=== PATIENT | male | born 1965 | race Caucasian/White ===

== ENCOUNTER 2017-12-18 01:48 | Inpatient (IN) | payer MEDICARE, SELFPAY ==
[2017-12-18] VITALS (50 sets, daily range): BP systolic 85–164; BP diastolic 61–103; PULSE 86–109; RESP 14–28; TEMP 36.1–37.6; O2SAT 89–100; BMI 22.8; BMI 21.7
[2017-12-18] MEDS: Naloxone 2 MG/2 ML Syringe IV (01:51)
--- NOTE | 2017-12-18 01:51 | EKG12_ITS ---
Test Reason : UNRESPONSIVE Blood Pressure : / mmHG Vent. Rate : 089 BPM Atrial Rate : 416 BPM P-R Int : 000 ms QRS Dur : 096 ms QT Int : 362 ms P-R-T Axes : 000 070 051 degrees QTc Int : 440 ms Normal sinus rhythm Nonspecific T wave abnormality Abnormal ECG Confirmed by AILEEN ESTRADA, OLIVIA ([id number]), brands editor MICHAEL SYLVESTER ([id number]) on 12/20/2017 1:39:31 PM Referred By: DR HUBER Confirmed By:OLIVIA GALLAGHER MD
--- NOTE | 2017-12-18 01:51 | CT_ITS ---
STUDY: CT BRAIN WITHOUT CONTRAST REASON FOR EXAM: Male, 52 years old. Unresponsive. RADIATION DOSAGE (If Supplied By Facility): CTDIvol = ( 44.99 ) mGy, DLP = ( 779.24 ) mGycm TECHNIQUE: Transaxial CT imaging of the brain was performed without administration of intravenous contrast material. Individualized dose optimization techniques were used for this CT. COMPARISON: None. FINDINGS: Normal soft tissue structures. Normal calvarium. Normal size ventricles and extra-axial spaces for the patient's age. Normal white matter tracts of the cerebral hemispheres. Normal basal ganglia and thalami. Normal brainstem. Normal cerebellum. There is no intracranial hemorrhage. There are no findings of an acute ischemic infarction. There is opacification of the right frontal sinus. Right frontal sinus díaz are thickened and sclerotic, consistent with chronic disease.. There is mild mucoperiosteal thickening in multiple ethmoid air cells bilaterally, also consistent with chronic disease. There is no evidence for acute sinusitis. CT/Brain/Head without Contrast IMPRESSION: Normal unenhanced CT scan of the brain. Chronic sinusitis. Electronically Signed: Bruce Lei MD at 4:26 EDT , Service support ,
[2017-12-18] MEDS: Succinylcholine Chloride 200 MG/10 ML Vial 120 MG IV (02:00)
[2017-12-18] MEDS: Etomidate 20 MG/10 ML Vial IV (02:00)
--- NOTE | 2017-12-18 02:25 | RAD_ITS ---
STUDY: X-RAY CHEST REASON FOR EXAM: Male, 52 years old. Patient was found unresponsive. Low respirations. TECHNIQUE: 2 AP portable views of the chest were obtained. COMPARISON: None. FINDINGS: Endotracheal tube tip is 5.1 cm above the lavonne. Nasogastric tube extends at least as far as the body the stomach. There is no demonstrated pneumothorax. There is mild interstitial prominence in the upper lung bustos which is probably chronic. There is no demonstrated focal pulmonary infiltrate. There is no demonstrated pleural abnormality. Normal size heart. Normal mediastinum and anderson. Normal visualized pulmonary arteries. Normal visualized aortic arch and descending thoracic aorta. There are diffuse degenerative changes of the visualized thoracic spine. Normal visualized ribs, clavicles, and shoulders. There is no demonstrated abnormality of the visualized soft tissue structures of the upper abdomen. RAD/Chest 1 View (Portable) IMPRESSION: Tubes are in adequate position. Mild interstitial prominence in the upper lung bustos, probably chronic. No demonstrated focal pulmonary infiltrate. Electronically Signed: Bruce Lei MD at 3:39 EDT , Service support ,
[2017-12-18] MEDS: Ketamine HCl 500 MG/5 ML Vial 150 MG IV (02:28)
[2017-12-18 02:33] LABS: Bacteria 0 SEEN /hpf (None Seen); Squamous Epithelial Cells - UA 0 SEEN /hpf (0-5)
[2017-12-18 02:37] LABS: Color, Urine Yellow (Yellow); Glucose, Dipstick Normal (Normal); Ketone-Dipstick Negative (Negative); Leukocyte Esterase-Dipstick 100 /ul (Negative); Nitrite-Dipstick Negative (Negative); Occult Blood-Urine 10 /ul (Negative); Protein-Dipstick 15 mg/dl (Negative); Specific Gravity, Urine 1.025 (1.002-1.030); Urine Bilirubin Dipstick Negative (Negative); Urine Clarity Sl. Cloudy (Clear); Urine Urobilinogen 4 mg/dl (Normal)
[2017-12-18] MEDS: Ipratropium/Albuterol Sulfate 3 ML AMPUL.NEB INHALATION ×6 (02:37→22:38)
[2017-12-18] MEDS: 0.9% Normal Saline 1,000 ML 1000 ML IV (02:40)
[2017-12-18 02:41] LABS: Absolute Lymphocyte Count 7.18 X10^3/ul (0.83-4.51); Absolute Neutrophil Count 3.6 X10^3/uL (2.0-7.7); Basophil# 0.06 X10^3/uL; Basophil% 0.5 % (0-1); Differential Indicated SCAN CRITERIA MET; Eosinophil# 0.79 X10^3/uL; Eosinophils% 6.1 % (0-5); Hematocrit 43.6 % (40-54); Hemoglobin 14.7 g/dl (13.0-16.5); Lymphocyte # 7.18 X10^3/ul (4.0); Lymphocyte % 55.4 % (19-41); Mean Corp Hgb Conc 33.7 g/gl (32-36); Mean Corpuscular Hgb 33.4 pg (27.0-32.0); Mean Corpuscular Volume 99.1 fL (80-94); Mean Platelet Vol. 10.9 fl (6.2-12.0); Monocyte# 1.25 X10^3/uL; Monocyte% 9.7 % (0-10); Neutrophil # 3.63 X10^3/uL (2.7-7.7); POSITIVE COUNT NO; POSITIVE DIFFERENTIAL YES; POSITIVE MORPHOLOGY NO; Platelet Count 244 K/mm3 (150-450); RBC Distribution Width CV 13.1 % (11.6-14.6); RBC Distribution Width SD 48.1 fl (35.1-43.9)
[2017-12-18 02:46] LABS: Vista UDS pH Range 6
[2017-12-18 02:49] LABS: Mucous, Urine 1+ /hpf (<or=2+); Red Blood Cells-Urine 0-5 SEEN /hpf (0-5); White Blood Cells 5-10 SEEN /hpf (0-5)
[2017-12-18 02:50] LABS: AST(SGOT) 41 U/L (15-37); Alanine Aminotransfer ALT/SGPT 29 U/L (16-61); Albumin, Serum 3.4 g/dL (3.2-5.0); Alkaline Phosphatase 93 U/L (45-117); Anion Gap 21 (5-15); BUN 11 mg/dL (7-18); BUN/Creat Ratio 7.6 RATIO (10-20); Calcium,Total 8.9 mg/dL (8.5-10.1); Chloride 104 mmol/L (98-107); Creatinine, Serum 1.45 mg/dL (0.70-1.30); EST Glomerular Filtration Rate 54 mL/min (>60); Est Glom Filt Rate - Afr Amer 65 mL/min (>60); Estimated Creatinine Clearance 59.64 ml/min; Globulin 3.5 g/dL (2.2-4.2); Glucose 209 mg/dL (74-106); Protein, Total 6.9 g/dL (6.4-8.2); Sodium Level 142 mmol/L (136-145)
[2017-12-18] MEDS: Albuterol 2.5 MG/3 ML VIAL.NEB. INHALATION ×5 (03:00→06:52)
[2017-12-18 03:02] LABS: Amphetamine Urine VISTA POSITIVE (<1000 ng/mL); Barbiturate Urine VISTA NEGATIVE (< 200 ng/mL); Benzodiazepine Urine VISTA NEGATIVE (< 200 ng/mL); Cocaine Urine VISTA NEGATIVE (< 300 ng/mL); Ecstacy Urine VISTA POSITIVE (< 500 ng/mL); Methadone Urine VISTA NEGATIVE (< 300 ng/mL); PCP Urine VISTA NEGATIVE (< 25 ng/mL); THC Urine VISTA POSITIVE (< 50 ng/mL)
[2017-12-18 03:10] LABS: Alcohol, Blood (Medical)-Serum < 3.0 mg/dL
[2017-12-18] MEDS: Ketamine HCl 500 MG/5 ML Vial 72 MG IV (03:12)
[2017-12-18] MEDS: 0.9% Normal Saline 1,000 ML 999 ML IV ×2 (03:12→03:15)
[2017-12-18 03:14] LABS: Differential Comment SCANNED; Reactive Lymphocyte 2+
--- NOTE | 2017-12-18 03:17 | HP.PCM_ITS ---
Problem List (1) PEA (Pulseless electrical activity) Status: Acute History of Present Illness Date of Admission: 12/18/17 Chief Complaint: PEA The patient is a 52 year old male w/ unknown history is admitted for PEA. Pt unable to provide history. History is taken from report. He went to his neighbor complaining that he was SOB. Neighbor called paramedics and when paramedics arrived, he was in severe SOB with low respirate rate and bradycardia noted. When he arrived, he was given narcan and he became combative. ED physician attempted to intubate and he went into PEA. 3 dose of epinephrine and 2 dose of bicarb given. His SBP was in the 160s. Past Medical History Allergies Unable to Assess Allergy (Verified 12/18/17 02:42) Home Medications: Ambulatory Orders Medication Instructions Recorded Unobtainable [Unobtainable] 12/18/17 Smoking Status: Unknown if ever smoked Review of Systems Unable to obtain accurate/complete ROS d/t: Unable to obtain secondary to PEA VTE Information - Inpt Only VTE Present on Admission: No VTE Mechan Device Prophylaxis: SCD's VTE Pharm Prophylaxis ordered?: Yes Patient Problems: Active and Suspected Problems PEA (Pulseless electrical activity) (Acute) - Physical Exam General: - - Nonresponsive. HEENT: Atraumatic, Normocephalic, Sluggish Pupils - Nonreactive left pupil. Neck: Supple, No JVD, Negative Carotid Bruits Lungs: Diminished, Rales, Wheezes Cardiovascular: Regular rate, Tachycardic Abdomen: Bowel Sounds Present, Soft Extremities: No edema, Capillary Refill Less than 3 Seconds Skin: No rashes, No breakdown Musculoskeletal: No Tenderness to Palpation of Joints or Extremities Neurological: - - Nonreponsive, does not withdrawal to pain. Psych/Mental Status: Normal Affect, Appropriate Vital Signs Temp Pulse Resp BP Pulse Ox 98.7 F 103 H 15 164/87 H 100 12/18/17 02:05 12/18/17 02:50 12/18/17 02:50 12/18/17 02:50 12/18/17 02:50 Oxygen Delivery Method Mechanical Ventilator Weight: 72.4 kg Body Mass Index (BMI) 22.8 Laboratory Tests Past 24 Hrs 12/18/17 12/18/17 12/18/17 02:20 02:20 02:20 WBC 13.0 H RBC 4.40 L Hgb 14.7 Hct 43.6 MCV 99.1 H MCH 33.4 H MCHC 33.7 RDW 13.1 RDW Differential 48.1 H Plt Count 244 MPV 10.9 Immature Gran % (Auto) 0.300 Neut % (Auto) 28.0 L Lymph % (Auto) 55.4 H [place] % (Auto) 9.7 Eos % (Auto) 6.1 H Baso % (Auto) 0.5 Absolute Neuts (auto) 3.6 Absolute Lymphs (auto) 7.18 H Total Counted Pending Sodium 142 Potassium 4.0 Chloride 104 Carbon Dioxide 17.0 L Anion Gap 21 H BUN 11 Creatinine 1.45 H Estim Creat Clear Calc 59.64 Est GFR (MDRD) Af Amer 65 Est GFR (MDRD) Non-Af 54 L BUN/Creatinine Ratio 7.6 L Glucose 209 H Lactic Acid Calcium 8.9 Total Bilirubin 0.60 AST 41 H ALT 29 Alkaline Phosphatase 93 Total Protein 6.9 Albumin 3.4 Globulin 3.5 Albumin/Globulin Ratio 1.0 Urine Color Urine Clarity Urine pH Ur Specific [place] Urine Protein Urine Glucose (UA) Urine Ketones Urine Occult Blood Urine Nitrite Urine Bilirubin Urine Urobilinogen Ur Leukocyte Esterase Urine RBC Urine WBC Ur Squamous Epith Cells Urine Bacteria Urine Mucus Urine Opiates Screen Urine Methadone Screen Ur Barbiturates Screen Ur Phencyclidine Scrn Ur Amphetamines Screen U Methamphetamin-MDMA U Benzodiazepines Scrn Urine Cocaine Screen U Cannabinoids Screen Ur Drug Screen Comment Ethyl Alcohol Pending 12/18/17 12/18/17 12/18/17 02:20 02:20 02:20 WBC RBC Hgb Hct MCV MCH MCHC RDW RDW Differential Plt Count MPV Immature Gran % (Auto) Neut % (Auto) Lymph % (Auto) [place] % (Auto) Eos % (Auto) Baso % (Auto) Absolute Neuts (auto) Absolute Lymphs (auto) Total Counted Sodium Potassium Chloride Carbon Dioxide Anion Gap BUN Creatinine Estim Creat Clear Calc Est GFR (MDRD) Af Amer Est GFR (MDRD) Non-Af BUN/Creatinine Ratio Glucose Lactic Acid Pending Calcium Total Bilirubin AST ALT Alkaline Phosphatase Total Protein Albumin Globulin Albumin/Globulin Ratio Urine Color Yellow Urine Clarity Sl. Cloudy Urine pH 5.0 Ur Specific [place] 1.025 Urine Protein 15 H Urine Glucose (UA) Normal Urine Ketones Negative Urine Occult Blood 10 H Urine Nitrite Negative Urine Bilirubin Negative Urine Urobilinogen 4 H Ur Leukocyte Esterase 100 H Urine RBC 0-5 SEEN Urine WBC 5-10 SEEN Ur Squamous Epith Cells 0 SEEN Urine Bacteria 0 SEEN Urine Mucus 1+ Urine Opiates Screen NEGATIVE Urine Methadone Screen NEGATIVE Ur Barbiturates Screen NEGATIVE Ur Phencyclidine Scrn NEGATIVE Ur Amphetamines Screen POSITIVE H U Methamphetamin-MDMA POSITIVE H U Benzodiazepines Scrn NEGATIVE Urine Cocaine Screen NEGATIVE U Cannabinoids Screen POSITIVE H Ur Drug Screen Comment Ethyl Alcohol Assessment/Plan All Active Problems PEA (Pulseless electrical activity) (Acute) 52 year old male w/ unknown history is admitted for PEA. 1) PEA: Probably secondary to hypoxia secondary to supposed respiratory drive secondary to probably drug overdose. Utox pending. C/w vent support. Consulted pulmonary. 2) Alter mental status: CT head pending. Will need to reassess neuro status daily given PEA. Supportive care. 3) Acute respiratory failure: C/w vent support. Probably secondary to drug overdose. Chest xray is unremarkable. Monitor. 4) Prophylaxis: SCD / heparin.
[2017-12-18 03:21] LABS: Allen Test POS; Base Excess -14 mmol/L (-2 to +2); Bicarbonate 19.2 mmol/L (22-26); Blood Gas Specimen Type ART; FI02 50; Mode A-C; O2 Delivery Device Vent; PEEP 5; PO2 157 mmHG (75-100); RR 16; SITE L Radial; SO2 97 % (95-99); Time Given 305; Total Carbon Dioxide 22 mmol/L; Vt 450; pCO2 106.7 mmHg (35-45); pH 6.86 (7.35-7.45)
[2017-12-18] MEDS: LORazepam 2 MG/ML Syringe IV (03:29)
[2017-12-18] MEDS: Vecuronium Bromide 10 MG/10 ML Vial IV (03:30)
[2017-12-18 03:31] LABS: International Normalized Ratio 1.4; Prothrombin Time (Protime)PT. 17.3 SECONDS (11.7-14.9)
[2017-12-18 03:32] LABS: Partial Thromboplast Time 31.3 Seconds (24.1-36.2)
--- NOTE | 2017-12-18 03:50 | NURSING ---
pt put in violent restraints at 01:50 due to his violent and combative behavior after the narcan. the pt was then put in soft restraints at 02:10 because he was mechanically vented. see code documentation for further information.
--- NOTE | 2017-12-18 04:36 | ED.DCSUM_ITS ---
- ER Visit Summary Date of Service: 12/18/17 Chief Complaint: Unresponsive History of Present Illness: The patient is a 52 M that I do not have any medical history on. Neighbor presents stating that the patient came over and knocked on his door and complained of being short of breath. He called EMS. EMS reports that they were told he had not been breathing for approximately 5 minutes before they were called. When they arrived he was laying on the back patio with a pulse of approximately 20 and respiratory rate of 2. They report that his pulse decreased to 6-10. They placed him on oxygen and gave him an aerosol and his heart rate had increased into the 100s. He remained unresponsive. Physical Examination: Upon arrival to the emergency department the patient is unresponsive with a blood pressure of 90/74, heart rate of 104, 91% on bag valve mask. Temperature is 98.7. He has agonal respirations. Head: Atraumatic. Pupils are small but not pinpoint. Cardiovascular: Tachycardia with no murmur. He has a strong femoral pulse. Respiratory: Agonal respirations with no gag reflex. Abdomen: Soft and nondistended. Skin: No rash. Cyanosis. Test Results: EKG is sinus at 89 with no ischemic changes. Troponin is negative. Lactic acid is 14. CBC is more for a white count of 13.0, segmented neutrophils of 28, lymphocytes of 5, eosinophils of 6. Chem-7 is marked for his a CO2 of 17, creatinine 1.45, glucose of 209. LFTs marked for an AST 41. INR is 1.4. PTT is 31.3. Tox screen shows methamphetamine, amphetamine, and marijuana. Alcohol is negative. UA shows 5-10 white blood cells without bacteria. ABG shows a pH is 6.86 with a PCO2 of 107, 07/07/1958, bicarb of 19.2. Chest x-ray shows the ETT to be approximately 5 cm above the lavonne. The OG is in the stomach. He has chronic changes. There is no pneumothorax or infiltrate. CT brain shows no acute disease and chronic sinusitis. Emergency Department Course and Treatment: With report of a low respiratory rate and small pupils patient was given 2 mg of Narcan IV. He did become more responsive following this, but became very combative. His lungs were tight with expiratory wheezes. We attempted to give aerosols and he would not allow this. He would not leave the oxygen on. Patient was given etomidate and succinylcholine so that further treatment could be undertaken. At this time we were unable to get a pulse ox. Initial attempt at intubation showed vomitus in the posterior pharynx and a great deal of secretions. I was unable to visualize the cords, a blind intubation was attempted and resulted in esophageal intubation. This was recognized the tube was removed. The patient was bagged. Second attempt resulted in endotracheal intubation without difficulty. Patient had a brief episode of PEA in the emergency department that required 1 dose of epinephrine and one round of chest compressions. Following intubation the patient was given multiple albuterol aerosols. He was given Solu-Medrol IV. When the ABG returned it was found that there was a leak in the tubing between the ventilator and the patient. This was repaired. Patient is placed on a continuous CO2 monitor and his CO2 is down to 52. Due to the concern of the possibility of aspiration patient was given a dose of Zosyn in the emergency department. Treatment Plan: The patient was discussed with Dr. Nice and will be admitted to the hospital for further evaluation and treatment. Disposition: Admitted in critical condition. Impression: 1. Acute respiratory failure. 2. Bronchospasm. 3. Hypoxia. 4. PEA. 5. CPR, unsuccessful. 6. Lactic acidosis. 7. Polysubstance abuse. 8. Intubation by ED physician. 9. Critical care time 60 minutes. This note was generated with [employer] dictation software. It may contain incorrect words, spelling, and punctuation that were not noted in review of the chart prior to signing ED Disposition - Plan for ED Patient: Chief Complaint: Unresponsive
[2017-12-18] MEDS: MethylPREDNISolone 125 MG/2 ML Vial IV (04:50)
[2017-12-18 04:56] LABS: Allen Test POS; Base Excess -6 mmol/L (-2 to +2); Bicarbonate 24.4 mmol/L (22-26); Blood Gas Specimen Type ART; FI02 40; Mode A-C; O2 Delivery Device Vent; PEEP 5; PO2 78 mmHG (75-100); RR 16; SITE R Radial; SO2 87 % (95-99); Time Given 440; Total Carbon Dioxide 27 mmol/L; Vt 450; pCO2 88.4 mmHg (35-45); pH 7.05 (7.35-7.45)
[2017-12-18] MEDS: Propofol 10MG/Ml 1,000 MG/100 ML Bottle 2.172 MG CONT INF ×2 (06:04→15:54)
[2017-12-18] MEDS: Heparin Injection (Vial) 5,000 UNIT/ML VIAL 5000 UNIT SC ×3 (06:08→21:50)
[2017-12-18] MEDS: 0.9% NaCl Peripheral Flush Adult/Peds IV ×6 (06:18→22:23)
[2017-12-18 06:29] LABS: Hematocrit 46.4 % (40-54); Hemoglobin 15.6 g/dl (13.0-16.5); Mean Corp Hgb Conc 33.6 g/gl (32-36); Mean Corpuscular Hgb 32.6 pg (27.0-32.0); Mean Corpuscular Volume 96.9 fL (80-94); Mean Platelet Vol. 10.1 fl (6.2-12.0); Platelet Count 249 K/mm3 (150-450); RBC Distribution Width CV 13.5 % (11.6-14.6); RBC Distribution Width SD 47.2 fl (35.1-43.9); Red Blood Count 4.79 M/mm3 (4.6-6.2); White Blood Count 12.7 K/mm3 (4.4-11.0)
[2017-12-18 06:30] LABS: Reflex Lactate? Y
[2017-12-18 06:37] LABS: Scan Indicated on CBC? Y/N NO
[2017-12-18 06:50] LABS: Anion Gap 6 (5-15); BUN 14 mg/dL (7-18); BUN/Creat Ratio 10.4 RATIO (10-20); Calcium,Total 7.6 mg/dL (8.5-10.1); Chloride 110 mmol/L (98-107); Creatinine, Serum 1.35 mg/dL (0.70-1.30); EST Glomerular Filtration Rate 58 mL/min (>60); Est Glom Filt Rate - Afr Amer 71 mL/min (>60); Glucose 113 mg/dL (74-106); Potassium 4.3 mmol/L (3.5-5.1); Sodium Level 143 mmol/L (136-145)
[2017-12-18 06:57] LABS: Triglycerides 60 mg/dL
[2017-12-18 07:01] LABS: Lactic Acid 0.8 mmol/L (0.4-2.0)
[2017-12-18 07:03] LABS: CPK Total, Creatine Kinase 930 U/L (39-308)
[2017-12-18 07:17] LABS: Probe Check PASS
[2017-12-18 07:19] LABS: M R Staph aureus DNA By PCR POSITIVE (Negative)
--- NOTE | 2017-12-18 07:26 | PCM.PN.HOSP ---
Patient Problems: Active and Suspected Problems PEA (Pulseless electrical activity) (Acute) Acute and chronic respiratory failure with hypoxia (Acute) Subjective: Patient was intubated, started on mechanical ventilation. He remains on mechanical ventilation. Vitals/I&O's: Vital Signs Temp Pulse Resp BP Pulse Ox 97.0 F L 93 16 118/88 H 99 12/18/17 05:50 12/18/17 07:00 12/18/17 07:00 12/18/17 07:00 12/18/17 07:00 Oxygen Delivery Method Mechanical Ventilator Weight: 68.6 kg Body Mass Index (BMI) 21.7 Intake and Output for Last 24 Hours 12/16/17 12/17/17 12/18/17 23:59 23:59 23:59 Intake Total 3017 / 3017 Output Total 400 / 400 Balance 2617 / 2617 General: Alert, Lethargic - Intubated HEENT: Atraumatic, PERRLA, EOMI, Normocephalic Oral: Dry Mucosa Neck: Supple Lungs: Clear to auscultation, Normal air movement Cardiovascular: Regular rate, Regular Rhythm, Normal S1, Normal S2, No murmurs Abdomen: Bowel Sounds Present, Soft, Non Tender, Non-Distended, No Hepato-splenomegaly Extremities: No edema Skin: No rashes, - - Tattoes on skin Musculoskeletal: No Tenderness to Palpation of Joints or Extremities Lymphatic: No Cervical, Supraclavicular, or Inguinal Adenopathy Neurological: Cranial nerves II-XII grossly intact Psych/Mental Status: Normal Affect, Appropriate Laboratory Results 12/18/17 03:11: Specimen Type ART, Sample Site L Radial, pH 6.86 L*, Bicarbonate Actual 19.2 L, POC Total CO2 22, Base Excess -14 L, O2 Saturation 97, O2 % 50, ABG pCO2 106.7 H*, ABG pO2 157 H, Samuel Test POS, Respiration Rate 16, O2 Delivery Device Vent, Vent Mode A-C, Tidal Volume 450, POC PEEP 5, Blood Gas Notified Whom ED , Blood Gas Notified Time 305 12/18/17 04:47: Specimen Type ART, Sample Site R Radial, pH 7.05 L*, Bicarbonate Actual 24.4, POC Total CO2 27, Base Excess -6 L, O2 Saturation 87 L, O2 % 40, ABG pCO2 88.4 H*, ABG pO2 78, Samuel Test POS, Respiration Rate 16, O2 Delivery Device Vent, Minute Volume 6.00, Vent Mode A-C, Tidal Volume 450, POC PEEP 5, Blood Gas Notified Whom ED , Blood Gas Notified Time 440 12/18/17 05:30: MRSA (PCR) POSITIVE H 12/18/17 06:15: WBC 12.7 H, RBC 4.79, Hgb 15.6, Hct 46.4, MCV 96.9 H, MCH 32.6 H, MCHC 33.6, RDW 13.5, RDW Differential 47.2 H, Plt Count 249, MPV 10.1 12/18/17 06:15: Sodium 143, Potassium 4.3, Chloride 110 H, Carbon Dioxide 27.0, Anion Gap 6, BUN 14, Creatinine 1.35 H, Estim Creat Clear Calc 60.70, Est GFR (MDRD) Af Amer 71, Est GFR (MDRD) Non-Af 58 L, BUN/Creatinine Ratio 10.4, Glucose 113 H, Calcium 7.6 L 12/18/17 06:15: Lactic Acid Cancelled 12/18/17 06:15: Troponin I 0.027, Triglycerides 60 12/18/17 06:15: Total Creatine Kinase 930 H 12/18/17 06:15: Lactic Acid 0.8 Current Medications Albuterol Sulfate (Ventolin Aerosols) 2.5 mg INHALATION Q2H PRN PRN PRN Reason: WHEEZING Last Admin: 12/18/17 06:52 Dose: 2.5 mg Albuterol/Ipratropium (Duoneb) 3 ml INHALATION Q4H.RT [facility] Last Admin: 12/18/17 06:00 Dose: 3 ml Chlorhexidine Gluconate () 15 ml PO BID [facility] Chlorhexidine Gluconate () 1 each TOPICAL DAILY [facility] Famotidine (Pepcid) 20 mg PO BID [facility] Guaifenesin (Robitussin) 10 ml GT Q4 [facility] Heparin Sodium (Porcine) (Heparin Na) 5,000 unit SC Q8 [facility] Last Admin: 12/18/17 06:08 Dose: 5,000 units Fentanyl () 100 mls @ 2.5 mls/hr IV .Q40H [facility] Last Admin: 12/18/17 03:37 Dose: 2.5 mls/hr Propofol (Diprivan) 1,000 mg in 100 mls @ 2.172 mls/hr CONT INF .Q12H [facility]; 5 MCG/KG/MIN PRN Reason: Protocol Last Admin: 12/18/17 06:04 Dose: 2.172 mls/hr Sodium Chloride () 250 mls @ 15 mls/hr IV .[id number] PRN PRN Reason: SALINE FLUSH Piperacillin Sod/Tazobactam Sod (Zosyn) 3.375 gm in 50 mls @ 12.5 mls/hr IV Q8 [facility] Vancomycin HCl (Vancomycin) 1,000 mg in 200 mls @ 200 mls/hr IV Q24H [facility] Magnesium Hydroxide (Milk Of Magnesia) 30 ml PO DAILY PRN PRN PRN Reason: Constipation Methylprednisolone (Solu-Medrol) 40 mg IV Q6 [facility] Sodium Chloride () 5 - 30 ml IV UD PRN PRN Reason: SALINE FLUSH Last Admin: 12/18/17 06:18 Dose: 10 ml Medical Necessity - Tobacco Use Smoking Status: Unknown if ever smoked Assessment/Plan All Active Problems PEA (Pulseless electrical activity) (Acute) Acute and chronic respiratory failure with hypoxia (Acute) 52-year-old male with no known past medical history admitted on 12/18/17 with unresponsiveness. According to the history given by the ED, the EMS was called by a neighbor when the patient had come to knock on the door and complained of feeling short of breath. It is reported that he was not breathing for approximately 5 minutes before they were called. They had found him lying on the back patio with a pulse of 20 and respiratory rate of 2. He was started on oxygen and given a breathing treatment and his heart rate improved in the 100s. He still remained unresponsive. Blood pressure on arrival to the ED was 90/74, heart rate is 104, temperature 98.7, he was saturating 91% on bag valve mask. Physical exam was significant for pinpoint pupils, no gag reflex,agonal respirations. 1. Acute hypoxic/Hypercapneic respiratory failure, status post intubation for airway protection, remains on mechanical ventilator, public address system operator following, continue on fentanyl and propofol, further recommendations per public address system operator. 2. PE secondary to acute hypoxemia, status post CPR, normal sinus rhythm 3. Altered mental status, likely related to polysubstance abuse/acute hypoxia, CT scan of the brain shows no acute abnormalities, status post intubation. 4. ALICE likely prerenal, on IV fluids, will trend BMP 5. Polysubstance use, urine tox is positive for amphetamine, methamphetamine, and cannabinoids 6. Aspiration pneumonitis, patient was said to have vomited during intubation, started on Zosyn, will continue and trend CBCD, repeat x-ray in a.m. 7. Elevated lactic acid secondary to hypoxia, resolved 8. Slight elevation of troponins likely secondary to demand ischemia 9. History of asthma, on IV Solu-Medrol and breathing treatments 10. DVT PPx- Heparin SC Code Visit Inpatient E&M: 36490 Subs Hosp L3
--- NOTE | 2017-12-18 07:31 | PCM.CON.CC ---
Problem List (1) Acute and chronic respiratory failure with hypoxia Status: Acute (2) PEA (Pulseless electrical activity) Status: Acute Reason for Consult Date of Consultation: 12/18/17 Reason for Consultation: Acute respiratory failure History of Present Illness: The patient is a 52 year old M, with unknown history, who presented to [facility] on 12/18/2017 after becoming unresponsive at a neighbor's house. Patient had reportedly knocked on the door and complained of shortness of breath. EMS was called, but by their arrival patient was unresponsive. Patient reportedly had a heart rate in the 20s and a respiratory rate of 2. Patient was placed on supplemental oxygen with response of heart rate. On arrival to the emergency room, patient's blood pressure was 90/74 and 91% with bag mask ventilation. Patient was noted to be cyanotic. Patient was initially given 2 mg of Narcan and became more responsive and then combative. Upon reevaluation, patient was unresponsive. Patient was given rapid sequence intubation, but significant secretions limited visibility. Patient was then found going to PEA arrest. Patient was then successfully intubated with resolution of spontaneous rhythm and blood pressure. Patient was admitted to the intensive care unit for further monitoring. On arrival to the intensive care unit, patient's peak airway pressures were in the high 50s. Patient was given aerosol therapy and suctioned with some improvement. Patient continues to wheeze. Patient was given vecuronium along with multiple other sedating medications while in the ER and is unable to provide any further information at this time. Review of the medical record shows approximately 10 total minutes of significant hypoxia or PEA arrest. Reportedly friends that have brought in the patient have left the hospital with no further information. Past Medical History Allergies Unable to Assess Allergy (Verified 12/18/17 02:42) Home Medications: Ambulatory Orders Medication Instructions Recorded Unobtainable [Unobtainable] 12/18/17 Smoking Status: Unknown if ever smoked Review of Systems Unable to obtain accurate/complete ROS d/t: Intubated, sedated and paralyzed Patient Problems: Active and Suspected Problems PEA (Pulseless electrical activity) (Acute) Acute and chronic respiratory failure with hypoxia (Acute) Objective: Chest x-ray was personally reviewed and shows supportive devices in appropriate position. No focal infiltrate is appreciated. - Physical Exam General: - - Intubated, sedated and paralyzed. Some spontaneous respiratory effort is starting to be noted HEENT: Atraumatic, Normocephalic, - - Pupils are dilated and minimally responsive Oral: No Gingival or Mucosal Lesions/ Ulcerations, Dry Mucosa, - - Poor dentition Neck: Supple, No JVD, No Nodes, Trachea Midline Lungs: No rhonchi, No rales, Wheezes - Bilaterally, - - Symmetric expansion. No dullness to percussion. Cardiovascular: Normal S1, Normal S2, No murmurs, No rub noted, No Gallop, Tachycardic Abdomen: Bowel Sounds Present, Soft, Non Tender, Non-Distended Extremities: No cyanosis, No edema, Capillary Refill Less than 3 Seconds, Clubbing Skin: - - Multiple tattoos. No track choudhury appreciated. Musculoskeletal: No Tenderness to Palpation of Joints or Extremities, No Muscle Wasting Lymphatic: No Cervical, Supraclavicular, or Inguinal Adenopathy Neurological: - - Patient currently paralyzed with vecuronium. Psych/Mental Status: Flat Affect Vital Signs Temp Pulse Resp BP Pulse Ox 36.1 C L 93 16 118/88 H 99 12/18/17 05:50 12/18/17 07:00 12/18/17 07:00 12/18/17 07:00 12/18/17 07:00 Oxygen Delivery Method Mechanical Ventilator Weight: 68.6 kg Body Mass Index (BMI) 21.7 Intake and Output for Last 24 Hours 12/16/17 12/17/17 12/18/17 23:59 23:59 23:59 Intake Total 3017 / 3017 Output Total 400 / 400 Balance 2617 / 2617 Laboratory Tests Past 24 Hrs 12/18/17 12/18/17 12/18/17 03:11 04:47 05:30 WBC RBC Hgb Hct MCV MCH MCHC RDW RDW Differential Plt Count MPV Specimen Type ART ART Sample Site L Radial R Radial pH 6.86 L* 7.05 L* Bicarbonate Actual 19.2 L 24.4 POC Total CO2 22 27 Base Excess -14 L -6 L O2 Saturation 97 87 L O2 % 50 40 ABG pCO2 106.7 H* 88.4 H* ABG pO2 157 H 78 Samuel Test POS POS Respiration Rate 16 16 O2 Delivery Device Vent Vent Minute Volume 6.00 Vent Mode A-C A-C Tidal Volume 450 450 POC PEEP 5 5 Blood Gas Notified Whom ED ED Blood Gas Notified Time 305 440 Sodium Potassium Chloride Carbon Dioxide Anion Gap BUN Creatinine Estim Creat Clear Calc Est GFR (MDRD) Af Amer Est GFR (MDRD) Non-Af BUN/Creatinine Ratio Glucose Lactic Acid Calcium Total Creatine Kinase Troponin I Triglycerides MRSA (PCR) POSITIVE H 12/18/17 12/18/17 12/18/17 06:15 06:15 06:15 WBC 12.7 H RBC 4.79 Hgb 15.6 Hct 46.4 MCV 96.9 H MCH 32.6 H MCHC 33.6 RDW 13.5 RDW Differential 47.2 H Plt Count 249 MPV 10.1 Specimen Type Sample Site pH Bicarbonate Actual POC Total CO2 Base Excess O2 Saturation O2 % ABG pCO2 ABG pO2 Samuel Test Respiration Rate O2 Delivery Device Minute Volume Vent Mode Tidal Volume POC PEEP Blood Gas Notified Whom Blood Gas Notified Time Sodium 143 Potassium 4.3 Chloride 110 H Carbon Dioxide 27.0 Anion Gap 6 BUN 14 Creatinine 1.35 H Estim Creat Clear Calc 60.70 Est GFR (MDRD) Af Amer 71 Est GFR (MDRD) Non-Af 58 L BUN/Creatinine Ratio 10.4 Glucose 113 H Lactic Acid Cancelled Calcium 7.6 L Total Creatine Kinase Troponin I Triglycerides MRSA (PCR) 12/18/17 12/18/17 12/18/17 06:15 06:15 06:15 WBC RBC Hgb Hct MCV MCH MCHC RDW RDW Differential Plt Count MPV Specimen Type Sample Site pH Bicarbonate Actual POC Total CO2 Base Excess O2 Saturation O2 % ABG pCO2 ABG pO2 Samuel Test Respiration Rate O2 Delivery Device Minute Volume Vent Mode Tidal Volume POC PEEP Blood Gas Notified Whom Blood Gas Notified Time Sodium Potassium Chloride Carbon Dioxide Anion Gap BUN Creatinine Estim Creat Clear Calc Est GFR (MDRD) Af Amer Est GFR (MDRD) Non-Af BUN/Creatinine Ratio Glucose Lactic Acid 0.8 Calcium Total Creatine Kinase 930 H Troponin I 0.027 Triglycerides 60 MRSA (PCR) Clinical Impression(s) from Imaging Studies Brain CT 12/18/17 01:51 IMPRESSION: Normal unenhanced CT scan of the brain. Chronic sinusitis. Electronically Signed: Bruce Lei MD at 4:26 EDT , Service support , Chest X-Ray 12/18/17 02:25 IMPRESSION: Tubes are in adequate position. Mild interstitial prominence in the upper lung bustos, probably chronic. No demonstrated focal pulmonary infiltrate. Electronically Signed: Bruce Lei MD at 3:39 EDT , Service support , Assessment/Plan Active and Suspected Problems PEA (Pulseless electrical activity) (Acute) Acute and chronic respiratory failure with hypoxia (Acute) RECOMMENDATIONS: 1. Empiric antibiotics for probable aspiration 2. Aggressive pulmonary toileting, aerosols and steroid therapy 3. Wean oxygen as tolerated 4. Aggressive sedation 5. Attempt to obtain further information IMPRESSIONS: 1. Acute combined respiratory failure Very little history is known at this time. Patient with significant acidosis on presentation along with an elevated INR. Patient does have an eosinophilia noted on differential. Unclear if patient has COPD versus asthma. Patient does have tobacco stained fingers, so smoking history is suspected. Patient will be placed on aggressive pulmonary toileting, aerosols and steroids. Continue to monitor peak airway pressures. 2. PEA arrest secondary to hypoxemia Patient with significant bradycardia and a documented round of CPR. Patient currently unable to be assessed neurologically secondary to the use of vecuronium. CT scan of the head showed some atrophy, but no obvious insults at this time. We will continue to monitor with serial neurologic exams as paralytic subsides. Will attempt to use deep sedation instead of paralysis. 3. Probable aspiration pneumonia Patient noted to have significant secretions at the vocal cords on presentation prior to intubation. Patient has tested positive for MRSA in the nares, so patient will be placed on vancomycin and Zosyn for now. These can be decreased as culture data becomes available. No obvious infiltrates at this time, but patient does appear to be somewhat dehydrated. Will repeat chest x-ray tomorrow to see if an infiltrate is noted. 4. Possible polysubstance abuse/lack of history Complicates care, management, recovery and prognosis. Patient's opiate screen was negative, but patient reportedly did respond to Narcan therapy. No history is available at this time. Will attempt to reach out to next of kin to provide more information. Patient will remain a full code for now given lack of information. TIME: 45 minutes critical care time spent addressing patient's acute combined respiratory failure, PEA arrest, probable aspiration, review of all data and collaboration with care team (6 AM to 7:45 AM) Code Visit [id number]: [id number] Critical care first hour
[2017-12-18] MEDS: 0.9% NaCl IVPB Med Flush (250 mL) 15 ML IV (09:23)
[2017-12-18] MEDS: CHLORHEXIDINE GLUC 2% CLOTH 1 EACH TOWELETTE TOPICAL (09:24)
[2017-12-18] MEDS: Vancomycin IV 1,000 MG/200 ML BAG 200 MG IV (09:24)
[2017-12-18] MEDS: Chlorhexidine 15 ML PO ×2 (09:24→21:49)
[2017-12-18] MEDS: guaiFENesin 10 ML UDC (200MG/10ML) GT ×4 (09:35→21:52)
[2017-12-18] MEDS: Famotidine 20 MG Tablet GT ×2 (09:35→21:51)
[2017-12-18] MEDS: Senna/Docusate Sodium 1 Tablet 2 TABLET GT ×2 (09:35→21:52)
[2017-12-18 09:46] LABS: Allen Test POS; Base Excess -7 mmol/L (-2 to +2); Bicarbonate 22.4 mmol/L (22-26); Blood Gas Specimen Type ART; FI02 50; Mode A-C; O2 Delivery Device Vent; PEEP 5; PO2 125 mmHG (75-100); RR 16; SITE R Radial; SO2 97 % (95-99); Time Given 938; Total Carbon Dioxide 25 mmol/L; Vt 450; pCO2 71.3 mmHg (35-45); pH 7.11 (7.35-7.45)
--- NOTE | 2017-12-18 10:20 | NURSING ---
Elysian given to Friend (contact lens edge buffer) Ho Nieto to lock up patient's house. Ho cheek cousinLinday was notified of hospitalization and will be coming shortly to visit.
--- NOTE | 2017-12-18 10:47 | NURSING ---
Cousin, Arturo Marshall here to visit. States he is the only family the patient has other than his mother who is in a detention and has severe dementia. Will add Arturo to demographics. Updated on events and current condition of patient. Arturo is aware that friend, Ho took keys home to lock up apartment.
--- NOTE | 2017-12-18 10:59 | PCM.RX.CS ---
Consult Pharmacy has been consulted to manage selected antiobiotic: Vancomycin Type of Consult: New start Suspected Infection: Pneumonia Labs: Sodium 143 mmol/L (136-145) 12/18/17 06:15 Potassium 4.3 mmol/L (3.5-5.1) 12/18/17 06:15 Chloride 110 mmol/L (98-107) H 12/18/17 06:15 Carbon Dioxide 27.0 mmol/L (21.0-32.0) 12/18/17 06:15 Anion Gap 6 (5-15) 12/18/17 06:15 BUN 14 mg/dL (7-18) 12/18/17 06:15 Creatinine 1.35 mg/dL (0.70-1.30) H 12/18/17 06:15 Est GFR (MDRD) Af Amer 71 mL/min (>60) 12/18/17 06:15 Est GFR (MDRD) Non-Af 58 mL/min (>60) L 12/18/17 06:15 BUN/Creatinine Ratio 10.4 RATIO (10-20) 12/18/17 06:15 Glucose 113 mg/dL (74-106) H 12/18/17 06:15 Weight used for dosin.6 kg Estimated Creatinine Clearance: 61 ML/HR Goal Trough: 15-20 mcg/mL Pharmacy Plan for Drug Dosing: Vancomycin 1gm iv loading dose (~15mg/kg) given 12.18.17 @0930. Cr 1.35 with Cr Cl 61 noted. Will follow with 750mg iv q12h and obtain vancomycin trough before 4th dose with goal of 15-20mcg/ml. Further dosing to be determined based on trough level and cultures. Pharmacy Service will continue to monitor and adjust dosing as required. Follow-Up Labs: Trough Vancomycin - 7 @2100
[2017-12-18 11:10] LABS: Allen Test POS; Base Excess -8 mmol/L (-2 to +2); Bicarbonate 21.5 mmol/L (22-26); Blood Gas Specimen Type ART; FI02 45; Mode A-C; O2 Delivery Device Vent; PEEP 5; PO2 108 mmHG (75-100); RR 18; SITE R Radial; SO2 96 % (95-99); Time Given 1054; Total Carbon Dioxide 23 mmol/L; Vt 500; pCO2 63.3 mmHg (35-45); pH 7.14 (7.35-7.45)
[2017-12-18] MEDS: Piperacil/Tazobactam 3.375 GM/50 ML ML IV ×2 (13:50→21:52)
[2017-12-18] MEDS: Vital AF 1.2 Cal Liquid 1,000 ML 30 ML GT (15:57)
[2017-12-18 20:41] LABS: Bedside Glucose 147 mg/dL (70-110)
[2017-12-19] VITALS (42 sets, daily range): BP systolic 92–167; BP diastolic 50–90; PULSE 58–94; RESP 16–24; TEMP 36.9–37.3; O2SAT 95–100; BMI 21.6
[2017-12-19] MEDS: 0.9% NaCl Peripheral Flush Adult/Peds IV ×7 (00:25→23:42)
[2017-12-19] MEDS: guaiFENesin 10 ML UDC (200MG/10ML) GT ×6 (02:31→21:09)
[2017-12-19] MEDS: CHLORHEXIDINE GLUC 2% CLOTH 1 EACH TOWELETTE TOPICAL (03:00)
[2017-12-19] MEDS: Ipratropium/Albuterol Sulfate 3 ML AMPUL.NEB INHALATION ×5 (03:23→23:17)
[2017-12-19 04:44] LABS: Absolute Lymphocyte Count 0.77 X10^3/ul (0.83-4.51); Absolute Neutrophil Count 15.8 X10^3/uL (2.0-7.7); Basophil# 0.01 X10^3/uL; Basophil% 0.1 % (0-1); Hematocrit 43.5 % (40-54); Hemoglobin 14.3 g/dl (13.0-16.5); Lymphocyte # 0.77 X10^3/ul (4.0); Lymphocyte % 4.4 % (19-41); Mean Corp Hgb Conc 32.9 g/gl (32-36); Mean Corpuscular Hgb 32.2 pg (27.0-32.0); Mean Platelet Vol. 10.1 fl (6.2-12.0); Monocyte% 5.1 % (0-10); Neutrophil # 15.84 X10^3/uL (2.7-7.7); Neutrophil % 90.2 % (47-70); Platelet Count 206 K/mm3 (150-450); RBC Distribution Width CV 13.6 % (11.6-14.6); RBC Distribution Width SD 48.1 fl (35.1-43.9); Red Blood Count 4.44 M/mm3 (4.6-6.2); White Blood Count 17.6 K/mm3 (4.4-11.0)
[2017-12-19] MEDS: Propofol 10MG/Ml 1,000 MG/100 ML Bottle 2.172 MG CONT INF ×2 (04:48→16:02)
[2017-12-19 04:49] LABS: POSITIVE COUNT NO; POSITIVE DIFFERENTIAL NO; POSITIVE MORPHOLOGY NO
[2017-12-19 05:33] LABS: ALB/GLOB Ratio 0.9 RATIO (0.9-2.4); AST(SGOT) 63 U/L (15-37); Alanine Aminotransfer ALT/SGPT 48 U/L (16-61); Albumin, Serum 3.2 g/dL (3.2-5.0); Alkaline Phosphatase 83 U/L (45-117); Anion Gap 11 (5-15); BUN 33 mg/dL (7-18); BUN/Creat Ratio 18.8 RATIO (10-20); CPK Total, Creatine Kinase 1254 U/L (39-308); Calcium,Total 8.4 mg/dL (8.5-10.1); Chloride 109 mmol/L (98-107); Creatinine, Serum 1.76 mg/dL (0.70-1.30); EST Glomerular Filtration Rate 43 mL/min (>60); Est Glom Filt Rate - Afr Amer 52 mL/min (>60); Estimated Creatinine Clearance 46.56 ml/min; Globulin 3.5 g/dL (2.2-4.2); Glucose 155 mg/dL (74-106); Magnesium 2.2 mg/dL (1.6-2.6); Phosphorus 4.1 mg/dL (2.5-4.9); Potassium 4.3 mmol/L (3.5-5.1); Protein, Total 6.7 g/dL (6.4-8.2); Sodium Level 143 mmol/L (136-145)
--- NOTE | 2017-12-19 05:55 | RAD_ITS ---
STUDY: X-RAY CHEST REASON FOR EXAM: Male, 52 years old. Shortness of breath. TECHNIQUE: AP portable chest. COMPARISON: December 18, 2017. FINDINGS: Endotracheal tube and nasogastric tube in expected locations. No pneumothorax. The lungs are clear and expanded. There is no demonstrated pleural abnormality. Improved lung aeration. Normal size heart. Normal mediastinum and anderson. Normal visualized pulmonary arteries. Normal visualized aortic arch and descending thoracic aorta. Normal visualized thoracic spine. Normal visualized ribs, clavicles, and shoulders. There is no demonstrated abnormality of the visualized soft tissue structures of the upper abdomen. RAD/Chest 1 View (Portable) IMPRESSION: No acute cardiopulmonary disease. Electronically Signed: Alejandro Stanton MD at 6:15 EDT , Service support ,
[2017-12-19] MEDS: Piperacil/Tazobactam 3.375 GM/50 ML ML IV ×3 (06:10→21:09)
[2017-12-19] MEDS: Heparin Injection (Vial) 5,000 UNIT/ML VIAL 5000 UNIT SC (06:12)
--- NOTE | 2017-12-19 06:27 | PN_ITS ---
Subjective: The patient was seen and examined at the bedside this morning. Events from the last 24 hours have been reviewed. The patient is currently afebrile, hemodynamically stable and maintaining appropriate oxygen saturations with an FiO2 requirement of 35%. Nursing staff reports copious sputum production overnight. The patient's sedation was interrupted for a prolonged period of time overnight. Nursing staff reports that the patient only became dyssynchronous with the vent and agitated upon suctioning. The patient was able to breathe spontaneously on CPAP mode of mechanical ventilation this morning. Objective: The patient's most recent lab work, culture data and imaging studies have all been personally reviewed. Blood and urine cultures are pending. Sputum culture ordered this morning is currently pending. CT head revealed chronic sinusitis. General: - - Intubated, sedated and mechanically ventilated. HEENT: Atraumatic, PERRLA, Normocephalic, Sluggish Pupils Oral: - - Endotracheal and OG tubes in place. Poor generalized dentition. Neck: Supple, No Nodes, Trachea Midline Lungs: No wheeze, No rales, Diminished, Rhonchi Cardiovascular: Regular rate, Regular Rhythm, Normal S1, Normal S2, No murmurs, No rub noted, No Gallop Abdomen: Bowel Sounds Present, Soft, Non Tender, - - Tolerating tube feeds currently Extremities: No clubbing, No cyanosis, No edema Skin: No breakdown, - - + Multiple tattoos Musculoskeletal: No Tenderness to Palpation of Joints or Extremities, No Muscle Wasting Lymphatic: No Cervical, Supraclavicular, or Inguinal Adenopathy Neurological: - - Currently sedated with a RASS of -2. Unable to perform full neurological evaluation due to use of sedatives. Vital Signs Temp Pulse Resp BP Pulse Ox 98.4 F 75 18 141/74 H 98 12/19/17 04:00 12/19/17 06:00 12/19/17 06:00 12/19/17 06:00 12/19/17 06:00 Oxygen Delivery Method Mechanical Ventilator Weight: 150 lb 5.684 oz Body Mass Index (BMI) 21.7 Intake and Output for Last 24 Hours 12/17/17 12/18/17 12/19/17 23:59 23:59 23:59 Intake Total 4623.5 / 4623.5 280 / 280 Output Total 1200 / 1200 Balance 3423.5 / 3423.5 280 / 280 Labs (Last 48 Hours) 12/18/17 12/18/17 12/18/17 03:11 04:47 05:30 WBC RBC Hgb Hct MCV MCH MCHC RDW RDW Differential Plt Count MPV Immature Gran % (Auto) Neut % (Auto) Lymph % (Auto) Mcdowell % (Auto) Eos % (Auto) Baso % (Auto) Absolute Neuts (auto) Absolute Lymphs (auto) Total Counted Specimen Type ART ART Sample Site L Radial R Radial pH 6.86 L* 7.05 L* Bicarbonate Actual 19.2 L 24.4 POC Total CO2 22 27 Base Excess -14 L -6 L O2 Saturation 97 87 L O2 % 50 40 ABG pCO2 106.7 H* 88.4 H* ABG pO2 157 H 78 Samuel Test POS POS Respiration Rate 16 16 O2 Delivery Device Vent Vent Minute Volume 6.00 Vent Mode A-C A-C Tidal Volume 450 450 POC PEEP 5 5 Blood Gas Notified Whom ED MD ED MD Blood Gas Notified Time 305 440 Sodium Potassium Chloride Carbon Dioxide Anion Gap BUN Creatinine Estim Creat Clear Calc Est GFR (MDRD) Af Amer Est GFR (MDRD) Non-Af BUN/Creatinine Ratio Glucose Lactic Acid Calcium Phosphorus Magnesium Total Bilirubin AST ALT Alkaline Phosphatase Total Creatine Kinase Troponin I Total Protein Albumin Globulin Albumin/Globulin Ratio Triglycerides MRSA (PCR) POSITIVE H POC Glucose 12/18/17 12/18/17 12/18/17 06:15 06:15 06:15 WBC 12.7 H RBC 4.79 Hgb 15.6 Hct 46.4 MCV 96.9 H MCH 32.6 H MCHC 33.6 RDW 13.5 RDW Differential 47.2 H Plt Count 249 MPV 10.1 Immature Gran % (Auto) Neut % (Auto) Lymph % (Auto) Mcdowell % (Auto) Eos % (Auto) Baso % (Auto) Absolute Neuts (auto) Absolute Lymphs (auto) Total Counted Specimen Type Sample Site pH Bicarbonate Actual POC Total CO2 Base Excess O2 Saturation O2 % ABG pCO2 ABG pO2 Samuel Test Respiration Rate O2 Delivery Device Minute Volume Vent Mode Tidal Volume POC PEEP Blood Gas Notified Whom Blood Gas Notified Time Sodium 143 Potassium 4.3 Chloride 110 H Carbon Dioxide 27.0 Anion Gap 6 BUN 14 Creatinine 1.35 H Estim Creat Clear Calc 60.70 Est GFR (MDRD) Af Amer 71 Est GFR (MDRD) Non-Af 58 L BUN/Creatinine Ratio 10.4 Glucose 113 H Lactic Acid Cancelled Calcium 7.6 L Phosphorus Magnesium Total Bilirubin AST ALT Alkaline Phosphatase Total Creatine Kinase Troponin I Total Protein Albumin Globulin Albumin/Globulin Ratio Triglycerides MRSA (PCR) POC Glucose 12/18/17 12/18/17 12/18/17 06:15 06:15 06:15 WBC RBC Hgb Hct MCV MCH MCHC RDW RDW Differential Plt Count MPV Immature Gran % (Auto) Neut % (Auto) Lymph % (Auto) Mcdowell % (Auto) Eos % (Auto) Baso % (Auto) Absolute Neuts (auto) Absolute Lymphs (auto) Total Counted Specimen Type Sample Site pH Bicarbonate Actual POC Total CO2 Base Excess O2 Saturation O2 % ABG pCO2 ABG pO2 Samuel Test Respiration Rate O2 Delivery Device Minute Volume Vent Mode Tidal Volume POC PEEP Blood Gas Notified Whom Blood Gas Notified Time Sodium Potassium Chloride Carbon Dioxide Anion Gap BUN Creatinine Estim Creat Clear Calc Est GFR (MDRD) Af Amer Est GFR (MDRD) Non-Af BUN/Creatinine Ratio Glucose Lactic Acid 0.8 Calcium Phosphorus Magnesium Total Bilirubin AST ALT Alkaline Phosphatase Total Creatine Kinase 930 H Troponin I 0.027 Total Protein Albumin Globulin Albumin/Globulin Ratio Triglycerides 60 MRSA (PCR) POC Glucose 12/18/17 12/18/17 12/18/17 09:39 09:40 10:55 WBC RBC Hgb Hct MCV MCH MCHC RDW RDW Differential Plt Count MPV Immature Gran % (Auto) Neut % (Auto) Lymph % (Auto) Mcdowell % (Auto) Eos % (Auto) Baso % (Auto) Absolute Neuts (auto) Absolute Lymphs (auto) Total Counted Specimen Type ART ART Sample Site R Radial R Radial pH 7.11 L* 7.14 L* Bicarbonate Actual 22.4 21.5 L POC Total CO2 25 23 Base Excess -7 L -8 L O2 Saturation 97 96 O2 % 50 45 ABG pCO2 71.3 H* 63.3 H ABG pO2 125 H 108 H Samuel Test POS POS Respiration Rate 16 18 O2 Delivery Device Vent Vent Minute Volume Vent Mode A-C A-C Tidal Volume 450 500 POC PEEP 5 5 Blood Gas Notified Whom ICU ICU Blood Gas Notified Time 938 1054 Sodium Potassium Chloride Carbon Dioxide Anion Gap BUN Creatinine Estim Creat Clear Calc Est GFR (MDRD) Af Amer Est GFR (MDRD) Non-Af BUN/Creatinine Ratio Glucose Lactic Acid Calcium Phosphorus Magnesium Total Bilirubin AST ALT Alkaline Phosphatase Total Creatine Kinase Troponin I 0.040 Total Protein Albumin Globulin Albumin/Globulin Ratio Triglycerides MRSA (PCR) POC Glucose 12/18/17 12/19/17 12/19/17 20:36 04:30 04:30 WBC 17.6 H RBC 4.44 L Hgb 14.3 Hct 43.5 MCV 98.0 H MCH 32.2 H MCHC 32.9 RDW 13.6 RDW Differential 48.1 H Plt Count 206 MPV 10.1 Immature Gran % (Auto) 0.200 Neut % (Auto) 90.2 H Lymph % (Auto) 4.4 L Mcdowell % (Auto) 5.1 Eos % (Auto) 0.0 Baso % (Auto) 0.1 Absolute Neuts (auto) 15.8 H Absolute Lymphs (auto) 0.77 L Total Counted Not Reportable Specimen Type Sample Site pH Bicarbonate Actual POC Total CO2 Base Excess O2 Saturation O2 % ABG pCO2 ABG pO2 Samuel Test Respiration Rate O2 Delivery Device Minute Volume Vent Mode Tidal Volume POC PEEP Blood Gas Notified Whom Blood Gas Notified Time Sodium 143 Potassium 4.3 Chloride 109 H Carbon Dioxide 23.0 Anion Gap 11 BUN 33 H Creatinine 1.76 H Estim Creat Clear Calc 46.56 Est GFR (MDRD) Af Amer 52 L Est GFR (MDRD) Non-Af 43 L BUN/Creatinine Ratio 18.8 Glucose 155 H Lactic Acid Calcium 8.4 L Phosphorus 4.1 Magnesium 2.2 Total Bilirubin 0.70 AST 63 H ALT 48 Alkaline Phosphatase 83 Total Creatine Kinase 1254 H Troponin I Total Protein 6.7 Albumin 3.2 Globulin 3.5 Albumin/Globulin Ratio 0.9 Triglycerides MRSA (PCR) POC Glucose 147 H Clinical Impression(s) from Imaging Studies Brain CT 12/18/17 01:51 IMPRESSION: Normal unenhanced CT scan of the brain. Chronic sinusitis. Electronically Signed: Bruce Lei MD at 4:26 EDT , Service support , Chest X-Ray 12/18/17 02:25 IMPRESSION: Tubes are in adequate position. Mild interstitial prominence in the upper lung bustos, probably chronic. No demonstrated focal pulmonary infiltrate. Electronically Signed: Bruce Lei MD at 3:39 EDT , Service support , Chest X-Ray 12/19/17 05:55 IMPRESSION: No acute cardiopulmonary disease. Electronically Signed: Alejandro Stanton MD at 6:15 EDT , Service support , Medical Necessity - Tobacco Use Smoking Status: Unknown if ever smoked Assessment/Plan All Active Problems PEA (Pulseless electrical activity) (Acute) Acute and chronic respiratory failure with hypoxia (Acute) RECOMMENDATIONS: 1. Obtain and send sputum for culture. In the interim, continue broad- spectrum antibiotics. 2. Continue scheduled bronchodilators and IV steroids 3. Continue tube feeds to goal. 4. Start sliding scale insulin coverage and initiate bowel regimen. 5. Continue subcutaneous heparin and Pepcid for prophylaxis. 6. Given clinical concern for VTE, obtain CTA chest. 7. Obtain repeat arterial blood gas 8. Obtain echocardiogram IMPRESSIONS: 1. Acute combined respiratory failure Very little history is known at this time. Patient with significant acidosis on presentation. The etiology for the patient's acute decompensation is a bit unclear at this time. Potential considerations include acute asthma/COPD decompensation versus acute venous thromboembolism. The patient does have a reported extensive smoking history. Airway pressures are not currently elevated. Continue scheduled bronchodilators, antibiotics and steroids. Obtain and send sputum for culture. We will plan to obtain CTA chest for evaluation of pulmonary embolism. Continuous heparin infusion will be started, pending further evaluation. Continue propofol and fentanyl for sedation. Maintain a RASS of -1 to 1. Plan for daily paired spontaneous awakening and breathing trials. Echocardiogram is pending. 2. PEA arrest secondary to hypoxemia Patient with significant bradycardia and a documented round of CPR. Patient currently unable to be assessed neurologically secondary to the use of sedatives. Once the patient has completed a CTA chest today, recommend holding sedatives to further evaluate the patient's baseline neurological function. However, as of this morning, he was able to breathe spontaneously on CPAP mode of mechanical ventilation. 3. Probable aspiration pneumonia Patient noted to have significant secretions at the vocal cords on presentation prior to intubation. Patient has tested positive for MRSA in the nares, so patient will be continued on vancomycin and Zosyn for now. It is also possible that the patient is expressing an acute episode of tracheobronchitis, given the lack of infiltrates noted on chest x-ray. Sputum will be obtained this morning and sent for culture. 4. Acute kidney injury Likely prerenal in etiology in the setting of cardiac arrest. The patient is currently hemodynamically stable without vasopressor support. However, supplemental IV fluids will be continued, given plans for contrast administration today. Continue to monitor urine output. No current indication for renal replacement therapy. 5. Possible polysubstance abuse/lack of history Complicates care, management, recovery and prognosis. Patient's opiate screen was negative, but patient reportedly did respond to Narcan therapy. No history is available at this time. Will attempt to reach out to next of kin to provide more information. Patient will remain a full code for now given lack of information. TIME: 45 minutes of critical care time, independent of procedures, was spent addressing the patient's acute combined respiratory failure, status post PEA cardiac arrest, possible aspiration pneumonia, acute kidney injury, review of all data and collaboration with the care team. ([id number]) Code Visit [id number]: [id number] Critical care first hour
--- NOTE | 2017-12-19 07:16 | CT_ITS ---
STUDY: CTA CHEST REASON FOR EXAM: Male, 52 years old. Possible pulmonary embolus. RADIATION DOSAGE (If Supplied By Facility): CTDIvol = ( 10.74 ) mGy, DLP = ( 316.80 ) mGycm TECHNIQUE: The examination was performed with the intravenous administration of 100 ml of Isovue 300 contrast material. Post-processing of the angiographic images was performed, with multiplanar reformation and 3D reconstruction. Individualized dose optimization techniques were used for this CT. COMPARISON: None. FINDINGS: An endotracheal tube is seen in situ as well as an orogastric tube. There are multiple small bilateral pulmonary emboli involving branches of both the upper and lower lobes. There is atherosclerotic calcification of the aortic arch with tortuosity. There is no demonstrated aortic dissection. Normal heart and pericardium. Normal mediastinum. Normal hilar regions. Normal visualized trachea and bronchi. The lungs are hyper expanded, with flattening of the hemidiaphragms. Normal pulmonary parenchyma. Normal pleura. Normal chest wall structures. Normal osseous structures. Normal visualized upper abdomen. CT/CTA Chest W/WO Contrast IMPRESSION: Multiple small bilateral pulmonary emboli. Electronically Signed: Prashant Swanson MD at 9:53 EDT Tel [phone], Service support ,
--- NOTE | 2017-12-19 07:16 | PCM.PN.HOSP ---
Patient Problems: Active and Suspected Problems PEA (Pulseless electrical activity) (Acute) Acute and chronic respiratory failure with hypoxia (Acute) Subjective: Patient with per RT episodes of upper airway sounds, improved with suctioning as noted copious secretions. Otherwise no acute events overnight per ICU staff. Per review of records and discussion with ICU physician, no CTPA performed, admitted to [facility], does have ALICE; however, unclear specific etiology for his presentation, ordered and pending w/ addition IVFs given ALICE. Patient without evidence fever, (Tmax 99.6) chills, nausea, emesis, abdominal pain, chest pain or dyspnea but is intubated and sedated. Objective: Physical Examination: General: sedate, intubated, does not awaken to stimuli, not oriented, laying in the ICU bed, NAD. Skin: normal color, turgor, no icterus, cyanosis except occasional abrasion, tattoos. HEENT: AT/NC, EOM not intact, pupils pinpoint, mildly dry MM, intubated. Lungs: CTA BL, mildly diminished bases BL, intubated, symmetric rise, currently no rales, ronchi or wheezing. Heart: Regular rate and rhythm; no gallop, rub audible. Abdomen: soft, NTTP, ND, normal BS. Extremities: no cyanosis, clubbing, or edema. Neurological: sedate, intubated, does not awaken to stimuli, not oriented, laying in the ICU bed, cognitive function not intact, pupils pinpoint reactive sluggish, unable to assess CM, unable to assess strength, no withdraw currently. Psychiatric: affect appears flat, no acute evidence of depressive or anxiety feelings. Vitals/I&O's: Vital Signs Temp Pulse Resp BP Pulse Ox 98.4 F 75 18 121/67 H 98 12/19/17 04:00 12/19/17 07:00 12/19/17 07:00 12/19/17 07:00 12/19/17 07:00 Oxygen Delivery Method Mechanical Ventilator Weight: 150 lb 5.684 oz Body Mass Index (BMI) 21.7 Intake and Output for Last 24 Hours 12/17/17 12/18/17 12/19/17 23:59 23:59 23:59 Intake Total 4623.5 / 4623.5 954.4 / 954.4 Output Total 1200 / 1200 250 / 250 Balance 3423.5 / 3423.5 704.4 / 704.4 Laboratory Results 12/18/17 05:30: MRSA (PCR) POSITIVE H 12/18/17 09:39: Specimen Type ART, Sample Site R Radial, pH 7.11 L*, Bicarbonate Actual 22.4, POC Total CO2 25, Base Excess -7 L, O2 Saturation 97, O2 % 50, ABG pCO2 71.3 H*, ABG pO2 125 H, Samuel Test POS, Respiration Rate 16, O2 Delivery Device Vent, Vent Mode A-C, Tidal Volume 450, POC PEEP 5, Blood Gas Notified Whom ICU MD, Blood Gas Notified Time 938 12/18/17 09:40: Troponin I 0.040 12/18/17 10:55: Specimen Type ART, Sample Site R Radial, pH 7.14 L*, Bicarbonate Actual 21.5 L, POC Total CO2 23, Base Excess -8 L, O2 Saturation 96, O2 % 45, ABG pCO2 63.3 H, ABG pO2 108 H, Samuel Test POS, Respiration Rate 18, O2 Delivery Device Vent, Vent Mode A-C, Tidal Volume 500, POC PEEP 5, Blood Gas Notified Whom ICU MD, Blood Gas Notified Time 1054 12/18/17 20:36: POC Glucose 147 H 12/19/17 04:30: WBC 17.6 H, RBC 4.44 L, Hgb 14.3, Hct 43.5, MCV 98.0 H, MCH 32.2 H, MCHC 32.9, RDW 13.6, RDW Differential 48.1 H, Plt Count 206, MPV 10.1, Immature Gran % (Auto) 0.200, Neut % (Auto) 90.2 H, Lymph % (Auto) 4.4 L, [place] % (Auto) 5.1, Eos % (Auto) 0.0, Baso % (Auto) 0.1, Absolute Neuts (auto) 15.8 H, Absolute Lymphs (auto) 0.77 L, Total Counted Not Reportable 12/19/17 04:30: Sodium 143, Potassium 4.3, Chloride 109 H, Carbon Dioxide 23.0, Anion Gap 11, BUN 33 H, Creatinine 1.76 H, Estim Creat Clear Calc 46.56, Est GFR (MDRD) Af Amer 52 L, Est GFR (MDRD) Non-Af 43 L, BUN/Creatinine Ratio 18.8, Glucose 155 H, Calcium 8.4 L, Phosphorus 4.1, Magnesium 2.2, Total Bilirubin 0.70, AST 63 H, ALT 48, Alkaline Phosphatase 83, Total Creatine Kinase 1254 H, Total Protein 6.7, Albumin 3.2, Globulin 3.5, Albumin/Globulin Ratio 0.9 Current Medications Albuterol Sulfate (Ventolin Aerosols) 2.5 mg INHALATION Q2H PRN PRN PRN Reason: WHEEZING Last Admin: 12/18/17 06:52 Dose: 2.5 mg Albuterol/Ipratropium (Duoneb) 3 ml INHALATION Q4H.RT [facility] Last Admin: 12/19/17 06:51 Dose: 3 ml Chlorhexidine Gluconate () 15 ml PO BID [facility] Last Admin: 12/18/17 21:49 Dose: 15 ml Chlorhexidine Gluconate () 1 each TOPICAL DAILY [facility] Last Admin: 12/19/17 03:00 Dose: 1 each Famotidine (Pepcid) 20 mg GT BID [facility] Last Admin: 12/18/17 21:51 Dose: 20 mg Guaifenesin (Robitussin) 10 ml GT Q4 [facility] Last Admin: 12/19/17 06:20 Dose: 10 ml Heparin Sodium (Porcine) (Heparin Na) 5,000 unit SC Q8 [facility] Last Admin: 12/19/17 06:12 Dose: 5,000 units Fentanyl () 100 mls @ 2.5 mls/hr IV .Q40H [facility] Last Admin: 12/18/17 13:50 Dose: 2.5 mls/hr Propofol (Diprivan) 1,000 mg in 100 mls @ 2.172 mls/hr CONT INF .Q12H GUS; 5 MCG/KG/MIN PRN Reason: Protocol Last Admin: 12/19/17 06:13 Dose: Not Given Sodium Chloride () 250 mls @ 15 mls/hr IV .[id number] PRN PRN Reason: SALINE FLUSH Last Admin: 12/18/17 09:23 Dose: 15 mls/hr Piperacillin Sod/Tazobactam Sod (Zosyn) 3.375 gm in 50 mls @ 12.5 mls/hr IV Q8 [facility] Last Admin: 12/19/17 06:10 Dose: 12.5 mls/hr Vancomycin HCl 750 mg/ Sodium (Chloride) 265 mls @ 265 mls/hr IV Q12H [facility] Last Admin: 12/18/17 20:40 Dose: 265 mls/hr Enteral Nutritional Formula (Vital Af 1.2 Dylon Liquid) 1,000 mls @ 30 mls/hr GT .[id number] [facility] Last Admin: 12/18/17 15:57 Dose: 30 mls/hr Magnesium Hydroxide (Milk Of Magnesia) 30 ml PO DAILY PRN PRN PRN Reason: Constipation Methylprednisolone (Solu-Medrol) 40 mg IV Q6 [facility] Last Admin: 12/19/17 06:12 Dose: 40 mg Senna/Docusate Sodium (Senokot-S, Jyoti-Colace) 2 tablet GT BID [facility] Last Admin: 12/18/17 21:52 Dose: 2 tablet Sodium Chloride () 5 - 30 ml IV UD PRN PRN Reason: SALINE FLUSH Last Admin: 12/19/17 06:20 Dose: 10 ml Medical Necessity - Tobacco Use Smoking Status: Unknown if ever smoked Assessment/Plan All Active Problems PEA (Pulseless electrical activity) (Acute) Acute and chronic respiratory failure with hypoxia (Acute) The patient is a 52 y/o M w/ PMHx: Suspected Tobacco use, Anxiety/Depression/Bipolar likely given medications but unclear, Cannabis usage per UDS who presents to the [facility] ED on 12/18/17 history of PEA with acute hypoxic respiratory failure. (1) Acute Hypoxic and Hypercarbic Respiratory Failure, Unclear Specific Etiology, Multifactorial, Acute on Suspected Chronic COPD exacerbation and Aspiration Pneumonia w/ Suspected Bronchospasms w/ Lactic Acidosis: CXR w/ chronic changes, CBC on admission w/ mild interstitial prominence the upper lung bustos with no demonstrated focal pulmonary infiltrate, repeat similar. Admitted to the ICU, intubated, sedated, continue ATC duonebs, PRN albuterol, IV methylprednisolone with prednisone transition per ICU/Pulm discretion, HOB, IS parameters, IV Vanc (MRSA PCR +) and Zosyn with pending sputum cultures, Bld Cx x 2. Per discussion with ICU given unclear specific etiology, will obtain CTPA, given concurrent ALICE will increase hydration and trend. (2) PEA Arrest: Suspected secondary to #1, possibly secondary to polysubstance overdose, UDS notable although on regimen which may result in false positive. EMS administered epinephrine x 3 doses and bicarb 2 doses x 2. Cardiac enzymes <0.015-->0.027-->0.04. ECHO requested. Mag normal. MD ASA. Pending CTPA as noted. FLP pending. (3) Acute kidney injury: Secondary to acute presentation #1 as noted and possibly #4, unclear baseline. Admission BUN/Cr 111/45-->14/1.35-->7/16/18 BUN/Cr 33/1.76, given planned CTPA will per discussion with ICU increase IVFs, trend renal function. If no improvement would plan FeNa assessment and renal US. (4) Mild Rhabdomyolysis: Admission TCK 930, unclear timeline, repeat 1254, will as noted continue hydration, monitor I&Os, trend. (5) Suspected Polysubstance abuse: UDS notable; however, may be false positives with noted medication regimen. (6) Suspected Tobacco use: Once appropriate will encouraged cessation, inpatient consultation per RT, NR if desired. (7) Anxiety/Depression/Bipolar disorder: Unclear psychiatric history, home regimen noting amitriptyline, Wellbutrin, Zoloft. Holding. (8) DVT, GI Prophylaxis: Pepcid, Heparin, SCDs. Code Visit Inpatient E&M: 82642 Subs Hosp L3
[2017-12-19 07:20] LABS: Base Excess -5 mmol/L (-2 to +2); Bicarbonate 20.9 mmol/L (22-26); Blood Gas Specimen Type ART; FI02 35; Mode A-C; O2 Delivery Device Vent; PEEP 5; PO2 91 mmHG (75-100); RR 18; SITE R Radial; SO2 96 % (95-99); Time Given 715; Total Carbon Dioxide 22 mmol/L; Vt 500; pCO2 40.8 mmHg (35-45); pH 7.32 (7.35-7.45)
--- NOTE | 2017-12-19 07:23 | ECHOD_ITS ---
Reason For Study: ARRHYTHMIA Procedure This was a 2D Doppler, Color Flow transthoracic echocardiogram. Technically difficult due to pt being intubated- poor acoustic windows therefore limited imaging and doppler. Exam performed portable in patient room. Left Ventricle Normal LV size. Left ventricular systolic function is normal. The estimated ejection fraction is 55 %. No regional wall motion abnormalities noted. Right Ventricle Normal RV size. Normal systolic function. Atria Normal left atrium. Normal right atrium. Mitral Valve Normal mitral valve. Tricuspid Valve Normal tricuspid valve. Mild (1+) tricuspid valve insufficiency. Pulmonary artery systolic pressure is 26 mmHg. Aortic Valve The aortic valve is not well visualized. Pulmonic Valve The pulmonic valve is not well visualized. Great Vessels Normal aortic root. The pulmonary artery is normal size. Pericardium/Pleural No pericardial effusion. MMode/2D Measurements & Calculations LVIDd: 4.0 cm IVSd: 0.69 cm Ao root diam: 3.3 cm LVIDs: 3.0 cm LVPWd: 0.90 cm RVDd: 3.7 cm FS: 23.6 % Doppler Measurements & Calculations TR max lizet: 234.7 cm/sec TR max P.3 mmHg Interpretation Summary Normal LV size. Left ventricular systolic function is normal. The estimated ejection fraction is 55 %. Pulmonary artery systolic pressure is 26 mmHg. The study was technically limited. Ordering Physician: Keila hSeridan Performed By: Brittani Gray, MIRIAM, RVT
--- NOTE | 2017-12-19 07:42 | PN_ITS ---
Patient Problems: Active and Suspected Problems PEA (Pulseless electrical activity) (Acute) Acute and chronic respiratory failure with hypoxia (Acute) Subjective: Patient with per RT episodes of upper airway sounds, improved with suctioning as noted copious secretions. Otherwise no acute events overnight per ICU staff. Per review of records and discussion with ICU physician, no CTPA performed, admitted to [facility], does have ALICE; however, unclear specific etiology for his presentation, ordered and pending w/ addition IVFs given ALICE. Patient without evidence fever, (Tmax 99.6) chills, nausea, emesis, abdominal pain, chest pain or dyspnea but is intubated and sedated. Objective: Physical Examination: General: sedate, intubated, does not awaken to stimuli, not oriented, laying in the ICU bed, NAD. Skin: normal color, turgor, no icterus, cyanosis except occasional abrasion, tattoos. HEENT: AT/NC, EOM not intact, pupils pinpoint, mildly dry MM, intubated. Lungs: CTA BL, mildly diminished bases BL, intubated, symmetric rise, currently no rales, ronchi or wheezing. Heart: Regular rate and rhythm; no gallop, rub audible. Abdomen: soft, NTTP, ND, normal BS. Extremities: no cyanosis, clubbing, or edema. Neurological: sedate, intubated, does not awaken to stimuli, not oriented, laying in the ICU bed, cognitive function not intact, pupils pinpoint reactive sluggish, unable to assess CM, unable to assess strength, no withdraw currently. Psychiatric: affect appears flat, no acute evidence of depressive or anxiety feelings. Vitals/I&O's: Vital Signs Temp Pulse Resp BP Pulse Ox 98.4 F 75 18 121/67 H 98 12/19/17 04:00 12/19/17 07:00 12/19/17 07:00 12/19/17 07:00 12/19/17 07:00 Oxygen Delivery Method Mechanical Ventilator Weight: 150 lb 5.684 oz Body Mass Index (BMI) 21.7 Intake and Output for Last 24 Hours 12/17/17 12/18/17 12/19/17 23:59 23:59 23:59 Intake Total 4623.5 / 4623.5 954.4 / 954.4 Output Total 1200 / 1200 250 / 250 Balance 3423.5 / 3423.5 704.4 / 704.4 Laboratory Results 12/18/17 05:30: MRSA (PCR) POSITIVE H 12/18/17 09:39: Specimen Type ART, Sample Site R Radial, pH 7.11 L*, Bicarbonate Actual 22.4, POC Total CO2 25, Base Excess -7 L, O2 Saturation 97, O2 % 50, ABG pCO2 71.3 H*, ABG pO2 125 H, Samuel Test POS, Respiration Rate 16, O2 Delivery Device Vent, Vent Mode A-C, Tidal Volume 450, POC PEEP 5, Blood Gas Notified Whom ICU MD, Blood Gas Notified Time 938 12/18/17 09:40: Troponin I 0.040 12/18/17 10:55: Specimen Type ART, Sample Site R Radial, pH 7.14 L*, Bicarbonate Actual 21.5 L, POC Total CO2 23, Base Excess -8 L, O2 Saturation 96 , O2 % 45, ABG pCO2 63.3 H, ABG pO2 108 H, Samuel Test POS, Respiration Rate 18, O2 Delivery Device Vent, Vent Mode A-C, Tidal Volume 500, POC PEEP 5, Blood Gas Notified Whom ICU MD, Blood Gas Notified Time 1054 12/18/17 20:36: POC Glucose 147 H 12/19/17 04:30: WBC 17.6 H, RBC 4.44 L, Hgb 14.3, Hct 43.5, MCV 98.0 H, MCH 32.2 H, MCHC 32.9, RDW 13.6, RDW Differential 48.1 H, Plt Count 206, MPV 10.1, Immature Gran % (Auto) 0.200, Neut % (Auto) 90.2 H, Lymph % (Auto) 4.4 L, [place] % (Auto) 5.1, Eos % (Auto) 0.0, Baso % (Auto) 0.1, Absolute Neuts (auto) 15.8 H , Absolute Lymphs (auto) 0.77 L, Total Counted Not Reportable 12/19/17 04:30: Sodium 143, Potassium 4.3, Chloride 109 H, Carbon Dioxide 23.0, Anion Gap 11, BUN 33 H, Creatinine 1.76 H, Estim Creat Clear Calc 46.56, Est GFR (MDRD) Af Amer 52 L, Est GFR (MDRD) Non-Af 43 L, BUN/Creatinine Ratio 18.8, Glucose 155 H, Calcium 8.4 L, Phosphorus 4.1, Magnesium 2.2, Total Bilirubin 0.70, AST 63 H, ALT 48, Alkaline Phosphatase 83, Total Creatine Kinase 1254 H, Total Protein 6.7, Albumin 3.2, Globulin 3.5, Albumin/Globulin Ratio 0.9 Current Medications Albuterol Sulfate (Ventolin Aerosols) 2.5 mg INHALATION Q2H PRN PRN PRN Reason: WHEEZING Last Admin: 12/18/17 06:52 Dose: 2.5 mg Albuterol/Ipratropium (Duoneb) 3 ml INHALATION Q4H.RT [facility] Last Admin: 12/19/17 06:51 Dose: 3 ml Chlorhexidine Gluconate () 15 ml PO BID [facility] Last Admin: 12/18/17 21:49 Dose: 15 ml Chlorhexidine Gluconate () 1 each TOPICAL DAILY [facility] Last Admin: 12/19/17 03:00 Dose: 1 each Famotidine (Pepcid) 20 mg GT BID [facility] Last Admin: 12/18/17 21:51 Dose: 20 mg Guaifenesin (Robitussin) 10 ml GT Q4 [facility] Last Admin: 12/19/17 06:20 Dose: 10 ml Heparin Sodium (Porcine) (Heparin Na) 5,000 unit SC Q8 [facility] Last Admin: 12/19/17 06:12 Dose: 5,000 units Fentanyl () 100 mls @ 2.5 mls/hr IV .Q40H [facility] Last Admin: 12/18/17 13:50 Dose: 2.5 mls/hr Propofol (Diprivan) 1,000 mg in 100 mls @ 2.172 mls/hr CONT INF .Q12H GUS; 5 MCG/KG/MIN PRN Reason: Protocol Last Admin: 12/19/17 06:13 Dose: Not Given Sodium Chloride () 250 mls @ 15 mls/hr IV .[id number] PRN PRN Reason: SALINE FLUSH Last Admin: 12/18/17 09:23 Dose: 15 mls/hr Piperacillin Sod/Tazobactam Sod (Zosyn) 3.375 gm in 50 mls @ 12.5 mls/hr IV Q8 [facility] Last Admin: 12/19/17 06:10 Dose: 12.5 mls/hr Vancomycin HCl 750 mg/ Sodium (Chloride) 265 mls @ 265 mls/hr IV Q12H [facility] Last Admin: 12/18/17 20:40 Dose: 265 mls/hr Enteral Nutritional Formula (Vital Af 1.2 Dylon Liquid) 1,000 mls @ 30 mls/hr GT .[id number] [facility] Last Admin: 12/18/17 15:57 Dose: 30 mls/hr Magnesium Hydroxide (Milk Of Magnesia) 30 ml PO DAILY PRN PRN PRN Reason: Constipation Methylprednisolone (Solu-Medrol) 40 mg IV Q6 [facility] Last Admin: 12/19/17 06:12 Dose: 40 mg Senna/Docusate Sodium (Senokot-S, Jyoti-Colace) 2 tablet GT BID [facility] Last Admin: 12/18/17 21:52 Dose: 2 tablet Sodium Chloride () 5 - 30 ml IV UD PRN PRN Reason: SALINE FLUSH Last Admin: 12/19/17 06:20 Dose: 10 ml Medical Necessity - Tobacco Use Smoking Status: Unknown if ever smoked Assessment/Plan All Active Problems PEA (Pulseless electrical activity) (Acute) Acute and chronic respiratory failure with hypoxia (Acute) The patient is a 52 y/o M w/ PMHx: Suspected Tobacco use, Anxiety/Depression/ Bipolar likely given medications but unclear, Cannabis usage per UDS who presents to the [facility] ED on 12/18/17 history of PEA with acute hypoxic respiratory failure. (1) Acute Hypoxic and Hypercarbic Respiratory Failure, Unclear Specific Etiology , Multifactorial, Acute on Suspected Chronic COPD exacerbation and Aspiration Pneumonia w/ Suspected Bronchospasms w/ Lactic Acidosis: CXR w/ chronic changes , CBC on admission w/ mild interstitial prominence the upper lung bustos with no demonstrated focal pulmonary infiltrate, repeat similar. Admitted to the ICU , intubated, sedated, continue ATC duonebs, PRN albuterol, IV methylprednisolone with prednisone transition per ICU/Pulm discretion, HOB, IS parameters, IV Vanc (MRSA PCR +) and Zosyn with pending sputum cultures, Bld Cx x 2. Per discussion with ICU given unclear specific etiology, will obtain CTPA, given concurrent ALICE will increase hydration and trend. (2) PEA Arrest: Suspected secondary to #1, possibly secondary to polysubstance overdose, UDS notable although on regimen which may result in false positive. EMS administered epinephrine x 3 doses and bicarb 2 doses x 2. Cardiac enzymes < 0.015-->0.027-->0.04. ECHO requested. Mag normal. PA ASA. Pending CTPA as noted. FLP pending. (3) Acute kidney injury: Secondary to acute presentation #1 as noted and possibly #4, unclear baseline. Admission BUN/Cr 111/45-->14/1.35-->7/16/18 BUN/ Cr 33/1.76, given planned CTPA will per discussion with ICU increase IVFs, trend renal function. If no improvement would plan FeNa assessment and renal US. (4) Mild Rhabdomyolysis: Admission TCK 930, unclear timeline, repeat 1254, will as noted continue hydration, monitor I&Os, trend. (5) Suspected Polysubstance abuse: UDS notable; however, may be false positives with noted medication regimen. (6) Suspected Tobacco use: Once appropriate will encouraged cessation, inpatient consultation per RT, NR if desired. (7) Anxiety/Depression/Bipolar disorder: Unclear psychiatric history, home regimen noting amitriptyline, Wellbutrin, Zoloft. Holding. (8) DVT, GI Prophylaxis: Pepcid, Heparin, SCDs. Code Visit Inpatient E&M: 05396 Subs Hosp L3
[2017-12-19] MEDS: 0.9% Normal Saline 1,000 ML 125 ML IV ×3 (07:57→23:43)
[2017-12-19 08:04] LABS: Cholesterol 113 mg/dL (200); High Density Lipoprotein 65 mg/dL; Triglycerides 151 mg/dL; Very Low Density Lipoprotein 30 mg/dL (5-40)
--- NOTE | 2017-12-19 09:50 | CASEMGMT ---
See RN CM Assessment Link. DC PLAN: undetermined. -Pt is on ventilator and unable to participate. CM/SW will continue to follow for dc planning needs. Kelly DELANEYN RN ACM
[2017-12-19] MEDS: Aspirin 300 MG Suppository RECTAL (10:21)
[2017-12-19] MEDS: Chlorhexidine 15 ML PO ×2 (10:22→21:09)
[2017-12-19] MEDS: Famotidine 20 MG Tablet GT ×2 (10:23→21:09)
[2017-12-19] MEDS: Senna/Docusate Sodium 1 Tablet 2 TABLET GT ×2 (10:24→21:09)
[2017-12-19] MEDS: HEPARIN/D5w 25,000 UNITS 25,000 UNITS/250 ML IV.SOLN. 10 UNITS IV (11:51)
[2017-12-19 12:03] LABS: International Normalized Ratio 1.2
[2017-12-19 12:31] LABS: Bedside Glucose 125 mg/dL (70-110)
[2017-12-19] MEDS: Vital AF 1.2 Cal Liquid 1,000 ML 30 ML GT (15:24)
[2017-12-19 17:30] LABS: Bedside Glucose 131 mg/dL (70-110)
[2017-12-19 18:06] LABS: Partial Thromboplast Time 86.9 Seconds (24.1-36.2)
[2017-12-19 22:17] LABS: Vancomycin, Trough Level 10.9 ug/mL (5.0-15.0)
[2017-12-19 23:55] LABS: Bedside Glucose 125 mg/dL (70-110)
[2017-12-20] VITALS (39 sets, daily range): BP systolic 91–145; BP diastolic 53–94; PULSE 55–91; RESP 10–23; TEMP 37–37.5; O2SAT 93–100
--- NOTE | 2017-12-20 00:05 | PCM.RX.CS ---
Consult Pharmacy has been consulted to manage selected antiobiotic: Vancomycin Type of Consult: Follow-up Suspected Infection: Pneumonia Prior Doses of Antibiotics Received/Current Regimen: Medications Vancomycin HCl (Vancomycin) 1,000 mg in 200 mls @ 200 mls/hr IV Q12H [facility] Discontinued Medications Vancomycin HCl 750 mg/ Sodium (Chloride) 265 mls @ 265 mls/hr IV Q12H [facility] Last Admin: 12/19/17 22:35 Dose: 265 mls/hr Labs: Sodium 143 mmol/L (136-145) 12/19/17 04:30 Potassium 4.3 mmol/L (3.5-5.1) 12/19/17 04:30 Chloride 109 mmol/L (98-107) H 12/19/17 04:30 Carbon Dioxide 23.0 mmol/L (21.0-32.0) 12/19/17 04:30 Anion Gap 11 (5-15) 12/19/17 04:30 BUN 33 mg/dL (7-18) H 12/19/17 04:30 Creatinine 1.76 mg/dL (0.70-1.30) H 12/19/17 04:30 Est GFR (MDRD) Af Amer 52 mL/min (>60) L 12/19/17 04:30 Est GFR (MDRD) Non-Af 43 mL/min (>60) L 12/19/17 04:30 BUN/Creatinine Ratio 18.8 RATIO (10-20) 12/19/17 04:30 Glucose 155 mg/dL (74-106) H 12/19/17 04:30 Vancomycin Trough 10.9 ug/mL (5.0-15.0) 12/19/17 20:53 Microbiology: Microbiology 12/19/17 06:58 Sputum, Tracheal Aspirate Gram Stain - Final Weight used for dosin.6 kg Estimated Creatinine Clearance: 46 Goal Trough: 15-20 mcg/mL Pharmacy Plan for Drug Dosin12-19-17 trough level returned at 10.9, lower than goal of 15-20. Increased dose to 1000mg q 12 hours -conservative increase due to accompanying decrease in CrCl from 61 down to 46. Pharmacy Service will continue to monitor and adjust dosing as required. Follow-Up Labs: Trough Vancomycin Labs to be done on [date and time ordered]: 12/21/17 @2934
--- NOTE | 2017-12-20 00:50 | NURSING ---
Pt spontaneously coughing, lifting head up off of bed, pt's face and chest becoming red and diaphoretic. Ventilator alarming and in-line suction difficult to advance. RT Mable called and is bedside to lavage pt. Pulse ox desating to 87%, 100% FiO2 given and pulse ox increased to 95%. Pt continues to cough and fight vent. Sedation increased. Will continue to monitor.
[2017-12-20] MEDS: guaiFENesin 10 ML UDC (200MG/10ML) GT ×6 (02:06→21:18)
[2017-12-20] MEDS: CHLORHEXIDINE GLUC 2% CLOTH 1 EACH TOWELETTE TOPICAL (04:05)
[2017-12-20] MEDS: Propofol 10MG/Ml 1,000 MG/100 ML Bottle 2.172 MG CONT INF ×2 (04:06→17:00)
[2017-12-20] MEDS: Piperacil/Tazobactam 3.375 GM/50 ML ML IV ×3 (05:05→21:14)
[2017-12-20] MEDS: 0.9% NaCl Peripheral Flush Adult/Peds IV ×3 (05:06→23:32)
[2017-12-20 05:16] LABS: Bedside Glucose 130 mg/dL (70-110)
[2017-12-20 05:41] LABS: Absolute Lymphocyte Count 0.38 X10^3/ul (0.83-4.51); Absolute Neutrophil Count 15.3 X10^3/uL (2.0-7.7); Hematocrit 38.3 % (40-54); Hemoglobin 12.6 g/dl (13.0-16.5); Lymphocyte # 0.38 X10^3/ul (4.0); Lymphocyte % 2.3 % (19-41); Mean Corp Hgb Conc 32.9 g/gl (32-36); Mean Corpuscular Hgb 32.4 pg (27.0-32.0); Mean Corpuscular Volume 98.5 fL (80-94); Mean Platelet Vol. 10.6 fl (6.2-12.0); Monocyte# 0.75 X10^3/uL; Monocyte% 4.6 % (0-10); Neutrophil # 15.28 X10^3/uL (2.7-7.7); Platelet Count 182 K/mm3 (150-450); RBC Distribution Width SD 50.2 fl (35.1-43.9); Red Blood Count 3.89 M/mm3 (4.6-6.2); White Blood Count 16.4 K/mm3 (4.4-11.0)
[2017-12-20 05:57] LABS: Differential Indicated SCAN CRITERIA MET; POSITIVE COUNT NO; POSITIVE DIFFERENTIAL YES; POSITIVE MORPHOLOGY NO
--- NOTE | 2017-12-20 06:20 | PCM.PN.HOSP ---
Patient Problems: Active and Suspected Problems PEA (Pulseless electrical activity) (Acute) Acute and chronic respiratory failure with hypoxia (Acute) Subjective: Patient overnight with only notable events episode of desaturation with coughing with improvement following increased sedation. Patient weaning trial this morning with concern secondary to inability to follow exam commands, suspected possible lengthy hypoxic presentation therefore per discussion with ICU physician neurology consulted and will need consider MRI and EEG. Patient day prior with CTPA obtained with demonstrated small bilateral PEs started on a heparin drip at that time as well. Patient without any evidence of fevers, chills, nausea, emesis, abdominal pain, chest pain or dyspnea but again difficult examination is currently again sedated, unresponsive but per nursing prior with wean. Objective: Physical Examination: General: sedate, intubated, does not awaken to stimuli, not oriented, laying in the ICU bed, NAD. Skin: normal color, turgor, no icterus, cyanosis except occasional abrasion, tattoos. HEENT: AT/NC, EOM not intact, pupils pinpoint, mildly dry MM, intubated. Lungs: CTA BL, mildly diminished bases BL, intubated, symmetric rise, currently no rales, ronchi or wheezing. Heart: Regular rate and rhythm; no gallop, rub audible. Abdomen: soft, NTTP, ND, normal BS. Extremities: no cyanosis, clubbing, or edema. Neurological: sedate, intubated, does not awaken to stimuli, not oriented, laying in the ICU bed, cognitive function not intact, pupils pinpoint reactive sluggish, unable to assess CM, unable to assess strength, no withdraw currently. Psychiatric: affect appears flat, no acute evidence of depressive or anxiety feelings. Vitals/I&O's: Vital Signs Temp Pulse Resp BP Pulse Ox 98.6 F 60 18 109/59 L 97 12/20/17 04:00 12/20/17 06:00 12/20/17 06:00 12/20/17 06:00 12/20/17 06:00 Oxygen Delivery Method Mechanical Ventilator Weight: 159 lb 13.362 oz Body Mass Index (BMI) 21.7 Intake and Output for Last 24 Hours 12/18/17 12/19/17 12/20/17 23:59 23:59 23:59 Intake Total 4623.5 / 4623.5 5029.4 / 5029.4 Output Total 1200 / 1200 1300 / 1300 Balance 3423.5 / 3423.5 3729.4 / 3729.4 Microbiology Past 72 Hours 12/19/17 06:58 Sputum, Tracheal Aspirate Gram Stain - Final Laboratory Results 12/19/17 04:30: Triglycerides 151, Cholesterol 113, LDL Cholesterol 18, VLDL Cholesterol 30, HDL Cholesterol 65 12/19/17 07:15: Specimen Type ART, Sample Site R Radial, pH 7.32 L, Bicarbonate Actual 20.9 L, POC Total CO2 22, Base Excess -5 L, O2 Saturation 96, O2 % 35, ABG pCO2 40.8, ABG pO2 91, Respiration Rate 18, O2 Delivery Device Vent, Vent Mode A-C, Tidal Volume 500, POC PEEP 5, Blood Gas Notified Whom ICU , Blood Gas Notified Time 715 12/19/17 11:30: PT 15.0 H, INR 1.2, APTT 37.0 H 12/19/17 11:46: POC Glucose 125 H 12/19/17 17:17: POC Glucose 131 H 12/19/17 17:45: APTT 86.9 H 12/19/17 20:53: Vancomycin Trough 10.9 12/19/17 23:35: POC Glucose 125 H 12/20/17 01:00: APTT 56.0 H 12/20/17 05:00: WBC 16.4 H, RBC 3.89 L, Hgb 12.6 L, Hct 38.3 L, MCV 98.5 H, MCH 32.4 H, MCHC 32.9, RDW 14.0, RDW Differential 50.2 H, Plt Count 182, MPV 10.6, Immature Gran % (Auto) 0.100, Neut % (Auto) 93.0 H, Lymph % (Auto) 2.3 L, [place] % (Auto) 4.6, Eos % (Auto) 0.0, Baso % (Auto) 0.0, Absolute Neuts (auto) 15.3 H, Absolute Lymphs (auto) 0.38 L, Total Counted Pending 12/20/17 05:05: POC Glucose 130 H Current Medications Albuterol Sulfate (Ventolin Aerosols) 2.5 mg INHALATION Q2H PRN PRN PRN Reason: WHEEZING Last Admin: 12/18/17 06:52 Dose: 2.5 mg Albuterol/Ipratropium (Duoneb) 3 ml INHALATION Q4H.RT [facility] Last Admin: 12/19/17 23:17 Dose: 3 ml Aspirin (Aspirin) 300 mg RECTAL DAILY [facility] Last Admin: 12/19/17 10:21 Dose: 300 mg Chlorhexidine Gluconate () 15 ml PO BID [facility] Last Admin: 12/19/17 21:09 Dose: 15 ml Chlorhexidine Gluconate () 1 each TOPICAL DAILY [facility] Last Admin: 12/20/17 04:05 Dose: 1 each Famotidine (Pepcid) 20 mg GT BID [facility] Last Admin: 12/19/17 21:09 Dose: 20 mg Guaifenesin (Robitussin) 10 ml GT Q4 [facility] Last Admin: 12/20/17 05:06 Dose: 10 ml Heparin Sodium (Porcine) (Heparin Na) 0 unit IV UD PRN PRN Reason: Protocol Fentanyl () 100 mls @ 2.5 mls/hr IV .Q40H [facility] Last Admin: 12/20/17 02:13 Dose: 2.5 mls/hr Propofol (Diprivan) 1,000 mg in 100 mls @ 2.172 mls/hr CONT INF .Q12H [facility]; 5 MCG/KG/MIN PRN Reason: Protocol Last Admin: 12/20/17 04:06 Dose: 2.172 mls/hr Piperacillin Sod/Tazobactam Sod (Zosyn) 3.375 gm in 50 mls @ 12.5 mls/hr IV Q8 [facility] Last Admin: 12/20/17 05:05 Dose: 12.5 mls/hr Enteral Nutritional Formula (Vital Af 1.2 Dylon Liquid) 1,000 mls @ 30 mls/hr GT .[id number] [facility] Last Admin: 12/19/17 15:24 Dose: 30 mls/hr Sodium Chloride () 1,000 mls @ 125 mls/hr IV .Q8H [facility] Last Admin: 12/19/17 23:43 Dose: 125 mls/hr Heparin Sodium/Dextrose () 25,000 units in 250 mls @ 10 mls/hr IV .Q25H [facility]; As Directed PRN Reason: Protocol Last Admin: 12/19/17 11:51 Dose: 10 mls/hr Vancomycin HCl (Vancomycin) 1,000 mg in 200 mls @ 200 mls/hr IV Q12H [facility] Insulin Human Lispro (Humalog Kwikpen (Bkc)) 0 unit SC Q6 GUS PRN Reason: Protocol Last Admin: 12/20/17 05:06 Dose: Not Given Magnesium Hydroxide (Milk Of Magnesia) 30 ml PO DAILY PRN PRN PRN Reason: Constipation Methylprednisolone (Solu-Medrol) 40 mg IV Q6 [facility] Last Admin: 12/20/17 05:05 Dose: 40 mg Senna/Docusate Sodium (Senokot-S, Jyoti-Colace) 2 tablet GT BID GUS Last Admin: 12/19/17 21:09 Dose: 2 tablet Sodium Chloride () 5 - 30 ml IV UD PRN PRN Reason: SALINE FLUSH Last Admin: 12/20/17 05:06 Dose: 10 ml Medical Necessity - Tobacco Use Smoking Status: Unknown if ever smoked Assessment/Plan All Active Problems PEA (Pulseless electrical activity) (Acute) Acute and chronic respiratory failure with hypoxia (Acute) The patient is a 52 y/o M w/ PMHx: Suspected Tobacco use, Anxiety/Depression/Bipolar likely given medications but unclear, Cannabis usage per UDS who presents to the [facility] ED on 12/18/17 history of PEA with acute hypoxic respiratory failure. (1) Acute Hypoxic and Hypercarbic Respiratory Failure, Multifactorial, Acute on Suspected Chronic COPD exacerbation and Aspiration Pneumonia w/ Suspected Bronchospasms w/ Lactic Acidosis in addition to Acute BL PE: CXR w/ chronic changes, CBC on admission w/ mild interstitial prominence the upper lung bustos with no demonstrated focal pulmonary infiltrate, repeat similar. Admitted to the ICU, intubated, sedated, continue ATC duonebs, PRN albuterol, IV methylprednisolone with prednisone transition per ICU/Pulm discretion, HOB, IS parameters, IV Vanc (MRSA PCR +) and Zosyn with pending sputum cultures, Bld Cx x 2. CTPA obtained w/ multiple small PEs, started on heparin drip. ECHO w/ LVSF normal, EF 55%, 26 mmHg. FLP not marked appearing. (2) PEA Arrest: Suspected secondary to #1, possibly secondary to polysubstance overdose, UDS notable although on regimen which may result in false positive. EMS administered epinephrine x 3 doses and bicarb 2 doses x 2. Cardiac enzymes <0.015-->0.027-->0.04. ECHO w/ LVSF normal, EF 55%, 26 mmHg. Mag normal. GA ASA. CTPA obtained w/ multiple small PEs, started on heparin drip. Suspect likely prolonged hypoxic timeline, Neurology consulted, as noted. (3) Acute kidney injury: Secondary to acute presentation #1 as noted and possibly #4, unclear baseline. Admission BUN/Cr 111/45-->14/1.35-->12/19/17 BUN/Cr 33/1.76-->12/20/17 BUN/Cr 29/1.19, given IVFs given concurrent CTPA 12/19/17, improved. (4) Acute Encephalopathy secondary to 1, #2, #3: Extubation trial with sedation wean this morning with concern for encephalopathy ongoing secondary to prolonged hypoxic episode. Per discussion with ICU physician, neurology consulted and likely will require additional imaging of the brain, MRI as well as EEG but will defer to neurology. Given suspected damage will pursue HIV and hepatitis panel at this time. (5) Mild Rhabdomyolysis: Admission TCK 930, unclear timeline, repeat 1254, monitor I&Os, trend. (6) Suspected Polysubstance abuse: UDS notable; however, may be false positives with noted medication regimen. (7) Suspected Tobacco use: Once appropriate will encouraged cessation, inpatient consultation per RT, NR if desired. (8) Anxiety/Depression/Bipolar disorder: Unclear psychiatric history, home regimen noting amitriptyline, Wellbutrin, Zoloft. Holding. (9) DVT, GI Prophylaxis: Pepcid, Heparin drip, SCDs. Code Visit Inpatient E&M: [id number] Subs Hosp L3
--- NOTE | 2017-12-20 06:22 | PCM.PN.INT ---
Subjective: The patient was seen and examined at the bedside this morning. Events from the last 24 hours have been reviewed. The patient is currently afebrile, hemodynamically stable and maintaining appropriate oxygen saturations with an FiO2 requirement of 40%. The patient experienced a transient episode of hypoxemia and ventilator dyssynchrony overnight in the setting of vigorous coughing, which required an escalation in his sedation level. CTA chest completed yesterday did confirm the presence of bilateral PE. Upon sedation interruption this morning, the patient attempts to sit up in bed, blindly staring. He does not appear to track to verbal stimuli. He does not follow any commands. Objective: The patient's most recent lab work, culture data and imaging studies have all been personally reviewed. Blood and urine cultures are pending. Sputum Gram stain revealed no organisms. Surface echocardiogram revealed normal LV size and function with an ejection fraction of 55%. Pulmonary artery systolic pressures were estimated to be 26 mmHg. CTA chest revealed small numerous bilateral pulmonary emboli. General: - - Remains intubated and mechanically ventilated. Currently tolerating assist control mode of mechanical ventilation without significant ventilator dyssynchrony noted. HEENT: Atraumatic, Normocephalic, Sluggish Pupils Oral: No Gingival or Mucosal Lesions/ Ulcerations, - - Endotracheal and OG tubes remain in place. Neck: Supple, No Nodes, Trachea Midline Lungs: - - Coarse mechanical breath sounds across anterior lung bustos. No wheezing noted at the current time. However, the patient is currently receiving an aerosol treatment. Cardiovascular: Regular rate, Regular Rhythm, Normal S1, Normal S2, No murmurs, - - Normal sinus rhythm on telemetry. Abdomen: Bowel Sounds Present, Soft, Non Tender, Non-Distended Extremities: No clubbing, No cyanosis, No edema Skin: No breakdown, - - Multiple tattoos Musculoskeletal: No Tenderness to Palpation of Joints or Extremities Lymphatic: No Cervical, Supraclavicular, or Inguinal Adenopathy Neurological: - - Attempts to move extremities spontaneously. However, does not respond to visual threat or track to verbal stimulation. Does not follow any commands. Nevertheless, the patient does have a gag and will attempt to breathe spontaneously on CPAP. Vital Signs Temp Pulse Resp BP Pulse Ox 98.6 F 60 18 109/59 L 97 12/20/17 04:00 12/20/17 06:00 12/20/17 06:00 12/20/17 06:00 12/20/17 06:00 Oxygen Delivery Method Mechanical Ventilator Weight: 159 lb 13.362 oz Body Mass Index (BMI) 21.7 Intake and Output for Last 24 Hours 12/18/17 12/19/17 12/20/17 23:59 23:59 23:59 Intake Total 4623.5 / 4623.5 5029.4 / 5029.4 Output Total 1200 / 1200 1300 / 1300 Balance 3423.5 / 3423.5 3729.4 / 3729.4 Labs (Last 48 Hours) 12/18/17 12/18/17 12/18/17 05:30 06:15 06:15 WBC 12.7 H RBC 4.79 Hgb 15.6 Hct 46.4 MCV 96.9 H MCH 32.6 H MCHC 33.6 RDW 13.5 RDW Differential 47.2 H Plt Count 249 MPV 10.1 Immature Gran % (Auto) Neut % (Auto) Lymph % (Auto) [place] % (Auto) Eos % (Auto) Baso % (Auto) Absolute Neuts (auto) Absolute Lymphs (auto) Total Counted PT INR APTT Specimen Type Sample Site pH Bicarbonate Actual POC Total CO2 Base Excess O2 Saturation O2 % ABG pCO2 ABG pO2 Samuel Test Respiration Rate O2 Delivery Device Vent Mode Tidal Volume POC PEEP Blood Gas Notified Whom Blood Gas Notified Time Sodium 143 Potassium 4.3 Chloride 110 H Carbon Dioxide 27.0 Anion Gap 6 BUN 14 Creatinine 1.35 H Estim Creat Clear Calc 60.70 Est GFR (MDRD) Af Amer 71 Est GFR (MDRD) Non-Af 58 L BUN/Creatinine Ratio 10.4 Glucose 113 H Lactic Acid Calcium 7.6 L Phosphorus Magnesium Total Bilirubin AST ALT Alkaline Phosphatase Total Creatine Kinase Troponin I Total Protein Albumin Globulin Albumin/Globulin Ratio Triglycerides Cholesterol LDL Cholesterol VLDL Cholesterol HDL Cholesterol Vancomycin Trough MRSA (PCR) POSITIVE H POC Glucose 12/18/17 12/18/17 12/18/17 06:15 06:15 06:15 WBC RBC Hgb Hct MCV MCH MCHC RDW RDW Differential Plt Count MPV Immature Gran % (Auto) Neut % (Auto) Lymph % (Auto) [place] % (Auto) Eos % (Auto) Baso % (Auto) Absolute Neuts (auto) Absolute Lymphs (auto) Total Counted PT INR APTT Specimen Type Sample Site pH Bicarbonate Actual POC Total CO2 Base Excess O2 Saturation O2 % ABG pCO2 ABG pO2 Samuel Test Respiration Rate O2 Delivery Device Vent Mode Tidal Volume POC PEEP Blood Gas Notified Whom Blood Gas Notified Time Sodium Potassium Chloride Carbon Dioxide Anion Gap BUN Creatinine Estim Creat Clear Calc Est GFR (MDRD) Af Amer Est GFR (MDRD) Non-Af BUN/Creatinine Ratio Glucose Lactic Acid Cancelled Calcium Phosphorus Magnesium Total Bilirubin AST ALT Alkaline Phosphatase Total Creatine Kinase 930 H Troponin I 0.027 Total Protein Albumin Globulin Albumin/Globulin Ratio Triglycerides 60 Cholesterol LDL Cholesterol VLDL Cholesterol HDL Cholesterol Vancomycin Trough MRSA (PCR) POC Glucose 12/18/17 12/18/17 12/18/17 06:15 09:39 09:40 WBC RBC Hgb Hct MCV MCH MCHC RDW RDW Differential Plt Count MPV Immature Gran % (Auto) Neut % (Auto) Lymph % (Auto) [place] % (Auto) Eos % (Auto) Baso % (Auto) Absolute Neuts (auto) Absolute Lymphs (auto) Total Counted PT INR APTT Specimen Type ART Sample Site R Radial pH 7.11 L* Bicarbonate Actual 22.4 POC Total CO2 25 Base Excess -7 L O2 Saturation 97 O2 % 50 ABG pCO2 71.3 H* ABG pO2 125 H Samuel Test POS Respiration Rate 16 O2 Delivery Device Vent Vent Mode A-C Tidal Volume 450 POC PEEP 5 Blood Gas Notified Whom ICU MD Blood Gas Notified Time 938 Sodium Potassium Chloride Carbon Dioxide Anion Gap BUN Creatinine Estim Creat Clear Calc Est GFR (MDRD) Af Amer Est GFR (MDRD) Non-Af BUN/Creatinine Ratio Glucose Lactic Acid 0.8 Calcium Phosphorus Magnesium Total Bilirubin AST ALT Alkaline Phosphatase Total Creatine Kinase Troponin I 0.040 Total Protein Albumin Globulin Albumin/Globulin Ratio Triglycerides Cholesterol LDL Cholesterol VLDL Cholesterol HDL Cholesterol Vancomycin Trough MRSA (PCR) POC Glucose 12/18/17 12/18/17 12/19/17 10:55 20:36 04:30 WBC 17.6 H RBC 4.44 L Hgb 14.3 Hct 43.5 MCV 98.0 H MCH 32.2 H MCHC 32.9 RDW 13.6 RDW Differential 48.1 H Plt Count 206 MPV 10.1 Immature Gran % (Auto) 0.200 Neut % (Auto) 90.2 H Lymph % (Auto) 4.4 L [place] % (Auto) 5.1 Eos % (Auto) 0.0 Baso % (Auto) 0.1 Absolute Neuts (auto) 15.8 H Absolute Lymphs (auto) 0.77 L Total Counted Not Reportable PT INR APTT Specimen Type ART Sample Site R Radial pH 7.14 L* Bicarbonate Actual 21.5 L POC Total CO2 23 Base Excess -8 L O2 Saturation 96 O2 % 45 ABG pCO2 63.3 H ABG pO2 108 H Samuel Test POS Respiration Rate 18 O2 Delivery Device Vent Vent Mode A-C Tidal Volume 500 POC PEEP 5 Blood Gas Notified Whom ICU MD Blood Gas Notified Time 1054 Sodium Potassium Chloride Carbon Dioxide Anion Gap BUN Creatinine Estim Creat Clear Calc Est GFR (MDRD) Af Amer Est GFR (MDRD) Non-Af BUN/Creatinine Ratio Glucose Lactic Acid Calcium Phosphorus Magnesium Total Bilirubin AST ALT Alkaline Phosphatase Total Creatine Kinase Troponin I Total Protein Albumin Globulin Albumin/Globulin Ratio Triglycerides Cholesterol LDL Cholesterol VLDL Cholesterol HDL Cholesterol Vancomycin Trough MRSA (PCR) POC Glucose 147 H 12/19/17 12/19/17 12/19/17 04:30 04:30 07:15 WBC RBC Hgb Hct MCV MCH MCHC RDW RDW Differential Plt Count MPV Immature Gran % (Auto) Neut % (Auto) Lymph % (Auto) [place] % (Auto) Eos % (Auto) Baso % (Auto) Absolute Neuts (auto) Absolute Lymphs (auto) Total Counted PT INR APTT Specimen Type ART Sample Site R Radial pH 7.32 L Bicarbonate Actual 20.9 L POC Total CO2 22 Base Excess -5 L O2 Saturation 96 O2 % 35 ABG pCO2 40.8 ABG pO2 91 Samuel Test Respiration Rate 18 O2 Delivery Device Vent Vent Mode A-C Tidal Volume 500 POC PEEP 5 Blood Gas Notified Whom ICU MD Blood Gas Notified Time 715 Sodium 143 Potassium 4.3 Chloride 109 H Carbon Dioxide 23.0 Anion Gap 11 BUN 33 H Creatinine 1.76 H Estim Creat Clear Calc 46.56 Est GFR (MDRD) Af Amer 52 L Est GFR (MDRD) Non-Af 43 L BUN/Creatinine Ratio 18.8 Glucose 155 H Lactic Acid Calcium 8.4 L Phosphorus 4.1 Magnesium 2.2 Total Bilirubin 0.70 AST 63 H ALT 48 Alkaline Phosphatase 83 Total Creatine Kinase 1254 H Troponin I Total Protein 6.7 Albumin 3.2 Globulin 3.5 Albumin/Globulin Ratio 0.9 Triglycerides 151 Cholesterol 113 LDL Cholesterol 18 VLDL Cholesterol 30 HDL Cholesterol 65 Vancomycin Trough MRSA (PCR) POC Glucose 12/19/17 12/19/17 12/19/17 11:30 11:46 17:17 WBC RBC Hgb Hct MCV MCH MCHC RDW RDW Differential Plt Count MPV Immature Gran % (Auto) Neut % (Auto) Lymph % (Auto) [place] % (Auto) Eos % (Auto) Baso % (Auto) Absolute Neuts (auto) Absolute Lymphs (auto) Total Counted PT 15.0 H INR 1.2 APTT 37.0 H Specimen Type Sample Site pH Bicarbonate Actual POC Total CO2 Base Excess O2 Saturation O2 % ABG pCO2 ABG pO2 Samuel Test Respiration Rate O2 Delivery Device Vent Mode Tidal Volume POC PEEP Blood Gas Notified Whom Blood Gas Notified Time Sodium Potassium Chloride Carbon Dioxide Anion Gap BUN Creatinine Estim Creat Clear Calc Est GFR (MDRD) Af Amer Est GFR (MDRD) Non-Af BUN/Creatinine Ratio Glucose Lactic Acid Calcium Phosphorus Magnesium Total Bilirubin AST ALT Alkaline Phosphatase Total Creatine Kinase Troponin I Total Protein Albumin Globulin Albumin/Globulin Ratio Triglycerides Cholesterol LDL Cholesterol VLDL Cholesterol HDL Cholesterol Vancomycin Trough MRSA (PCR) POC Glucose 125 H 131 H 12/19/17 12/19/17 12/19/17 17:45 20:53 23:35 WBC RBC Hgb Hct MCV MCH MCHC RDW RDW Differential Plt Count MPV Immature Gran % (Auto) Neut % (Auto) Lymph % (Auto) [place] % (Auto) Eos % (Auto) Baso % (Auto) Absolute Neuts (auto) Absolute Lymphs (auto) Total Counted PT INR APTT 86.9 H Specimen Type Sample Site pH Bicarbonate Actual POC Total CO2 Base Excess O2 Saturation O2 % ABG pCO2 ABG pO2 Samuel Test Respiration Rate O2 Delivery Device Vent Mode Tidal Volume POC PEEP Blood Gas Notified Whom Blood Gas Notified Time Sodium Potassium Chloride Carbon Dioxide Anion Gap BUN Creatinine Estim Creat Clear Calc Est GFR (MDRD) Af Amer Est GFR (MDRD) Non-Af BUN/Creatinine Ratio Glucose Lactic Acid Calcium Phosphorus Magnesium Total Bilirubin AST ALT Alkaline Phosphatase Total Creatine Kinase Troponin I Total Protein Albumin Globulin Albumin/Globulin Ratio Triglycerides Cholesterol LDL Cholesterol VLDL Cholesterol HDL Cholesterol Vancomycin Trough 10.9 MRSA (PCR) POC Glucose 125 H 12/20/17 12/20/17 12/20/17 01:00 05:00 05:05 WBC 16.4 H RBC 3.89 L Hgb 12.6 L Hct 38.3 L MCV 98.5 H MCH 32.4 H MCHC 32.9 RDW 14.0 RDW Differential 50.2 H Plt Count 182 MPV 10.6 Immature Gran % (Auto) 0.100 Neut % (Auto) 93.0 H Lymph % (Auto) 2.3 L [place] % (Auto) 4.6 Eos % (Auto) 0.0 Baso % (Auto) 0.0 Absolute Neuts (auto) 15.3 H Absolute Lymphs (auto) 0.38 L Total Counted Pending PT INR APTT 56.0 H Specimen Type Sample Site pH Bicarbonate Actual POC Total CO2 Base Excess O2 Saturation O2 % ABG pCO2 ABG pO2 Samuel Test Respiration Rate O2 Delivery Device Vent Mode Tidal Volume POC PEEP Blood Gas Notified Whom Blood Gas Notified Time Sodium Potassium Chloride Carbon Dioxide Anion Gap BUN Creatinine Estim Creat Clear Calc Est GFR (MDRD) Af Amer Est GFR (MDRD) Non-Af BUN/Creatinine Ratio Glucose Lactic Acid Calcium Phosphorus Magnesium Total Bilirubin AST ALT Alkaline Phosphatase Total Creatine Kinase Troponin I Total Protein Albumin Globulin Albumin/Globulin Ratio Triglycerides Cholesterol LDL Cholesterol VLDL Cholesterol HDL Cholesterol Vancomycin Trough MRSA (PCR) POC Glucose 130 H Microbiology 12/19/17 06:58 Sputum, Tracheal Aspirate Gram Stain - Final Clinical Impression(s) from Imaging Studies Brain CT 12/18/17 01:51 IMPRESSION: Normal unenhanced CT scan of the brain. Chronic sinusitis. Electronically Signed: Bruce Lei MD at 4:26 EDT , Service support , Chest X-Ray 12/18/17 02:25 IMPRESSION: Tubes are in adequate position. Mild interstitial prominence in the upper lung bustos, probably chronic. No demonstrated focal pulmonary infiltrate. Electronically Signed: Bruce Lei MD at 3:39 EDT , Service support , Chest X-Ray 12/19/17 05:55 IMPRESSION: No acute cardiopulmonary disease. Electronically Signed: Alejandro Stanton MD at 6:15 EDT , Service support , Chest CTA 12/19/17 07:16 IMPRESSION: Multiple small bilateral pulmonary emboli. Electronically Signed: Prashant Swanson MD at 9:53 EDT Tel [phone], Service support , Medical Necessity - Tobacco Use Smoking Status: Unknown if ever smoked Assessment/Plan All Active Problems PEA (Pulseless electrical activity) (Acute) Acute and chronic respiratory failure with hypoxia (Acute) RECOMMENDATIONS: 1. Restart sedation and maintain patient on assist control ventilatory support. 2. Place consultation to neurology. The patient may require additional head imaging in the form of MRI versus EEG. 3. Continue scheduled bronchodilators and IV steroids. 4. Continue empiric antibiotics, pending finalized infectious workup. 5. Continue heparin drip. 6. Continue tube feeds and start bowel regimen today. 7. Continue Pepcid for GI prophylaxis. 8. Discontinue supplemental IV fluids. IMPRESSIONS: 1. Acute combined respiratory failure with evidence of acute bilateral pulmonary emboli and concern for aspiration pneumonia The patient's baseline medical and social history is still not known. However, per review of the EMS report, it does appear that the patient may have had a relatively prolonged downtown with presumed hypoxemia. There was approximately 30 minutes of time that elapsed from the 911 call until arrival to the emergency department. He was documented in the EMS run report that the patient was unresponsive with agonal respirations. However, the patient's airway was not secured in the field. When intubated in the emergency department, the patient was noted to have gastric material in his posterior oropharynx. Following intubation, the patient did experience a brief PEA cardiac arrest. While the patient was initially being treated for suspected COPD/asthma decompensation, subsequent workup with CTA chest did reveal small bilateral pulmonary emboli, for which the patient was initiated on a heparin drip. The patient does have an extensive smoking history. We will plan to continue scheduled bronchodilators, antibiotics and steroids, given concern for aspiration event. Minimize sedation to maintain a RASS of -1 to 1. 2. PEA arrest presumed secondary to hypoxemia Although hypoxia is a consideration for the patient's PEA arrest in the emergency department, he did have evidence of venous thromboembolic disease on CTA chest. Continuing supportive measures as noted above to maintain an oxygen saturation at or above 90%. 3. Encephalopathy Initial concern was for underlying metabolic derangements. However, upon further review of the patient's EMS run report, I know have concern that the patient experienced prolonged downtime with associated hypoxemia. Upon sedation interruption this morning, the patient would not follow any commands. Nevertheless, his brainstem appears to be intact. We will plan to place consultation to neurology for additional assistance and workup. He will likely require additional head imaging and/or EEG. 4. Acute kidney injury Improving. Likely prerenal in etiology in the setting of cardiac arrest. The patient is currently hemodynamically stable without vasopressor support. Supplemental IV fluids were administered, especially in light of contrast administration to obtain CTA chest. At this time, however, the patient's creatinine has improved. Continuous IV fluids will be discontinued accordingly. Continue to monitor urine output. No current indication for renal replacement therapy. 5. Possible polysubstance abuse/continuous tobacco dependence Complicates care, management, recovery and prognosis. The patient's opiate screen was negative, but patient reportedly did respond to Narcan therapy. No history is available at this time. Will attempt to reach out to next of kin to provide more information. CODE STATUS remains full code at this time. TIME: 55 minutes of critical care time, independent of procedures, was spent addressing the patient's acute combined respiratory failure, status post PEA cardiac arrest, possible aspiration pneumonia, acute kidney injury, encephalopathy, review of all data and collaboration with the care team. ([id number]) Code Visit [id number]: [id number] Critical care first hour
--- NOTE | 2017-12-20 06:23 | PN_ITS ---
Patient Problems: Active and Suspected Problems PEA (Pulseless electrical activity) (Acute) Acute and chronic respiratory failure with hypoxia (Acute) Subjective: Patient overnight with only notable events episode of desaturation with coughing with improvement following increased sedation. Patient weaning trial this morning with concern secondary to inability to follow exam commands, suspected possible lengthy hypoxic presentation therefore per discussion with ICU physician neurology consulted and will need consider MRI and EEG. Patient day prior with CTPA obtained with demonstrated small bilateral PEs started on a heparin drip at that time as well. Patient without any evidence of fevers, chills, nausea, emesis, abdominal pain, chest pain or dyspnea but again difficult examination is currently again sedated, unresponsive but per nursing prior with wean. Objective: Physical Examination: General: sedate, intubated, does not awaken to stimuli, not oriented, laying in the ICU bed, NAD. Skin: normal color, turgor, no icterus, cyanosis except occasional abrasion, tattoos. HEENT: AT/NC, EOM not intact, pupils pinpoint, mildly dry MM, intubated. Lungs: CTA BL, mildly diminished bases BL, intubated, symmetric rise, currently no rales, ronchi or wheezing. Heart: Regular rate and rhythm; no gallop, rub audible. Abdomen: soft, NTTP, ND, normal BS. Extremities: no cyanosis, clubbing, or edema. Neurological: sedate, intubated, does not awaken to stimuli, not oriented, laying in the ICU bed, cognitive function not intact, pupils pinpoint reactive sluggish, unable to assess CM, unable to assess strength, no withdraw currently. Psychiatric: affect appears flat, no acute evidence of depressive or anxiety feelings. Vitals/I&O's: Vital Signs Temp Pulse Resp BP Pulse Ox 98.6 F 60 18 109/59 L 97 12/20/17 04:00 12/20/17 06:00 12/20/17 06:00 12/20/17 06:00 12/20/17 06:00 Oxygen Delivery Method Mechanical Ventilator Weight: 159 lb 13.362 oz Body Mass Index (BMI) 21.7 Intake and Output for Last 24 Hours 12/18/17 12/19/17 12/20/17 23:59 23:59 23:59 Intake Total 4623.5 / 4623.5 5029.4 / 5029.4 Output Total 1200 / 1200 1300 / 1300 Balance 3423.5 / 3423.5 3729.4 / 3729.4 Microbiology Past 72 Hours 12/19/17 06:58 Sputum, Tracheal Aspirate Gram Stain - Final Laboratory Results 12/19/17 04:30: Triglycerides 151, Cholesterol 113, LDL Cholesterol 18, VLDL Cholesterol 30, HDL Cholesterol 65 12/19/17 07:15: Specimen Type ART, Sample Site R Radial, pH 7.32 L, Bicarbonate Actual 20.9 L, POC Total CO2 22, Base Excess -5 L, O2 Saturation 96, O2 % 35, ABG pCO2 40.8, ABG pO2 91, Respiration Rate 18, O2 Delivery Device Vent, Vent Mode A-C, Tidal Volume 500, POC PEEP 5, Blood Gas Notified Whom ICU , Blood Gas Notified Time 715 12/19/17 11:30: PT 15.0 H, INR 1.2, APTT 37.0 H 12/19/17 11:46: POC Glucose 125 H 12/19/17 17:17: POC Glucose 131 H 12/19/17 17:45: APTT 86.9 H 12/19/17 20:53: Vancomycin Trough 10.9 12/19/17 23:35: POC Glucose 125 H 12/20/17 01:00: APTT 56.0 H 12/20/17 05:00: WBC 16.4 H, RBC 3.89 L, Hgb 12.6 L, Hct 38.3 L, MCV 98.5 H, MCH 32.4 H, MCHC 32.9, RDW 14.0, RDW Differential 50.2 H, Plt Count 182, MPV 10.6, Immature Gran % (Auto) 0.100, Neut % (Auto) 93.0 H, Lymph % (Auto) 2.3 L, [place] % (Auto) 4.6, Eos % (Auto) 0.0, Baso % (Auto) 0.0, Absolute Neuts (auto) 15.3 H , Absolute Lymphs (auto) 0.38 L, Total Counted Pending 12/20/17 05:05: POC Glucose 130 H Current Medications Albuterol Sulfate (Ventolin Aerosols) 2.5 mg INHALATION Q2H PRN PRN PRN Reason: WHEEZING Last Admin: 12/18/17 06:52 Dose: 2.5 mg Albuterol/Ipratropium (Duoneb) 3 ml INHALATION Q4H.RT [facility] Last Admin: 12/19/17 23:17 Dose: 3 ml Aspirin (Aspirin) 300 mg RECTAL DAILY [facility] Last Admin: 12/19/17 10:21 Dose: 300 mg Chlorhexidine Gluconate () 15 ml PO BID [facility] Last Admin: 12/19/17 21:09 Dose: 15 ml Chlorhexidine Gluconate () 1 each TOPICAL DAILY [facility] Last Admin: 12/20/17 04:05 Dose: 1 each Famotidine (Pepcid) 20 mg GT BID [facility] Last Admin: 12/19/17 21:09 Dose: 20 mg Guaifenesin (Robitussin) 10 ml GT Q4 [facility] Last Admin: 12/20/17 05:06 Dose: 10 ml Heparin Sodium (Porcine) (Heparin Na) 0 unit IV UD PRN PRN Reason: Protocol Fentanyl () 100 mls @ 2.5 mls/hr IV .Q40H [facility] Last Admin: 12/20/17 02:13 Dose: 2.5 mls/hr Propofol (Diprivan) 1,000 mg in 100 mls @ 2.172 mls/hr CONT INF .Q12H [facility]; 5 MCG/KG/MIN PRN Reason: Protocol Last Admin: 12/20/17 04:06 Dose: 2.172 mls/hr Piperacillin Sod/Tazobactam Sod (Zosyn) 3.375 gm in 50 mls @ 12.5 mls/hr IV Q8 [facility] Last Admin: 12/20/17 05:05 Dose: 12.5 mls/hr Enteral Nutritional Formula (Vital Af 1.2 Dylon Liquid) 1,000 mls @ 30 mls/hr GT .[id number] [facility] Last Admin: 12/19/17 15:24 Dose: 30 mls/hr Sodium Chloride () 1,000 mls @ 125 mls/hr IV .Q8H [facility] Last Admin: 12/19/17 23:43 Dose: 125 mls/hr Heparin Sodium/Dextrose () 25,000 units in 250 mls @ 10 mls/hr IV .Q25H [facility]; As Directed PRN Reason: Protocol Last Admin: 12/19/17 11:51 Dose: 10 mls/hr Vancomycin HCl (Vancomycin) 1,000 mg in 200 mls @ 200 mls/hr IV Q12H [facility] Insulin Human Lispro (Humalog Kwikpen (Bkc)) 0 unit SC Q6 [facility]US PRN Reason: Protocol Last Admin: 12/20/17 05:06 Dose: Not Given Magnesium Hydroxide (Milk Of Magnesia) 30 ml PO DAILY PRN PRN PRN Reason: Constipation Methylprednisolone (Solu-Medrol) 40 mg IV Q6 [facility] Last Admin: 12/20/17 05:05 Dose: 40 mg Senna/Docusate Sodium (Senokot-S, Jyoti-Colace) 2 tablet GT BID [facility] Last Admin: 12/19/17 21:09 Dose: 2 tablet Sodium Chloride () 5 - 30 ml IV UD PRN PRN Reason: SALINE FLUSH Last Admin: 12/20/17 05:06 Dose: 10 ml Medical Necessity - Tobacco Use Smoking Status: Unknown if ever smoked Assessment/Plan All Active Problems PEA (Pulseless electrical activity) (Acute) Acute and chronic respiratory failure with hypoxia (Acute) The patient is a 52 y/o M w/ PMHx: Suspected Tobacco use, Anxiety/Depression/ Bipolar likely given medications but unclear, Cannabis usage per UDS who presents to the [facility] ED on 12/18/17 history of PEA with acute hypoxic respiratory failure. (1) Acute Hypoxic and Hypercarbic Respiratory Failure, Multifactorial, Acute on Suspected Chronic COPD exacerbation and Aspiration Pneumonia w/ Suspected Bronchospasms w/ Lactic Acidosis in addition to Acute BL PE: CXR w/ chronic changes, CBC on admission w/ mild interstitial prominence the upper lung bustos with no demonstrated focal pulmonary infiltrate, repeat similar. Admitted to the ICU, intubated, sedated, continue ATC duonebs, PRN albuterol, IV methylprednisolone with prednisone transition per ICU/Pulm discretion, HOB, IS parameters, IV Vanc (MRSA PCR +) and Zosyn with pending sputum cultures, Bld Cx x 2. CTPA obtained w/ multiple small PEs, started on heparin drip. ECHO w/ LVSF normal, EF 55%, 26 mmHg. FLP not marked appearing. (2) PEA Arrest: Suspected secondary to #1, possibly secondary to polysubstance overdose, UDS notable although on regimen which may result in false positive. EMS administered epinephrine x 3 doses and bicarb 2 doses x 2. Cardiac enzymes < 0.015-->0.027-->0.04. ECHO w/ LVSF normal, EF 55%, 26 mmHg. Mag normal. SD ASA. CTPA obtained w/ multiple small PEs, started on heparin drip. Suspect likely prolonged hypoxic timeline, Neurology consulted, as noted. (3) Acute kidney injury: Secondary to acute presentation #1 as noted and possibly #4, unclear baseline. Admission BUN/Cr 111/45-->14/1.35-->12/19/17 BUN/ Cr 33/1.76-->12/20/17 BUN/Cr 29/1.19, given IVFs given concurrent CTPA 12/19/17, improved. (4) Acute Encephalopathy secondary to 1, #2, #3: Extubation trial with sedation wean this morning with concern for encephalopathy ongoing secondary to prolonged hypoxic episode. Per discussion with ICU physician, neurology consulted and likely will require additional imaging of the brain, MRI as well as EEG but will defer to neurology. Given suspected damage will pursue HIV and hepatitis panel at this time. (5) Mild Rhabdomyolysis: Admission TCK 930, unclear timeline, repeat 1254, monitor I&Os, trend. (6) Suspected Polysubstance abuse: UDS notable; however, may be false positives with noted medication regimen. (7) Suspected Tobacco use: Once appropriate will encouraged cessation, inpatient consultation per RT, NR if desired. (8) Anxiety/Depression/Bipolar disorder: Unclear psychiatric history, home regimen noting amitriptyline, Wellbutrin, Zoloft. Holding. (9) DVT, GI Prophylaxis: Pepcid, Heparin drip, SCDs. Code Visit Inpatient E&M: 15074 Subs Hosp L3
[2017-12-20] MEDS: Ipratropium/Albuterol Sulfate 3 ML AMPUL.NEB INHALATION ×5 (06:38→23:19)
[2017-12-20 06:48] LABS: Anion Gap 8 (5-15); BUN 29 mg/dL (7-18); BUN/Creat Ratio 24.4 RATIO (10-20); Calcium,Total 8.1 mg/dL (8.5-10.1); Chloride 110 mmol/L (98-107); Creatinine, Serum 1.19 mg/dL (0.70-1.30); EST Glomerular Filtration Rate 68 mL/min (>60); Est Glom Filt Rate - Afr Amer 82 mL/min (>60); Estimated Creatinine Clearance 72.77 ml/min; Glucose 137 mg/dL (74-106); Magnesium 2.2 mg/dL (1.6-2.6); Phosphorus 3.4 mg/dL (2.5-4.9); Potassium 4.6 mmol/L (3.5-5.1); Sodium Level 142 mmol/L (136-145)
[2017-12-20] MEDS: 0.9% Normal Saline 1,000 ML 125 ML IV (06:57)
[2017-12-20 07:22] LABS: Partial Thromboplast Time 45.2 Seconds (24.1-36.2)
[2017-12-20] MEDS: Heparin Injection (Vial) 5,000 UNIT/ML VIAL IV ×2 (08:23→17:32)
[2017-12-20] MEDS: Senna/Docusate Sodium 1 Tablet 2 TABLET GT ×2 (09:27→21:13)
[2017-12-20] MEDS: Famotidine 20 MG Tablet GT ×2 (09:27→21:13)
[2017-12-20] MEDS: Chlorhexidine 15 ML PO ×2 (09:27→21:13)
[2017-12-20] MEDS: Aspirin 81 MG TAB.CHEW GT (09:32)
[2017-12-20] MEDS: Polyethylene Glycol 3350 17 GM PACKET 34 GM GT ×2 (09:33→13:13)
--- NOTE | 2017-12-20 09:39 | CASEMGMT ---
Social Work Attending ICU Rounds. Pt cousin Arturo present and SW met with pt cousin after rounds and pt is currently on Ventilator. Per Arturo, pt lives alone and is independent in all ADLS and IADLS. He has been on disability for the past 4-5 years due to back and lung issues. Pt has been for 15 years. He has no children and no siblings. Pt father has and his mother is in a nursing facility in poor health. Cousin Arturo reports he is the only family pt has. There are additional cousins, but none have contact with pt. Per Arturo, pt does not have a HCPOA and hospital has no record of HCPOA. Arturo states pt has used heroine in the past and has been incarcerated in related issues. He is currently active with [employer]. Arturo does not think pt is currently using heroine. Support provided to pt cousin. SW will continue to follow for support and d/c planning when appropriate. Face sheet updated to indicate Arturo is pt contact. HANNAH Montes De Oca
[2017-12-20] MEDS: Vancomycin IV 1,000 MG/200 ML BAG 200 MG IV ×2 (11:01→21:14)
[2017-12-20 13:10] LABS: Bedside Glucose 124 mg/dL (70-110)
[2017-12-20] MEDS: HEPARIN/D5w 25,000 UNITS 25,000 UNITS/250 ML IV.SOLN. 10 UNITS IV (13:23)
--- NOTE | 2017-12-20 15:38 | PCM.CONS.GEN ---
Problem List (1) PEA (Pulseless electrical activity) Status: Acute Reason for Consult Date of Consultation: 12/20/17 Reason for Consultation: AMS, PEA, possible hypoxic ischemic encephalopathy History of Present Illness: The patient is a 52 year old M with unclear PMH admitted to [facility] on 12/18/17 after was found unresponsive. History could not be obtained from the patient, it was obtained from medical records and documentation. Per documentation on the day of admission, patient knocked on the neighbor's door complaining of dyspnea, later became unresponsive, had prolonged down time, but was not intubated in the field by the EMS, later was intubated in the ED for air way protection, following which he had PEA. On admission there was concern for drug overdose, since he had responded initially to Narcan, patient was on antidepressants at home, UDS was found to be +ve for amphetamine, methamphetamine and cannabis. At present patient continues to be intubated, is on propofol and fentanyl, Neurology has been consulted to evaluate for hypoxic/anoxic injury. No documentation of witnessed seizures, afebrile at present, found to have bilateral PE since admission, is on heparin drip. [] Past Medical History Allergies Unable to Assess Allergy (Verified 12/18/17 02:42) Home Medications: Ambulatory Orders Medication Instructions Recorded Amitriptyline HCl 100 mg PO QHS 12/18/17 Bupropion HCl [Wellbutrin Xl] 150 mg PO DAILY 12/18/17 Sertraline HCl [Zoloft] 50 mg PO DAILY 12/18/17 Lives: - - could not be obtained since patient is intubated Smoking Status: Unknown if ever smoked Tobacco Use: - - could not be obtained since patient is intubated Drugs: - - could not be obtained since patient is intubated Review of Systems Constitutional: Reports: - - ROS could not be obtained since patient is intubated Patient Problems: Active and Suspected Problems PEA (Pulseless electrical activity) (Acute) Acute and chronic respiratory failure with hypoxia (Acute) - Physical Exam General: - - s/p intubation, spontaneous eye opening present, does not follow any VC HEENT: Normocephalic Neck: No JVD Lungs: Normal air movement Cardiovascular: Normal S1, Normal S2 Abdomen: Bowel Sounds Present Extremities: No cyanosis Musculoskeletal: No Tenderness to Palpation of Joints or Extremities Neurological: - - s/p intubation, spontaneous eye opening present, moves all 4 extremities, pupils BERL, does not follow any VC, sensory/cerebellar/gait cannot be assessed, Reflexes + B/L B/S/T/K/A, No NR, No Kernig's sign or Brudzincki's sign Vital Signs Temp Pulse Resp BP Pulse Ox 99.0 F 60 18 118/68 100 12/20/17 12:00 12/20/17 14:43 12/20/17 14:43 12/20/17 14:00 12/20/17 14:42 Oxygen Delivery Method Mechanical Ventilator Weight: 72.5 kg Body Mass Index (BMI) 21.7 Intake and Output for Last 24 Hours 12/18/17 12/19/17 12/20/17 23:59 23:59 23:59 Intake Total 4623.5 / 4623.5 5029.4 / 5029.4 2923.9 / 2923.9 Output Total 1200 / 1200 1300 / 1300 900 / 900 Balance 3423.5 / 3423.5 3729.4 / 3729.4 2023.9 / 2023.9 Microbiology Past 72 Hours 12/19/17 06:58 Gram Stain - Final Sputum, Tracheal Aspirate Respiratory Culture - Preliminary Appears to be normal respiratory gem. Further studies to follow. Laboratory Tests Past 24 Hrs 12/19/17 12/19/17 12/20/17 17:45 20:53 01:00 WBC RBC Hgb Hct MCV MCH MCHC RDW RDW Differential Plt Count MPV Immature Gran % (Auto) Neut % (Auto) Lymph % (Auto) [place] % (Auto) Eos % (Auto) Baso % (Auto) Absolute Neuts (auto) Absolute Lymphs (auto) Total Counted APTT 86.9 H 56.0 H Sodium Potassium Chloride Carbon Dioxide Anion Gap BUN Creatinine Estim Creat Clear Calc Est GFR (MDRD) Af Amer Est GFR (MDRD) Non-Af BUN/Creatinine Ratio Glucose Calcium Phosphorus Magnesium Vancomycin Trough 10.9 Hepatitis A IgM Ab Hepatitis A Ab Total Hep Bs Antigen Hep B Core Total Ab Hep B Core IgM Ab Hepatitis C Comment HIV 1&2 Antibody 12/20/17 12/20/17 12/20/17 05:00 05:00 06:56 WBC 16.4 H RBC 3.89 L Hgb 12.6 L Hct 38.3 L MCV 98.5 H MCH 32.4 H MCHC 32.9 RDW 14.0 RDW Differential 50.2 H Plt Count 182 MPV 10.6 Immature Gran % (Auto) 0.100 Neut % (Auto) 93.0 H Lymph % (Auto) 2.3 L [place] % (Auto) 4.6 Eos % (Auto) 0.0 Baso % (Auto) 0.0 Absolute Neuts (auto) 15.3 H Absolute Lymphs (auto) 0.38 L Total Counted Not Reportable APTT 45.2 H Sodium 142 Potassium 4.6 Chloride 110 H Carbon Dioxide 24.0 Anion Gap 8 BUN 29 H Creatinine 1.19 Estim Creat Clear Calc 72.77 Est GFR (MDRD) Af Amer 82 Est GFR (MDRD) Non-Af 68 BUN/Creatinine Ratio 24.4 H Glucose 137 H Calcium 8.1 L Phosphorus 3.4 Magnesium 2.2 Vancomycin Trough Hepatitis A IgM Ab Hepatitis A Ab Total Hep Bs Antigen Hep B Core Total Ab Hep B Core IgM Ab Hepatitis C Comment HIV 1&2 Antibody 12/20/17 12/20/17 08:00 08:00 WBC RBC Hgb Hct MCV MCH MCHC RDW RDW Differential Plt Count MPV Immature Gran % (Auto) Neut % (Auto) Lymph % (Auto) [place] % (Auto) Eos % (Auto) Baso % (Auto) Absolute Neuts (auto) Absolute Lymphs (auto) Total Counted APTT Sodium Potassium Chloride Carbon Dioxide Anion Gap BUN Creatinine Estim Creat Clear Calc Est GFR (MDRD) Af Amer Est GFR (MDRD) Non-Af BUN/Creatinine Ratio Glucose Calcium Phosphorus Magnesium Vancomycin Trough Hepatitis A IgM Ab Pending Hepatitis A Ab Total Pending Hep Bs Antigen Pending Hep B Core Total Ab Pending Hep B Core IgM Ab Pending Hepatitis C Comment Pending HIV 1&2 Antibody Pending POC Glucose 12/20/17 12/20/17 12/19/17 13:08 05:05 23:35 POC Glucose 124 H 130 H 125 H 12/19/17 17:17 POC Glucose 131 H Assessment/Plan All Active Problems PEA (Pulseless electrical activity) (Acute) Acute and chronic respiratory failure with hypoxia (Acute) The patient is a 52 year old M with unclear PMH admitted to [facility] on 12/18/17 after was found unresponsive. History could not be obtained from the patient, it was obtained from medical records and documentation. Per documentation on the day of admission, patient knocked on the neighbor's door complaining of dyspnea, later became unresponsive, had prolonged down time, but was not intubated in the field by the EMS, later was intubated in the ED for air way protection, following which he had PEA. On admission there was concern for drug overdose, since he had responded initially to Narcan, patient was on antidepressants at home, UDS was found to be +ve for amphetamine, methamphetamine and cannabis. At present patient continues to be intubated, is on propofol and fentanyl, Neurology has been consulted to evaluate for hypoxic/anoxic injury. No documentation of witnessed seizures, afebrile at present, found to have bilateral PE since admission, is on heparin drip. Impression R/O Hypoxic ischemic encephalopathy Metabolic Encephalopathy Plan -Check MRI brain w/o contrast -Check EEG -Labs reviewed -Further medical management per primary team and ICU team -Prognosis guarded -Check CPK -GI/DVT prophylaxis -Please call with questions if any -Thank you for allowing us to participate in patient's care and management. I spent 60 minutes of critical care time taking history, doing physical examination, reviewing medical records, coordinating care. Code Visit Inpatient E&M: 72578 Init Hosp L3
--- NOTE | 2017-12-20 16:10 | RAD_ITS ---
STUDY: X-RAY - ABDOMEN/PELVIS REASON FOR EXAM: Male, 52 years old. Pre-MRI. Unable to obtain history. TECHNIQUE: Two AP supine views of the abdomen and pelvis. COMPARISON: None. FINDINGS: Normal visualized lung bases. There is a nonspecific bowel gas pattern. Air is seen throughout a mildly distended colon as well as within nondistended small bowel loops in the pelvis. There is no demonstrated free abdominal air. The visualized liver, spleen and kidneys are grossly normal in size and morphology. Normal soft tissue structures. Normal visualized osseous structures. There is no visualized metallic foreign body within the abdomen or pelvis. RAD/Abdomen Single View (Portable) IMPRESSION: 1. No evidence of metallic foreign body. 2. Nonspecific bowel gas pattern. Early obstruction or ileus cannot be ruled out Electronically Signed: Isaac Ashby DO at 16:28 EDT Tel [phone], Service support ,
[2017-12-20 17:01] LABS: CPK Total, Creatine Kinase 326 U/L (39-308)
[2017-12-20 17:07] LABS: Partial Thromboplast Time 40.1 Seconds (24.1-36.2)
[2017-12-20] MEDS: Vital AF 1.2 Cal Liquid 1,000 ML 30 ML GT (17:34)
[2017-12-20 18:06] LABS: Bedside Glucose 125 mg/dL (70-110)
[2017-12-20] MEDS: Polyethylene Glycol 3350 17 GM PACKET PO (21:13)
[2017-12-20 23:35] LABS: Bedside Glucose 131 mg/dL (70-110)
[2017-12-20 23:50] LABS: Partial Thromboplast Time 69.3 Seconds (24.1-36.2)
[2017-12-21] VITALS (46 sets, daily range): BP systolic 90–201; BP diastolic 50–138; PULSE 45–124; RESP 16–33; TEMP 36.6–37.4; O2SAT 93–100
[2017-12-21] MEDS: guaiFENesin 10 ML UDC (200MG/10ML) GT ×3 (01:58→09:10)
[2017-12-21] MEDS: Propofol 10MG/Ml 1,000 MG/100 ML Bottle 2.172 MG CONT INF ×2 (01:58→15:59)
[2017-12-21] MEDS: Ipratropium/Albuterol Sulfate 3 ML AMPUL.NEB INHALATION ×6 (03:19→23:39)
[2017-12-21 04:11] LABS: HEPATITIS B SURFACE AG Negative (Negative); Hepatitis A AB, Total Positive (Negative); Hepatitis A IgM Antibody Negative (Negative); Hepatitis B Core AB IgM Negative (Negative); Hepatitis B Core Ab Total Negative (Negative); Hepatitis C Ab >11.0 s/co ratio (0.0-0.9)
[2017-12-21] MEDS: CHLORHEXIDINE GLUC 2% CLOTH 1 EACH TOWELETTE TOPICAL (05:08)
[2017-12-21] MEDS: 0.9% NaCl Peripheral Flush Adult/Peds IV ×2 (05:08→09:09)
[2017-12-21] MEDS: Piperacil/Tazobactam 3.375 GM/50 ML ML IV (05:08)
[2017-12-21] MEDS: Albuterol 2.5 MG/3 ML VIAL.NEB. INHALATION (05:11)
[2017-12-21 05:48] LABS: Anion Gap 7 (5-15); BUN 26 mg/dL (7-18); BUN/Creat Ratio 24.1 RATIO (10-20); Calcium,Total 8.1 mg/dL (8.5-10.1); Chloride 109 mmol/L (98-107); Creatinine, Serum 1.08 mg/dL (0.70-1.30); EST Glomerular Filtration Rate 76 mL/min (>60); Est Glom Filt Rate - Afr Amer 91 mL/min (>60); Estimated Creatinine Clearance 80.51 ml/min; Glucose 130 mg/dL (74-106); Potassium 4.6 mmol/L (3.5-5.1); Sodium Level 143 mmol/L (136-145)
[2017-12-21 06:00] LABS: Partial Thromboplast Time 49.4 Seconds (24.1-36.2)
[2017-12-21] MEDS: Heparin Injection (Vial) 5,000 UNIT/ML VIAL IV ×3 (06:16→20:52)
[2017-12-21 06:27] LABS: Absolute Lymphocyte Count 0.38 X10^3/ul (0.83-4.51); Hematocrit 37.2 % (40-54); Hemoglobin 12.1 g/dl (13.0-16.5); Lymphocyte # 0.38 X10^3/ul (4.0); Lymphocyte % 3.5 % (19-41); Mean Corp Hgb Conc 32.5 g/gl (32-36); Mean Corpuscular Hgb 32.4 pg (27.0-32.0); Mean Corpuscular Volume 99.5 fL (80-94); Mean Platelet Vol. 10.9 fl (6.2-12.0); Monocyte# 0.53 X10^3/uL; Monocyte% 4.9 % (0-10); Neutrophil # 9.96 X10^3/uL (2.7-7.7); Neutrophil % 91.4 % (47-70); Platelet Count 159 K/mm3 (150-450); RBC Distribution Width CV 14.1 % (11.6-14.6); RBC Distribution Width SD 50.4 fl (35.1-43.9); Red Blood Count 3.74 M/mm3 (4.6-6.2); White Blood Count 10.9 K/mm3 (4.4-11.0)
[2017-12-21 06:28] LABS: Differential Indicated SCAN CRITERIA MET; POSITIVE COUNT NO; POSITIVE DIFFERENTIAL YES; POSITIVE MORPHOLOGY NO
--- NOTE | 2017-12-21 06:52 | CT_ITS ---
STUDY: CT BRAIN WITHOUT CONTRAST REASON FOR EXAM: Male, 52 years old. Unresponsiveness. RADIATION DOSAGE (If Supplied By Facility): CTDIvol = ( 44.99 ) mGy, DLP = ( 832.67 ) mGycm TECHNIQUE: Transaxial CT imaging of the brain was performed without administration of intravenous contrast material. Individualized dose optimization techniques were used for this CT. COMPARISON: Comparison is made with prior study dated December 18, 2017. FINDINGS: An endotracheal tube is in situ. Normal soft tissue structures. Normal calvarium. Normal size ventricles and extra-axial spaces for the patient's age. Normal white matter tracts of the cerebral hemispheres. Normal basal ganglia and thalami. Normal brainstem. Normal cerebellum. There is no intracranial hemorrhage. There are no findings of an acute ischemic infarction. Mild degree of mucosal thickening of the maxillary sinuses and ethmoid sinuses bilaterally. Mild degree of mucosal thickening of the left sphenoid sinus. CT/Brain/Head without Contrast IMPRESSION: Sinus changes as described. No acute intracranial abnormality is seen. Electronically Signed: Prashant Swanson MD at 8:51 EDT Tel [phone], Service support ,
--- NOTE | 2017-12-21 07:06 | PN_ITS ---
Subjective: The patient was seen and examined at the bedside this morning. Events from the last 24 hours have been reviewed. The patient is currently afebrile, hemodynamically stable and maintaining appropriate oxygen saturations on an FiO2 of 40%. With weaning of sedation again this morning, the patient became extremely agitated, hypertensive and tachycardic. Although he did reportedly give a thumbs up to nursing staff when questioned, they did report that he again stared blankly and would not track or follow commands. The patient was unable to go for MRI yesterday, given his degree of agitation with sedation interruption and the need to be off pump for the imaging study. The patient is currently overall net +10+ L for the admission. Objective: The patient's most recent lab work, culture data and imaging studies have all been personally reviewed. Blood and urine cultures are pending. Sputum Gram stain revealed no organisms. Surface echocardiogram revealed normal LV size and function with an ejection fraction of 55%. Pulmonary artery systolic pressures were estimated to be 26 mmHg. CTA chest revealed small numerous bilateral pulmonary emboli. General: - - Remains intubated, sedated and mechanically ventilated. Currently tolerating assist control without dyssynchrony noted. HEENT: Atraumatic, PERRLA, Normocephalic Oral: No Gingival or Mucosal Lesions/ Ulcerations, - - Endotracheal and OG tube remains in place. Neck: Supple, No Nodes, Trachea Midline Lungs: - - Coarse mechanical breath sounds across anterior lung bustos. No wheezes, rales or rhonchi. Patient currently receiving aerosol treatment. Cardiovascular: Regular rate, Regular Rhythm, Normal S1, Normal S2, No murmurs, - - Normal sinus rhythm on telemetry. Abdomen: Bowel Sounds Present, Soft, Non Tender, Non-Distended, - - Tolerating tube feeds currently. Extremities: No clubbing, No cyanosis, - - Trace pedal edema Skin: No breakdown, - - Multiple tattoos Musculoskeletal: No Tenderness to Palpation of Joints or Extremities, No Muscle Wasting Lymphatic: No Cervical, Supraclavicular, or Inguinal Adenopathy Neurological: - - Patient moves all extremities with weaning of sedation. Nonfocal examination. However, the patient will still not follow commands. Vital Signs Temp Pulse Resp BP Pulse Ox 98.2 F 64 18 126/70 H 96 12/21/17 03:00 12/21/17 06:00 12/21/17 06:00 12/21/17 06:00 12/21/17 06:00 Oxygen Delivery Method Mechanical Ventilator Weight: 160 lb 7.944 oz Body Mass Index (BMI) 21.7 Intake and Output for Last 24 Hours 12/19/17 12/20/17 12/21/17 23:59 23:59 23:59 Intake Total 5029.4 / 5029.4 4739.6 / 4739.6 830.4 / 830.4 Output Total 1300 / 1300 2150 / 2150 550 / 550 Balance 3729.4 / 3729.4 2589.6 / 2589.6 280.4 / 280.4 Labs (Last 48 Hours) 12/19/17 12/19/17 12/19/17 04:30 07:15 11:30 WBC RBC Hgb Hct MCV MCH MCHC RDW RDW Differential Plt Count MPV Immature Gran % (Auto) Neut % (Auto) Lymph % (Auto) [place] % (Auto) Eos % (Auto) Baso % (Auto) Absolute Neuts (auto) Absolute Lymphs (auto) Total Counted PT 15.0 H INR 1.2 APTT 37.0 H Specimen Type ART Sample Site R Radial pH 7.32 L Bicarbonate Actual 20.9 L POC Total CO2 22 Base Excess -5 L O2 Saturation 96 O2 % 35 ABG pCO2 40.8 ABG pO2 91 Respiration Rate 18 O2 Delivery Device Vent Vent Mode A-C Tidal Volume 500 POC PEEP 5 Blood Gas Notified Whom ICU MD Blood Gas Notified Time 715 Sodium Potassium Chloride Carbon Dioxide Anion Gap BUN Creatinine Estim Creat Clear Calc Est GFR (MDRD) Af Amer Est GFR (MDRD) Non-Af BUN/Creatinine Ratio Glucose Calcium Phosphorus Magnesium Total Creatine Kinase Triglycerides 151 Cholesterol 113 LDL Cholesterol 18 VLDL Cholesterol 30 HDL Cholesterol 65 Vancomycin Trough Hepatitis A IgM Ab Hepatitis A Ab Total Hep Bs Antigen Hep B Core Total Ab Hep B Core IgM Ab Hepatitis C Comment HIV 1&2 Antibody POC Glucose 12/19/17 12/19/17 12/19/17 11:46 17:17 17:45 WBC RBC Hgb Hct MCV MCH MCHC RDW RDW Differential Plt Count MPV Immature Gran % (Auto) Neut % (Auto) Lymph % (Auto) [place] % (Auto) Eos % (Auto) Baso % (Auto) Absolute Neuts (auto) Absolute Lymphs (auto) Total Counted PT INR APTT 86.9 H Specimen Type Sample Site pH Bicarbonate Actual POC Total CO2 Base Excess O2 Saturation O2 % ABG pCO2 ABG pO2 Respiration Rate O2 Delivery Device Vent Mode Tidal Volume POC PEEP Blood Gas Notified Whom Blood Gas Notified Time Sodium Potassium Chloride Carbon Dioxide Anion Gap BUN Creatinine Estim Creat Clear Calc Est GFR (MDRD) Af Amer Est GFR (MDRD) Non-Af BUN/Creatinine Ratio Glucose Calcium Phosphorus Magnesium Total Creatine Kinase Triglycerides Cholesterol LDL Cholesterol VLDL Cholesterol HDL Cholesterol Vancomycin Trough Hepatitis A IgM Ab Hepatitis A Ab Total Hep Bs Antigen Hep B Core Total Ab Hep B Core IgM Ab Hepatitis C Comment HIV 1&2 Antibody POC Glucose 125 H 131 H 12/19/17 12/19/17 12/20/17 20:53 23:35 01:00 WBC RBC Hgb Hct MCV MCH MCHC RDW RDW Differential Plt Count MPV Immature Gran % (Auto) Neut % (Auto) Lymph % (Auto) [place] % (Auto) Eos % (Auto) Baso % (Auto) Absolute Neuts (auto) Absolute Lymphs (auto) Total Counted PT INR APTT 56.0 H Specimen Type Sample Site pH Bicarbonate Actual POC Total CO2 Base Excess O2 Saturation O2 % ABG pCO2 ABG pO2 Respiration Rate O2 Delivery Device Vent Mode Tidal Volume POC PEEP Blood Gas Notified Whom Blood Gas Notified Time Sodium Potassium Chloride Carbon Dioxide Anion Gap BUN Creatinine Estim Creat Clear Calc Est GFR (MDRD) Af Amer Est GFR (MDRD) Non-Af BUN/Creatinine Ratio Glucose Calcium Phosphorus Magnesium Total Creatine Kinase Triglycerides Cholesterol LDL Cholesterol VLDL Cholesterol HDL Cholesterol Vancomycin Trough 10.9 Hepatitis A IgM Ab Hepatitis A Ab Total Hep Bs Antigen Hep B Core Total Ab Hep B Core IgM Ab Hepatitis C Comment HIV 1&2 Antibody POC Glucose 125 H 12/20/17 12/20/17 12/20/17 05:00 05:00 05:05 WBC 16.4 H RBC 3.89 L Hgb 12.6 L Hct 38.3 L MCV 98.5 H MCH 32.4 H MCHC 32.9 RDW 14.0 RDW Differential 50.2 H Plt Count 182 MPV 10.6 Immature Gran % (Auto) 0.100 Neut % (Auto) 93.0 H Lymph % (Auto) 2.3 L [place] % (Auto) 4.6 Eos % (Auto) 0.0 Baso % (Auto) 0.0 Absolute Neuts (auto) 15.3 H Absolute Lymphs (auto) 0.38 L Total Counted Not Reportable PT INR APTT Specimen Type Sample Site pH Bicarbonate Actual POC Total CO2 Base Excess O2 Saturation O2 % ABG pCO2 ABG pO2 Respiration Rate O2 Delivery Device Vent Mode Tidal Volume POC PEEP Blood Gas Notified Whom Blood Gas Notified Time Sodium 142 Potassium 4.6 Chloride 110 H Carbon Dioxide 24.0 Anion Gap 8 BUN 29 H Creatinine 1.19 Estim Creat Clear Calc 72.77 Est GFR (MDRD) Af Amer 82 Est GFR (MDRD) Non-Af 68 BUN/Creatinine Ratio 24.4 H Glucose 137 H Calcium 8.1 L Phosphorus 3.4 Magnesium 2.2 Total Creatine Kinase Triglycerides Cholesterol LDL Cholesterol VLDL Cholesterol HDL Cholesterol Vancomycin Trough Hepatitis A IgM Ab Hepatitis A Ab Total Hep Bs Antigen Hep B Core Total Ab Hep B Core IgM Ab Hepatitis C Comment HIV 1&2 Antibody POC Glucose 130 H 12/20/17 12/20/17 12/20/17 06:56 08:00 08:00 WBC RBC Hgb Hct MCV MCH MCHC RDW RDW Differential Plt Count MPV Immature Gran % (Auto) Neut % (Auto) Lymph % (Auto) [place] % (Auto) Eos % (Auto) Baso % (Auto) Absolute Neuts (auto) Absolute Lymphs (auto) Total Counted PT INR APTT 45.2 H Specimen Type Sample Site pH Bicarbonate Actual POC Total CO2 Base Excess O2 Saturation O2 % ABG pCO2 ABG pO2 Respiration Rate O2 Delivery Device Vent Mode Tidal Volume POC PEEP Blood Gas Notified Whom Blood Gas Notified Time Sodium Potassium Chloride Carbon Dioxide Anion Gap BUN Creatinine Estim Creat Clear Calc Est GFR (MDRD) Af Amer Est GFR (MDRD) Non-Af BUN/Creatinine Ratio Glucose Calcium Phosphorus Magnesium Total Creatine Kinase Triglycerides Cholesterol LDL Cholesterol VLDL Cholesterol HDL Cholesterol Vancomycin Trough Hepatitis A IgM Ab Pending Hepatitis A Ab Total Pending Hep Bs Antigen Pending Hep B Core Total Ab Pending Hep B Core IgM Ab Pending Hepatitis C Comment Pending HIV 1&2 Antibody Pending POC Glucose 12/20/17 12/20/17 12/20/17 13:08 16:30 16:30 WBC RBC Hgb Hct MCV MCH MCHC RDW RDW Differential Plt Count MPV Immature Gran % (Auto) Neut % (Auto) Lymph % (Auto) [place] % (Auto) Eos % (Auto) Baso % (Auto) Absolute Neuts (auto) Absolute Lymphs (auto) Total Counted PT INR APTT 40.1 H Specimen Type Sample Site pH Bicarbonate Actual POC Total CO2 Base Excess O2 Saturation O2 % ABG pCO2 ABG pO2 Respiration Rate O2 Delivery Device Vent Mode Tidal Volume POC PEEP Blood Gas Notified Whom Blood Gas Notified Time Sodium Potassium Chloride Carbon Dioxide Anion Gap BUN Creatinine Estim Creat Clear Calc Est GFR (MDRD) Af Amer Est GFR (MDRD) Non-Af BUN/Creatinine Ratio Glucose Calcium Phosphorus Magnesium Total Creatine Kinase 326 H Triglycerides Cholesterol LDL Cholesterol VLDL Cholesterol HDL Cholesterol Vancomycin Trough Hepatitis A IgM Ab Hepatitis A Ab Total Hep Bs Antigen Hep B Core Total Ab Hep B Core IgM Ab Hepatitis C Comment HIV 1&2 Antibody POC Glucose 124 H 12/20/17 12/20/17 12/20/17 18:00 23:20 23:20 WBC RBC Hgb Hct MCV MCH MCHC RDW RDW Differential Plt Count MPV Immature Gran % (Auto) Neut % (Auto) Lymph % (Auto) [place] % (Auto) Eos % (Auto) Baso % (Auto) Absolute Neuts (auto) Absolute Lymphs (auto) Total Counted PT INR APTT 69.3 H Specimen Type Sample Site pH Bicarbonate Actual POC Total CO2 Base Excess O2 Saturation O2 % ABG pCO2 ABG pO2 Respiration Rate O2 Delivery Device Vent Mode Tidal Volume POC PEEP Blood Gas Notified Whom Blood Gas Notified Time Sodium Potassium Chloride Carbon Dioxide Anion Gap BUN Creatinine Estim Creat Clear Calc Est GFR (MDRD) Af Amer Est GFR (MDRD) Non-Af BUN/Creatinine Ratio Glucose Calcium Phosphorus Magnesium Total Creatine Kinase Triglycerides Cholesterol LDL Cholesterol VLDL Cholesterol HDL Cholesterol Vancomycin Trough Hepatitis A IgM Ab Hepatitis A Ab Total Hep Bs Antigen Hep B Core Total Ab Hep B Core IgM Ab Hepatitis C Comment HIV 1&2 Antibody POC Glucose 125 H 131 H 12/21/1718 12/21/17 05:00 05:00 05:00 WBC 10.9 RBC 3.74 L Hgb 12.1 L Hct 37.2 L MCV 99.5 H MCH 32.4 H MCHC 32.5 RDW 14.1 RDW Differential 50.4 H Plt Count 159 MPV 10.9 Immature Gran % (Auto) 0.200 Neut % (Auto) 91.4 H Lymph % (Auto) 3.5 L [place] % (Auto) 4.9 Eos % (Auto) 0.0 Baso % (Auto) 0.0 Absolute Neuts (auto) 10.0 H Absolute Lymphs (auto) 0.38 L Total Counted Pending PT INR APTT 49.4 H Specimen Type Sample Site pH Bicarbonate Actual POC Total CO2 Base Excess O2 Saturation O2 % ABG pCO2 ABG pO2 Respiration Rate O2 Delivery Device Vent Mode Tidal Volume POC PEEP Blood Gas Notified Whom Blood Gas Notified Time Sodium 143 Potassium 4.6 Chloride 109 H Carbon Dioxide 27.0 Anion Gap 7 BUN 26 H Creatinine 1.08 Estim Creat Clear Calc 80.51 Est GFR (MDRD) Af Amer 91 Est GFR (MDRD) Non-Af 76 BUN/Creatinine Ratio 24.1 H Glucose 130 H Calcium 8.1 L Phosphorus Magnesium Total Creatine Kinase Triglycerides Cholesterol LDL Cholesterol VLDL Cholesterol HDL Cholesterol Vancomycin Trough Hepatitis A IgM Ab Hepatitis A Ab Total Hep Bs Antigen Hep B Core Total Ab Hep B Core IgM Ab Hepatitis C Comment HIV 1&2 Antibody POC Glucose Microbiology 12/19/17 06:58 Sputum, Tracheal Aspirate Gram Stain - Final 12/19/17 06:58 Sputum, Tracheal Aspirate Respiratory Culture - Preliminary Appears to be normal respiratory gem. Further studies to follow. Clinical Impression(s) from Imaging Studies Brain CT 12/18/17 01:51 IMPRESSION: Normal unenhanced CT scan of the brain. Chronic sinusitis. Electronically Signed: Bruce Lei MD at 4:26 EDT , Service support , Chest X-Ray 12/18/17 02:25 IMPRESSION: Tubes are in adequate position. Mild interstitial prominence in the upper lung bustos, probably chronic. No demonstrated focal pulmonary infiltrate. Electronically Signed: Bruce Lei MD at 3:39 EDT , Service support , Chest X-Ray 12/19/17 05:55 IMPRESSION: No acute cardiopulmonary disease. Electronically Signed: Alejandro Stanton MD at 6:15 EDT , Service support , Chest CTA 12/19/17 07:16 IMPRESSION: Multiple small bilateral pulmonary emboli. Electronically Signed: Prashant Swanson MD at 9:53 EDT Tel [phone], Service support , KUB X-Ray 12/20/17 16:10 IMPRESSION: 1. No evidence of metallic foreign body. 2. Nonspecific bowel gas pattern. Early obstruction or ileus cannot be ruled out Electronically Signed: Isaac Ashby DO at 16:28 EDT Tel [phone], Service support , Medical Necessity - Tobacco Use Smoking Status: Unknown if ever smoked Tobacco Use: - - could not be obtained since patient is intubated Assessment/Plan All Active Problems PEA (Pulseless electrical activity) (Acute) Acute and chronic respiratory failure with hypoxia (Acute) RECOMMENDATIONS: 1. We will plan to transition from propofol and fentanyl for sedation to Precedex, in hopes of facilitating weaning from mechanical ventilation. 2. In lieu of the patient's MRI, will obtain repeat CT head this morning along with EEG. 3. Change IV methylprednisone to prednisone 40 mg daily via G-tube. 4. Continue scheduled bronchodilators. 5. Continue heparin drip. 6. Continue tube feeds and bowel regimen. 7. Continue Pepcid for GI prophylaxis. 8. Consider discontinuation of antibiotics. 9. Check ammonia and TSH level. IMPRESSIONS: 1. Acute combined respiratory failure with evidence of acute bilateral pulmonary emboli and concern for aspiration pneumonia The patient's baseline medical and social history is still not known. However, per review of the EMS report, it does appear that the patient may have had a relatively prolonged [place] with presumed hypoxemia. There was approximately 30 minutes of time that elapsed from the 911 call until arrival to the emergency department. He was documented in the EMS run report that the patient was unresponsive with agonal respirations. However, the patient's airway was not secured in the field. When intubated in the emergency department, the patient was noted to have gastric material in his posterior oropharynx. Following intubation, the patient did experience a brief PEA cardiac arrest. While the patient was initially being treated for suspected COPD/asthma decompensation, subsequent workup with CTA chest did reveal small bilateral pulmonary emboli, for which the patient was initiated on a heparin drip. The patient does have an extensive smoking history. We will plan to continue scheduled bronchodilators and steroids. However, given the lack of infiltrate noted on CT chest and negative cultures to date, antibiotics can be discontinued from my perspective. Minimize sedation to maintain a RASS of -1 to 1. We will transition the patient from continuous propofol and fentanyl to Precedex for sedation. 2. PEA arrest presumed secondary to hypoxemia Although hypoxia is a consideration for the patient's PEA arrest in the emergency department, he did have evidence of venous thromboembolic disease on CTA chest. Continuing supportive measures as noted above to maintain an oxygen saturation at or above 90%. 3. Encephalopathy Initial concern was for underlying metabolic derangements. However, upon further review of the patient's EMS run report, I know have concern that the patient experienced prolonged downtime with associated hypoxemia. Neurology was consulted for assistance. Although MRI was being considered, it was felt that the patient would not tolerate the aforementioned imaging study, due to ongoing issues with agitation and restlessness. Therefore, a repeat CT head and EEG will be obtained. We will also plan to check ammonia and TSH. 4. Acute kidney injury Improving. Likely prerenal in etiology in the setting of cardiac arrest. The patient is currently hemodynamically stable without vasopressor support. Supplemental IV fluids were administered, especially in light of contrast administration to obtain CTA chest. At this time, however, the patient's creatinine has improved. Continuous IV fluids will be discontinued accordingly. Continue to monitor urine output. No current indication for renal replacement therapy. 5. Possible polysubstance abuse/continuous tobacco dependence Complicates care, management, recovery and prognosis. The patient's opiate screen was negative, but patient reportedly did respond to Narcan therapy. No history is available at this time. Will attempt to reach out to next of kin to provide more information. CODE STATUS remains full code at this time. TIME: 45 minutes of critical care time, independent of procedures, was spent addressing the patient's acute combined respiratory failure, status post PEA cardiac arrest, possible aspiration pneumonia, acute kidney injury, encephalopathy, review of all data and collaboration with the care team. (0700- 0800) Code Visit [id number]: [id number] Critical care first hour
--- NOTE | 2017-12-21 07:07 | PCM.PN.HOSP ---
Patient Problems: Active and Suspected Problems PEA (Pulseless electrical activity) (Acute) Acute and chronic respiratory failure with hypoxia (Acute) Subjective: Patient overnight with intermittent agitation, more alert, with sedation wean sits up, opens eyes and following minimal commands. Sedation being transitioned to Precedex for attempt at CT head and EEG. Patient remains afebrile, labs stable, continued improvement of renal function with discussion with pulmonary/ICU physician with de-escalation from IV Solu-Medrol to prednisone therapy and discontinuation antibiotic therapy given cultures all negative to date and chest x-ray upon presentation was not market appearing. Patient without evidence of fevers, chills, nausea, emesis, abdominal pain, chest pain. Objective: Physical Examination: General: awake, more alert today, following some commands and appeared to mouth yes, mildly agitated. Skin: normal color, turgor, no icterus, cyanosis except occasional abrasion, tattoos. HEENT: AT/NC, EOM not intact, pupils pinpoint, improved less dry MM, intubated. Lungs: CTA BL, mildly diminished bases BL, intubated, no rales, ronchi or wheezing. Heart: Regular rate and rhythm; no gallop, rub audible. Abdomen: soft, NTTP, ND, normal BS. Extremities: no cyanosis, clubbing, or edema. Neurological: awake, more alert today, following some commands and appeared to mouth yes, mildly agitated; cognitive function improving, pupils less pinpoint, reactive, strength improved. Psychiatric: affect appears mildy agitated, no acute evidence of depressive or anxiety feelings. Vitals/I&O's: Vital Signs Temp Pulse Resp BP Pulse Ox 98.2 F 59 L 18 117/66 94 12/21/17 03:00 12/21/17 07:00 12/21/17 07:00 12/21/17 07:00 12/21/17 07:00 Oxygen Delivery Method Mechanical Ventilator Weight: 160 lb 7.944 oz Body Mass Index (BMI) 21.7 Intake and Output for Last 24 Hours 12/19/17 12/20/17 12/21/17 23:59 23:59 23:59 Intake Total 5029.4 / 5029.4 4739.6 / 4739.6 830.4 / 830.4 Output Total 1300 / 1300 2150 / 2150 550 / 550 Balance 3729.4 / 3729.4 2589.6 / 2589.6 280.4 / 280.4 Microbiology Past 72 Hours 12/19/17 06:58 Sputum, Tracheal Aspirate Gram Stain - Final 12/19/17 06:58 Sputum, Tracheal Aspirate Respiratory Culture - Preliminary Appears to be normal respiratory gem. Further studies to follow. Laboratory Results 12/20/17 06:56: APTT 45.2 H 12/20/17 08:00: Hepatitis A IgM Ab Pending, Hepatitis A Ab Total Pending, Hep Bs Antigen Pending, Hep B Core Total Ab Pending, Hep B Core IgM Ab Pending, Hepatitis C Comment Pending 12/20/17 08:00: HIV 1&2 Antibody Pending 12/20/17 13:08: POC Glucose 124 H 12/20/17 16:30: APTT 40.1 H 12/20/17 16:30: Total Creatine Kinase 326 H 12/20/17 18:00: POC Glucose 125 H 12/20/17 23:20: APTT 69.3 H 12/20/17 23:20: POC Glucose 131 H 12/21/17 05:00: WBC 10.9, RBC 3.74 L, Hgb 12.1 L, Hct 37.2 L, MCV 99.5 H, MCH 32.4 H, MCHC 32.5, RDW 14.1, RDW Differential 50.4 H, Plt Count 159, MPV 10.9, Immature Gran % (Auto) 0.200, Neut % (Auto) 91.4 H, Lymph % (Auto) 3.5 L, [place] % (Auto) 4.9, Eos % (Auto) 0.0, Baso % (Auto) 0.0, Absolute Neuts (auto) 10.0 H, Absolute Lymphs (auto) 0.38 L, Total Counted Pending 12/21/17 05:00: Sodium 143, Potassium 4.6, Chloride 109 H, Carbon Dioxide 27.0, Anion Gap 7, BUN 26 H, Creatinine 1.08, Estim Creat Clear Calc 80.51, Est GFR (MDRD) Af Amer 91, Est GFR (MDRD) Non-Af 76, BUN/Creatinine Ratio 24.1 H, Glucose 130 H, Calcium 8.1 L 12/21/17 05:00: APTT 49.4 H Current Medications Albuterol Sulfate (Ventolin Aerosols) 2.5 mg INHALATION Q2H PRN PRN PRN Reason: WHEEZING Last Admin: 12/21/17 05:11 Dose: 2.5 mg Albuterol/Ipratropium (Duoneb) 3 ml INHALATION Q4H.RT [facility] Last Admin: 12/21/17 06:36 Dose: 3 ml Aspirin (Aspirin, Baby) 81 mg GT DAILYCM [facility] Last Admin: 12/20/17 09:32 Dose: 81 mg Chlorhexidine Gluconate () 15 ml PO BID [facility] Last Admin: 12/20/17 21:13 Dose: 15 ml Chlorhexidine Gluconate () 1 each TOPICAL DAILY [facility] Last Admin: 12/21/17 05:08 Dose: 1 each Famotidine (Pepcid) 20 mg GT BID [facility] Last Admin: 12/20/17 21:13 Dose: 20 mg Guaifenesin (Robitussin) 10 ml GT Q4 [facility] Last Admin: 12/21/17 05:08 Dose: 10 ml Heparin Sodium (Porcine) (Heparin Na) 0 unit IV UD PRN PRN Reason: Protocol Last Admin: 12/21/17 06:16 Dose: 1,000 u Fentanyl () 100 mls @ 2.5 mls/hr IV .Q40H [facility] Last Admin: 12/21/17 03:25 Dose: 2.5 mls/hr Propofol (Diprivan) 1,000 mg in 100 mls @ 2.172 mls/hr CONT INF .Q12H [facility]; 5 MCG/KG/MIN PRN Reason: Protocol Last Admin: 12/21/17 01:58 Dose: 2.172 mls/hr Enteral Nutritional Formula (Vital Af 1.2 Dylon Liquid) 1,000 mls @ 30 mls/hr GT .[id number] [facility] Last Admin: 12/20/17 17:34 Dose: 30 mls/hr Heparin Sodium/Dextrose () 25,000 units in 250 mls @ 10 mls/hr IV .Q25H [facility]; As Directed PRN Reason: Protocol Last Admin: 12/20/17 13:23 Dose: 10 mls/hr Dexmedetomidine HCl 400 mcg/ (Sodium Chloride) 100 mls @ 9.1 mls/hr IV .Q11H [facility] PRN Reason: 0.5 MCG/KG/HR Last Admin: 12/21/17 06:50 Dose: 9.1 mls/hr Insulin Human Lispro (Humalog Kwikpen (Bkc)) 0 unit SC Q6 GUS PRN Reason: Protocol Last Admin: 12/21/17 06:20 Dose: Not Given Magnesium Hydroxide (Milk Of Magnesia) 30 ml PO DAILY PRN PRN PRN Reason: Constipation Polyethylene Glycol (Miralax) 17 gm PO BID [facility] Last Admin: 12/20/17 21:13 Dose: 17 gm Prednisone () 40 mg GT DAILY@0800 [facility] Senna/Docusate Sodium (Senokot-S, Jyoti-Colace) 2 tablet GT BID [facility] Last Admin: 12/20/17 21:13 Dose: 2 tablet Sodium Chloride () 5 - 30 ml IV UD PRN PRN Reason: SALINE FLUSH Last Admin: 12/21/17 05:08 Dose: 20 ml Medical Necessity - Tobacco Use Smoking Status: Unknown if ever smoked Tobacco Use: - - could not be obtained since patient is intubated Assessment/Plan All Active Problems PEA (Pulseless electrical activity) (Acute) Acute and chronic respiratory failure with hypoxia (Acute) The patient is a 52 y/o M w/ PMHx: Suspected Tobacco use, Anxiety/Depression/Bipolar likely given medications but unclear, Cannabis usage per UDS who presents to the [facility] ED on 12/18/17 history of PEA with acute hypoxic respiratory failure. (1) Acute Hypoxic and Hypercarbic Respiratory Failure, Multifactorial, Acute on Suspected Chronic COPD exacerbation and Aspiration Pneumonia w/ Suspected Bronchospasms w/ Lactic Acidosis in addition to Acute BL PE: CXR w/ chronic changes, CBC on admission w/ mild interstitial prominence the upper lung bustos with no demonstrated focal pulmonary infiltrate, repeat similar. Admitted to the ICU, intubated, sedated, continue ATC duonebs, PRN albuterol, IV methylprednisolone with prednisone transition 12/21/17, HOB, IS parameters, initially treated w/ IV Vanc (MRSA PCR +) and Zosyn with unremarkable cultures, negative antigens thus per discussion w/ ICU/Pulmonary physician will d/c abx therapy 12/21/17 and continue to monitor. CTPA obtained w/ multiple small PEs, started on heparin drip. ECHO w/ LVSF normal, EF 55%, 26 mmHg. FLP not marked appearing. Will review options for oral transition with CM today for affordability. Attempting to obtain at least CT head and EEG, thus will transition sedation to precedex. Holding IVFs, on TFs. (2) PEA Arrest: Suspected secondary to #1, possibly secondary to polysubstance overdose, UDS notable although on regimen which may result in false positive. EMS administered epinephrine x 3 doses and bicarb 2 doses x 2. Cardiac enzymes <0.015-->0.027-->0.04. ECHO w/ LVSF normal, EF 55%, 26 mmHg. Mag normal. [place] ASA. CTPA obtained w/ multiple small PEs, started on heparin drip. Suspect likely prolonged hypoxic timeline, Neurology consulted, attempting to obtain at least CT head and EEG, thus will transition sedation to precedex. (3) Acute kidney injury: Secondary to acute presentation #1 as noted and possibly #4, unclear baseline. Admission BUN/Cr 111/45-->14/1.35-->12/19/17 BUN/Cr 33/1.76-->12/21/17 BUN/Cr 26/1.08, given IVFs given concurrent CTPA 12/19/17, improved, holding further IVFs, on TFs. (4) Acute Encephalopathy secondary to 1, #2, #3: Extubation trial with sedation wean this morning with concern for encephalopathy ongoing secondary to prolonged hypoxic episode. Per discussion with ICU physician, neurology consulted and likely will require additional imaging of the brain, MRI as well as EEG but will defer to neurology. Given suspected damage will pursue HIV and hepatitis panel at this time. (5) Mild Rhabdomyolysis: Admission TCK 930, unclear timeline, repeat 1254, monitor I&Os, repeat improved, 12/20/17 326. (6) Suspected Polysubstance abuse: UDS notable; however, may be false positives with noted medication regimen but does have notable history per family Arturo who notes that he has been incarcerated but clean status for may years. (7) Suspected Tobacco use: Once appropriate will encouraged cessation, inpatient consultation per RT, NR if desired. (8) Anxiety/Depression/Bipolar disorder: Unclear psychiatric history, home regimen noting amitriptyline, Wellbutrin, Zoloft. Holding. (9) DVT, GI Prophylaxis: Pepcid, Heparin drip, SCDs. Code Visit Inpatient E&M: 85129 Subs Hosp L3
--- NOTE | 2017-12-21 07:12 | PN_ITS ---
Patient Problems: Active and Suspected Problems PEA (Pulseless electrical activity) (Acute) Acute and chronic respiratory failure with hypoxia (Acute) Subjective: Patient overnight with intermittent agitation, more alert, with sedation wean sits up, opens eyes and following minimal commands. Sedation being transitioned to Precedex for attempt at CT head and EEG. Patient remains afebrile, labs stable, continued improvement of renal function with discussion with pulmonary/ICU physician with de-escalation from IV Solu-Medrol to prednisone therapy and discontinuation antibiotic therapy given cultures all negative to date and chest x-ray upon presentation was not market appearing. Patient without evidence of fevers, chills, nausea, emesis, abdominal pain, chest pain. Objective: Physical Examination: General: awake, more alert today, following some commands and appeared to mouth yes, mildly agitated. Skin: normal color, turgor, no icterus, cyanosis except occasional abrasion, tattoos. HEENT: AT/NC, EOM not intact, pupils pinpoint, improved less dry MM, intubated. Lungs: CTA BL, mildly diminished bases BL, intubated, no rales, ronchi or wheezing. Heart: Regular rate and rhythm; no gallop, rub audible. Abdomen: soft, NTTP, ND, normal BS. Extremities: no cyanosis, clubbing, or edema. Neurological: awake, more alert today, following some commands and appeared to mouth yes, mildly agitated; cognitive function improving, pupils less pinpoint , reactive, strength improved. Psychiatric: affect appears mildy agitated, no acute evidence of depressive or anxiety feelings. Vitals/I&O's: Vital Signs Temp Pulse Resp BP Pulse Ox 98.2 F 59 L 18 117/66 94 12/21/17 03:00 12/21/17 07:00 12/21/17 07:00 12/21/17 07:00 12/21/17 07:00 Oxygen Delivery Method Mechanical Ventilator Weight: 160 lb 7.944 oz Body Mass Index (BMI) 21.7 Intake and Output for Last 24 Hours 12/19/17 12/20/17 12/21/17 23:59 23:59 23:59 Intake Total 5029.4 / 5029.4 4739.6 / 4739.6 830.4 / 830.4 Output Total 1300 / 1300 2150 / 2150 550 / 550 Balance 3729.4 / 3729.4 2589.6 / 2589.6 280.4 / 280.4 Microbiology Past 72 Hours 12/19/17 06:58 Sputum, Tracheal Aspirate Gram Stain - Final 12/19/17 06:58 Sputum, Tracheal Aspirate Respiratory Culture - Preliminary Appears to be normal respiratory gem. Further studies to follow. Laboratory Results 12/20/17 06:56: APTT 45.2 H 12/20/17 08:00: Hepatitis A IgM Ab Pending, Hepatitis A Ab Total Pending, Hep Bs Antigen Pending, Hep B Core Total Ab Pending, Hep B Core IgM Ab Pending, Hepatitis C Comment Pending 12/20/17 08:00: HIV 1&2 Antibody Pending 12/20/17 13:08: POC Glucose 124 H 12/20/17 16:30: APTT 40.1 H 12/20/17 16:30: Total Creatine Kinase 326 H 12/20/17 18:00: POC Glucose 125 H 12/20/17 23:20: APTT 69.3 H 12/20/17 23:20: POC Glucose 131 H 12/21/17 05:00: WBC 10.9, RBC 3.74 L, Hgb 12.1 L, Hct 37.2 L, MCV 99.5 H, MCH 32.4 H, MCHC 32.5, RDW 14.1, RDW Differential 50.4 H, Plt Count 159, MPV 10.9, Immature Gran % (Auto) 0.200, Neut % (Auto) 91.4 H, Lymph % (Auto) 3.5 L, [place] % (Auto) 4.9, Eos % (Auto) 0.0, Baso % (Auto) 0.0, Absolute Neuts (auto) 10.0 H , Absolute Lymphs (auto) 0.38 L, Total Counted Pending 12/21/17 05:00: Sodium 143, Potassium 4.6, Chloride 109 H, Carbon Dioxide 27.0, Anion Gap 7, BUN 26 H, Creatinine 1.08, Estim Creat Clear Calc 80.51, Est GFR ( MDRD) Af Amer 91, Est GFR (MDRD) Non-Af 76, BUN/Creatinine Ratio 24.1 H, Glucose 130 H, Calcium 8.1 L 12/21/17 05:00: APTT 49.4 H Current Medications Albuterol Sulfate (Ventolin Aerosols) 2.5 mg INHALATION Q2H PRN PRN PRN Reason: WHEEZING Last Admin: 12/21/17 05:11 Dose: 2.5 mg Albuterol/Ipratropium (Duoneb) 3 ml INHALATION Q4H.RT [facility] Last Admin: 12/21/17 06:36 Dose: 3 ml Aspirin (Aspirin, Baby) 81 mg GT DAILYCM [facility] Last Admin: 12/20/17 09:32 Dose: 81 mg Chlorhexidine Gluconate () 15 ml PO BID [facility] Last Admin: 12/20/17 21:13 Dose: 15 ml Chlorhexidine Gluconate () 1 each TOPICAL DAILY [facility] Last Admin: 12/21/17 05:08 Dose: 1 each Famotidine (Pepcid) 20 mg GT BID [facility] Last Admin: 12/20/17 21:13 Dose: 20 mg Guaifenesin (Robitussin) 10 ml GT Q4 [facility] Last Admin: 12/21/17 05:08 Dose: 10 ml Heparin Sodium (Porcine) (Heparin Na) 0 unit IV UD PRN PRN Reason: Protocol Last Admin: 12/21/17 06:16 Dose: 1,000 u Fentanyl () 100 mls @ 2.5 mls/hr IV .Q40H [facility] Last Admin: 12/21/17 03:25 Dose: 2.5 mls/hr Propofol (Diprivan) 1,000 mg in 100 mls @ 2.172 mls/hr CONT INF .Q12H [facility]; 5 MCG/KG/MIN PRN Reason: Protocol Last Admin: 12/21/17 01:58 Dose: 2.172 mls/hr Enteral Nutritional Formula (Vital Af 1.2 Dylon Liquid) 1,000 mls @ 30 mls/hr GT .[id number] [facility] Last Admin: 12/20/17 17:34 Dose: 30 mls/hr Heparin Sodium/Dextrose () 25,000 units in 250 mls @ 10 mls/hr IV .Q25H [facility]; As Directed PRN Reason: Protocol Last Admin: 12/20/17 13:23 Dose: 10 mls/hr Dexmedetomidine HCl 400 mcg/ (Sodium Chloride) 100 mls @ 9.1 mls/hr IV .Q11H [facility] PRN Reason: 0.5 MCG/KG/HR Last Admin: 12/21/17 06:50 Dose: 9.1 mls/hr Insulin Human Lispro (Humalog Kwikpen (Bkc)) 0 unit SC Q6 GUS PRN Reason: Protocol Last Admin: 12/21/17 06:20 Dose: Not Given Magnesium Hydroxide (Milk Of Magnesia) 30 ml PO DAILY PRN PRN PRN Reason: Constipation Polyethylene Glycol (Miralax) 17 gm PO BID [facility] Last Admin: 12/20/17 21:13 Dose: 17 gm Prednisone () 40 mg GT DAILY@0800 [facility] Senna/Docusate Sodium (Senokot-S, Jyoti-Colace) 2 tablet GT BID [facility] Last Admin: 12/20/17 21:13 Dose: 2 tablet Sodium Chloride () 5 - 30 ml IV UD PRN PRN Reason: SALINE FLUSH Last Admin: 12/21/17 05:08 Dose: 20 ml Medical Necessity - Tobacco Use Smoking Status: Unknown if ever smoked Tobacco Use: - - could not be obtained since patient is intubated Assessment/Plan All Active Problems PEA (Pulseless electrical activity) (Acute) Acute and chronic respiratory failure with hypoxia (Acute) The patient is a 52 y/o M w/ PMHx: Suspected Tobacco use, Anxiety/Depression/ Bipolar likely given medications but unclear, Cannabis usage per UDS who presents to the [facility] ED on 12/18/17 history of PEA with acute hypoxic respiratory failure. (1) Acute Hypoxic and Hypercarbic Respiratory Failure, Multifactorial, Acute on Suspected Chronic COPD exacerbation and Aspiration Pneumonia w/ Suspected Bronchospasms w/ Lactic Acidosis in addition to Acute BL PE: CXR w/ chronic changes, CBC on admission w/ mild interstitial prominence the upper lung bustos with no demonstrated focal pulmonary infiltrate, repeat similar. Admitted to the ICU, intubated, sedated, continue ATC duonebs, PRN albuterol, IV methylprednisolone with prednisone transition 12/21/17, HOB, IS parameters, initially treated w/ IV Vanc (MRSA PCR +) and Zosyn with unremarkable cultures, negative antigens thus per discussion w/ ICU/Pulmonary physician will d/c abx therapy 12/21/17 and continue to monitor. CTPA obtained w/ multiple small PEs, started on heparin drip. ECHO w/ LVSF normal, EF 55%, 26 mmHg. FLP not marked appearing. Will review options for oral transition with CM today for affordability. Attempting to obtain at least CT head and EEG, thus will transition sedation to precedex. Holding IVFs, on TFs. (2) PEA Arrest: Suspected secondary to #1, possibly secondary to polysubstance overdose, UDS notable although on regimen which may result in false positive. EMS administered epinephrine x 3 doses and bicarb 2 doses x 2. Cardiac enzymes < 0.015-->0.027-->0.04. ECHO w/ LVSF normal, EF 55%, 26 mmHg. Mag normal. [place] ASA. CTPA obtained w/ multiple small PEs, started on heparin drip. Suspect likely prolonged hypoxic timeline, Neurology consulted, attempting to obtain at least CT head and EEG, thus will transition sedation to precedex. (3) Acute kidney injury: Secondary to acute presentation #1 as noted and possibly #4, unclear baseline. Admission BUN/Cr 111/45-->14/1.35-->12/19/17 BUN/ Cr 33/1.76-->12/21/17 BUN/Cr 26/1.08, given IVFs given concurrent CTPA 12/19/17, improved, holding further IVFs, on TFs. (4) Acute Encephalopathy secondary to 1, #2, #3: Extubation trial with sedation wean this morning with concern for encephalopathy ongoing secondary to prolonged hypoxic episode. Per discussion with ICU physician, neurology consulted and likely will require additional imaging of the brain, MRI as well as EEG but will defer to neurology. Given suspected damage will pursue HIV and hepatitis panel at this time. (5) Mild Rhabdomyolysis: Admission TCK 930, unclear timeline, repeat 1254, monitor I&Os, repeat improved, 12/20/17 326. (6) Suspected Polysubstance abuse: UDS notable; however, may be false positives with noted medication regimen but does have notable history per family Arturo who notes that he has been incarcerated but clean status for may years. (7) Suspected Tobacco use: Once appropriate will encouraged cessation, inpatient consultation per RT, NR if desired. (8) Anxiety/Depression/Bipolar disorder: Unclear psychiatric history, home regimen noting amitriptyline, Wellbutrin, Zoloft. Holding. (9) DVT, GI Prophylaxis: Pepcid, Heparin drip, SCDs. Code Visit Inpatient E&M: 37300 Subs Hosp L3
[2017-12-21] MEDS: predniSONE 20 MG Tablet 40 MG GT (07:44)
[2017-12-21] MEDS: Aspirin 81 MG TAB.CHEW GT (07:44)
[2017-12-21] MEDS: Chlorhexidine 15 ML PO ×2 (09:08→21:42)
[2017-12-21] MEDS: Polyethylene Glycol 3350 17 GM PACKET PO (09:09)
[2017-12-21] MEDS: Famotidine 20 MG Tablet GT ×2 (09:09→21:43)
[2017-12-21] MEDS: Senna/Docusate Sodium 1 Tablet 2 TABLET GT (09:09)
[2017-12-21 09:20] LABS: Thyroid Stim Hormone (TSH) 1.23 uIU/mL (0.358-3.74)
[2017-12-21 09:59] LABS: HIV - WCH Non-Reactive (Nonreactive)
[2017-12-21] MEDS: HEPARIN/D5w 25,000 UNITS 25,000 UNITS/250 ML IV.SOLN. 10 UNITS IV (10:08)
[2017-12-21 11:18] LABS: Hep B Surface Antibodies Reactive (.)
[2017-12-21 12:05] LABS: Bedside Glucose 130 mg/dL (70-110)
--- NOTE | 2017-12-21 12:12 | EEG ---
- Electroencephalogram Date of service 12/21/17 History EEG is being done in this 52 yr M with PEA to rule out seizures EEG Description: This is an 18 channel EEG with 10-20 lead placement system. Bipolar montages, Referential and Circumferential montages were reviewed. Photic stimulation was performed but Hyperventilation could not be performed. The posterior dominant background rhythm was absent. Photo stimulation did not elicit any driving response or any abnormal photoparoxysmal response, Hyperventilation could not be performed. Sleep was not identified. There was generalized background slowing in the delta frequency range of 4 Hz. Generalized periodic epileptiform discharges (GPEDs) were noted during the record. There was no electrographic seizures noted during this recording. EEG Interpretation This is an abnormal EEG due to the presence of severe generalized slowing as well as presence of generalized periodic epileptiform discharges (GPEDs). This generally portends poor prognosis in patient with history of cardiac arrest. Clinical correlation is advised. There is no electrographic seizures noted during the record.
[2017-12-21] MEDS: Magnesium Citrate 300 ML 150 ML GT (12:14)
[2017-12-21] MEDS: Vital AF 1.2 Cal Liquid 1,000 ML 30 ML GT (12:14)
[2017-12-21 12:55] LABS: Partial Thromboplast Time 50.1 Seconds (24.1-36.2)
--- NOTE | 2017-12-21 13:52 | MRI_ITS ---
STUDY: MRI BRAIN WITHOUT CONTRAST REASON FOR EXAM: Male, 52 years old. Confusion and seizures TECHNIQUE: Standardized multiplanar fat and water weighted pulse sequences were obtained. COMPARISON: CT of the brain on December 13, 2017 FINDINGS: Normal size of the ventricles and extra-axial spaces for the patient's age. Minor periventricular white matter ischemic changes without mass effect or restricted diffusion. However, on the diffusion weighted imaging sequence there appears to be diffusely increased signal intensity within the cerebral cortex bilaterally and concurrent low signal on the ADC maps which may be consistent with diffuse bilateral cortical ischemia Normal bilateral basal ganglia. Normal thalami. There is no extra-axial fluid accumulation. Normal flow voids within the major intracranial circulation suggesting patency by spin echo criteria. There is signal dropout within the frontal lobes bilaterally on the gradient echo weighted imaging sequence which may represent hemosiderin deposition secondary to old hemorrhagic contusions Normal sella turcica, pituitary gland, infundibular stalk, optic chiasm and hypothalamus. Normal tectal plate and pineal gland. Normal midbrain, lino and medulla. Normal cerebellum. Normal basal cisterns. Normal bilateral temporal bones. Normal bilateral internal auditory canals. Increased signal intensity noted within the mastoids consistent with inflammatory changes. No demonstrated orbital abnormality, within the constraints of a routine brain study. Mild diffuse pansinusitis is noted. Normal calvarium and skull base. Normal visualized soft tissue structures. Normal visualized upper cervical spine. MRI/Brain without Contrast IMPRESSION: Findings which may be consistent with nonspecific diffuse bilateral renal cortical ischemia. Recommend clinical correlation and follow-up N.B. : The above information has been verbally conveyed by Dima Mckeon MD to RN-Jojo Nice, [facility]- In-Patient RN, on 12/21/2017 16:53:33 (ET). Electronically Signed: Dima Mckeon MD at 16:32 EDT , Service support ,
[2017-12-21] MEDS: fentaNYL 100 MCG/2 ML Ampul IV (14:30)
[2017-12-21] MEDS: Rocuronium Bromide 50 MG/5 ML Vial 40 MG IV (14:30)
[2017-12-21] MEDS: Midazolam 2 MG/2 ML Syringe 4 MG IV (14:30)
[2017-12-21 17:36] LABS: Bedside Glucose 137 mg/dL (70-110)
[2017-12-21 19:21] LABS: Partial Thromboplast Time 51.2 Seconds (24.1-36.2)
--- NOTE | 2017-12-21 19:53 | NURSING ---
Pt ETT mercado was replaced with this RN and Mable from Respiratory at this time. Pt tolerated well.
[2017-12-21] MEDS: QUEtiapine 25 MG Tablet 50 MG GT (21:42)
[2017-12-22] VITALS (53 sets, daily range): BP systolic 112–229; BP diastolic 52–107; PULSE 53–126; RESP 13–41; TEMP 37.3–37.8; O2SAT 92–100
[2017-12-22 00:01] LABS: Bedside Glucose 92 mg/dL (70-110)
[2017-12-22] MEDS: 0.9% NaCl Peripheral Flush Adult/Peds IV ×4 (02:34→15:49)
[2017-12-22 02:57] LABS: Partial Thromboplast Time 64.5 Seconds (24.1-36.2)
[2017-12-22] MEDS: Propofol 10MG/Ml 1,000 MG/100 ML Bottle 2.172 MG CONT INF (03:26)
[2017-12-22] MEDS: Ipratropium/Albuterol Sulfate 3 ML AMPUL.NEB INHALATION ×6 (04:31→23:24)
[2017-12-22] MEDS: HEPARIN/D5w 25,000 UNITS 25,000 UNITS/250 ML IV.SOLN. 10 UNITS IV (04:47)
[2017-12-22 05:41] LABS: Bedside Glucose 101 mg/dL (70-110)
[2017-12-22 05:50] LABS: Absolute Lymphocyte Count 2.64 X10^3/ul (0.83-4.51); Absolute Neutrophil Count 7.8 X10^3/uL (2.0-7.7); Eosinophil# 0.03 X10^3/uL; Eosinophils% 0.3 % (0-5); Hematocrit 36.8 % (40-54); Lymphocyte # 2.64 X10^3/ul (4.0); Mean Corp Hgb Conc 32.6 g/gl (32-36); Mean Corpuscular Hgb 32.2 pg (27.0-32.0); Mean Corpuscular Volume 98.7 fL (80-94); Mean Platelet Vol. 11.5 fl (6.2-12.0); Monocyte# 1.01 X10^3/uL; Monocyte% 8.8 % (0-10); Neutrophil # 7.77 X10^3/uL (2.7-7.7); Neutrophil % 67.8 % (47-70); Platelet Count 170 K/mm3 (150-450); RBC Distribution Width CV 14.1 % (11.6-14.6); RBC Distribution Width SD 49.3 fl (35.1-43.9); Red Blood Count 3.73 M/mm3 (4.6-6.2); White Blood Count 11.5 K/mm3 (4.4-11.0)
--- NOTE | 2017-12-22 06:00 | NURSING ---
This RN, Peg Helton has reviewed the charting of Gauri Nice RN and agrees.
[2017-12-22 06:15] LABS: Anion Gap 5 (5-15); BUN 25 mg/dL (7-18); BUN/Creat Ratio 29.4 RATIO (10-20); Calcium,Total 7.8 mg/dL (8.5-10.1); Chloride 108 mmol/L (98-107); Creatinine, Serum 0.85 mg/dL (0.70-1.30); EST Glomerular Filtration Rate 100 mL/min (>60); Est Glom Filt Rate - Afr Amer 120 mL/min (>60); Estimated Creatinine Clearance 102.58 ml/min; Glucose 94 mg/dL (74-106); Potassium 3.6 mmol/L (3.5-5.1); Sodium Level 142 mmol/L (136-145)
[2017-12-22 06:16] LABS: POSITIVE COUNT NO; POSITIVE DIFFERENTIAL NO; POSITIVE MORPHOLOGY NO
--- NOTE | 2017-12-22 06:36 | PCM.PN.HOSP ---
Patient Problems: Active and Suspected Problems PEA (Pulseless electrical activity) (Acute) Acute and chronic respiratory failure with hypoxia (Acute) Subjective: Patient overnight with low-grade temperature and ongoing intermittent agitation with again extubation weaning trial with elevated blood pressure increased respiratory rate and agitation. Patient family member, cousin present and reviewed results from day prior including abnormal EEG with periodic epileptic discharges with need for initiation of Keppra for seizure activity as well as MRI brain with nonspecific diffuse bilateral cortical ischemia. Discussed that this portends a poor prognosis and we would probably not be able to tell the extent of his abilities until extubation trial. Discussed CODE STATUS at length given patient preference to avoid any trach or PEG status and he notes intention to think on it today and relay decision to team. Patient without evidence of chills, nausea, emesis, abdominal pain, chest pain but intubated, sedated thus only subjective. Objective: Physical Examination: General: not alert, currently sedate, prior following some commands per RN, noted to have given appropriate yes and no signs, intubated, NAD. Skin: normal color, turgor, no icterus, cyanosis except occasional abrasion, tattoos. HEENT: AT/NC, EOM not intact, pupillary response/size improved, improved MMM, intubated/OG. Lungs: CTA BL, mildly diminished bases BL, intubated, no rales, ronchi or wheezing. Heart: Regular rate and rhythm; no gallop, rub audible. Abdomen: soft, NTTP, ND, normal BS. Extremities: no cyanosis, clubbing, or edema. Neurological: not alert, currently sedate, prior following some commands per RN, noted to have given appropriate yes and no signs; cognitive function improved from initial presentation but unclear extent of ability given EEG/MRI findings, pupillary response/size improved, difficult to assess strength given sedation. Psychiatric: affect appears sedate, currently calm, no acute evidence of depressive or anxiety feelings. Vitals/I&O's: Vital Signs Temp Pulse Resp BP Pulse Ox 99.7 F H 100 25 H 143/67 H 95 12/22/17 04:00 12/22/17 06:04 12/22/17 06:04 12/22/17 06:04 12/22/17 06:04 Oxygen Delivery Method Mechanical Ventilator Weight: 162 lb 7.691 oz Body Mass Index (BMI) 21.7 Intake and Output for Last 24 Hours 12/20/17 12/21/17 12/22/17 23:59 23:59 23:59 Intake Total 4739.6 / 4739.6 2361.4 / 2361.4 1758.6 / 1758.6 Output Total 2150 / 2150 1850 / 1850 650 / 650 Balance 2589.6 / 2589.6 511.4 / 511.4 1108.6 / 1108.6 Microbiology Past 72 Hours 12/19/17 06:58 Sputum, Tracheal Aspirate Gram Stain - Final 12/19/17 06:58 Sputum, Tracheal Aspirate Respiratory Culture - Final Laboratory Results 12/20/17 08:00: Hepatitis A IgM Ab Negative, Hepatitis A Ab Total Positive H, Hep Bs Antigen Negative, Hep B Core Total Ab Negative, Hep B Core IgM Ab Negative, Hepatitis C Ab Confirm >11.0 H, Hepatitis C Comment Not Reportable 12/20/17 08:00: HIV 1&2 Antibody Non-Reactive 12/21/17 05:00: Total Counted Not Reportable 12/21/17 05:00: TSH 1.23 12/21/17 08:50: Ammonia 40.0 H 12/21/17 12:03: POC Glucose 130 H 12/21/17 12:10: APTT 50.1 H 12/21/17 17:30: POC Glucose 137 H 12/21/17 19:05: APTT 51.2 H 12/21/17 23:57: POC Glucose 92 12/22/17 02:40: APTT 64.5 H 12/22/17 05:30: WBC 11.5 H, RBC 3.73 L, Hgb 12.0 L, Hct 36.8 L, MCV 98.7 H, MCH 32.2 H, MCHC 32.6, RDW 14.1, RDW Differential 49.3 H, Plt Count 170, MPV 11.5, Immature Gran % (Auto) 0.100, Neut % (Auto) 67.8, Lymph % (Auto) 23.0, Jew[place] % (Auto) 8.8, Eos % (Auto) 0.3, Baso % (Auto) 0.0, Absolute Neuts (auto) 7.8 H, Absolute Lymphs (auto) 2.64, Total Counted Not Reportable 12/22/17 05:30: Sodium 142, Potassium 3.6, Chloride 108 H, Carbon Dioxide 29.0, Anion Gap 5, BUN 25 H, Creatinine 0.85, Estim Creat Clear Calc 102.58, Est GFR (MDRD) Af Amer 120, Est GFR (MDRD) Non-Af 100, BUN/Creatinine Ratio 29.4 H, Glucose 94, Calcium 7.8 L 12/22/17 05:32: POC Glucose 101 Current Medications Albuterol Sulfate (Ventolin Aerosols) 2.5 mg INHALATION Q2H PRN PRN PRN Reason: WHEEZING Last Admin: 12/21/17 05:11 Dose: 2.5 mg Albuterol/Ipratropium (Duoneb) 3 ml INHALATION Q4H.RT [facility] Last Admin: 12/22/17 04:31 Dose: 3 ml Aspirin (Aspirin, Baby) 81 mg GT DAILYCM [facility] Last Admin: 12/21/17 07:44 Dose: 81 mg Chlorhexidine Gluconate () 15 ml PO BID [facility] Last Admin: 12/21/17 21:42 Dose: 15 ml Chlorhexidine Gluconate () 1 each TOPICAL DAILY [facility] Last Admin: 12/21/17 05:08 Dose: 1 each Famotidine (Pepcid) 20 mg GT BID [facility] Last Admin: 12/21/17 21:43 Dose: 20 mg Heparin Sodium (Porcine) (Heparin Na) 0 unit IV UD PRN PRN Reason: Protocol Last Admin: 12/21/17 20:52 Dose: 1,000 u Fentanyl () 100 mls @ 2.5 mls/hr IV .Q40H [facility] Last Admin: 12/22/17 00:26 Dose: 2.5 mls/hr Propofol (Diprivan) 1,000 mg in 100 mls @ 2.172 mls/hr CONT INF .Q12H GUS; 5 MCG/KG/MIN PRN Reason: Protocol Last Admin: 12/22/17 03:26 Dose: 2.172 mls/hr Enteral Nutritional Formula (Vital Af 1.2 Dylon Liquid) 1,000 mls @ 30 mls/hr GT .[id number] [facility] Last Admin: 12/21/17 12:14 Dose: 30 mls/hr Heparin Sodium/Dextrose () 25,000 units in 250 mls @ 10 mls/hr IV .Q25H GUS; As Directed PRN Reason: Protocol Last Admin: 12/22/17 04:47 Dose: 10 mls/hr Levetiracetam 750 mg/ N/A 150 mls @ 600 mls/hr IV BID GUS Last Admin: 12/21/17 21:42 Dose: 600 mls/hr Insulin Human Lispro (Humalog Kwikpen (Bkc)) 0 unit SC Q6 GUS PRN Reason: Protocol Last Admin: 12/22/17 05:49 Dose: Not Given Magnesium Hydroxide (Milk Of Magnesia) 30 ml PO DAILY PRN PRN PRN Reason: Constipation Polyethylene Glycol (Miralax) 17 gm PO BID GUS Last Admin: 12/21/17 20:41 Dose: Not Given Prednisone () 40 mg GT DAILY@0800 [facility] Last Admin: 12/21/17 07:44 Dose: 40 mg Quetiapine Fumarate (Seroquel) 50 mg GT BID [facility] Last Admin: 12/21/17 21:42 Dose: 50 mg Senna/Docusate Sodium (Senokot-S, Jyoti-Colace) 2 tablet GT BID [facility] Last Admin: 12/21/17 20:41 Dose: Not Given Sodium Chloride () 5 - 30 ml IV UD PRN PRN Reason: SALINE FLUSH Last Admin: 12/22/17 02:34 Dose: 10 ml Medical Necessity - Tobacco Use Smoking Status: Unknown if ever smoked Tobacco Use: - - could not be obtained since patient is intubated Assessment/Plan All Active Problems PEA (Pulseless electrical activity) (Acute) Acute and chronic respiratory failure with hypoxia (Acute) The patient is a 52 y/o M w/ PMHx: Suspected Tobacco use, Anxiety/Depression/Bipolar likely given medications but unclear, Cannabis usage per UDS who presents to the [facility] ED on 12/18/17 history of PEA with acute hypoxic respiratory failure. (1) Acute Hypoxic and Hypercarbic Respiratory Failure, Multifactorial, Acute on Suspected Chronic COPD exacerbation and Aspiration Pneumonia w/ Suspected Bronchospasms w/ Lactic Acidosis in addition to Acute BL PE: CXR w/ chronic changes, CBC on admission w/ mild interstitial prominence the upper lung bustos with no demonstrated focal pulmonary infiltrate, repeat similar. Admitted to the ICU, intubated, sedated, continue ATC duonebs, PRN albuterol, IV methylprednisolone with prednisone transition 12/21/17, HOB, IS parameters, initially treated w/ IV Vanc (MRSA PCR +) and Zosyn with unremarkable cultures, negative antigens thus per discussion w/ ICU/Pulmonary physician will d/c abx therapy 12/21/17 and continue to monitor. CTPA obtained w/ multiple small PEs, started on heparin drip. ECHO w/ LVSF normal, EF 55%, 26 mmHg. FLP not marked appearing. 12/21/17 CT head unremarkable. MRI Brain w/ findings consistent with nonspecific diffuse bilateral cortical ischemia. EEG w/ generalized periodic epileptiform discharges. (2) PEA Arrest: Suspected secondary to #1, possibly secondary to polysubstance overdose, UDS notable although on regimen which may result in false positive. EMS administered epinephrine x 3 doses and bicarb 2 doses x 2. Cardiac enzymes 0.015-->0.027-->0.04. ECHO w/ LVSF normal, EF 55%, 26 mmHg. Mag normal. TX ASA. CTPA obtained w/ multiple small PEs, started on heparin drip. Suspect likely prolonged hypoxic timeline, Neurology consulted. CT head without acute findings. Abnormal EEG w/ severe generalized slowing as well as presence of generalized periodic epileptiform discharges initiated on keppra 750 mg BID, MRI w/ findings consistent with nonspecific diffuse bilateral cortical ischemia. Complicates #1, may be difficult extubation. (3) Acute kidney injury: Secondary to acute presentation #1 as noted and possibly #4, unclear baseline. Admission BUN/Cr 111/45-->14/1.35-->12/19/17 BUN/Cr 33/1.76-->12/21/17 BUN/Cr 26/1.08, given IVFs given concurrent CTPA 12/19/17, improved, holding further IVFs, on TFs. (4) Acute Encephalopathy secondary to 1, #2, #3 and Suspected Anoxic Brain Injury w/ Seizure Activity: Extubation trials difficult, ongoing occasional episodes of increased agitation and questionable ability to follow commands. Neurology consulted and following. 12/21/17 CT head unremarkable. Abnormal EEG w/ severe generalized slowing as well as presence of generalized periodic epileptiform discharges (GPEDs) which portends poor prognosis in patient with history of cardiac arrest. Discussed w/ Dr. Kinsey thus started keppra 750 mg BID (12/21/17). MRI w/ findings consistent with nonspecific diffuse bilateral cortical ischemia. (5) Mild Rhabdomyolysis: Admission TCK 930, unclear timeline, repeat 1254, monitor I&Os, repeat improved, 12/20/17 326. (6) Suspected Polysubstance abuse: UDS notable; however, may be false positives with noted medication regimen but does have notable history per family Arturo who notes that he has been incarcerated but clean status for may years. (7) Suspected Tobacco use: Once appropriate will encouraged cessation, inpatient consultation per RT, NR if desired. (8) Anxiety/Depression/Bipolar disorder: Unclear psychiatric history, home regimen noting amitriptyline, Wellbutrin, Zoloft. Holding. (9) DVT, GI Prophylaxis: Pepcid, Heparin drip, SCDs. (10) CODE status: Discussed CODE status at length including difference between FULL code, DNR-CCA and DNR-CC status with cousin Arturo who is patient only family member. He currently confirms avoidance of trach/PEG, prolonged nonmeaningful intervention pathway. Discussed results of MRI and EEG which were relayed as poor prognostic indicators but noted unless extubated and off sedation unable to noted extent of abilities. Advanced Care Planning Face to Face Time: 18 minutes. Code Visit Inpatient E&M: 23319 Subs Hosp L3 Procedures: 58389 Advncd Care Plan 30 Min
--- NOTE | 2017-12-22 06:40 | PCM.PN.INT ---
Subjective: The patient was seen and examined at the bedside this morning. Events from the last 24 hours have been reviewed. The patient currently has a low-grade fever. He was noted to become extremely agitated, hypertensive and tachypneic with sedation interruption this morning. FiO2 requirement has been weaned to 30%. With sedation in place, the patient is currently tolerating CPAP mode of mechanical ventilation. EEG completed yesterday did reveal generalized periodic epileptic discharges, for which the patient was started on Keppra. In addition, brain MRI revealed nonspecific diffuse bilateral cortical ischemia. Per nursing report, when sedation interruption was attempted, the patient would attempt to look in the general direction in which his name was being called. He was again able to give a thumbs up to generalized questioning. Objective: The patient's most recent lab work, culture data and imaging studies have all been personally reviewed. Blood and urine cultures are pending. Sputum Gram stain revealed no organisms. Surface echocardiogram revealed normal LV size and function with an ejection fraction of 55%. Pulmonary artery systolic pressures were estimated to be 26 mmHg. CTA chest revealed small numerous bilateral pulmonary emboli. MRI revealed bilateral cortical ischemia with EEG revealing periodic epileptic discharges. General: - - Remains intubated, sedated and mechanically ventilated. Currently tolerating CPAP with a pressure support of 5 and PEEP of 5. HEENT: Atraumatic, PERRLA, Normocephalic Oral: No Gingival or Mucosal Lesions/ Ulcerations, - - Endotracheal and OG tubes remain in place. Neck: Supple, No Nodes, Trachea Midline Lungs: - - Diminished bilaterally with expiratory wheezing noted. No ventilator dyssynchrony. Cardiovascular: Regular rate, Regular Rhythm, Normal S1, Normal S2, No murmurs, No rub noted, No Gallop Abdomen: Bowel Sounds Present, Soft, Non Tender, Non-Distended Extremities: No clubbing, No cyanosis, - - Pedal edema is present. Skin: No breakdown, - - Multiple tattoos present Musculoskeletal: No Tenderness to Palpation of Joints or Extremities Lymphatic: No Cervical, Supraclavicular, or Inguinal Adenopathy Neurological: - - The patient does attempt to move extremities. Patient is currently sedated, but will open eyes to verbal stimulation. There is still a bit unclear how purposeful his movements truly are. Vital Signs Temp Pulse Resp BP Pulse Ox 99.7 F H 100 25 H 143/67 H 95 12/22/17 04:00 07/19/18 06:04 12/22/17 06:04 12/22/17 06:04 12/22/17 06:04 Oxygen Delivery Method Mechanical Ventilator Weight: 162 lb 7.691 oz Body Mass Index (BMI) 21.7 Intake and Output for Last 24 Hours 12/20/17 12/21/17 12/22/17 23:59 23:59 23:59 Intake Total 4739.6 / 4739.6 2361.4 / 2361.4 1758.6 / 1758.6 Output Total 2150 / 2150 1850 / 1850 650 / 650 Balance 2589.6 / 2589.6 511.4 / 511.4 1108.6 / 1108.6 Labs (Last 48 Hours) 12/20/17 12/20/17 12/20/17 05:00 05:00 06:56 WBC RBC Hgb Hct MCV MCH MCHC RDW RDW Differential Plt Count MPV Immature Gran % (Auto) Neut % (Auto) Lymph % (Auto) [place] % (Auto) Eos % (Auto) Baso % (Auto) Absolute Neuts (auto) Absolute Lymphs (auto) Total Counted Not Reportable APTT 45.2 H Sodium 142 Potassium 4.6 Chloride 110 H Carbon Dioxide 24.0 Anion Gap 8 BUN 29 H Creatinine 1.19 Estim Creat Clear Calc 72.77 Est GFR (MDRD) Af Amer 82 Est GFR (MDRD) Non-Af 68 BUN/Creatinine Ratio 24.4 H Glucose 137 H Calcium 8.1 L Phosphorus 3.4 Magnesium 2.2 Ammonia Total Creatine Kinase TSH Hepatitis A IgM Ab Hepatitis A Ab Total Hep Bs Antigen Hep B Core Total Ab Hep B Core IgM Ab Hepatitis C Ab Confirm Hepatitis C Comment HIV 1&2 Antibody POC Glucose 12/20/17 12/20/17 12/20/17 08:00 08:00 13:08 WBC RBC Hgb Hct MCV MCH MCHC RDW RDW Differential Plt Count MPV Immature Gran % (Auto) Neut % (Auto) Lymph % (Auto) [place] % (Auto) Eos % (Auto) Baso % (Auto) Absolute Neuts (auto) Absolute Lymphs (auto) Total Counted APTT Sodium Potassium Chloride Carbon Dioxide Anion Gap BUN Creatinine Estim Creat Clear Calc Est GFR (MDRD) Af Amer Est GFR (MDRD) Non-Af BUN/Creatinine Ratio Glucose Calcium Phosphorus Magnesium Ammonia Total Creatine Kinase TSH Hepatitis A IgM Ab Negative Hepatitis A Ab Total Positive H Hep Bs Antigen Negative Hep B Core Total Ab Negative Hep B Core IgM Ab Negative Hepatitis C Ab Confirm >11.0 H Hepatitis C Comment Not Reportable HIV 1&2 Antibody Non-Reactive POC Glucose 124 H 12/20/17 12/20/17 12/20/17 16:30 16:30 18:00 WBC RBC Hgb Hct MCV MCH MCHC RDW RDW Differential Plt Count MPV Immature Gran % (Auto) Neut % (Auto) Lymph % (Auto) [place] % (Auto) Eos % (Auto) Baso % (Auto) Absolute Neuts (auto) Absolute Lymphs (auto) Total Counted APTT 40.1 H Sodium Potassium Chloride Carbon Dioxide Anion Gap BUN Creatinine Estim Creat Clear Calc Est GFR (MDRD) Af Amer Est GFR (MDRD) Non-Af BUN/Creatinine Ratio Glucose Calcium Phosphorus Magnesium Ammonia Total Creatine Kinase 326 H TSH Hepatitis A IgM Ab Hepatitis A Ab Total Hep Bs Antigen Hep B Core Total Ab Hep B Core IgM Ab Hepatitis C Ab Confirm Hepatitis C Comment HIV 1&2 Antibody POC Glucose 125 H 12/20/17 12/20/17 12/21/17 23:20 23:20 05:00 WBC 10.9 RBC 3.74 L Hgb 12.1 L Hct 37.2 L MCV 99.5 H MCH 32.4 H MCHC 32.5 RDW 14.1 RDW Differential 50.4 H Plt Count 159 MPV 10.9 Immature Gran % (Auto) 0.200 Neut % (Auto) 91.4 H Lymph % (Auto) 3.5 L [place] % (Auto) 4.9 Eos % (Auto) 0.0 Baso % (Auto) 0.0 Absolute Neuts (auto) 10.0 H Absolute Lymphs (auto) 0.38 L Total Counted Not Reportable APTT 69.3 H Sodium Potassium Chloride Carbon Dioxide Anion Gap BUN Creatinine Estim Creat Clear Calc Est GFR (MDRD) Af Amer Est GFR (MDRD) Non-Af BUN/Creatinine Ratio Glucose Calcium Phosphorus Magnesium Ammonia Total Creatine Kinase TSH Hepatitis A IgM Ab Hepatitis A Ab Total Hep Bs Antigen Hep B Core Total Ab Hep B Core IgM Ab Hepatitis C Ab Confirm Hepatitis C Comment HIV 1&2 Antibody POC Glucose 131 H 12/21/17 12/21/17 12/21/17 05:00 05:00 05:00 WBC RBC Hgb Hct MCV MCH MCHC RDW RDW Differential Plt Count MPV Immature Gran % (Auto) Neut % (Auto) Lymph % (Auto) [place] % (Auto) Eos % (Auto) Baso % (Auto) Absolute Neuts (auto) Absolute Lymphs (auto) Total Counted APTT 49.4 H Sodium 143 Potassium 4.6 Chloride 109 H Carbon Dioxide 27.0 Anion Gap 7 BUN 26 H Creatinine 1.08 Estim Creat Clear Calc 80.51 Est GFR (MDRD) Af Amer 91 Est GFR (MDRD) Non-Af 76 BUN/Creatinine Ratio 24.1 H Glucose 130 H Calcium 8.1 L Phosphorus Magnesium Ammonia Total Creatine Kinase TSH 1.23 Hepatitis A IgM Ab Hepatitis A Ab Total Hep Bs Antigen Hep B Core Total Ab Hep B Core IgM Ab Hepatitis C Ab Confirm Hepatitis C Comment HIV 1&2 Antibody POC Glucose 12/21/17 12/21/17 12/21/17 08:50 12:03 12:10 WBC RBC Hgb Hct MCV MCH MCHC RDW RDW Differential Plt Count MPV Immature Gran % (Auto) Neut % (Auto) Lymph % (Auto) [place] % (Auto) Eos % (Auto) Baso % (Auto) Absolute Neuts (auto) Absolute Lymphs (auto) Total Counted APTT 50.1 H Sodium Potassium Chloride Carbon Dioxide Anion Gap BUN Creatinine Estim Creat Clear Calc Est GFR (MDRD) Af Amer Est GFR (MDRD) Non-Af BUN/Creatinine Ratio Glucose Calcium Phosphorus Magnesium Ammonia 40.0 H Total Creatine Kinase TSH Hepatitis A IgM Ab Hepatitis A Ab Total Hep Bs Antigen Hep B Core Total Ab Hep B Core IgM Ab Hepatitis C Ab Confirm Hepatitis C Comment HIV 1&2 Antibody POC Glucose 130 H 12/21/17 12/21/17 12/21/17 17:30 19:05 23:57 WBC RBC Hgb Hct MCV MCH MCHC RDW RDW Differential Plt Count MPV Immature Gran % (Auto) Neut % (Auto) Lymph % (Auto) [place] % (Auto) Eos % (Auto) Baso % (Auto) Absolute Neuts (auto) Absolute Lymphs (auto) Total Counted APTT 51.2 H Sodium Potassium Chloride Carbon Dioxide Anion Gap BUN Creatinine Estim Creat Clear Calc Est GFR (MDRD) Af Amer Est GFR (MDRD) Non-Af BUN/Creatinine Ratio Glucose Calcium Phosphorus Magnesium Ammonia Total Creatine Kinase TSH Hepatitis A IgM Ab Hepatitis A Ab Total Hep Bs Antigen Hep B Core Total Ab Hep B Core IgM Ab Hepatitis C Ab Confirm Hepatitis C Comment HIV 1&2 Antibody POC Glucose 137 H 92 12/22/17 12/22/17 12/22/17 02:40 05:30 05:30 WBC 11.5 H RBC 3.73 L Hgb 12.0 L Hct 36.8 L MCV 98.7 H MCH 32.2 H MCHC 32.6 RDW 14.1 RDW Differential 49.3 H Plt Count 170 MPV 11.5 Immature Gran % (Auto) 0.100 Neut % (Auto) 67.8 Lymph % (Auto) 23.0 [place] % (Auto) 8.8 Eos % (Auto) 0.3 Baso % (Auto) 0.0 Absolute Neuts (auto) 7.8 H Absolute Lymphs (auto) 2.64 Total Counted Not Reportable APTT 64.5 H Sodium 142 Potassium 3.6 Chloride 108 H Carbon Dioxide 29.0 Anion Gap 5 BUN 25 H Creatinine 0.85 Estim Creat Clear Calc 102.58 Est GFR (MDRD) Af Amer 120 Est GFR (MDRD) Non-Af 100 BUN/Creatinine Ratio 29.4 H Glucose 94 Calcium 7.8 L Phosphorus Magnesium Ammonia Total Creatine Kinase TSH Hepatitis A IgM Ab Hepatitis A Ab Total Hep Bs Antigen Hep B Core Total Ab Hep B Core IgM Ab Hepatitis C Ab Confirm Hepatitis C Comment HIV 1&2 Antibody POC Glucose 12/22/17 05:32 WBC RBC Hgb Hct MCV MCH MCHC RDW RDW Differential Plt Count MPV Immature Gran % (Auto) Neut % (Auto) Lymph % (Auto) [place] % (Auto) Eos % (Auto) Baso % (Auto) Absolute Neuts (auto) Absolute Lymphs (auto) Total Counted APTT Sodium Potassium Chloride Carbon Dioxide Anion Gap BUN Creatinine Estim Creat Clear Calc Est GFR (MDRD) Af Amer Est GFR (MDRD) Non-Af BUN/Creatinine Ratio Glucose Calcium Phosphorus Magnesium Ammonia Total Creatine Kinase TSH Hepatitis A IgM Ab Hepatitis A Ab Total Hep Bs Antigen Hep B Core Total Ab Hep B Core IgM Ab Hepatitis C Ab Confirm Hepatitis C Comment HIV 1&2 Antibody POC Glucose 101 Microbiology 12/19/17 06:58 Sputum, Tracheal Aspirate Gram Stain - Final 12/19/17 06:58 Sputum, Tracheal Aspirate Respiratory Culture - Final Clinical Impression(s) from Imaging Studies Brain CT 12/18/17 01:51 IMPRESSION: Normal unenhanced CT scan of the brain. Chronic sinusitis. Electronically Signed: Bruce Lei MD at 4:26 EDT , Service support , Chest X-Ray 12/18/17 02:25 IMPRESSION: Tubes are in adequate position. Mild interstitial prominence in the upper lung bustos, probably chronic. No demonstrated focal pulmonary infiltrate. Electronically Signed: Bruce Lei MD at 3:39 EDT , Service support , Chest X-Ray 12/19/17 05:55 IMPRESSION: No acute cardiopulmonary disease. Electronically Signed: Alejandro Stanton MD at 6:15 EDT , Service support , Chest CTA 12/19/17 07:16 IMPRESSION: Multiple small bilateral pulmonary emboli. Electronically Signed: Prashant Swanson MD at 9:53 EDT Tel [phone], Service support , KUB X-Ray 12/20/17 16:10 IMPRESSION: 1. No evidence of metallic foreign body. 2. Nonspecific bowel gas pattern. Early obstruction or ileus cannot be ruled out Electronically Signed: Isaac Ashby DO at 16:28 EDT Tel [phone], Service support , Brain CT 12/21/17 06:52 IMPRESSION: Sinus changes as described. No acute intracranial abnormality is seen. Electronically Signed: Prashant Swanson MD at 8:51 EDT Tel [phone], Service support , ADDENDUM: 12/21/17 1555 Brain MRI 12/21/17 13:52 IMPRESSION: Findings which may be consistent with nonspecific diffuse bilateral renal cortical ischemia. Recommend clinical correlation and follow-up N.B. : The above information has been verbally conveyed by Dima Mckeon MD to RN-Jojo Nice, [facility]- In-Patient RN, on 12/21/2017 16:53:33 (ET). Electronically Signed: Dima Mckeon MD at 16:32 EDT , Service support , Medical Necessity - Tobacco Use Smoking Status: Unknown if ever smoked Tobacco Use: - - could not be obtained since patient is intubated Assessment/Plan All Active Problems PEA (Pulseless electrical activity) (Acute) Acute and chronic respiratory failure with hypoxia (Acute) RECOMMENDATIONS: 1. Continue patient on CPAP mode of mechanical ventilation for now. 2. Continue fentanyl and propofol for sedation. Maintain a RASS of -1 to 1. 3. Continue scheduled bronchodilators and prednisone. 4. Now that renal function has improved, can consider transitioning from heparin drip to Lovenox. 5. Continue tube feeds. 6. Continue Pepcid for GI prophylaxis. 7. Family meeting to discuss goals of care today. IMPRESSIONS: 1. Acute combined respiratory failure with evidence of acute bilateral pulmonary emboli The patient's baseline medical and social history is still not known. However, per review of the EMS report, it does appear that the patient may have had a relatively prolonged [place] with presumed hypoxemia. There was approximately 30 minutes of time that elapsed from the 911 call until arrival to the emergency department. He was documented in the EMS run report that the patient was unresponsive with agonal respirations. However, the patient's airway was not secured in the field. When intubated in the emergency department, the patient was noted to have gastric material in his posterior oropharynx. Following intubation, the patient did experience a brief PEA cardiac arrest. While the patient was initially being treated for suspected COPD/asthma decompensation, subsequent workup with CTA chest did reveal small bilateral pulmonary emboli, for which the patient was initiated on a heparin drip. The patient does have an extensive smoking history. We will plan to continue scheduled bronchodilators and steroids. No pulmonary infectious process has been identified. 2. PEA arrest presumed secondary to hypoxemia Although hypoxia is a consideration for the patient's PEA arrest in the emergency department, he did have evidence of venous thromboembolic disease on CTA chest. Continuing supportive measures as noted above to maintain an oxygen saturation at or above 90%. 3. Encephalopathy Initial concern was for underlying metabolic derangements. However, upon further review of the patient's EMS run report, I know have concern that the patient experienced prolonged downtime with associated hypoxemia. Neurology was consulted for assistance. Subsequent workup did reveal evidence of diffuse bilateral cortical ischemia on brain MRI. Additionally, the patient had evidence of generalized periodic epileptiform discharges on EEG. He was subsequently started on Keppra. 4. Acute kidney injury Improving. Likely prerenal in etiology in the setting of cardiac arrest. The patient is currently hemodynamically stable without vasopressor support. Supplemental IV fluids were administered, especially in light of contrast administration to obtain CTA chest. At this time, however, the patient's creatinine has improved. Continuous IV fluids will be discontinued accordingly. Continue to monitor urine output. No current indication for renal replacement therapy. 5. Possible polysubstance abuse/continuous tobacco dependence Complicates care, management, recovery and prognosis. The patient's opiate screen was negative, but patient reportedly did respond to Narcan therapy. UPDATE: I spoke with the patient's only next of kin, Arturo his cousin, at the bedside extensively this morning regarding the patient's long-term prognosis and goals of care. He made it very clear that the patient would not want to be in a long-term acute care facility with a trach and PEG in place. Given the patients baseline neurological status at this time in conjunction with our inability to wean him from mechanical ventilation due to the aforementioned, I recommended consideration for a transition to DNR CCA without reintubation, with plans for extubation later this morning. The plan will be to monitor the patient following endotracheal tube removal and if he begins to decompensate clinically, to move towards comfort care measures at that time. The patient's family is in agreement with this plan. CODE STATUS is been updated to DNR CCA. The patient's sedation will be placed on hold in preparation for extubation. At approximately 10:40 AM, the patient was extubated under my direct supervision at the bedside. He was placed on supplemental oxygen via nasal cannula. IV labetalol was ordered due to systolic blood pressures persistently greater than 200 mmHg. Given that the patient will remain n.p.o., all baseline medications were transitioned to IV formulation. The patient's cousin, Arturo, was present at the bedside throughout the entire extubation process. Again, the patient's CODE STATUS has been updated to DNR CCA without plans for reintubation. TIME: 80 minutes of critical care time, independent of procedures, was spent addressing the patient's acute combined respiratory failure, status post PEA cardiac arrest, possible aspiration pneumonia, acute kidney injury, encephalopathy, goals of care discussion with family, review of all data and collaboration with the care team. ([id number], [id number]) Code Visit Procedures: 61638 Critial Care Addl 30 Min 9xxxx: [id number] Critical care first hour
--- NOTE | 2017-12-22 06:41 | PN_ITS ---
Patient Problems: Active and Suspected Problems PEA (Pulseless electrical activity) (Acute) Acute and chronic respiratory failure with hypoxia (Acute) Subjective: Patient overnight with low-grade temperature and ongoing intermittent agitation with again extubation weaning trial with elevated blood pressure increased respiratory rate and agitation. Patient family member, cousin present and reviewed results from day prior including abnormal EEG with periodic epileptic discharges with need for initiation of Keppra for seizure activity as well as MRI brain with nonspecific diffuse bilateral cortical ischemia. Discussed that this portends a poor prognosis and we would probably not be able to tell the extent of his abilities until extubation trial. Discussed CODE STATUS at length given patient preference to avoid any trach or PEG status and he notes intention to think on it today and relay decision to team. Patient without evidence of chills, nausea, emesis, abdominal pain, chest pain but intubated, sedated thus only subjective. Objective: Physical Examination: General: not alert, currently sedate, prior following some commands per RN, noted to have given appropriate yes and no signs, intubated, NAD. Skin: normal color, turgor, no icterus, cyanosis except occasional abrasion, tattoos. HEENT: AT/NC, EOM not intact, pupillary response/size improved, improved MMM, intubated/OG. Lungs: CTA BL, mildly diminished bases BL, intubated, no rales, ronchi or wheezing. Heart: Regular rate and rhythm; no gallop, rub audible. Abdomen: soft, NTTP, ND, normal BS. Extremities: no cyanosis, clubbing, or edema. Neurological: not alert, currently sedate, prior following some commands per RN , noted to have given appropriate yes and no signs; cognitive function improved from initial presentation but unclear extent of ability given EEG/MRI findings, pupillary response/size improved, difficult to assess strength given sedation. Psychiatric: affect appears sedate, currently calm, no acute evidence of depressive or anxiety feelings. Vitals/I&O's: Vital Signs Temp Pulse Resp BP Pulse Ox 99.7 F H 100 25 H 143/67 H 95 12/22/17 04:00 12/22/17 06:04 12/22/17 06:04 12/22/17 06:04 12/22/17 06:04 Oxygen Delivery Method Mechanical Ventilator Weight: 162 lb 7.691 oz Body Mass Index (BMI) 21.7 Intake and Output for Last 24 Hours 12/20/17 12/21/17 12/22/17 23:59 23:59 23:59 Intake Total 4739.6 / 4739.6 2361.4 / 2361.4 1758.6 / 1758.6 Output Total 2150 / 2150 1850 / 1850 650 / 650 Balance 2589.6 / 2589.6 511.4 / 511.4 1108.6 / 1108.6 Microbiology Past 72 Hours 12/19/17 06:58 Sputum, Tracheal Aspirate Gram Stain - Final 12/19/17 06:58 Sputum, Tracheal Aspirate Respiratory Culture - Final Laboratory Results 12/20/17 08:00: Hepatitis A IgM Ab Negative, Hepatitis A Ab Total Positive H, Hep Bs Antigen Negative, Hep B Core Total Ab Negative, Hep B Core IgM Ab Negative, Hepatitis C Ab Confirm >11.0 H, Hepatitis C Comment Not Reportable 12/20/17 08:00: HIV 1&2 Antibody Non-Reactive 12/21/17 05:00: Total Counted Not Reportable 12/21/17 05:00: TSH 1.23 12/21/17 08:50: Ammonia 40.0 H 12/21/17 12:03: POC Glucose 130 H 12/21/17 12:10: APTT 50.1 H 12/21/17 17:30: POC Glucose 137 H 12/21/17 19:05: APTT 51.2 H 12/21/17 23:57: POC Glucose 92 12/22/17 02:40: APTT 64.5 H 12/22/17 05:30: WBC 11.5 H, RBC 3.73 L, Hgb 12.0 L, Hct 36.8 L, MCV 98.7 H, MCH 32.2 H, MCHC 32.6, RDW 14.1, RDW Differential 49.3 H, Plt Count 170, MPV 11.5, Immature Gran % (Auto) 0.100, Neut % (Auto) 67.8, Lymph % (Auto) 23.0, [place] % ( Auto) 8.8, Eos % (Auto) 0.3, Baso % (Auto) 0.0, Absolute Neuts (auto) 7.8 H, Absolute Lymphs (auto) 2.64, Total Counted Not Reportable 12/22/17 05:30: Sodium 142, Potassium 3.6, Chloride 108 H, Carbon Dioxide 29.0, Anion Gap 5, BUN 25 H, Creatinine 0.85, Estim Creat Clear Calc 102.58, Est GFR ( MDRD) Af Amer 120, Est GFR (MDRD) Non-Af 100, BUN/Creatinine Ratio 29.4 H, Glucose 94, Calcium 7.8 L 12/22/17 05:32: POC Glucose 101 Current Medications Albuterol Sulfate (Ventolin Aerosols) 2.5 mg INHALATION Q2H PRN PRN PRN Reason: WHEEZING Last Admin: 12/21/17 05:11 Dose: 2.5 mg Albuterol/Ipratropium (Duoneb) 3 ml INHALATION Q4H.RT PENDING SALE TO [facility] Last Admin: 12/22/17 04:31 Dose: 3 ml Aspirin (Aspirin, Baby) 81 mg GT DAILYCM PENDING SALE TO [facility] Last Admin: 12/21/17 07:44 Dose: 81 mg Chlorhexidine Gluconate () 15 ml PO BID PENDING SALE TO [facility] Last Admin: 12/21/17 21:42 Dose: 15 ml Chlorhexidine Gluconate () 1 each TOPICAL DAILY PENDING SALE TO [facility] Last Admin: 12/21/17 05:08 Dose: 1 each Famotidine (Pepcid) 20 mg GT BID PENDING SALE TO [facility] Last Admin: 12/21/17 21:43 Dose: 20 mg Heparin Sodium (Porcine) (Heparin Na) 0 unit IV UD PRN PRN Reason: Protocol Last Admin: 12/21/17 20:52 Dose: 1,000 u Fentanyl () 100 mls @ 2.5 mls/hr IV .Q40H PENDING SALE TO [facility] Last Admin: 12/22/17 00:26 Dose: 2.5 mls/hr Propofol (Diprivan) 1,000 mg in 100 mls @ 2.172 mls/hr CONT INF .Q12H GUS; 5 MCG/KG/MIN PRN Reason: Protocol Last Admin: 12/22/17 03:26 Dose: 2.172 mls/hr Enteral Nutritional Formula (Vital Af 1.2 Dylon Liquid) 1,000 mls @ 30 mls/hr GT .[id number] PENDING SALE TO [facility] Last Admin: 12/21/17 12:14 Dose: 30 mls/hr Heparin Sodium/Dextrose () 25,000 units in 250 mls @ 10 mls/hr IV .Q25H GUS; As Directed PRN Reason: Protocol Last Admin: 12/22/17 04:47 Dose: 10 mls/hr Levetiracetam 750 mg/ N/A 150 mls @ 600 mls/hr IV BID GUS Last Admin: 12/21/17 21:42 Dose: 600 mls/hr Insulin Human Lispro (Humalog Kwikpen (Bkc)) 0 unit SC Q6 GUS PRN Reason: Protocol Last Admin: 12/22/17 05:49 Dose: Not Given Magnesium Hydroxide (Milk Of Magnesia) 30 ml PO DAILY PRN PRN PRN Reason: Constipation Polyethylene Glycol (Miralax) 17 gm PO BID GUS Last Admin: 12/21/17 20:41 Dose: Not Given Prednisone () 40 mg GT DAILY@0800 PENDING SALE TO [facility] Last Admin: 12/21/17 07:44 Dose: 40 mg Quetiapine Fumarate (Seroquel) 50 mg GT BID PENDING SALE TO [facility] Last Admin: 12/21/17 21:42 Dose: 50 mg Senna/Docusate Sodium (Senokot-S, Jyoti-Colace) 2 tablet GT BID PENDING SALE TO [facility] Last Admin: 12/21/17 20:41 Dose: Not Given Sodium Chloride () 5 - 30 ml IV UD PRN PRN Reason: SALINE FLUSH Last Admin: 12/22/17 02:34 Dose: 10 ml Medical Necessity - Tobacco Use Smoking Status: Unknown if ever smoked Tobacco Use: - - could not be obtained since patient is intubated Assessment/Plan All Active Problems PEA (Pulseless electrical activity) (Acute) Acute and chronic respiratory failure with hypoxia (Acute) The patient is a 52 y/o M w/ PMHx: Suspected Tobacco use, Anxiety/Depression/ Bipolar likely given medications but unclear, Cannabis usage per UDS who presents to the [facility] ED on 12/18/17 history of PEA with acute hypoxic respiratory failure. (1) Acute Hypoxic and Hypercarbic Respiratory Failure, Multifactorial, Acute on Suspected Chronic COPD exacerbation and Aspiration Pneumonia w/ Suspected Bronchospasms w/ Lactic Acidosis in addition to Acute BL PE: CXR w/ chronic changes, CBC on admission w/ mild interstitial prominence the upper lung bustos with no demonstrated focal pulmonary infiltrate, repeat similar. Admitted to the ICU, intubated, sedated, continue ATC duonebs, PRN albuterol, IV methylprednisolone with prednisone transition 12/21/17, HOB, IS parameters, initially treated w/ IV Vanc (MRSA PCR +) and Zosyn with unremarkable cultures, negative antigens thus per discussion w/ ICU/Pulmonary physician will d/c abx therapy 12/21/17 and continue to monitor. CTPA obtained w/ multiple small PEs, started on heparin drip. ECHO w/ LVSF normal, EF 55%, 26 mmHg. FLP not marked appearing. 12/21/17 CT head unremarkable. MRI Brain w/ findings consistent with nonspecific diffuse bilateral cortical ischemia. EEG w/ generalized periodic epileptiform discharges. (2) PEA Arrest: Suspected secondary to #1, possibly secondary to polysubstance overdose, UDS notable although on regimen which may result in false positive. EMS administered epinephrine x 3 doses and bicarb 2 doses x 2. Cardiac enzymes 0.015-->0.027-->0.04. ECHO w/ LVSF normal, EF 55%, 26 mmHg. Mag normal. SD ASA. CTPA obtained w/ multiple small PEs, started on heparin drip. Suspect likely prolonged hypoxic timeline, Neurology consulted. CT head without acute findings. Abnormal EEG w/ severe generalized slowing as well as presence of generalized periodic epileptiform discharges initiated on keppra 750 mg BID, MRI w/ findings consistent with nonspecific diffuse bilateral cortical ischemia. Complicates #1, may be difficult extubation. (3) Acute kidney injury: Secondary to acute presentation #1 as noted and possibly #4, unclear baseline. Admission BUN/Cr 111/45-->14/1.35-->12/19/17 BUN/ Cr 33/1.76-->12/21/17 BUN/Cr 26/1.08, given IVFs given concurrent CTPA 12/19/17, improved, holding further IVFs, on TFs. (4) Acute Encephalopathy secondary to 1, #2, #3 and Suspected Anoxic Brain Injury w/ Seizure Activity: Extubation trials difficult, ongoing occasional episodes of increased agitation and questionable ability to follow commands. Neurology consulted and following. 12/21/17 CT head unremarkable. Abnormal EEG w / severe generalized slowing as well as presence of generalized periodic epileptiform discharges (GPEDs) which portends poor prognosis in patient with history of cardiac arrest. Discussed w/ Dr. Kinsey thus started keppra 750 mg BID (12/21/17). MRI w/ findings consistent with nonspecific diffuse bilateral cortical ischemia. (5) Mild Rhabdomyolysis: Admission TCK 930, unclear timeline, repeat 1254, monitor I&Os, repeat improved, 12/20/17 326. (6) Suspected Polysubstance abuse: UDS notable; however, may be false positives with noted medication regimen but does have notable history per family Arturo who notes that he has been incarcerated but clean status for may years. (7) Suspected Tobacco use: Once appropriate will encouraged cessation, inpatient consultation per RT, NR if desired. (8) Anxiety/Depression/Bipolar disorder: Unclear psychiatric history, home regimen noting amitriptyline, Wellbutrin, Zoloft. Holding. (9) DVT, GI Prophylaxis: Pepcid, Heparin drip, SCDs. (10) CODE status: Discussed CODE status at length including difference between FULL code, DNR-CCA and DNR-CC status with cousin Arturo who is patient only family member. He currently confirms avoidance of trach/PEG, prolonged nonmeaningful intervention pathway. Discussed results of MRI and EEG which were relayed as poor prognostic indicators but noted unless extubated and off sedation unable to noted extent of abilities. Advanced Care Planning Face to Face Time: 18 minutes. Code Visit Inpatient E&M: 19527 Subs Hosp L3 Procedures: 62745 Advncd Care Plan 30 Min
--- NOTE | 2017-12-22 06:50 | PN_ITS ---
Subjective: The patient was seen and examined at the bedside this morning. Events from the last 24 hours have been reviewed. The patient currently has a low-grade fever. He was noted to become extremely agitated, hypertensive and tachypneic with sedation interruption this morning. FiO2 requirement has been weaned to 30%. With sedation in place, the patient is currently tolerating CPAP mode of mechanical ventilation. EEG completed yesterday did reveal generalized periodic epileptic discharges, for which the patient was started on Keppra. In addition, brain MRI revealed nonspecific diffuse bilateral cortical ischemia. Per nursing report, when sedation interruption was attempted, the patient would attempt to look in the general direction in which his name was being called. He was again able to give a thumbs up to generalized questioning. Objective: The patient's most recent lab work, culture data and imaging studies have all been personally reviewed. Blood and urine cultures are pending. Sputum Gram stain revealed no organisms. Surface echocardiogram revealed normal LV size and function with an ejection fraction of 55%. Pulmonary artery systolic pressures were estimated to be 26 mmHg. CTA chest revealed small numerous bilateral pulmonary emboli. MRI revealed bilateral cortical ischemia with EEG revealing periodic epileptic discharges. General: - - Remains intubated, sedated and mechanically ventilated. Currently tolerating CPAP with a pressure support of 5 and PEEP of 5. HEENT: Atraumatic, PERRLA, Normocephalic Oral: No Gingival or Mucosal Lesions/ Ulcerations, - - Endotracheal and OG tubes remain in place. Neck: Supple, No Nodes, Trachea Midline Lungs: - - Diminished bilaterally with expiratory wheezing noted. No ventilator dyssynchrony. Cardiovascular: Regular rate, Regular Rhythm, Normal S1, Normal S2, No murmurs, No rub noted, No Gallop Abdomen: Bowel Sounds Present, Soft, Non Tender, Non-Distended Extremities: No clubbing, No cyanosis, - - Pedal edema is present. Skin: No breakdown, - - Multiple tattoos present Musculoskeletal: No Tenderness to Palpation of Joints or Extremities Lymphatic: No Cervical, Supraclavicular, or Inguinal Adenopathy Neurological: - - The patient does attempt to move extremities. Patient is currently sedated, but will open eyes to verbal stimulation. There is still a bit unclear how purposeful his movements truly are. Vital Signs Temp Pulse Resp BP Pulse Ox 99.7 F H 100 25 H 143/67 H 95 12/22/17 04:00 07/19/18 06:04 12/22/17 06:04 12/22/17 06:04 12/22/17 06:04 Oxygen Delivery Method Mechanical Ventilator Weight: 162 lb 7.691 oz Body Mass Index (BMI) 21.7 Intake and Output for Last 24 Hours 12/20/17 12/21/17 12/22/17 23:59 23:59 23:59 Intake Total 4739.6 / 4739.6 2361.4 / 2361.4 1758.6 / 1758.6 Output Total 2150 / 2150 1850 / 1850 650 / 650 Balance 2589.6 / 2589.6 511.4 / 511.4 1108.6 / 1108.6 Labs (Last 48 Hours) 12/20/17 12/20/17 12/20/17 05:00 05:00 06:56 WBC RBC Hgb Hct MCV MCH MCHC RDW RDW Differential Plt Count MPV Immature Gran % (Auto) Neut % (Auto) Lymph % (Auto) Mcmullen % (Auto) Eos % (Auto) Baso % (Auto) Absolute Neuts (auto) Absolute Lymphs (auto) Total Counted Not Reportable APTT 45.2 H Sodium 142 Potassium 4.6 Chloride 110 H Carbon Dioxide 24.0 Anion Gap 8 BUN 29 H Creatinine 1.19 Estim Creat Clear Calc 72.77 Est GFR (MDRD) Af Amer 82 Est GFR (MDRD) Non-Af 68 BUN/Creatinine Ratio 24.4 H Glucose 137 H Calcium 8.1 L Phosphorus 3.4 Magnesium 2.2 Ammonia Total Creatine Kinase TSH Hepatitis A IgM Ab Hepatitis A Ab Total Hep Bs Antigen Hep B Core Total Ab Hep B Core IgM Ab Hepatitis C Ab Confirm Hepatitis C Comment HIV 1&2 Antibody POC Glucose 12/20/17 12/20/17 12/20/17 08:00 08:00 13:08 WBC RBC Hgb Hct MCV MCH MCHC RDW RDW Differential Plt Count MPV Immature Gran % (Auto) Neut % (Auto) Lymph % (Auto) Mcmullen % (Auto) Eos % (Auto) Baso % (Auto) Absolute Neuts (auto) Absolute Lymphs (auto) Total Counted APTT Sodium Potassium Chloride Carbon Dioxide Anion Gap BUN Creatinine Estim Creat Clear Calc Est GFR (MDRD) Af Amer Est GFR (MDRD) Non-Af BUN/Creatinine Ratio Glucose Calcium Phosphorus Magnesium Ammonia Total Creatine Kinase TSH Hepatitis A IgM Ab Negative Hepatitis A Ab Total Positive H Hep Bs Antigen Negative Hep B Core Total Ab Negative Hep B Core IgM Ab Negative Hepatitis C Ab Confirm >11.0 H Hepatitis C Comment Not Reportable HIV 1&2 Antibody Non-Reactive POC Glucose 124 H 12/20/17 12/20/17 12/20/17 16:30 16:30 18:00 WBC RBC Hgb Hct MCV MCH MCHC RDW RDW Differential Plt Count MPV Immature Gran % (Auto) Neut % (Auto) Lymph % (Auto) Mcmullen % (Auto) Eos % (Auto) Baso % (Auto) Absolute Neuts (auto) Absolute Lymphs (auto) Total Counted APTT 40.1 H Sodium Potassium Chloride Carbon Dioxide Anion Gap BUN Creatinine Estim Creat Clear Calc Est GFR (MDRD) Af Amer Est GFR (MDRD) Non-Af BUN/Creatinine Ratio Glucose Calcium Phosphorus Magnesium Ammonia Total Creatine Kinase 326 H TSH Hepatitis A IgM Ab Hepatitis A Ab Total Hep Bs Antigen Hep B Core Total Ab Hep B Core IgM Ab Hepatitis C Ab Confirm Hepatitis C Comment HIV 1&2 Antibody POC Glucose 125 H 12/20/17 12/20/17 12/21/17 23:20 23:20 05:00 WBC 10.9 RBC 3.74 L Hgb 12.1 L Hct 37.2 L MCV 99.5 H MCH 32.4 H MCHC 32.5 RDW 14.1 RDW Differential 50.4 H Plt Count 159 MPV 10.9 Immature Gran % (Auto) 0.200 Neut % (Auto) 91.4 H Lymph % (Auto) 3.5 L Mcmullen % (Auto) 4.9 Eos % (Auto) 0.0 Baso % (Auto) 0.0 Absolute Neuts (auto) 10.0 H Absolute Lymphs (auto) 0.38 L Total Counted Not Reportable APTT 69.3 H Sodium Potassium Chloride Carbon Dioxide Anion Gap BUN Creatinine Estim Creat Clear Calc Est GFR (MDRD) Af Amer Est GFR (MDRD) Non-Af BUN/Creatinine Ratio Glucose Calcium Phosphorus Magnesium Ammonia Total Creatine Kinase TSH Hepatitis A IgM Ab Hepatitis A Ab Total Hep Bs Antigen Hep B Core Total Ab Hep B Core IgM Ab Hepatitis C Ab Confirm Hepatitis C Comment HIV 1&2 Antibody POC Glucose 131 H 12/21/17 12/21/17 12/21/17 05:00 05:00 05:00 WBC RBC Hgb Hct MCV MCH MCHC RDW RDW Differential Plt Count MPV Immature Gran % (Auto) Neut % (Auto) Lymph % (Auto) Mcmullen % (Auto) Eos % (Auto) Baso % (Auto) Absolute Neuts (auto) Absolute Lymphs (auto) Total Counted APTT 49.4 H Sodium 143 Potassium 4.6 Chloride 109 H Carbon Dioxide 27.0 Anion Gap 7 BUN 26 H Creatinine 1.08 Estim Creat Clear Calc 80.51 Est GFR (MDRD) Af Amer 91 Est GFR (MDRD) Non-Af 76 BUN/Creatinine Ratio 24.1 H Glucose 130 H Calcium 8.1 L Phosphorus Magnesium Ammonia Total Creatine Kinase TSH 1.23 Hepatitis A IgM Ab Hepatitis A Ab Total Hep Bs Antigen Hep B Core Total Ab Hep B Core IgM Ab Hepatitis C Ab Confirm Hepatitis C Comment HIV 1&2 Antibody POC Glucose 12/21/17 12/21/17 12/21/17 08:50 12:03 12:10 WBC RBC Hgb Hct MCV MCH MCHC RDW RDW Differential Plt Count MPV Immature Gran % (Auto) Neut % (Auto) Lymph % (Auto) Mcmullen % (Auto) Eos % (Auto) Baso % (Auto) Absolute Neuts (auto) Absolute Lymphs (auto) Total Counted APTT 50.1 H Sodium Potassium Chloride Carbon Dioxide Anion Gap BUN Creatinine Estim Creat Clear Calc Est GFR (MDRD) Af Amer Est GFR (MDRD) Non-Af BUN/Creatinine Ratio Glucose Calcium Phosphorus Magnesium Ammonia 40.0 H Total Creatine Kinase TSH Hepatitis A IgM Ab Hepatitis A Ab Total Hep Bs Antigen Hep B Core Total Ab Hep B Core IgM Ab Hepatitis C Ab Confirm Hepatitis C Comment HIV 1&2 Antibody POC Glucose 130 H 12/21/17 12/21/17 12/21/17 17:30 19:05 23:57 WBC RBC Hgb Hct MCV MCH MCHC RDW RDW Differential Plt Count MPV Immature Gran % (Auto) Neut % (Auto) Lymph % (Auto) Mcmullen % (Auto) Eos % (Auto) Baso % (Auto) Absolute Neuts (auto) Absolute Lymphs (auto) Total Counted APTT 51.2 H Sodium Potassium Chloride Carbon Dioxide Anion Gap BUN Creatinine Estim Creat Clear Calc Est GFR (MDRD) Af Amer Est GFR (MDRD) Non-Af BUN/Creatinine Ratio Glucose Calcium Phosphorus Magnesium Ammonia Total Creatine Kinase TSH Hepatitis A IgM Ab Hepatitis A Ab Total Hep Bs Antigen Hep B Core Total Ab Hep B Core IgM Ab Hepatitis C Ab Confirm Hepatitis C Comment HIV 1&2 Antibody POC Glucose 137 H 92 12/22/17 12/22/17 12/22/17 02:40 05:30 05:30 WBC 11.5 H RBC 3.73 L Hgb 12.0 L Hct 36.8 L MCV 98.7 H MCH 32.2 H MCHC 32.6 RDW 14.1 RDW Differential 49.3 H Plt Count 170 MPV 11.5 Immature Gran % (Auto) 0.100 Neut % (Auto) 67.8 Lymph % (Auto) 23.0 Mcmullen % (Auto) 8.8 Eos % (Auto) 0.3 Baso % (Auto) 0.0 Absolute Neuts (auto) 7.8 H Absolute Lymphs (auto) 2.64 Total Counted Not Reportable APTT 64.5 H Sodium 142 Potassium 3.6 Chloride 108 H Carbon Dioxide 29.0 Anion Gap 5 BUN 25 H Creatinine 0.85 Estim Creat Clear Calc 102.58 Est GFR (MDRD) Af Amer 120 Est GFR (MDRD) Non-Af 100 BUN/Creatinine Ratio 29.4 H Glucose 94 Calcium 7.8 L Phosphorus Magnesium Ammonia Total Creatine Kinase TSH Hepatitis A IgM Ab Hepatitis A Ab Total Hep Bs Antigen Hep B Core Total Ab Hep B Core IgM Ab Hepatitis C Ab Confirm Hepatitis C Comment HIV 1&2 Antibody POC Glucose 12/22/17 05:32 WBC RBC Hgb Hct MCV MCH MCHC RDW RDW Differential Plt Count MPV Immature Gran % (Auto) Neut % (Auto) Lymph % (Auto) Mcmullen % (Auto) Eos % (Auto) Baso % (Auto) Absolute Neuts (auto) Absolute Lymphs (auto) Total Counted APTT Sodium Potassium Chloride Carbon Dioxide Anion Gap BUN Creatinine Estim Creat Clear Calc Est GFR (MDRD) Af Amer Est GFR (MDRD) Non-Af BUN/Creatinine Ratio Glucose Calcium Phosphorus Magnesium Ammonia Total Creatine Kinase TSH Hepatitis A IgM Ab Hepatitis A Ab Total Hep Bs Antigen Hep B Core Total Ab Hep B Core IgM Ab Hepatitis C Ab Confirm Hepatitis C Comment HIV 1&2 Antibody POC Glucose 101 Microbiology 12/19/17 06:58 Sputum, Tracheal Aspirate Gram Stain - Final 12/19/17 06:58 Sputum, Tracheal Aspirate Respiratory Culture - Final Clinical Impression(s) from Imaging Studies Brain CT 12/18/17 01:51 IMPRESSION: Normal unenhanced CT scan of the brain. Chronic sinusitis. Electronically Signed: Bruce Lei MD at 4:26 EDT , Service support , Chest X-Ray 12/18/17 02:25 IMPRESSION: Tubes are in adequate position. Mild interstitial prominence in the upper lung bustos, probably chronic. No demonstrated focal pulmonary infiltrate. Electronically Signed: Bruce Lei MD at 3:39 EDT , Service support , Chest X-Ray 12/19/17 05:55 IMPRESSION: No acute cardiopulmonary disease. Electronically Signed: Alejandro Stanton MD at 6:15 EDT , Service support , Chest CTA 12/19/17 07:16 IMPRESSION: Multiple small bilateral pulmonary emboli. Electronically Signed: Prashant Swanson MD at 9:53 EDT Tel [phone], Service support , KUB X-Ray 12/20/17 16:10 IMPRESSION: 1. No evidence of metallic foreign body. 2. Nonspecific bowel gas pattern. Early obstruction or ileus cannot be ruled out Electronically Signed: Isaac Ashby DO at 16:28 EDT Tel [phone], Service support , Brain CT 12/21/17 06:52 IMPRESSION: Sinus changes as described. No acute intracranial abnormality is seen. Electronically Signed: Prashant Swanson MD at 8:51 EDT Tel [phone], Service support , ADDENDUM: 12/21/17 1555 Brain MRI 12/21/17 13:52 IMPRESSION: Findings which may be consistent with nonspecific diffuse bilateral renal cortical ischemia. Recommend clinical correlation and follow-up N.B. : The above information has been verbally conveyed by Dima Mckeon MD to RN-Jojo Nice, [facility]- In-Patient RN, on 12/21/2017 16:53:33 (ET). Electronically Signed: Dima Mckeon MD at 16:32 EDT , Service support , Medical Necessity - Tobacco Use Smoking Status: Unknown if ever smoked Tobacco Use: - - could not be obtained since patient is intubated Assessment/Plan All Active Problems PEA (Pulseless electrical activity) (Acute) Acute and chronic respiratory failure with hypoxia (Acute) RECOMMENDATIONS: 1. Continue patient on CPAP mode of mechanical ventilation for now. 2. Continue fentanyl and propofol for sedation. Maintain a RASS of -1 to 1. 3. Continue scheduled bronchodilators and prednisone. 4. Now that renal function has improved, can consider transitioning from heparin drip to Lovenox. 5. Continue tube feeds. 6. Continue Pepcid for GI prophylaxis. 7. Family meeting to discuss goals of care today. IMPRESSIONS: 1. Acute combined respiratory failure with evidence of acute bilateral pulmonary emboli The patient's baseline medical and social history is still not known. However, per review of the EMS report, it does appear that the patient may have had a relatively prolonged downtown with presumed hypoxemia. There was approximately 30 minutes of time that elapsed from the 911 call until arrival to the emergency department. He was documented in the EMS run report that the patient was unresponsive with agonal respirations. However, the patient's airway was not secured in the field. When intubated in the emergency department, the patient was noted to have gastric material in his posterior oropharynx. Following intubation, the patient did experience a brief PEA cardiac arrest. While the patient was initially being treated for suspected COPD/asthma decompensation, subsequent workup with CTA chest did reveal small bilateral pulmonary emboli, for which the patient was initiated on a heparin drip. The patient does have an extensive smoking history. We will plan to continue scheduled bronchodilators and steroids. No pulmonary infectious process has been identified. 2. PEA arrest presumed secondary to hypoxemia Although hypoxia is a consideration for the patient's PEA arrest in the emergency department, he did have evidence of venous thromboembolic disease on CTA chest. Continuing supportive measures as noted above to maintain an oxygen saturation at or above 90%. 3. Encephalopathy Initial concern was for underlying metabolic derangements. However, upon further review of the patient's EMS run report, I know have concern that the patient experienced prolonged downtime with associated hypoxemia. Neurology was consulted for assistance. Subsequent workup did reveal evidence of diffuse bilateral cortical ischemia on brain MRI. Additionally, the patient had evidence of generalized periodic epileptiform discharges on EEG. He was subsequently started on Keppra. 4. Acute kidney injury Improving. Likely prerenal in etiology in the setting of cardiac arrest. The patient is currently hemodynamically stable without vasopressor support. Supplemental IV fluids were administered, especially in light of contrast administration to obtain CTA chest. At this time, however, the patient's creatinine has improved. Continuous IV fluids will be discontinued accordingly. Continue to monitor urine output. No current indication for renal replacement therapy. 5. Possible polysubstance abuse/continuous tobacco dependence Complicates care, management, recovery and prognosis. The patient's opiate screen was negative, but patient reportedly did respond to Narcan therapy. UPDATE: I spoke with the patient's only next of kin, Arturo his cousin, at the bedside extensively this morning regarding the patient's long-term prognosis and goals of care. He made it very clear that the patient would not want to be in a long- term acute care facility with a trach and PEG in place. Given the patients baseline neurological status at this time in conjunction with our inability to wean him from mechanical ventilation due to the aforementioned, I recommended consideration for a transition to DNR CCA without reintubation, with plans for extubation later this morning. The plan will be to monitor the patient following endotracheal tube removal and if he begins to decompensate clinically , to move towards comfort care measures at that time. The patient's family is in agreement with this plan. CODE STATUS is been updated to DNR CCA. The patient's sedation will be placed on hold in preparation for extubation. At approximately 10:40 AM, the patient was extubated under my direct supervision at the bedside. He was placed on supplemental oxygen via nasal cannula. IV labetalol was ordered due to systolic blood pressures persistently greater than 200 mmHg. Given that the patient will remain n.p.o., all baseline medications were transitioned to IV formulation. The patient's cousin, Arturo, was present at the bedside throughout the entire extubation process. Again, the patient's CODE STATUS has been updated to DNR CCA without plans for reintubation. TIME: 80 minutes of critical care time, independent of procedures, was spent addressing the patient's acute combined respiratory failure, status post PEA cardiac arrest, possible aspiration pneumonia, acute kidney injury, encephalopathy, goals of care discussion with family, review of all data and collaboration with the care team. ([id number], [id number]) Code Visit Procedures: 35918 Critial Care Addl 30 Min 9xxxx: [id number] Critical care first hour
[2017-12-22] MEDS: predniSONE 20 MG Tablet 40 MG GT (07:58)
[2017-12-22] MEDS: Aspirin 81 MG TAB.CHEW GT (07:59)
[2017-12-22] MEDS: Chlorhexidine 15 ML PO (09:58)
[2017-12-22] MEDS: QUEtiapine 25 MG Tablet 50 MG GT (09:59)
[2017-12-22] MEDS: Famotidine 20 MG Tablet GT (09:59)
[2017-12-22] MEDS: levETIRAcetam Oral Solution 500 MG/5 ML 750 MG GT (10:07)
[2017-12-22] MEDS: Enoxaparin 80 MG/0.8 ML Syringe 70 MG SC ×2 (10:08→21:06)
--- NOTE | 2017-12-22 10:15 | NURSING ---
Dr. Linda present in pt room. pt very agitated, kicking at the bottom of the bed, trying to sit up, face dark red and he is sweating profusely. OET/OG removed. pt to 6lnc, followed by a breathing treatment. Pt's cousin, Arturo remains present
--- NOTE | 2017-12-22 10:26 | CPS ---
Extubated by nursing.
--- NOTE | 2017-12-22 11:35 | PCM.PN.NEU ---
Patient Problems: Active and Suspected Problems PEA (Pulseless electrical activity) (Acute) Acute and chronic respiratory failure with hypoxia (Acute) Subjective: Patient made DNR CCA by cousin, plan to extubate patient. - Physical Exam General: - - s/p intubation, spontaneous eye opening present, is very agitated at present HEENT: Normocephalic Neck: Supple Lungs: Diminished Cardiovascular: Normal S1, Normal S2 Abdomen: Bowel Sounds Present Extremities: No cyanosis Neurological: - - s/p intubation, spontaneous eye opening present, is very agitated, off sedation, moves all 4 extremities, pupils BERL, does not follow any VC, sensory/cerebellar/gait cannot be assessed, Reflexes + B/L B/S/T/K/A. No NR, No Kernig's sign or Brudzincki's sign Psych/Mental Status: - - could not be assessed Vital Signs Temp Pulse Resp BP Pulse Ox 99.5 F H 115 H 27 H 140/71 H 99 12/22/17 08:00 12/22/17 10:25 12/22/17 10:25 12/22/17 09:00 12/22/17 10:25 Oxygen Flow Rate (L/min) 6 Oxygen Delivery Method Nasal Cannula Weight: 73.7 kg Body Mass Index (BMI) 21.7 Intake and Output for Last 24 Hours 12/20/17 12/21/17 12/22/17 23:59 23:59 23:59 Intake Total 4739.6 / 4739.6 2361.4 / 2361.4 1996.6 / 1996.6 Output Total 2150 / 2150 1850 / 1850 1400 / 1400 Balance 2589.6 / 2589.6 511.4 / 511.4 596.6 / 596.6 Microbiology Past 72 Hours 12/19/17 06:58 Gram Stain - Final Sputum, Tracheal Aspirate Respiratory Culture - Final Laboratory Tests Past 24 Hrs 12/20/17 12/21/17 12/21/17 08:00 12:10 19:05 WBC RBC Hgb Hct MCV MCH MCHC RDW RDW Differential Plt Count MPV Immature Gran % (Auto) Neut % (Auto) Lymph % (Auto) Lucas % (Auto) Eos % (Auto) Baso % (Auto) Absolute Neuts (auto) Absolute Lymphs (auto) Total Counted APTT 50.1 H 51.2 H Sodium Potassium Chloride Carbon Dioxide Anion Gap BUN Creatinine Estim Creat Clear Calc Est GFR (MDRD) Af Amer Est GFR (MDRD) Non-Af BUN/Creatinine Ratio Glucose Calcium Hepatitis C Comment Not Reportable 12/22/17 12/22/17 12/22/17 02:40 05:30 05:30 WBC 11.5 H RBC 3.73 L Hgb 12.0 L Hct 36.8 L MCV 98.7 H MCH 32.2 H MCHC 32.6 RDW 14.1 RDW Differential 49.3 H Plt Count 170 MPV 11.5 Immature Gran % (Auto) 0.100 Neut % (Auto) 67.8 Lymph % (Auto) 23.0 Lucas % (Auto) 8.8 Eos % (Auto) 0.3 Baso % (Auto) 0.0 Absolute Neuts (auto) 7.8 H Absolute Lymphs (auto) 2.64 Total Counted Not Reportable APTT 64.5 H Sodium 142 Potassium 3.6 Chloride 108 H Carbon Dioxide 29.0 Anion Gap 5 BUN 25 H Creatinine 0.85 Estim Creat Clear Calc 102.58 Est GFR (MDRD) Af Amer 120 Est GFR (MDRD) Non-Af 100 BUN/Creatinine Ratio 29.4 H Glucose 94 Calcium 7.8 L Hepatitis C Comment POC Glucose 12/22/17 12/21/17 12/21/17 05:32 23:57 17:30 POC Glucose 101 92 137 H 12/21/17 12:03 POC Glucose 130 H Medical Necessity - Tobacco Use Smoking Status: Unknown if ever smoked Tobacco Use: - - could not be obtained since patient is intubated Assessment/Plan All Active Problems PEA (Pulseless electrical activity) (Acute) Acute and chronic respiratory failure with hypoxia (Acute) The patient is a 52 year old M with unclear PMH admitted to [facility] on 12/18/17 after was found unresponsive. History could not be obtained from the patient, it was obtained from medical records and documentation. Per documentation on the day of admission, patient knocked on the neighbor's door complaining of dyspnea, later became unresponsive, had prolonged down time, but was not intubated in the field by the EMS, later was intubated in the ED for air way protection, following which he had PEA. On admission there was concern for drug overdose, since he had responded initially to Narcan, patient was on antidepressants at home, UDS was found to be +ve for amphetamine, methamphetamine and cannabis. 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 No documentation of witnessed seizures, afebrile at present, found to have bilateral PE since admission, is on heparin drip. 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 Tolerating medication well. -Labs reviewed -Further medical management per primary team and ICU team -Prognosis guarded -GI/DVT prophylaxis -Please call with questions if any -Thank you for allowing us to participate in patient's care and management. I spent 30 minutes of critical care time taking history, doing physical examination, reviewing medical records, coordinating care.
[2017-12-22] MEDS: CHLORHEXIDINE GLUC 2% CLOTH 1 EACH TOWELETTE TOPICAL (13:38)
[2017-12-22] MEDS: hydrALAZINE 20 MG/ML Vial 10 MG IV (13:39)
[2017-12-22] MEDS: Famotidine 20mg IV Push Syringe Q12 300 MG IV (21:06)
[2017-12-22] MEDS: Haloperidol Lactate 5 MG/ML Vial 3 MG IV (22:40)
--- NOTE | 2017-12-22 22:45 | NURSING ---
Pt yelling out and attempting to get out of bed by throwing legs over side and leaning with his upper body, over the side rails. Halodol given as ordered.
[2017-12-22] MEDS: 0.9% NaCl IVPB Med Flush (250 mL) 15 ML IV (23:16)
[2017-12-23] VITALS (25 sets, daily range): BP systolic 139–169; BP diastolic 67–86; PULSE 56–90; RESP 14–30; TEMP 36.6–38.3; O2SAT 94–98
[2017-12-23] MEDS: 0.9% NaCl Peripheral Flush Adult/Peds IV ×2 (00:09→22:11)
[2017-12-23] MEDS: Haloperidol Lactate 5 MG/ML Vial 3 MG IV (02:49)
[2017-12-23] MEDS: Ipratropium/Albuterol Sulfate 3 ML AMPUL.NEB INHALATION ×5 (03:24→22:32)
--- NOTE | 2017-12-23 06:11 | NURSING ---
This RN, Peg Helton has reviewed and agrees with the charting of Gauri Nice RN.
--- NOTE | 2017-12-23 06:38 | PCM.PN.INT ---
Subjective: The patient was seen and examined at the bedside this morning. Events from the last 24 hours have been reviewed. The patient has had low-grade fevers since last evening. He was successfully extubated yesterday morning and is currently maintaining appropriate oxygen saturations on room air. He has had sputum which has been intermittently productive of creamy secretions. Agitation and restlessness has been a significant issue since his extubation. Patient is currently overall net +7.1 L for the admission. The patient appears to be alert to person and time, but thinks he is at his aunts house. He is repeatedly asking to be allowed to drink water. He is aware that he cannot take anything by mouth until evaluated by speech therapy. Objective: The patient's most recent lab work, culture data and imaging studies have all been personally reviewed. Blood and urine cultures are pending. Sputum Gram stain revealed no organisms. Surface echocardiogram revealed normal LV size and function with an ejection fraction of 55%. Pulmonary artery systolic pressures were estimated to be 26 mmHg. CTA chest revealed small numerous bilateral pulmonary emboli. MRI revealed bilateral cortical ischemia with EEG revealing periodic epileptic discharges. Blood, urine and sputum cultures have shown no growth to date. General: Alert, Confused HEENT: Atraumatic, PERRLA, Normocephalic Oral: Dry Mucosa, - - Poor dentition Neck: Supple, No Nodes, Trachea Midline Lungs: No wheeze, No rales, Diminished, Rhonchi, Tachypneic Cardiovascular: Regular rate, Regular Rhythm, Normal S1, Normal S2, No murmurs, No rub noted, No Gallop Abdomen: Soft, Non Tender, Non-Distended, Hypoactive Bowel Sounds Extremities: No clubbing, No cyanosis, - - Trace bilateral pedal edema Skin: No breakdown, - - Multiple scattered tattoos Musculoskeletal: No Tenderness to Palpation of Joints or Extremities Lymphatic: No Cervical, Supraclavicular, or Inguinal Adenopathy Neurological: - - No focal neurological deficits. Moves all extremities spontaneously but is currently restrained due to agitation issues. Psych/Mental Status: Agitated, Impulsive, Restless Vital Signs Temp Pulse Resp BP Pulse Ox 99.3 F H 82 30 H 146/78 H 96 12/23/17 04:00 12/23/17 06:33 12/23/17 06:33 12/23/17 06:00 12/23/17 06:33 Oxygen Flow Rate (L/min) 2 Oxygen Delivery Method Nasal Cannula Weight: 149 lb 0.52 oz Body Mass Index (BMI) 21.7 Intake and Output for Last 24 Hours 12/21/17 12/22/17 12/23/17 23:59 23:59 23:59 Intake Total 2361.4 / 2361.4 2058.6 / 2058.6 294.8 / 294.8 Output Total 1850 / 1850 4250 / 4250 1250 / 1250 Balance 511.4 / 511.4 -2191.4 / -2191.4 -955.2 / -955.2 Labs (Last 48 Hours) 12/20/17 12/20/17 12/21/17 08:00 08:00 05:00 WBC RBC Hgb Hct MCV MCH MCHC RDW RDW Differential Plt Count MPV Immature Gran % (Auto) Neut % (Auto) Lymph % (Auto) [place] % (Auto) Eos % (Auto) Baso % (Auto) Absolute Neuts (auto) Absolute Lymphs (auto) Total Counted Not Reportable APTT Sodium Potassium Chloride Carbon Dioxide Anion Gap BUN Creatinine Estim Creat Clear Calc Est GFR (MDRD) Af Amer Est GFR (MDRD) Non-Af BUN/Creatinine Ratio Glucose Calcium Ammonia TSH Hepatitis A IgM Ab Negative Hepatitis A Ab Total Positive H Hep Bs Antigen Negative Hep B Core Total Ab Negative Hep B Core IgM Ab Negative Hepatitis C Ab Confirm >11.0 H Hepatitis C Comment Not Reportable HIV 1&2 Antibody Non-Reactive POC Glucose 12/21/17 12/21/17 12/21/17 05:00 08:50 12:03 WBC RBC Hgb Hct MCV MCH MCHC RDW RDW Differential Plt Count MPV Immature Gran % (Auto) Neut % (Auto) Lymph % (Auto) [place] % (Auto) Eos % (Auto) Baso % (Auto) Absolute Neuts (auto) Absolute Lymphs (auto) Total Counted APTT Sodium Potassium Chloride Carbon Dioxide Anion Gap BUN Creatinine Estim Creat Clear Calc Est GFR (MDRD) Af Amer Est GFR (MDRD) Non-Af BUN/Creatinine Ratio Glucose Calcium Ammonia 40.0 H TSH 1.23 Hepatitis A IgM Ab Hepatitis A Ab Total Hep Bs Antigen Hep B Core Total Ab Hep B Core IgM Ab Hepatitis C Ab Confirm Hepatitis C Comment HIV 1&2 Antibody POC Glucose 130 H 12/21/17 12/21/17 12/21/17 12:10 17:30 19:05 WBC RBC Hgb Hct MCV MCH MCHC RDW RDW Differential Plt Count MPV Immature Gran % (Auto) Neut % (Auto) Lymph % (Auto) [place] % (Auto) Eos % (Auto) Baso % (Auto) Absolute Neuts (auto) Absolute Lymphs (auto) Total Counted APTT 50.1 H 51.2 H Sodium Potassium Chloride Carbon Dioxide Anion Gap BUN Creatinine Estim Creat Clear Calc Est GFR (MDRD) Af Amer Est GFR (MDRD) Non-Af BUN/Creatinine Ratio Glucose Calcium Ammonia TSH Hepatitis A IgM Ab Hepatitis A Ab Total Hep Bs Antigen Hep B Core Total Ab Hep B Core IgM Ab Hepatitis C Ab Confirm Hepatitis C Comment HIV 1&2 Antibody POC Glucose 137 H 12/21/17 12/22/17 12/22/17 23:57 02:40 05:30 WBC 11.5 H RBC 3.73 L Hgb 12.0 L Hct 36.8 L MCV 98.7 H MCH 32.2 H MCHC 32.6 RDW 14.1 RDW Differential 49.3 H Plt Count 170 MPV 11.5 Immature Gran % (Auto) 0.100 Neut % (Auto) 67.8 Lymph % (Auto) 23.0 [place] % (Auto) 8.8 Eos % (Auto) 0.3 Baso % (Auto) 0.0 Absolute Neuts (auto) 7.8 H Absolute Lymphs (auto) 2.64 Total Counted Not Reportable APTT 64.5 H Sodium Potassium Chloride Carbon Dioxide Anion Gap BUN Creatinine Estim Creat Clear Calc Est GFR (MDRD) Af Amer Est GFR (MDRD) Non-Af BUN/Creatinine Ratio Glucose Calcium Ammonia TSH Hepatitis A IgM Ab Hepatitis A Ab Total Hep Bs Antigen Hep B Core Total Ab Hep B Core IgM Ab Hepatitis C Ab Confirm Hepatitis C Comment HIV 1&2 Antibody POC Glucose 92 12/22/17 12/22/17 05:30 05:32 WBC RBC Hgb Hct MCV MCH MCHC RDW RDW Differential Plt Count MPV Immature Gran % (Auto) Neut % (Auto) Lymph % (Auto) [place] % (Auto) Eos % (Auto) Baso % (Auto) Absolute Neuts (auto) Absolute Lymphs (auto) Total Counted APTT Sodium 142 Potassium 3.6 Chloride 108 H Carbon Dioxide 29.0 Anion Gap 5 BUN 25 H Creatinine 0.85 Estim Creat Clear Calc 102.58 Est GFR (MDRD) Af Amer 120 Est GFR (MDRD) Non-Af 100 BUN/Creatinine Ratio 29.4 H Glucose 94 Calcium 7.8 L Ammonia TSH Hepatitis A IgM Ab Hepatitis A Ab Total Hep Bs Antigen Hep B Core Total Ab Hep B Core IgM Ab Hepatitis C Ab Confirm Hepatitis C Comment HIV 1&2 Antibody POC Glucose 101 Microbiology 12/19/17 06:58 Sputum, Tracheal Aspirate Gram Stain - Final 12/19/17 06:58 Sputum, Tracheal Aspirate Respiratory Culture - Final Clinical Impression(s) from Imaging Studies Brain CT 12/18/17 01:51 IMPRESSION: Normal unenhanced CT scan of the brain. Chronic sinusitis. Electronically Signed: Bruce Lei MD at 4:26 EDT , Service support , Chest X-Ray 12/18/17 02:25 IMPRESSION: Tubes are in adequate position. Mild interstitial prominence in the upper lung bustos, probably chronic. No demonstrated focal pulmonary infiltrate. Electronically Signed: Bruce Lei MD at 3:39 EDT , Service support , Chest X-Ray 12/19/17 05:55 IMPRESSION: No acute cardiopulmonary disease. Electronically Signed: Alejandro Stanton MD at 6:15 EDT , Service support , Chest CTA 12/19/17 07:16 IMPRESSION: Multiple small bilateral pulmonary emboli. Electronically Signed: Prashant Swanson MD at 9:53 EDT Tel [phone], Service support , KUB X-Ray 12/20/17 16:10 IMPRESSION: 1. No evidence of metallic foreign body. 2. Nonspecific bowel gas pattern. Early obstruction or ileus cannot be ruled out Electronically Signed: Isaac Ashby DO at 16:28 EDT Tel [phone], Service support , Brain CT 12/21/17 06:52 IMPRESSION: Sinus changes as described. No acute intracranial abnormality is seen. Electronically Signed: Prashant Swanson MD at 8:51 EDT Tel [phone], Service support , ADDENDUM: 12/21/17 1555 Brain MRI 12/21/17 13:52 IMPRESSION: Findings which may be consistent with nonspecific diffuse bilateral renal cortical ischemia. Recommend clinical correlation and follow-up N.B. : The above information has been verbally conveyed by Dima Mckeon MD to RN-Jojo Nice, [facility]- In-Patient RN, on 12/21/2017 16:53:33 (ET). Electronically Signed: Dima Mckeon MD at 16:32 EDT , Service support , ADDENDUM: 12/22/17 1610 Medical Necessity - Tobacco Use Smoking Status: Unknown if ever smoked Tobacco Use: - - could not be obtained since patient is intubated Assessment/Plan All Active Problems PEA (Pulseless electrical activity) (Acute) Acute and chronic respiratory failure with hypoxia (Acute) RECOMMENDATIONS: 1. Obtain expectorated sputum culture and restart empiric Zosyn as monotherapy for now. 2. Speech and physical therapy evaluations are pending for today. 3. Continue scheduled bronchodilators and methylprednisone 40 mg daily. 4. Continue as needed Haldol for agitation. 5. Continue treatment strength Lovenox. 6. Continue Pepcid for GI prophylaxis. 7. The patient can be transitioned from ICU to PCU status. IMPRESSIONS: 1. Acute combined respiratory failure with evidence of acute bilateral pulmonary emboli The patient has a reported history of COPD of unknown severity along with ongoing tobacco dependence. Per review of the EMS report, it does appear that the patient may have had a relatively prolonged [place] with presumed hypoxemia. There was approximately 30 minutes of time that elapsed from the 911 call until arrival to the emergency department. He was documented in the EMS run report that the patient was unresponsive with agonal respirations. However, the patient's airway was not secured in the field. When intubated in the emergency department, the patient was noted to have gastric material in his posterior oropharynx, raising the concern for aspiration. Following intubation, the patient did experience a brief PEA cardiac arrest. While the patient was initially being treated for suspected COPD/asthma decompensation, subsequent workup with CTA chest did reveal small bilateral pulmonary emboli, for which the patient was initiated on anticoagulation. The patient will be continued on treatment strength Lovenox. Although antibiotics were initially started for presumptive aspiration, subsequent culture data and chest imaging revealed no evidence of pneumonia. Therefore antibiotics were discontinued. Nevertheless, following the patient's extubation on December 22, he has continued to produce purulent sputum and now has a low-grade fever. Accordingly, a repeat sputum culture will be obtained and the patient will be again started empirically on antibiotics. Scheduled bronchodilators will be continued, as will IV methylprednisone 40 mg daily. The patient is awaiting evaluation by both speech therapy and physical therapy today. If the patient passes his swallow evaluation, his diet will be advanced. 2. PEA arrest presumed secondary to hypoxemia Although hypoxia is a consideration for the patient's PEA arrest in the emergency department, he did have evidence of venous thromboembolic disease on CTA chest. Continuing supportive measures as noted above to maintain an oxygen saturation at or above 90%. Encourage incentive spirometer use and mobilize patient as tolerated. 3. Encephalopathy/ICU delirium Initial concern was for underlying metabolic derangements. However, upon further review of the patient's EMS run report, there was concern that the patient experienced prolonged downtime with associated hypoxemia. Neurology was consulted for assistance. Subsequent workup did reveal evidence of diffuse bilateral cortical ischemia on brain MRI. Additionally, the patient had evidence of generalized periodic epileptiform discharges on EEG. He was subsequently started on Keppra. The patient was able to be extubated on December 22. While he may now have some baseline cognitive dysfunction due to his cortical ischemia, he does appear to be experiencing a component of ICU delirium. He will be continued on Haldol as needed for agitation. 4. Acute kidney injury Resolved. Likely prerenal in etiology in the setting of cardiac arrest. The patient is currently hemodynamically stable without vasopressor support. Supplemental IV fluids were administered, especially in light of contrast administration to obtain CTA chest. At this time, however, the patient's creatinine has returned to baseline. Continue to monitor urine output. No current indication for renal replacement therapy. 5. Possible polysubstance abuse/continuous tobacco dependence Complicates care, management, recovery and prognosis. The patient does have a prior history of heroin abuse, but has been reportedly sober for the last 3 years following his release from incarceration. He is a current daily smoker, however. Nicotine replacement therapy can be offered while the patient is admitted to the hospital. I do anticipate that the patient will required long term facility at the time of his discharge. Case management/social work to assist with disposition. 6. CODE STATUS DNR CCA without intubation This note was generated with [employer] dictation software. It may contain incorrect words, spelling, and punctuation that were not noted in checking the note before signing. Code Visit Inpatient E&M: 06627 Subs Hosp L3
--- NOTE | 2017-12-23 06:50 | PN_ITS ---
Subjective: The patient was seen and examined at the bedside this morning. Events from the last 24 hours have been reviewed. The patient has had low-grade fevers since last evening. He was successfully extubated yesterday morning and is currently maintaining appropriate oxygen saturations on room air. He has had sputum which has been intermittently productive of creamy secretions. Agitation and restlessness has been a significant issue since his extubation. Patient is currently overall net +7.1 L for the admission. The patient appears to be alert to person and time, but thinks he is at his aunts house. He is repeatedly asking to be allowed to drink water. He is aware that he cannot take anything by mouth until evaluated by speech therapy. Objective: The patient's most recent lab work, culture data and imaging studies have all been personally reviewed. Blood and urine cultures are pending. Sputum Gram stain revealed no organisms. Surface echocardiogram revealed normal LV size and function with an ejection fraction of 55%. Pulmonary artery systolic pressures were estimated to be 26 mmHg. CTA chest revealed small numerous bilateral pulmonary emboli. MRI revealed bilateral cortical ischemia with EEG revealing periodic epileptic discharges. Blood, urine and sputum cultures have shown no growth to date. General: Alert, Confused HEENT: Atraumatic, PERRLA, Normocephalic Oral: Dry Mucosa, - - Poor dentition Neck: Supple, No Nodes, Trachea Midline Lungs: No wheeze, No rales, Diminished, Rhonchi, Tachypneic Cardiovascular: Regular rate, Regular Rhythm, Normal S1, Normal S2, No murmurs, No rub noted, No Gallop Abdomen: Soft, Non Tender, Non-Distended, Hypoactive Bowel Sounds Extremities: No clubbing, No cyanosis, - - Trace bilateral pedal edema Skin: No breakdown, - - Multiple scattered tattoos Musculoskeletal: No Tenderness to Palpation of Joints or Extremities Lymphatic: No Cervical, Supraclavicular, or Inguinal Adenopathy Neurological: - - No focal neurological deficits. Moves all extremities spontaneously but is currently restrained due to agitation issues. Psych/Mental Status: Agitated, Impulsive, Restless Vital Signs Temp Pulse Resp BP Pulse Ox 99.3 F H 82 30 H 146/78 H 96 12/23/17 04:00 12/23/17 06:33 12/23/17 06:33 12/23/17 06:00 12/23/17 06:33 Oxygen Flow Rate (L/min) 2 Oxygen Delivery Method Nasal Cannula Weight: 149 lb 0.52 oz Body Mass Index (BMI) 21.7 Intake and Output for Last 24 Hours 12/21/17 12/22/17 12/23/17 23:59 23:59 23:59 Intake Total 2361.4 / 2361.4 2058.6 / 2058.6 294.8 / 294.8 Output Total 1850 / 1850 4250 / 4250 1250 / 1250 Balance 511.4 / 511.4 -2191.4 / -2191.4 -955.2 / -955.2 Labs (Last 48 Hours) 12/20/17 12/20/17 12/21/17 08:00 08:00 05:00 WBC RBC Hgb Hct MCV MCH MCHC RDW RDW Differential Plt Count MPV Immature Gran % (Auto) Neut % (Auto) Lymph % (Auto) [place] % (Auto) Eos % (Auto) Baso % (Auto) Absolute Neuts (auto) Absolute Lymphs (auto) Total Counted Not Reportable APTT Sodium Potassium Chloride Carbon Dioxide Anion Gap BUN Creatinine Estim Creat Clear Calc Est GFR (MDRD) Af Amer Est GFR (MDRD) Non-Af BUN/Creatinine Ratio Glucose Calcium Ammonia TSH Hepatitis A IgM Ab Negative Hepatitis A Ab Total Positive H Hep Bs Antigen Negative Hep B Core Total Ab Negative Hep B Core IgM Ab Negative Hepatitis C Ab Confirm >11.0 H Hepatitis C Comment Not Reportable HIV 1&2 Antibody Non-Reactive POC Glucose 12/21/17 12/21/17 12/21/17 05:00 08:50 12:03 WBC RBC Hgb Hct MCV MCH MCHC RDW RDW Differential Plt Count MPV Immature Gran % (Auto) Neut % (Auto) Lymph % (Auto) [place] % (Auto) Eos % (Auto) Baso % (Auto) Absolute Neuts (auto) Absolute Lymphs (auto) Total Counted APTT Sodium Potassium Chloride Carbon Dioxide Anion Gap BUN Creatinine Estim Creat Clear Calc Est GFR (MDRD) Af Amer Est GFR (MDRD) Non-Af BUN/Creatinine Ratio Glucose Calcium Ammonia 40.0 H TSH 1.23 Hepatitis A IgM Ab Hepatitis A Ab Total Hep Bs Antigen Hep B Core Total Ab Hep B Core IgM Ab Hepatitis C Ab Confirm Hepatitis C Comment HIV 1&2 Antibody POC Glucose 130 H 12/21/17 12/21/17 12/21/17 12:10 17:30 19:05 WBC RBC Hgb Hct MCV MCH MCHC RDW RDW Differential Plt Count MPV Immature Gran % (Auto) Neut % (Auto) Lymph % (Auto) [place] % (Auto) Eos % (Auto) Baso % (Auto) Absolute Neuts (auto) Absolute Lymphs (auto) Total Counted APTT 50.1 H 51.2 H Sodium Potassium Chloride Carbon Dioxide Anion Gap BUN Creatinine Estim Creat Clear Calc Est GFR (MDRD) Af Amer Est GFR (MDRD) Non-Af BUN/Creatinine Ratio Glucose Calcium Ammonia TSH Hepatitis A IgM Ab Hepatitis A Ab Total Hep Bs Antigen Hep B Core Total Ab Hep B Core IgM Ab Hepatitis C Ab Confirm Hepatitis C Comment HIV 1&2 Antibody POC Glucose 137 H 12/21/17 12/22/17 12/22/17 23:57 02:40 05:30 WBC 11.5 H RBC 3.73 L Hgb 12.0 L Hct 36.8 L MCV 98.7 H MCH 32.2 H MCHC 32.6 RDW 14.1 RDW Differential 49.3 H Plt Count 170 MPV 11.5 Immature Gran % (Auto) 0.100 Neut % (Auto) 67.8 Lymph % (Auto) 23.0 [place] % (Auto) 8.8 Eos % (Auto) 0.3 Baso % (Auto) 0.0 Absolute Neuts (auto) 7.8 H Absolute Lymphs (auto) 2.64 Total Counted Not Reportable APTT 64.5 H Sodium Potassium Chloride Carbon Dioxide Anion Gap BUN Creatinine Estim Creat Clear Calc Est GFR (MDRD) Af Amer Est GFR (MDRD) Non-Af BUN/Creatinine Ratio Glucose Calcium Ammonia TSH Hepatitis A IgM Ab Hepatitis A Ab Total Hep Bs Antigen Hep B Core Total Ab Hep B Core IgM Ab Hepatitis C Ab Confirm Hepatitis C Comment HIV 1&2 Antibody POC Glucose 92 12/22/17 12/22/17 05:30 05:32 WBC RBC Hgb Hct MCV MCH MCHC RDW RDW Differential Plt Count MPV Immature Gran % (Auto) Neut % (Auto) Lymph % (Auto) [place] % (Auto) Eos % (Auto) Baso % (Auto) Absolute Neuts (auto) Absolute Lymphs (auto) Total Counted APTT Sodium 142 Potassium 3.6 Chloride 108 H Carbon Dioxide 29.0 Anion Gap 5 BUN 25 H Creatinine 0.85 Estim Creat Clear Calc 102.58 Est GFR (MDRD) Af Amer 120 Est GFR (MDRD) Non-Af 100 BUN/Creatinine Ratio 29.4 H Glucose 94 Calcium 7.8 L Ammonia TSH Hepatitis A IgM Ab Hepatitis A Ab Total Hep Bs Antigen Hep B Core Total Ab Hep B Core IgM Ab Hepatitis C Ab Confirm Hepatitis C Comment HIV 1&2 Antibody POC Glucose 101 Microbiology 12/19/17 06:58 Sputum, Tracheal Aspirate Gram Stain - Final 12/19/17 06:58 Sputum, Tracheal Aspirate Respiratory Culture - Final Clinical Impression(s) from Imaging Studies Brain CT 12/18/17 01:51 IMPRESSION: Normal unenhanced CT scan of the brain. Chronic sinusitis. Electronically Signed: Bruce Lei MD at 4:26 EDT , Service support , Chest X-Ray 12/18/17 02:25 IMPRESSION: Tubes are in adequate position. Mild interstitial prominence in the upper lung bustos, probably chronic. No demonstrated focal pulmonary infiltrate. Electronically Signed: Bruce Lei MD at 3:39 EDT , Service support , Chest X-Ray 12/19/17 05:55 IMPRESSION: No acute cardiopulmonary disease. Electronically Signed: Alejandro Stanton MD at 6:15 EDT , Service support , Chest CTA 12/19/17 07:16 IMPRESSION: Multiple small bilateral pulmonary emboli. Electronically Signed: Prashant Swanson MD at 9:53 EDT Tel [phone], Service support , KUB X-Ray 12/20/17 16:10 IMPRESSION: 1. No evidence of metallic foreign body. 2. Nonspecific bowel gas pattern. Early obstruction or ileus cannot be ruled out Electronically Signed: Isaac Ashby DO at 16:28 EDT Tel [phone], Service support , Brain CT 12/21/17 06:52 IMPRESSION: Sinus changes as described. No acute intracranial abnormality is seen. Electronically Signed: Prashant Swanson MD at 8:51 EDT Tel [phone], Service support , ADDENDUM: 12/21/17 1555 Brain MRI 12/21/17 13:52 IMPRESSION: Findings which may be consistent with nonspecific diffuse bilateral renal cortical ischemia. Recommend clinical correlation and follow-up N.B. : The above information has been verbally conveyed by Dima Mckeon MD to RN-Jojo Nice, [facility]- In-Patient RN, on 12/21/2017 16:53:33 (ET). Electronically Signed: Dima Mckeon MD at 16:32 EDT , Service support , ADDENDUM: 12/22/17 1610 Medical Necessity - Tobacco Use Smoking Status: Unknown if ever smoked Tobacco Use: - - could not be obtained since patient is intubated Assessment/Plan All Active Problems PEA (Pulseless electrical activity) (Acute) Acute and chronic respiratory failure with hypoxia (Acute) RECOMMENDATIONS: 1. Obtain expectorated sputum culture and restart empiric Zosyn as monotherapy for now. 2. Speech and physical therapy evaluations are pending for today. 3. Continue scheduled bronchodilators and methylprednisone 40 mg daily. 4. Continue as needed Haldol for agitation. 5. Continue treatment strength Lovenox. 6. Continue Pepcid for GI prophylaxis. 7. The patient can be transitioned from ICU to PCU status. IMPRESSIONS: 1. Acute combined respiratory failure with evidence of acute bilateral pulmonary emboli The patient has a reported history of COPD of unknown severity along with ongoing tobacco dependence. Per review of the EMS report, it does appear that the patient may have had a relatively prolonged downtown with presumed hypoxemia. There was approximately 30 minutes of time that elapsed from the 911 call until arrival to the emergency department. He was documented in the EMS run report that the patient was unresponsive with agonal respirations. However, the patient's airway was not secured in the field. When intubated in the emergency department, the patient was noted to have gastric material in his posterior oropharynx, raising the concern for aspiration. Following intubation , the patient did experience a brief PEA cardiac arrest. While the patient was initially being treated for suspected COPD/asthma decompensation, subsequent workup with CTA chest did reveal small bilateral pulmonary emboli, for which the patient was initiated on anticoagulation. The patient will be continued on treatment strength Lovenox. Although antibiotics were initially started for presumptive aspiration, subsequent culture data and chest imaging revealed no evidence of pneumonia. Therefore antibiotics were discontinued. Nevertheless, following the patient's extubation on December 22, he has continued to produce purulent sputum and now has a low-grade fever. Accordingly, a repeat sputum culture will be obtained and the patient will be again started empirically on antibiotics. Scheduled bronchodilators will be continued, as will IV methylprednisone 40 mg daily. The patient is awaiting evaluation by both speech therapy and physical therapy today. If the patient passes his swallow evaluation, his diet will be advanced. 2. PEA arrest presumed secondary to hypoxemia Although hypoxia is a consideration for the patient's PEA arrest in the emergency department, he did have evidence of venous thromboembolic disease on CTA chest. Continuing supportive measures as noted above to maintain an oxygen saturation at or above 90%. Encourage incentive spirometer use and mobilize patient as tolerated. 3. Encephalopathy/ICU delirium Initial concern was for underlying metabolic derangements. However, upon further review of the patient's EMS run report, there was concern that the patient experienced prolonged downtime with associated hypoxemia. Neurology was consulted for assistance. Subsequent workup did reveal evidence of diffuse bilateral cortical ischemia on brain MRI. Additionally, the patient had evidence of generalized periodic epileptiform discharges on EEG. He was subsequently started on Keppra. The patient was able to be extubated on December 22. While he may now have some baseline cognitive dysfunction due to his cortical ischemia, he does appear to be experiencing a component of ICU delirium. He will be continued on Haldol as needed for agitation. 4. Acute kidney injury Resolved. Likely prerenal in etiology in the setting of cardiac arrest. The patient is currently hemodynamically stable without vasopressor support. Supplemental IV fluids were administered, especially in light of contrast administration to obtain CTA chest. At this time, however, the patient's creatinine has returned to baseline. Continue to monitor urine output. No current indication for renal replacement therapy. 5. Possible polysubstance abuse/continuous tobacco dependence Complicates care, management, recovery and prognosis. The patient does have a prior history of heroin abuse, but has been reportedly sober for the last 3 years following his release from incarceration. He is a current daily smoker, however. Nicotine replacement therapy can be offered while the patient is admitted to the hospital. I do anticipate that the patient will required long-term facility at the time of his discharge. Case management/social work to assist with disposition. 6. CODE STATUS DNR CCA without intubation This note was generated with [employer] dictation software. It may contain incorrect words, spelling, and punctuation that were not noted in checking the note before signing. Code Visit Inpatient E&M: 55782 Subs Hosp L3
--- NOTE | 2017-12-23 08:44 | NURSING ---
report called to pcu for transfer to room 127, cousin Arturo present
--- NOTE | 2017-12-23 10:22 | PCM.PN.HOSP ---
Patient Problems: Active and Suspected Problems PEA (Pulseless electrical activity) (Acute) Acute and chronic respiratory failure with hypoxia (Acute) Subjective: Patient overnight with intermittent agitation, intermittent cooperative behaviors and occasionally more oriented than other times. Patient this morning has been able to identify himself, place, president but again will intermittently become aggressive, spitting. Patient following extubation from a respiratory standpoint has remained stable. Patient evaluation per speech therapy with planned repeat evaluation in the afternoon as currently needs further improvement to consider oral intake. Patient clinically stable and transferred from the ICU to the PCU this morning. Per ICU physician discussions with january Morris day prior planned transition to halfway facility versus TBI rehab facility. Patient without evidence of fevers, chills, nausea, emesis, abdominal pain, chest pain or dyspnea. Objective: Physical Examination: General: awakens to stimuli, less alert currently, fatigued, prior was answering orientation questions with RN, up all night, sleeping now and difficult to arouse. Skin: normal color, turgor, no icterus, cyanosis. HEENT: AT/NC, EOM not tested secondary to sedate status, improved PERRLA but difficult as not alert currently and less cooperative, mildly to moderately dry MM, no carotid bruits or JVD noted. Lungs: Diminished BS BL, > bases, mild effort, occasional wheeze but otherwise improved, no rales or rhonchi. Heart: Regular rate and rhythm; no gallop, rub audible. Abdomen: soft, thin habitus, NTTP, ND, normal BS. Extremities: no cyanosis, clubbing, BL pedal edema. Neurological: awakens to stimuli, less alert currently, fatigued, prior was answering orientation questions with RN, up all night, sleeping now and difficult to arouse; cognitive function impaired, MRI w/ evidence TBI; pupils equally reactive to light and accomodation; cranial nerves difficult to assess currently but from RN prior likely intact, moving all 4 extremities to stimuli but sedate now secondary to being up and agitated through evening. Psychiatric: affect appears more calm, sedate, does get irritable with attempted pupillary assessment, no acute evidence of depressive or anxiety feelings. Vitals/I&O's: Vital Signs Temp Pulse Resp BP Pulse Ox 98.4 F 82 20 H 167/85 H 94 12/23/17 07:57 12/23/17 07:57 12/23/17 07:57 12/23/17 07:57 12/23/17 07:57 Oxygen Flow Rate (L/min) 2 Oxygen Delivery Method Nasal Cannula Weight: 149 lb 0.52 oz Body Mass Index (BMI) 21.7 Intake and Output for Last 24 Hours 12/21/17 12/22/17 12/23/17 23:59 23:59 23:59 Intake Total 2361.4 / 2361.4 2058.6 / 2058.6 294.8 / 294.8 Output Total 1850 / 1850 4250 / 4250 1250 / 1250 Balance 511.4 / 511.4 -2191.4 / -2191.4 -955.2 / -955.2 Microbiology Past 72 Hours 12/19/17 06:58 Sputum, Tracheal Aspirate Gram Stain - Final 12/19/17 06:58 Sputum, Tracheal Aspirate Respiratory Culture - Final Current Medications Albuterol Sulfate (Ventolin Aerosols) 2.5 mg INHALATION Q2H PRN PRN PRN Reason: WHEEZING Last Admin: 12/21/17 05:11 Dose: 2.5 mg Albuterol/Ipratropium (Duoneb) 3 ml INHALATION Q4H.RT GUS Last Admin: 12/23/17 06:33 Dose: 3 ml Enoxaparin Sodium (Lovenox) 70 mg SC Q12 GUS Last Admin: 12/22/17 21:06 Dose: 70 mg Haloperidol Lactate (Haldol) 3 mg IV Q4H PRN PRN PRN Reason: AGITATION Last Admin: 12/23/17 02:49 Dose: 3 mg Levetiracetam 750 mg/ N/A 150 mls @ 600 mls/hr IV Q12 GUS Last Admin: 12/22/17 21:06 Dose: 600 mls/hr Famotidine 20 mg/ Sodium (Chloride) 10 mls @ 300 mls/hr IV Q12 GUS Last Admin: 12/22/17 21:06 Dose: 300 mls/hr Piperacillin Sod/Tazobactam Sod (Zosyn) 3.375 gm in 50 mls @ 12.5 mls/hr IV Q8 GUS Labetalol HCl (Trandate) 10 mg IV Q4H PRN PRN PRN Reason: SBP > 160 Last Admin: 12/22/17 23:16 Dose: 10 mg Methylprednisolone (Solu-Medrol) 40 mg IV Q24 GUS Sodium Chloride () 5 - 30 ml IV UD PRN PRN Reason: SALINE FLUSH Last Admin: 12/23/17 00:09 Dose: 10 ml Medical Necessity - Tobacco Use Smoking Status: Unknown if ever smoked Tobacco Use: - - could not be obtained since patient is intubated Assessment/Plan All Active Problems PEA (Pulseless electrical activity) (Acute) Acute and chronic respiratory failure with hypoxia (Acute) The patient is a 52 y/o M w/ PMHx: Suspected Tobacco use, Anxiety/Depression/Bipolar likely given medications but unclear, Cannabis usage per UDS who presents to the [facility] ED on 12/18/17 history of PEA with acute hypoxic respiratory failure. (1) Acute Hypoxic and Hypercarbic Respiratory Failure, Multifactorial, Acute on Suspected Chronic COPD exacerbation and Aspiration Pneumonia w/ Suspected Bronchospasms w/ Lactic Acidosis in addition to Acute BL PE: CXR w/ chronic changes, CBC on admission w/ mild interstitial prominence the upper lung bustos with no demonstrated focal pulmonary infiltrate, repeat similar. Admitted to the ICU, intubated, sedated, continue ATC duonebs, PRN albuterol, IV methylprednisolone with prednisone transition 12/21/17; however, given extubation on 12/22/17 awaiting repeat Speech assessment for oral intake start. Initially treated w/ IV Vanc (MRSA PCR +) and Zosyn with unremarkable cultures, negative antigens w/ d/c abx therapy 12/21/17. CTPA obtained w/ multiple small PEs, started on heparin drip and continued awaiting speech re-evaluation given successful extubation. ECHO w/ LVSF normal, EF 55%, 26 mmHg. FLP not marked appearing. 12/21/17 CT head unremarkable. MRI Brain w/ findings consistent with nonspecific diffuse bilateral cortical ischemia. EEG w/ generalized periodic epileptiform discharges. Continued on keppra as noted. (2) PEA Arrest: Suspected secondary to #1, possibly secondary to polysubstance overdose, UDS notable although on regimen which may result in false positive. EMS administered epinephrine x 3 doses and bicarb 2 doses x 2. Cardiac enzymes 0.015-->0.027-->0.04. ECHO w/ LVSF normal, EF 55%, 26 mmHg. Mag normal. DE ASA. CTPA obtained w/ multiple small PEs, started on heparin drip. Suspect likely prolonged hypoxic timeline, Neurology consulted. CT head without acute findings. Abnormal EEG w/ severe generalized slowing as well as presence of generalized periodic epileptiform discharges initiated on keppra 750 mg BID, MRI w/ findings consistent with nonspecific diffuse bilateral cortical ischemia. Complicates #1, may be difficult extubation. (3) Acute kidney injury: Secondary to acute presentation #1 as noted and possibly #4, unclear baseline. Admission BUN/Cr 111/45-->14/1.35-->12/19/17 BUN/Cr 33/1.76-->12/22/17 BUN/Cr 25/0.85, given IVFs given concurrent CTPA 12/19/17, improved, IVFs off but awaiting speech assessment for oral intake. If prolonged will need to restart IVFs. (4) Acute Encephalopathy secondary to 1, #2, #3 and Anoxic Brain Injury w/ Seizure Activity: Extubation trials difficult, ongoing occasional episodes of increased agitation and questionable ability to follow commands initially. Neurology consulted and following. 12/21/17 CT head unremarkable. Abnormal EEG w/ severe generalized slowing as well as presence of generalized periodic epileptiform discharges (GPEDs) which portends poor prognosis in patient with history of cardiac arrest. Discussed w/ Dr. Kinsey thus started keppra 750 mg BID (12/21/17). MRI w/ findings consistent with nonspecific diffuse bilateral cortical ischemia. 12/22/17 successful extubation following family decision for DNR-CCA, no intubation transition. Give TBI will not be able to care for self, CM/SW aware of need for SNF versus TBI Rehab. If unsafe per Speech consider repeta evaluation 12/24/17 AM and if still not appropriate will need to discuss PEG w/ family. (5) Mild Rhabdomyolysis: Admission TCK 930, unclear timeline, repeat 1254, monitor I&Os, repeat improved, 12/20/17 326. (6) Suspected Polysubstance abuse: UDS notable; however, may be false positives with noted medication regimen but does have notable history per family Arturo who notes that he has been incarcerated but clean status for may years. (7) Suspected Tobacco use: Once appropriate will encouraged cessation, inpatient consultation per RT, NR if desired. (8) Anxiety/Depression/Bipolar disorder: Unclear psychiatric history, home regimen noting amitriptyline, Wellbutrin, Zoloft. Holding, consider restart once speech clearance. (9) DVT, GI Prophylaxis: Pepcid, Heparin drip w/ oral regimen transition and evaluation of options once Speech clearance, SCDs. (10) CODE status: DNR-CCA, no intubation. Code Visit Inpatient E&M: 51638 Subs Hosp L2
--- NOTE | 2017-12-23 10:32 | PN_ITS ---
Patient Problems: Active and Suspected Problems PEA (Pulseless electrical activity) (Acute) Acute and chronic respiratory failure with hypoxia (Acute) Subjective: Patient overnight with intermittent agitation, intermittent cooperative behaviors and occasionally more oriented than other times. Patient this morning has been able to identify himself, place, president but again will intermittently become aggressive, spitting. Patient following extubation from a respiratory standpoint has remained stable. Patient evaluation per speech therapy with planned repeat evaluation in the afternoon as currently needs further improvement to consider oral intake. Patient clinically stable and transferred from the ICU to the PCU this morning. Per ICU physician discussions with january Morris day prior planned transition to custodial facility versus TBI rehab facility. Patient without evidence of fevers, chills , nausea, emesis, abdominal pain, chest pain or dyspnea. Objective: Physical Examination: General: awakens to stimuli, less alert currently, fatigued, prior was answering orientation questions with RN, up all night, sleeping now and difficult to arouse. Skin: normal color, turgor, no icterus, cyanosis. HEENT: AT/NC, EOM not tested secondary to sedate status, improved PERRLA but difficult as not alert currently and less cooperative, mildly to moderately dry MM, no carotid bruits or JVD noted. Lungs: Diminished BS BL, > bases, mild effort, occasional wheeze but otherwise improved, no rales or rhonchi. Heart: Regular rate and rhythm; no gallop, rub audible. Abdomen: soft, thin habitus, NTTP, ND, normal BS. Extremities: no cyanosis, clubbing, BL pedal edema. Neurological: awakens to stimuli, less alert currently, fatigued, prior was answering orientation questions with RN, up all night, sleeping now and difficult to arouse; cognitive function impaired, MRI w/ evidence TBI; pupils equally reactive to light and accomodation; cranial nerves difficult to assess currently but from RN prior likely intact, moving all 4 extremities to stimuli but sedate now secondary to being up and agitated through evening. Psychiatric: affect appears more calm, sedate, does get irritable with attempted pupillary assessment, no acute evidence of depressive or anxiety feelings. Vitals/I&O's: Vital Signs Temp Pulse Resp BP Pulse Ox 98.4 F 82 20 H 167/85 H 94 12/23/17 07:57 12/23/17 07:57 12/23/17 07:57 12/23/17 07:57 12/23/17 07:57 Oxygen Flow Rate (L/min) 2 Oxygen Delivery Method Nasal Cannula Weight: 149 lb 0.52 oz Body Mass Index (BMI) 21.7 Intake and Output for Last 24 Hours 12/21/17 12/22/17 12/23/17 23:59 23:59 23:59 Intake Total 2361.4 / 2361.4 2058.6 / 2058.6 294.8 / 294.8 Output Total 1850 / 1850 4250 / 4250 1250 / 1250 Balance 511.4 / 511.4 -2191.4 / -2191.4 -955.2 / -955.2 Microbiology Past 72 Hours 12/19/17 06:58 Sputum, Tracheal Aspirate Gram Stain - Final 12/19/17 06:58 Sputum, Tracheal Aspirate Respiratory Culture - Final Current Medications Albuterol Sulfate (Ventolin Aerosols) 2.5 mg INHALATION Q2H PRN PRN PRN Reason: WHEEZING Last Admin: 12/21/17 05:11 Dose: 2.5 mg Albuterol/Ipratropium (Duoneb) 3 ml INHALATION Q4H.RT GUS Last Admin: 12/23/17 06:33 Dose: 3 ml Enoxaparin Sodium (Lovenox) 70 mg SC Q12 GSU Last Admin: 12/22/17 21:06 Dose: 70 mg Haloperidol Lactate (Haldol) 3 mg IV Q4H PRN PRN PRN Reason: AGITATION Last Admin: 12/23/17 02:49 Dose: 3 mg Levetiracetam 750 mg/ N/A 150 mls @ 600 mls/hr IV Q12 GUS Last Admin: 12/22/17 21:06 Dose: 600 mls/hr Famotidine 20 mg/ Sodium (Chloride) 10 mls @ 300 mls/hr IV Q12 GUS Last Admin: 12/22/17 21:06 Dose: 300 mls/hr Piperacillin Sod/Tazobactam Sod (Zosyn) 3.375 gm in 50 mls @ 12.5 mls/hr IV Q8 GUS Labetalol HCl (Trandate) 10 mg IV Q4H PRN PRN PRN Reason: SBP > 160 Last Admin: 12/22/17 23:16 Dose: 10 mg Methylprednisolone (Solu-Medrol) 40 mg IV Q24 GUS Sodium Chloride () 5 - 30 ml IV UD PRN PRN Reason: SALINE FLUSH Last Admin: 12/23/17 00:09 Dose: 10 ml Medical Necessity - Tobacco Use Smoking Status: Unknown if ever smoked Tobacco Use: - - could not be obtained since patient is intubated Assessment/Plan All Active Problems PEA (Pulseless electrical activity) (Acute) Acute and chronic respiratory failure with hypoxia (Acute) The patient is a 52 y/o M w/ PMHx: Suspected Tobacco use, Anxiety/Depression/ Bipolar likely given medications but unclear, Cannabis usage per UDS who presents to the [facility] ED on 12/18/17 history of PEA with acute hypoxic respiratory failure. (1) Acute Hypoxic and Hypercarbic Respiratory Failure, Multifactorial, Acute on Suspected Chronic COPD exacerbation and Aspiration Pneumonia w/ Suspected Bronchospasms w/ Lactic Acidosis in addition to Acute BL PE: CXR w/ chronic changes, CBC on admission w/ mild interstitial prominence the upper lung bustos with no demonstrated focal pulmonary infiltrate, repeat similar. Admitted to the ICU, intubated, sedated, continue ATC duonebs, PRN albuterol, IV methylprednisolone with prednisone transition 12/21/17; however, given extubation on 12/22/17 awaiting repeat Speech assessment for oral intake start. Initially treated w/ IV Vanc (MRSA PCR +) and Zosyn with unremarkable cultures, negative antigens w/ d/c abx therapy 12/21/17. CTPA obtained w/ multiple small PEs, started on heparin drip and continued awaiting speech re-evaluation given successful extubation. ECHO w/ LVSF normal, EF 55%, 26 mmHg. FLP not marked appearing. 12/21/17 CT head unremarkable. MRI Brain w/ findings consistent with nonspecific diffuse bilateral cortical ischemia. EEG w/ generalized periodic epileptiform discharges. Continued on keppra as noted. (2) PEA Arrest: Suspected secondary to #1, possibly secondary to polysubstance overdose, UDS notable although on regimen which may result in false positive. EMS administered epinephrine x 3 doses and bicarb 2 doses x 2. Cardiac enzymes 0.015-->0.027-->0.04. ECHO w/ LVSF normal, EF 55%, 26 mmHg. Mag normal. IN ASA. CTPA obtained w/ multiple small PEs, started on heparin drip. Suspect likely prolonged hypoxic timeline, Neurology consulted. CT head without acute findings. Abnormal EEG w/ severe generalized slowing as well as presence of generalized periodic epileptiform discharges initiated on keppra 750 mg BID, MRI w/ findings consistent with nonspecific diffuse bilateral cortical ischemia. Complicates #1, may be difficult extubation. (3) Acute kidney injury: Secondary to acute presentation #1 as noted and possibly #4, unclear baseline. Admission BUN/Cr 111/45-->14/1.35-->12/19/17 BUN/ Cr 33/1.76-->12/22/17 BUN/Cr 25/0.85, given IVFs given concurrent CTPA 12/19/17, improved, IVFs off but awaiting speech assessment for oral intake. If prolonged will need to restart IVFs. (4) Acute Encephalopathy secondary to 1, #2, #3 and Anoxic Brain Injury w/ Seizure Activity: Extubation trials difficult, ongoing occasional episodes of increased agitation and questionable ability to follow commands initially. Neurology consulted and following. 12/21/17 CT head unremarkable. Abnormal EEG w / severe generalized slowing as well as presence of generalized periodic epileptiform discharges (GPEDs) which portends poor prognosis in patient with history of cardiac arrest. Discussed w/ Dr. Kinsey thus started keppra 750 mg BID (12/21/17). MRI w/ findings consistent with nonspecific diffuse bilateral cortical ischemia. 12/22/17 successful extubation following family decision for DNR-CCA, no intubation transition. Give TBI will not be able to care for self, CM/SW aware of need for SNF versus TBI Rehab. If unsafe per Speech consider repeta evaluation 12/24/17 AM and if still not appropriate will need to discuss PEG w/ family. (5) Mild Rhabdomyolysis: Admission TCK 930, unclear timeline, repeat 1254, monitor I&Os, repeat improved, 12/20/17 326. (6) Suspected Polysubstance abuse: UDS notable; however, may be false positives with noted medication regimen but does have notable history per family Arturo who notes that he has been incarcerated but clean status for may years. (7) Suspected Tobacco use: Once appropriate will encouraged cessation, inpatient consultation per RT, NR if desired. (8) Anxiety/Depression/Bipolar disorder: Unclear psychiatric history, home regimen noting amitriptyline, Wellbutrin, Zoloft. Holding, consider restart once speech clearance. (9) DVT, GI Prophylaxis: Pepcid, Heparin drip w/ oral regimen transition and evaluation of options once Speech clearance, SCDs. (10) CODE status: DNR-CCA, no intubation. Code Visit Inpatient E&M: 25474 Subs Hosp L2
--- NOTE | 2017-12-23 11:04 | CASEMGMT ---
Pt has been moved to [place]. MEHDI spoke w/pt's cousin Arturo on the phone, and then in person, in regard to discharge plan. Arturo explains that pt's mother is at [facility], and inquired if we can send pt there. MEHDI explained will look into this and see if they can take pt. Arturo inquired if pt is going there for rehab. MEHDI explained that yes, initially pt would get rehab services, and it would depend on how pt recovers is he can go home. 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 Arturo states understanding. MEHDI did also ask Arturo about pt's mental health. As per Arturo, pt was not in any kind of treatment for mental health, and never had any psych hospitalizations. Arturo states pt was a heavy drug addict, and got clean about 3 years ago. Arturo states pt was never a drinker. MEHDI explained to Arturo will make referral and will let him know if they can take pt. It is anticipated pt will be here through the weekend as it is still to be determined if pt can eat or not. Arturo states understanding. MEHDI called Mary Ann at [facility] and faxed initial referral. Therapy notes were not yet faxed as pt has not been able to work much yet with therapy. As per Mary Ann at [facility], they can offer an hour of each therapy daily, PT/OT/ST. Also, they have experience in working w/pts with TBI. Mary Ann will let this MEHDI or MEHDI Curtis know if they can take pt, and once pt has participated more fully in therapy, MEHDI will fax therapy notes to [facility]. Mary Ann will start precert once MEHDI lets her know the time is appropriate. ROMERO Bacon, MANAGER DEPARTMENT
[2017-12-23] MEDS: Enoxaparin 80 MG/0.8 ML Syringe 70 MG SC ×2 (12:34→22:10)
--- NOTE | 2017-12-23 12:43 | EEG ---
- Electroencephalogram Date of service 12/23/17 History EEG is being done in this 52 yr M with PEA to rule out seizures EEG Description: This is an 18 channel EEG with 10-20 lead placement system. Bipolar montages, Referential and Circumferential montages were reviewed. Photic stimulation was performed but Hyperventilation could not be performed. The posterior dominant background rhythm was absent. Photo stimulation did not elicit any driving response or any abnormal photoparoxysmal response, Hyperventilation could not be performed. Sleep was not identified. There was generalized background slowing in the delta frequency range of 4 Hz. Intermittent sharp wave epileptiform discharges noted, better than the previous study. There was no electrographic seizures noted during this recording. EEG Interpretation This is an abnormal EEG due to the presence of severe generalized slowing as well as presence of intermittent epileptiform discharges which is better than the previous study on 12/21/17. This severe generalized cerebral dysfunction may also be seen secondary to severe metabolic/toxic encephalopathy. Clinical correlation is advised. There is no electrographic seizures noted during the record.
--- NOTE | 2017-12-23 13:22 | CASEMGMT ---
MEHDI faxed patient's PT,OT, and ST notes to [facility]. Await response from [facility]. Kisrten [employer]
[2017-12-23] MEDS: Famotidine 20mg IV Push Syringe Q12 300 MG IV ×2 (14:18→22:09)
[2017-12-23] MEDS: Piperacil/Tazobactam 3.375 GM Q8 PREMIX IV ×2 (14:19→22:10)
--- NOTE | 2017-12-23 15:40 | CASEMGMT ---
MEHDI spoke with [facility] at [facility] and she said they would like to see how patient does over the weekend before they accept him. She said she will talk with MEHDI Tuesday. Kirsten RICE
[2017-12-23] MEDS: levETIRAcetam IV 1,000 MG/100 ML BAG 400 MG IV (22:15)
[2017-12-24] VITALS (14 sets, daily range): BP systolic 136–151; BP diastolic 58–87; PULSE 54–80; RESP 16–21; TEMP 36.5–36.8; O2SAT 95–98
[2017-12-24] MEDS: Ipratropium/Albuterol Sulfate 3 ML AMPUL.NEB INHALATION ×3 (02:38→22:46)
[2017-12-24] MEDS: Piperacil/Tazobactam 3.375 GM Q8 PREMIX IV ×3 (05:06→21:32)
--- NOTE | 2017-12-24 06:34 | PN_ITS ---
Patient Problems: Active and Suspected Problems PEA (Pulseless electrical activity) (Acute) Acute and chronic respiratory failure with hypoxia (Acute) Subjective: The patient was seen and examined at the bedside this morning. Events from the last 24 hours have been reviewed. The patient is currently afebrile, hemodynamically stable and maintaining appropriate oxygen saturations on 3 L/ min via nasal cannula. The patient has done well following transfer out of the intensive care unit yesterday. Repeat EEG completed yesterday continue to demonstrate intermittent epileptiform discharges, which appeared better than the previous study on December 21. Despite being ordered, a repeat sputum culture was never obtained or sent. The patient was evaluated by speech therapy yesterday, who recommended continued n.p.o. status and potential oropharyngeal swallow function assessment of silent aspiration is suspected. The patient remains confused this morning continues to request to be allowed to eat and drink. Objective: The patient's most recent lab work, culture data and imaging studies have all been personally reviewed. Blood and urine cultures are pending. Sputum Gram stain revealed no organisms. Surface echocardiogram revealed normal LV size and function with an ejection fraction of 55%. Pulmonary artery systolic pressures were estimated to be 26 mmHg. CTA chest revealed small numerous bilateral pulmonary emboli. MRI revealed bilateral cortical ischemia with EEG revealing periodic epileptic discharges. Blood, urine and sputum cultures have shown no growth to date. - Physical Exam General: Alert, Confused, Disoriented HEENT: Atraumatic, PERRLA, Normocephalic Oral: Dry Mucosa, - - Poor dentition Neck: Supple, No Nodes, Trachea Midline Lungs: No rhonchi, No rales, Diminished, Wheezes Cardiovascular: Regular rate, Regular Rhythm, Normal S1, Normal S2, No murmurs Abdomen: Soft, Non Tender, Non-Distended, Hypoactive Bowel Sounds Extremities: No clubbing, No cyanosis, - - Trace pedal edema Skin: No breakdown, - - Multiple tattoos Musculoskeletal: No Tenderness to Palpation of Joints or Extremities, No Muscle Wasting Lymphatic: No Cervical, Supraclavicular, or Inguinal Adenopathy Neurological: - - No focal deficits. Moves all extremities spontaneously. Remains confused. Psych/Mental Status: Flat Affect, Restless Vital Signs Temp Pulse Resp BP Pulse Ox 98.1 F 78 18 151/87 H 98 12/24/17 04:52 12/24/17 04:52 12/24/17 04:52 12/24/17 04:52 12/24/17 04:52 Oxygen Flow Rate (L/min) 3 Oxygen Delivery Method Nasal Cannula Weight: 149 lb 0.52 oz Body Mass Index (BMI) 21.7 Intake and Output for Last 24 Hours 12/22/17 12/23/17 12/24/17 23:59 23:59 23:59 Intake Total 2058.6 / 2058.6 464.8 / 464.8 212 / 212 Output Total 4250 / 4250 2550 / 2550 Balance -2191.4 / -2191.4 -2085.2 / -2085.2 212 / 212 Microbiology Past 72 Hours 12/19/17 06:58 Gram Stain - Final Sputum, Tracheal Aspirate Respiratory Culture - Final Microbiology 12/18/17 02:50 Blood Culture (Wb) - Anticubital Right Blood Culture - Final No growth in 5 days. 12/18/17 02:20 Blood Culture (Wb) - Anticubital Left Blood Culture - Final No growth in 5 days. Clinical Impression(s) from Imaging Studies Brain CT 12/18/17 01:51 IMPRESSION: Normal unenhanced CT scan of the brain. Chronic sinusitis. Electronically Signed: Bruce Lei MD at 4:26 EDT , Service support , Chest X-Ray 12/18/17 02:25 IMPRESSION: Tubes are in adequate position. Mild interstitial prominence in the upper lung bustos, probably chronic. No demonstrated focal pulmonary infiltrate. Electronically Signed: Bruce Lei MD at 3:39 EDT , Service support , Chest X-Ray 12/19/17 05:55 IMPRESSION: No acute cardiopulmonary disease. Electronically Signed: Alejandro Stanton MD at 6:15 EDT , Service support , Chest CTA 12/19/17 07:16 IMPRESSION: Multiple small bilateral pulmonary emboli. Electronically Signed: Prashant Swanson MD at 9:53 EDT Tel [phone], Service support , KUB X-Ray 12/20/17 16:10 IMPRESSION: 1. No evidence of metallic foreign body. 2. Nonspecific bowel gas pattern. Early obstruction or ileus cannot be ruled out Electronically Signed: Isaac Ashby DO at 16:28 EDT Tel [phone], Service support , Brain CT 12/21/17 06:52 IMPRESSION: Sinus changes as described. No acute intracranial abnormality is seen. Electronically Signed: Prashant Swanson MD at 8:51 EDT Tel [phone], Service support , ADDENDUM: 12/21/17 1555 Brain MRI 12/21/17 13:52 IMPRESSION: Findings which may be consistent with nonspecific diffuse bilateral renal cortical ischemia. Recommend clinical correlation and follow-up N.B. : The above information has been verbally conveyed by Dima Mckeon MD to [facility], on 12/21/2017 16:53:33 (ET). Electronically Signed: Dima Mckeon MD at 16:32 EDT , Service support , ADDENDUM: 12/22/17 1610 Medical Necessity - Tobacco Use Smoking Status: Unknown if ever smoked Tobacco Use: - - could not be obtained since patient is intubated Assessment/Plan All Active Problems PEA (Pulseless electrical activity) (Acute) Acute and chronic respiratory failure with hypoxia (Acute) RECOMMENDATIONS: 1. Obtain expectorated sputum culture and continue empiric Zosyn as monotherapy for now. 2. Continue work with speech and physical therapy. Awaiting reevaluation by speech therapy prior to discontinuation of n.p.o. status. 3. Continue scheduled bronchodilators and methylprednisone 40 mg daily. 4. Continue as needed Haldol for agitation. 5. Continue treatment strength Lovenox. 6. Encourage incentive spirometer use and mobilize patient as tolerated. IMPRESSIONS: 1. Acute combined respiratory failure with evidence of acute bilateral pulmonary emboli The patient has a reported history of COPD of unknown severity along with ongoing tobacco dependence. Per review of the EMS report, it does appear that the patient may have had a relatively prolonged downtown with presumed hypoxemia. There was approximately 30 minutes of time that elapsed from the 911 call until arrival to the emergency department. He was documented in the EMS run report that the patient was unresponsive with agonal respirations. However, the patient's airway was not secured in the field. When intubated in the emergency department, the patient was noted to have gastric material in his posterior oropharynx, raising the concern for aspiration. Following intubation , the patient did experience a brief PEA cardiac arrest. While the patient was initially being treated for suspected COPD/asthma decompensation, subsequent workup with CTA chest did reveal small bilateral pulmonary emboli, for which the patient was initiated on anticoagulation. The patient will be continued on treatment strength Lovenox. Although antibiotics were initially started for presumptive aspiration, subsequent culture data and chest imaging revealed no evidence of pneumonia. Therefore antibiotics were discontinued. Nevertheless, following the patient's extubation on December 22, he has continued to produce purulent sputum and developed a low-grade fever. Accordingly, a repeat sputum culture was ordered to be obtained and the patient was again started empirically on antibiotics. Scheduled bronchodilators will be continued, as will IV methylprednisone 40 mg daily. The patient is awaiting re-evaluation by both speech therapy and physical therapy. The patient remains n.p.o., pending further evaluation by speech therapy. 2. PEA arrest presumed secondary to hypoxemia Although hypoxia is a consideration for the patient's PEA arrest in the emergency department, he did have evidence of venous thromboembolic disease on CTA chest. Continuing supportive measures as noted above to maintain an oxygen saturation at or above 90%. Encourage incentive spirometer use and mobilize patient as tolerated. 3. Encephalopathy/ICU delirium Initial concern was for underlying metabolic derangements. However, upon further review of the patient's EMS run report, there was concern that the patient experienced prolonged downtime with associated hypoxemia. Neurology was consulted for assistance. Subsequent workup did reveal evidence of diffuse bilateral cortical ischemia on brain MRI. Additionally, the patient had evidence of generalized periodic epileptiform discharges on EEG. He was subsequently started on Keppra. The patient was able to be extubated on December 22. While he may now have some baseline cognitive dysfunction due to his cortical ischemia, he does appear to be experiencing a component of ICU delirium. He will be continued on Haldol as needed for agitation. 4. Acute kidney injury Resolved. Likely prerenal in etiology in the setting of cardiac arrest. The patient is currently hemodynamically stable without vasopressor support. Supplemental IV fluids were administered, especially in light of contrast administration to obtain CTA chest. At this time, however, the patient's creatinine has returned to baseline. Continue to monitor urine output. No current indication for renal replacement therapy. 5. Possible polysubstance abuse/continuous tobacco dependence/hepatitis a and C Complicates care, management, recovery and prognosis. The patient does have a prior history of heroin abuse, but has been reportedly sober for the last 3 years following his release from incarceration. He is a current daily smoker, however. Nicotine replacement therapy can be offered while the patient is admitted to the hospital. I do anticipate that the patient will required shelter facility at the time of his discharge. Case management/social work to assist with disposition. 6. CODE STATUS DNR CCA without intubation This note was generated with [email or web address] dictation software. It may contain incorrect words, spelling, and punctuation that were not noted in checking the note before signing. Code Visit Inpatient E&M: 10026 Subs Hosp L2
[2017-12-24] MEDS: levETIRAcetam IV 1,000 MG/100 ML BAG 400 MG IV ×2 (09:43→21:31)
[2017-12-24] MEDS: Famotidine 20mg IV Push Syringe Q12 300 MG IV ×2 (09:43→21:31)
[2017-12-24] MEDS: 0.9% NaCl Peripheral Flush Adult/Peds IV ×3 (09:43→21:31)
[2017-12-24] MEDS: Enoxaparin 80 MG/0.8 ML Syringe 70 MG SC ×2 (09:49→21:31)
--- NOTE | 2017-12-24 10:35 | PCM.PN.HOSP ---
Patient Problems: Active and Suspected Problems PEA (Pulseless electrical activity) (Acute) Acute and chronic respiratory failure with hypoxia (Acute) Subjective: Patient was seen and examined. Remains lethargic. Easily arousable. Oriented to person , place but not to time. Kept NPO by speech therapy except for meds. Vitals reviewed- stable, on 2L oxygen Labs reviewed - stable also. No growth from blood cultures, repeat sputum c/s is pending. Vitals/I&O's: Vital Signs Temp Pulse Resp BP Pulse Ox 98.0 F 57 L 16 147/79 H 97 12/24/17 09:40 12/24/17 09:40 12/24/17 09:40 12/24/17 09:40 12/24/17 09:40 Oxygen Flow Rate (L/min) 3 Oxygen Delivery Method Nasal Cannula Weight: 67.6 kg Body Mass Index (BMI) 21.7 Intake and Output for Last 24 Hours 12/22/17 12/23/17 12/24/17 23:59 23:59 23:59 Intake Total 2058.6 / 2058.6 464.8 / 464.8 274 / 274 Output Total 4250 / 4250 2550 / 2550 Balance -2191.4 / -2191.4 -2085.2 / -2085.2 274 / 274 General: Alert, Cooperative, No apparent distress, Confused, - - oriented x 2, not to time HEENT: Atraumatic, PERRLA, EOMI, Normocephalic Oral: Dry Mucosa Neck: Supple Lungs: Clear to auscultation, Normal air movement Cardiovascular: Regular rate, Regular Rhythm, Normal S1, Normal S2, No murmurs Abdomen: Bowel Sounds Present, Soft, Non Tender, Non-Distended, No Hepato-splenomegaly Extremities: No edema Skin: No rashes, No breakdown Musculoskeletal: No Tenderness to Palpation of Joints or Extremities Lymphatic: No Cervical, Supraclavicular, or Inguinal Adenopathy Neurological: Cranial nerves II-XII grossly intact, Neuro grossly intact - appears tired Psych/Mental Status: Normal Affect, Appropriate Microbiology Past 72 Hours 12/19/17 06:58 Sputum, Tracheal Aspirate Gram Stain - Final 12/19/17 06:58 Sputum, Tracheal Aspirate Respiratory Culture - Final Current Medications Albuterol Sulfate (Ventolin Aerosols) 2.5 mg INHALATION Q2H PRN PRN PRN Reason: WHEEZING Last Admin: 12/21/17 05:11 Dose: 2.5 mg Albuterol/Ipratropium (Duoneb) 3 ml INHALATION Q4H.RT [facility] Last Admin: 12/24/17 07:10 Dose: Not Given Enoxaparin Sodium (Lovenox) 70 mg SC Q12 [facility] Last Admin: 12/24/17 09:49 Dose: 70 mg Haloperidol Lactate (Haldol) 3 mg IV Q4H PRN PRN PRN Reason: AGITATION Last Admin: 12/23/17 02:49 Dose: 3 mg Famotidine 20 mg/ Sodium (Chloride) 10 mls @ 300 mls/hr IV Q12 [facility] Last Admin: 12/24/17 09:43 Dose: 300 mls/hr Piperacillin Sod/Tazobactam Sod (Zosyn) 3.375 gm in 50 mls @ 12.5 mls/hr IV Q8 [facility] Last Admin: 12/24/17 05:06 Dose: 12.5 mls/hr Levetiracetam (Keppra Iv) 1,000 mg in 100 mls @ 400 mls/hr IV BID [facility] Last Admin: 12/24/17 09:43 Dose: 400 mls/hr Labetalol HCl (Trandate) 10 mg IV Q4H PRN PRN PRN Reason: SBP > 160 Last Admin: 12/22/17 23:16 Dose: 10 mg Methylprednisolone (Solu-Medrol) 40 mg IV Q24 [facility] Last Admin: 12/24/17 09:43 Dose: 40 mg Sodium Chloride () 5 - 30 ml IV UD PRN PRN Reason: SALINE FLUSH Last Admin: 12/24/17 09:43 Dose: 20 ml Medical Necessity - Tobacco Use Smoking Status: Unknown if ever smoked Tobacco Use: - - could not be obtained since patient is intubated Assessment/Plan All Active Problems PEA (Pulseless electrical activity) (Acute) Acute and chronic respiratory failure with hypoxia (Acute) 52-year-old male with no known past medical history admitted on 12/18/17 with unresponsiveness. Had PEA with CPR done in ED on admission, intubated in the ED for airway protection. Managed in ICU, extubated 12/22/17. Transferred to PCU. EEG showed epileptiform features. 1. Acute hypoxic/Hypercapneic respiratory failure, resolving, will continue with steroids, breathing treatment, treatment of PE 2. PEA secondary to acute hypoxemia, status post CPR, no arrhythmias seen 3. Acute bilateral PE, remains on Lovenox SC BID 4. Suspected CAP, with purulent sputum and low grade fever, repeat sputum c/s sent, on empiric Zosyn 5. Oropharyngeal dysphagia, functional, likely secondary to presumed MRI findings from presumably hypoxia, kept NPO, ST ff patient 6. Acute metabolic encephalopathy secondary to diffuse bilateral cortical ischemia, seen on MRI, and seizures from epileptiform changes on EEG, on Keppra, will continue to follow. 7. ALICE , prerenal, resolved 8. Polysubstance use, amphetamine, methamphetamine, and cannabinoids, nicotine 9. DVT PPx- On therapeutic Lovenox Code Visit Inpatient E&M: 73109 Subs Hosp L2
[2017-12-24] MEDS: Acetaminophen 500 MG Tablet 1000 MG PO ×2 (15:46→21:32)
[2017-12-24] MEDS: Ketorolac 15 MG/ML Vial IV (15:46)
[2017-12-25] VITALS (16 sets, daily range): BP systolic 113–171; BP diastolic 63–90; PULSE 50–72; RESP 16–18; TEMP 36.3–36.8; O2SAT 93–98
--- NOTE | 2017-12-25 01:31 | CT_ITS ---
STUDY: CT BRAIN WITHOUT CONTRAST REASON FOR EXAM: Male, 52 years old. Recent fall out of bed with a closed head injury. Patient has laceration to the forehead. RADIATION DOSAGE (If Supplied By Facility): CTDIvol = ( 44.99 ) mGy, DLP = ( 812.98 ) mGycm TECHNIQUE: Transaxial CT imaging of the brain was performed without administration of intravenous contrast material. Multiplanar reformations are submitted for interpretation. Individualized dose optimization techniques were used for this CT. COMPARISON: CT of the head dated December 21, 2017. FINDINGS: There is a soft tissue contusion involving the left paramedian forehead and scalp. There is soft tissue emphysema in this area suggesting there is associated laceration. Normal calvarium. There is mild cerebral atrophy with widening of the extra-axial spaces and ventricular dilatation. Normal white matter tracts of the cerebral hemispheres. Normal basal ganglia and thalami. Normal brainstem. There is mild cerebellar atrophy. There is no intracranial hemorrhage. There are no findings of an acute ischemic infarction. There is mucoperiosteal inflammatory disease of the paranasal sinuses consistent with mild chronic sinusitis. CT/Brain/Head without Contrast IMPRESSION: 1. Chronic involutional changes of the brain. 2. No CT evidence of acute intracranial hemorrhage. 3. Left paramedian forehead and frontal scalp contusion and laceration. Electronically Signed: Marianela Lala MD at 3:00 EDT , Service support ,
[2017-12-25] MEDS: Morphine 4 MG/ML Syringe IV (01:36)
[2017-12-25] MEDS: 0.9% NaCl Peripheral Flush Adult/Peds IV ×6 (01:36→14:19)
[2017-12-25 02:36] LABS: Bedside Glucose 86 mg/dL (70-110)
--- NOTE | 2017-12-25 02:37 | CT_ITS ---
STUDY: CT CERVICAL SPINE WITHOUT CONTRAST REASON FOR EXAM: Male, 52 years old. Neck pain after recent fall and closed head injury. RADIATION DOSAGE (If Supplied By Facility): CTDIvol = ( 19.33 ) mGy, DLP = ( 418.76 ) mGycm TECHNIQUE: High resolution transaxial imaging was performed without contrast material. Sagittal and coronal images were reconstructed. Individualized dose optimization techniques were used for this CT. COMPARISON: Prior comparable comparison studies are not available for review at this time. FINDINGS: Normal craniovertebral junction. Normal anterior atlantoaxial articulation. Normal odontoid process. There is straightening of the normal cervical lordosis. The vertebral bodies have generally normal height and alignment. Incidental note is made of some fluid in the posterior left-sided mastoid air cell. C2-3: Normal endplates. Normal disc height and morphology. Normal central canal and intervertebral neuroforamina. C3-4: Normal endplates. Normal disc height and morphology. Normal central canal. There is severe left-sided neural foraminal narrowing. The right neural foramen is patent. There is uncovertebral joint hypertrophy. C4-5: There is narrowing of the disc space with endplate osteophytes. There is moderate bilateral neural foraminal narrowing. There is bilateral uncovertebral joint hypertrophy. There is no significant central acquired canal stenosis. C5-6: There is narrowing of the disc space with endplate osteophytes. There is severe bilateral neural foraminal narrowing with bilateral uncovertebral joint hypertrophy. There is mild central acquired canal stenosis. C6-7: There is narrowing of the disc space with small endplate osteophytes. There is moderate bilateral neural foraminal narrowing with uncovertebral joint arthropathy. There is no significant central acquired canal stenosis. C7-T1: Normal endplates. Normal disc height and morphology. Normal central canal and intervertebral neuroforamina. Normal visualized soft tissue structures. CT/Spine Cervical without Contras IMPRESSION: 1. No CT evidence of acute compression or displaced fracture. 2. Multilevel degenerative disc disease, degenerative arthropathy and spondylosis of cervical spine with neural foraminal narrowing, as described. Electronically Signed: Marianela Lala MD at 3:28 EDT , Service support ,
[2017-12-25] MEDS: Ipratropium/Albuterol Sulfate 3 ML AMPUL.NEB INHALATION (03:21)
--- NOTE | 2017-12-25 03:23 | NURSING ---
0145 Notified Gertrude RN [employer] of patient fall, she states she is aware of fall.
[2017-12-25] MEDS: HYDROcodone Bitartrate/Apap 5/325 Tablet PO (04:37)
[2017-12-25] MEDS: Piperacil/Tazobactam 3.375 GM Q8 PREMIX IV ×3 (06:08→21:03)
[2017-12-25] MEDS: Acetaminophen 500 MG Tablet 1000 MG PO (06:09)
--- NOTE | 2017-12-25 06:47 | PCM.PROGNOTE ---
Patient Problems: Active and Suspected Problems PEA (Pulseless electrical activity) (Acute) Acute and chronic respiratory failure with hypoxia (Acute) Subjective: The patient was seen and examined at the bedside this morning. Events from the last 24 hours have been reviewed. The patient is currently afebrile, hemodynamically stable and maintaining appropriate oxygen saturations on room air. The patient again failed his swallow evaluation yesterday with findings concerning for silent aspiration, for which it was recommended that the patient remain n.p.o. Last evening, the patient reportedly fell head first out of bed, sustaining a contusion laceration. CT head was negative. CT C-spine revealed no evidence of acute compression or displaced fracture. The patient did require sutures to be placed by the hospitalist and emergency department attending. Objective: The patient's most recent lab work, culture data and imaging studies have all been personally reviewed. Blood and urine cultures are pending. Sputum Gram stain revealed no organisms. Surface echocardiogram revealed normal LV size and function with an ejection fraction of 55%. Pulmonary artery systolic pressures were estimated to be 26 mmHg. CTA chest revealed small numerous bilateral pulmonary emboli. MRI revealed bilateral cortical ischemia with EEG revealing periodic epileptic discharges. Blood, urine and sputum cultures have shown no growth to date. - Physical Exam General: Alert, - - The patient's confusion seems no different than previous. HEENT: PERRLA, Normocephalic, - - Frontal contusions and lacerations, currently wrapped with Kerlix Oral: Dry Mucosa, - - Poor dentition Neck: Supple, No Nodes, Trachea Midline Lungs: No rhonchi, No wheeze, No rales, Diminished Cardiovascular: Regular rate, Regular Rhythm, Normal S1, Normal S2, No murmurs Abdomen: Soft, Non Tender, Non-Distended, Hypoactive Bowel Sounds Extremities: No clubbing, No cyanosis, No edema Skin: No breakdown, - - Multiple tattoos Musculoskeletal: No Tenderness to Palpation of Joints or Extremities Lymphatic: No Cervical, Supraclavicular, or Inguinal Adenopathy Neurological: - - No focal neurological deficits. The patient appears to be redirectable. Moves all extremities spontaneously. Remains intermittently confused. Vital Signs Temp Pulse Resp BP Pulse Ox 97.8 F 55 L 16 151/84 H 94 12/25/17 06:05 12/25/17 06:05 12/25/17 06:05 12/25/17 06:05 12/25/17 06:05 Oxygen Flow Rate (L/min) 2 Oxygen Delivery Method Room Air Weight: 137 lb Body Mass Index (BMI) 21.7 Intake and Output for Last 24 Hours 12/23/17 12/24/17 12/25/17 23:59 23:59 23:59 Intake Total 464.8 / 464.8 712 / 712 75 / 75 Output Total 2550 / 2550 950 / 950 250 / 250 Balance -2085.2 / -2085.2 -238 / -238 -175 / -175 Microbiology Past 72 Hours 12/24/17 09:50 Gram Stain - Final Sputum, Expectorated/Coughed Laboratory Tests Past 24 Hrs 12/25/17 12/25/17 06:18 06:18 WBC Pending RBC Pending Hgb Pending Hct Pending MCV Pending MCH Pending MCHC Pending RDW Pending RDW Differential Pending Plt Count Pending Neut % (Auto) Pending Absolute Neuts (auto) Pending Total Counted Pending Sodium Pending Potassium Pending Chloride Pending Carbon Dioxide Pending BUN Pending Creatinine Pending Est GFR (MDRD) Af Amer Pending Est GFR (MDRD) Non-Af Pending BUN/Creatinine Ratio Pending Glucose Pending Calcium Pending Phosphorus Pending Albumin Pending POC Glucose 12/25/17 01:58 POC Glucose 86 Clinical Impression(s) from Imaging Studies Brain CT 12/18/17 01:51 IMPRESSION: Normal unenhanced CT scan of the brain. Chronic sinusitis. Electronically Signed: Bruce Lei MD at 4:26 EDT , Service support , Chest X-Ray 12/18/17 02:25 IMPRESSION: Tubes are in adequate position. Mild interstitial prominence in the upper lung bustos, probably chronic. No demonstrated focal pulmonary infiltrate. Electronically Signed: Bruce Lei MD at 3:39 EDT , Service support , Chest X-Ray 12/19/17 05:55 IMPRESSION: No acute cardiopulmonary disease. Electronically Signed: Alejandro Stanton MD at 6:15 EDT , Service support , Chest CTA 12/19/17 07:16 IMPRESSION: Multiple small bilateral pulmonary emboli. Electronically Signed: Prashant Swanson MD at 9:53 EDT Tel [phone], Service support , KUB X-Ray 12/20/17 16:10 IMPRESSION: 1. No evidence of metallic foreign body. 2. Nonspecific bowel gas pattern. Early obstruction or ileus cannot be ruled out Electronically Signed: Isaac Ashby DO at 16:28 EDT Tel [phone], Service support , Brain CT 12/21/17 06:52 IMPRESSION: Sinus changes as described. No acute intracranial abnormality is seen. Electronically Signed: Prashant Swanson MD at 8:51 EDT Tel [phone], Service support , ADDENDUM: 12/21/17 1555 Brain MRI 12/21/17 13:52 IMPRESSION: Findings which may be consistent with nonspecific diffuse bilateral renal cortical ischemia. Recommend clinical correlation and follow-up N.B. : The above information has been verbally conveyed by Dima Mckeon MD to RN-Jojo Nice, [facility]- In-Patient RN, on 12/21/2017 16:53:33 (ET). Electronically Signed: Dima Mckeon MD at 16:32 EDT , Service support , ADDENDUM: 12/22/[address] 12/25/17 01:31 IMPRESSION: 1. Chronic involutional changes of the brain. 2. No CT evidence of acute intracranial hemorrhage. 3. Left paramedian forehead and frontal scalp contusion and laceration. Electronically Signed: Marianela Lala MD at 3:00 EDT , Service support , Cervical Spine CT 12/25/17 02:37 IMPRESSION: 1. No CT evidence of acute compression or displaced fracture. 2. Multilevel degenerative disc disease, degenerative arthropathy and spondylosis of cervical spine with neural foraminal narrowing, as described. Electronically Signed: Marianela Lala MD at 3:28 EDT , Service support , Medical Necessity - Tobacco Use Smoking Status: Unknown if ever smoked Tobacco Use: - - could not be obtained since patient is intubated Assessment/Plan All Active Problems PEA (Pulseless electrical activity) (Acute) Acute and chronic respiratory failure with hypoxia (Acute) RECOMMENDATIONS: 1. Continue empiric Zosyn until repeat sputum culture has finalized. If negative, antibiotics can be discontinued. 2. Continue work with speech and physical therapy. Awaiting reevaluation by speech therapy prior to discontinuation of n.p.o. status. 3. Continue scheduled bronchodilators and methylprednisone 40 mg daily. 4. Recommend discontinuation of narcotic pain medications. 5. Continue as needed Haldol for agitation. 6. Continue treatment strength Lovenox. 7. Encourage incentive spirometer use and mobilize patient as tolerated. IMPRESSIONS: 1. Acute combined respiratory failure with evidence of acute bilateral pulmonary emboli The patient has a reported history of COPD of unknown severity along with ongoing tobacco dependence. Per review of the EMS report, it does appear that the patient may have had a relatively prolonged downtown with presumed hypoxemia. There was approximately 30 minutes of time that elapsed from the 911 call until arrival to the emergency department. He was documented in the EMS run report that the patient was unresponsive with agonal respirations. However, the patient's airway was not secured in the field. When intubated in the emergency department, the patient was noted to have gastric material in his posterior oropharynx, raising the concern for aspiration. Following intubation, the patient did experience a brief PEA cardiac arrest. While the patient was initially being treated for suspected COPD/asthma decompensation, subsequent workup with CTA chest did reveal small bilateral pulmonary emboli, for which the patient was initiated on anticoagulation. The patient will be continued on treatment strength Lovenox. Although antibiotics were initially started for presumptive aspiration, subsequent culture data and chest imaging revealed no evidence of pneumonia. Therefore antibiotics were discontinued. Nevertheless, following the patient's extubation on December 22, he has continued to produce purulent sputum and developed a low-grade fever. Accordingly, a repeat sputum culture was ordered to be obtained and the patient was again started empirically on antibiotics. Scheduled bronchodilators will be continued, as will IV methylprednisone 40 mg daily. The patient is awaiting re-evaluation by both speech therapy and physical therapy. The patient remains n.p.o., pending further evaluation by speech therapy. 2. PEA arrest presumed secondary to hypoxemia Although hypoxia is a consideration for the patient's PEA arrest in the emergency department, he did have evidence of venous thromboembolic disease on CTA chest. Continuing supportive measures as noted above to maintain an oxygen saturation at or above 90%. Encourage incentive spirometer use and mobilize patient as tolerated. 3. Encephalopathy/ICU delirium Initial concern was for underlying metabolic derangements. However, upon further review of the patient's EMS run report, there was concern that the patient experienced prolonged downtime with associated hypoxemia. Neurology was consulted for assistance. Subsequent workup did reveal evidence of diffuse bilateral cortical ischemia on brain MRI. Additionally, the patient had evidence of generalized periodic epileptiform discharges on EEG. He was subsequently started on Keppra. The patient was able to be extubated on December 22. While he may now have some baseline cognitive dysfunction due to his cortical ischemia, he does appear to be experiencing a component of ICU delirium. He will be continued on Haldol as needed for agitation. 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 Subsequent head and cervical spine imaging was negative. 4. Acute kidney injury Resolved. Likely prerenal in etiology in the setting of cardiac arrest. The patient is currently hemodynamically stable without vasopressor support. Supplemental IV fluids were administered, especially in light of contrast administration to obtain CTA chest. At this time, however, the patient's creatinine has returned to baseline. Continue to monitor urine output. No current indication for renal replacement therapy. 5. Possible polysubstance abuse/continuous tobacco dependence/hepatitis a and C Complicates care, management, recovery and prognosis. The patient does have a prior history of heroin abuse, but has been reportedly sober for the last 3 years following his release from incarceration. He is a current daily smoker, however. Nicotine replacement therapy can be offered while the patient is admitted to the hospital. I do anticipate that the patient will required longterm facility at the time of his discharge. Case management/social work to assist with disposition. 6. CODE STATUS DNR CCA without intubation This note was generated with [employer] dictation software. It may contain incorrect words, spelling, and punctuation that were not noted in checking the note before signing. Code Visit Inpatient E&M: 70395 Subs Hosp L2
[2017-12-25 06:52] LABS: Absolute Lymphocyte Count 2.17 X10^3/ul (0.83-4.51); Absolute Neutrophil Count 7.1 X10^3/uL (2.0-7.7); Basophil# 0.01 X10^3/uL; Basophil% 0.1 % (0-1); Eosinophil# 0.04 X10^3/uL; Eosinophils% 0.4 % (0-5); Hematocrit 40.1 % (40-54); Hemoglobin 13.7 g/dl (13.0-16.5); Lymphocyte # 2.17 X10^3/ul (4.0); Lymphocyte % 20.4 % (19-41); Mean Corp Hgb Conc 34.2 g/gl (32-36); Mean Corpuscular Hgb 32.6 pg (27.0-32.0); Mean Corpuscular Volume 95.5 fL (80-94); Mean Platelet Vol. 11.4 fl (6.2-12.0); Monocyte# 1.26 X10^3/uL; Monocyte% 11.8 % (0-10); Neutrophil # 7.14 X10^3/uL (2.7-7.7); Neutrophil % 66.9 % (47-70); Platelet Count 203 K/mm3 (150-450); RBC Distribution Width CV 12.8 % (11.6-14.6); RBC Distribution Width SD 43.6 fl (35.1-43.9); White Blood Count 10.7 K/mm3 (4.4-11.0)
[2017-12-25 06:57] LABS: POSITIVE COUNT NO; POSITIVE DIFFERENTIAL NO; POSITIVE MORPHOLOGY NO
[2017-12-25 07:05] LABS: Albumin, Serum 2.5 g/dL (3.2-5.0); BUN 30 mg/dL (7-18); BUN/Creat Ratio 33.5 RATIO (10-20); Calcium,Total 8.4 mg/dL (8.5-10.1); Chloride 107 mmol/L (98-107); EST Glomerular Filtration Rate 94 mL/min (>60); Est Glom Filt Rate - Afr Amer 113 mL/min (>60); Estimated Creatinine Clearance 82.47 ml/min; Glucose 87 mg/dL (74-106); Phosphorus 3.7 mg/dL (2.5-4.9); Potassium 3.6 mmol/L (3.5-5.1); Sodium Level 144 mmol/L (136-145)
--- NOTE | 2017-12-25 08:59 | CT_ITS ---
STUDY: CT BRAIN WITHOUT CONTRAST REASON FOR EXAM: Male, 52 years old. Seizure with fall. Possible anoxic brain injury. RADIATION DOSAGE (If Supplied By Facility): CTDIvol = ( 44.99 ) mGy, DLP = ( 880.47 ) mGycm TECHNIQUE: Transaxial CT imaging of the brain was performed without administration of intravenous contrast material. Multiplanar reformations are submitted for interpretation. Individualized dose optimization techniques were used for this CT. COMPARISON: CT the head dated December 25, 2017 time stamped 2:36 AM and MRI of the brain dated December 21, 2017. FINDINGS: There is a soft tissue contusion involving the left paramedian forehead and left frontal cranium. This is associated soft tissue emphysema consistent with associated laceration. This is larger than was apparent on the most recent CT. Normal calvarium. There is mild cerebral atrophy with widening of the extra-axial spaces and ventricular dilatation. Normal white matter tracts of the cerebral hemispheres. Normal basal ganglia and thalami. Normal brainstem. Normal cerebellum. There is no intracranial hemorrhage. There is mild atherosclerotic calcification of intracranial arteries. There is mucoperiosteal inflammatory disease of the paranasal sinuses consistent with mild chronic sinusitis. CT/Brain/Head without Contrast IMPRESSION: 1. Chronic involutional changes of the brain. 2. No CT evidence of acute intracranial hemorrhage. 3. Large left paramedian forehead and frontal scalp contusion and laceration. Electronically Signed: Marianela Lala MD at 10:18 EDT , Service support ,
[2017-12-25] MEDS: levETIRAcetam IV 1,000 MG/100 ML BAG 400 MG IV ×2 (09:10→20:51)
--- NOTE | 2017-12-25 09:17 | PCM.PN.HOSP ---
Patient Problems: Active and Suspected Problems PEA (Pulseless electrical activity) (Acute) Acute and chronic respiratory failure with hypoxia (Acute) Subjective: Patient seen and examined. He fell yesterday around 1 AM and sustained lacerations to his left frontal and parietal region. Had suturing done at bedside. CT scan of the brain last night was negative for any intracranial bleed. Patient was noted to have left upper upper extremity jerking consistent with seizure. He was given 1 mg Ativan that resolved the jerking. Denied any headache or dizziness or palpitations. CT scan of the head this morning was negative for any intracranial process. Vitals/I&O's: Vital Signs Temp Pulse Resp BP Pulse Ox 97.8 F 57 L 16 151/84 H 94 12/25/17 06:05 12/25/17 07:13 12/25/17 06:05 12/25/17 06:05 12/25/17 06:05 Oxygen Flow Rate (L/min) 2 Oxygen Delivery Method Room Air Weight: 62.142 kg Body Mass Index (BMI) 21.7 Intake and Output for Last 24 Hours 12/23/17 12/24/17 12/25/17 23:59 23:59 23:59 Intake Total 464.8 / 464.8 712 / 712 75 / 75 Output Total 2550 / 2550 950 / 950 250 / 250 Balance -2085.2 / -2085.2 -238 / -238 -175 / -175 General: Alert, Oriented x3, Cooperative, No apparent distress HEENT: PERRLA, EOMI, Normocephalic, - - Left frontal and parietal as well as temporal region has wound dressing on and is bleeding in the Oral: Moist Mucosa Neck: Supple Lungs: Clear to auscultation, Normal air movement Cardiovascular: Regular rate, Regular Rhythm, Normal S1, Normal S2, No murmurs Abdomen: Bowel Sounds Present, Soft, Non Tender, Non-Distended, No Hepato-splenomegaly Extremities: No edema Skin: No rashes, No breakdown Musculoskeletal: No Tenderness to Palpation of Joints or Extremities Lymphatic: No Cervical, Supraclavicular, or Inguinal Adenopathy Neurological: Cranial nerves II-XII grossly intact, Neuro grossly intact Psych/Mental Status: Normal Affect, Appropriate Microbiology Past 72 Hours 12/24/17 09:50 Sputum, Expectorated/Coughed Gram Stain - Final Laboratory Results 12/25/17 01:58: POC Glucose 86 12/25/17 06:18: WBC 10.7, RBC 4.20 L, Hgb 13.7, Hct 40.1, MCV 95.5 H, MCH 32.6 H, MCHC 34.2, RDW 12.8, RDW Differential 43.6, Plt Count 203, MPV 11.4, Immature Gran % (Auto) 0.400, Neut % (Auto) 66.9, Lymph % (Auto) 20.4, [place] % (Auto) 11.8 H, Eos % (Auto) 0.4, Baso % (Auto) 0.1, Absolute Neuts (auto) 7.1, Absolute Lymphs (auto) 2.17, Total Counted Not Reportable 12/25/17 06:18: Sodium 144, Potassium 3.6, Chloride 107, Carbon Dioxide 27.0, BUN 30 H, Creatinine 0.90, Estim Creat Clear Calc 82.47, Est GFR (MDRD) Af Amer 113, Est GFR (MDRD) Non-Af 94, BUN/Creatinine Ratio 33.5 H, Glucose 87, Calcium 8.4 L, Phosphorus 3.7, Albumin 2.5 L Current Medications Acetaminophen (Tylenol) 650 mg RECTAL Q6H PRN PRN PRN Reason: PAIN Acetaminophen (Tylenol) 1,000 mg PO Q8 [facility] Last Admin: 12/25/17 06:09 Dose: 1,000 mg Hydrocodone Bitart/Acetaminophen ([place] 5mg-325mg) 1 tablet PO Q4H PRN PRN PRN Reason: SEVERE PAIN (6-10/10) Last Admin: 12/25/17 04:37 Dose: 1 tablet Albuterol Sulfate (Ventolin Aerosols) 2.5 mg INHALATION Q2H PRN PRN PRN Reason: WHEEZING Last Admin: 12/21/17 05:11 Dose: 2.5 mg Albuterol/Ipratropium (Duoneb) 3 ml INHALATION Q4H.RT [facility] Last Admin: 12/25/17 07:39 Dose: Not Given Enoxaparin Sodium (Lovenox) 70 mg SC Q12 [facility] Last Admin: 12/24/17 21:31 Dose: 70 mg Haloperidol Lactate (Haldol) 3 mg IV Q4H PRN PRN PRN Reason: AGITATION Last Admin: 12/23/17 02:49 Dose: 3 mg Famotidine 20 mg/ Sodium (Chloride) 10 mls @ 300 mls/hr IV Q12 [facility] Last Admin: 12/24/17 21:31 Dose: 300 mls/hr Piperacillin Sod/Tazobactam Sod (Zosyn) 3.375 gm in 50 mls @ 12.5 mls/hr IV Q8 [facility] Last Admin: 12/25/17 06:08 Dose: 12.5 mls/hr Levetiracetam (Keppra Iv) 1,000 mg in 100 mls @ 400 mls/hr IV BID [facility] Last Admin: 12/24/17 21:31 Dose: 400 mls/hr Labetalol HCl (Trandate) 10 mg IV Q4H PRN PRN PRN Reason: SBP > 160 Last Admin: 12/25/17 04:41 Dose: 10 mg Lorazepam (Ativan) 0.5 mg IV X1 ONE Stop: 12/25/17 09:17 Methylprednisolone (Solu-Medrol) 40 mg IV Q24 [facility] Last Admin: 12/24/17 09:43 Dose: 40 mg Sodium Chloride () 5 - 30 ml IV UD PRN PRN Reason: SALINE FLUSH Last Admin: 12/25/17 04:42 Dose: 10 ml Medical Necessity - Tobacco Use Smoking Status: Unknown if ever smoked Tobacco Use: - - could not be obtained since patient is intubated Assessment/Plan All Active Problems PEA (Pulseless electrical activity) (Acute) Acute and chronic respiratory failure with hypoxia (Acute) 52-year-old male with no known past medical history admitted on 12/18/17 with unresponsiveness. Had PEA with CPR done in ED on admission, intubated in the ED for airway protection. Managed in ICU, extubated 12/22/17. Transferred to PCU. EEG showed epileptiform features. 1. Episode of seizure, s/p trauma, on Keppra, CT of the brain was negative for intracranial abnormality, would increase Keppra 1500 mg twice daily, wound nurse consult for head injuries. 2. Acute hypoxic/Hypercapneic respiratory failure, resolving. 3. PEA secondary to acute hypoxemia, status post CPR, no arrhythmias seen 4. Acute bilateral PE, remains on Lovenox SC BID 5. Suspected CAP, with purulent sputum and low grade fever, repeat sputum c/s sent, normal respiratory gem seen, on empiric Zosyn, will aim for 1 week total antibiotic use. 6. Oropharyngeal dysphagia, functional, likely secondary to presumed MRI findings from presumably hypoxia, kept NPO, speech therapy following. 7. Acute metabolic encephalopathy secondary to diffuse bilateral cortical ischemia, seen on MRI, and seizures from epileptiform changes on EEG, on Keppra, will continue to follow. 7. ALICE , prerenal, resolved 8. Polysubstance use, amphetamine, methamphetamine, and cannabinoids, nicotine 9. DVT PPx- On therapeutic Lovenox Code Visit Inpatient E&M: 13418 Subs Hosp L2
[2017-12-25] MEDS: LORazepam 2 MG/ML Syringe 0.5 MG IV ×2 (09:18→09:23)
[2017-12-25] MEDS: Enoxaparin 80 MG/0.8 ML Syringe 70 MG SC ×2 (11:32→21:00)
[2017-12-25] MEDS: Famotidine 20mg IV Push Syringe Q12 300 MG IV ×2 (11:33→20:41)
--- NOTE | 2017-12-25 12:45 | EKG12_ITS ---
Test Reason : TAHIR ARRYTHMIA Blood Pressure : / mmHG Vent. Rate : 057 BPM Atrial Rate : 057 BPM P-R Int : 120 ms QRS Dur : 088 ms QT Int : 456 ms P-R-T Axes : 016 060 072 degrees QTc Int : 443 ms Sinus bradycardia Nonspecific T wave abnormality Abnormal ECG Confirmed by YAW ESTRADA, EDITA ([id number]), editorial specialist MICHAEL SYLVESTER ([id number] on 12/27/2017 2:24:24 PM Referred By: ROSEMARIE Confirmed By:EDITA TIDWELL MD
[2017-12-25] MEDS: Haloperidol Lactate 5 MG/ML Vial 3 MG IV (14:17)
[2017-12-26] VITALS (28 sets, daily range): BP systolic 138–179; BP diastolic 70–98; PULSE 51–79; RESP 16–30; TEMP 36.4–36.8; O2SAT 91–99
[2017-12-26] MEDS: Piperacil/Tazobactam 3.375 GM Q8 PREMIX IV (05:41)
[2017-12-26 07:08] LABS: Anion Gap 7 (5-15); BUN 30 mg/dL (7-18); BUN/Creat Ratio 33.4 RATIO (10-20); Calcium,Total 8.4 mg/dL (8.5-10.1); Chloride 110 mmol/L (98-107); EST Glomerular Filtration Rate 93 mL/min (>60); Est Glom Filt Rate - Afr Amer 113 mL/min (>60); Estimated Creatinine Clearance 82.02 ml/min; Glucose 85 mg/dL (74-106); Potassium 3.5 mmol/L (3.5-5.1); Sodium Level 141 mmol/L (136-145)
--- NOTE | 2017-12-26 08:47 | PN_ITS ---
Patient Problems: Active and Suspected Problems PEA (Pulseless electrical activity) (Acute) Acute and chronic respiratory failure with hypoxia (Acute) Subjective: Patient did okay overnight. Patient does have a sitter at the bedside and states that he has had a wet cough overnight. However, patient has remained stable on room air and is denying any pain at this time. Patient is asking about when he can drink some water. - Physical Exam General: Alert, Cooperative, No apparent distress, Disoriented, - - Speaks in full sentences. Appears older than stated age. Cachectic. HEENT: PERRLA, EOMI, Normocephalic, - - Dressing is clean, dry and intact. Oral: Moist Mucosa, No Gingival or Mucosal Lesions/ Ulcerations, - - Fair dentition. Neck: Supple, No JVD, No Nodes, Trachea Midline Lungs: No rhonchi, No wheeze, No rales, Diminished, - - Symmetric expansion. No dullness to percussion. Cardiovascular: Regular rate, Regular Rhythm, Normal S1, Normal S2, No murmurs, No rub noted, No Gallop Abdomen: Bowel Sounds Present, Soft, Non Tender, Non-Distended Extremities: No clubbing, No cyanosis, No edema, Capillary Refill Less than 3 Seconds Skin: No rashes, No breakdown, Ulcer/ Wound - Appear clean, dry and intact. Musculoskeletal: No Tenderness to Palpation of Joints or Extremities Lymphatic: No Cervical, Supraclavicular, or Inguinal Adenopathy Neurological: Cranial nerves II-XII grossly intact, Neuro grossly intact, Motor Exam 5/5 strength throughout Psych/Mental Status: Impulsive, Restless, - - Redirectable. Vital Signs Temp Pulse Resp BP Pulse Ox 36.7 C 61 16 142/70 H 94 12/26/17 08:30 12/26/17 08:30 12/26/17 08:30 12/26/17 08:30 12/26/17 08:30 Oxygen Flow Rate (L/min) 2 Oxygen Delivery Method Room Air Weight: 61.8 kg Body Mass Index (BMI) 21.7 Intake and Output for Last 24 Hours 12/24/17 12/25/17 12/26/17 23:59 23:59 23:59 Intake Total 712 / 712 605 / 605 Output Total 950 / 950 900 / 900 150 / 150 Balance -238 / -238 -295 / -295 -150 / -150 Microbiology Past 72 Hours 12/24/17 09:50 Gram Stain - Final Sputum, Expectorated/Coughed Respiratory Culture - Preliminary Appears to be normal respiratory gem. Further studies to follow. Laboratory Tests Past 24 Hrs 12/25/17 12/26/17 10:36 06:44 Sodium 141 Potassium 3.5 Chloride 110 H Carbon Dioxide 24.0 Anion Gap 7 BUN 30 H Creatinine 0.90 Estim Creat Clear Calc 82.02 Est GFR (MDRD) Af Amer 113 Est GFR (MDRD) Non-Af 93 BUN/Creatinine Ratio 33.4 H Glucose 85 Calcium 8.4 L Levetiracetam Pending Clinical Impression(s) from Imaging Studies Brain CT 12/25/17 08:59 IMPRESSION: 1. Chronic involutional changes of the brain. 2. No CT evidence of acute intracranial hemorrhage. 3. Large left paramedian forehead and frontal scalp contusion and laceration. Electronically Signed: Marianela Lala MD at 10:18 EDT , Service support , Medical Necessity - Tobacco Use Smoking Status: Unknown if ever smoked Tobacco Use: - - could not be obtained since patient is intubated Assessment/Plan All Active Problems PEA (Pulseless electrical activity) (Acute) Acute and chronic respiratory failure with hypoxia (Acute) RECOMMENDATIONS: 1. Okay to discontinue antibiotics if culture negative 2. P.o. intake per speech therapy 3. Continue bronchodilators, likely okay to discontinue steroids and another 24-48 hours 4. Encourage incentive spirometer and mobilization as tolerated 5. Delirium protocol 6. Hemodynamically stable on room air. Will sign off from a critical care perspective IMPRESSIONS: 1. Acute combined respiratory failure Patient does have a long history of tobacco dependence. Hospitalization was complicated by PEA cardiac arrest. That being said, patient has had significant improvement in overall condition and tolerating room air. Patient has been treated with him empiric antibiotics. If culture negative these can likely be discontinued. Steroids can likely be discontinued tomorrow. 2. PEA arrest secondary to hypoxemia Patient does have some delirium at this time. However, patient's oxygenation is doing well. Patient does have some impulsive nature. Speech therapy is currently following for possible aspiration. 3. Encephalopathy/ICU delirium Patient has had diffuse bilateral cortical ischemia on brain MRI. There are also some possible periodic epileptiform discharges on EEG. Patient has been started on Keppra therapy. 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 Would recommend Haldol for agitation. Patient has had a fall from bed, but imaging was negative except for superficial derangements that have been treated with interrupted sutures. 4. Acute kidney injury RESOLVED> Likely prerenal in etiology in the setting of cardiac arrest. The patient is currently hemodynamically stable without vasopressor support. Supplemental IV fluids were administered, especially in light of contrast administration to obtain CTA chest. At this time, however, the patient's creatinine has returned to baseline. Continue to monitor urine output. No current indication for renal replacement therapy. 5. Possible polysubstance abuse/continuous tobacco dependence/hepatitis a and C Complicates care, management, recovery and prognosis. The patient does have a prior history of heroin abuse, but has been reportedly sober for the last 3 years following his release from incarceration. He is a current daily smoker, however. Nicotine replacement therapy can be offered while the patient is admitted to the hospital. I do anticipate that the patient will required [facility] at the time of his discharge. Case management/social work to assist with disposition. 6. CODE STATUS DNR CCA without intubation This note was generated with [employer] dictation software. It may contain incorrect words, spelling, and punctuation that were not noted in checking the note before signing. Code Visit Inpatient E&M: 88153 Subs Hosp L2
[2017-12-26] MEDS: Famotidine 20mg IV Push Syringe Q12 300 MG IV ×2 (10:48→21:06)
[2017-12-26] MEDS: levETIRAcetam IV 1,000 MG/100 ML BAG 400 MG IV ×2 (10:48→21:05)
[2017-12-26] MEDS: Enoxaparin 80 MG/0.8 ML Syringe 70 MG SC ×2 (10:51→21:07)
--- NOTE | 2017-12-26 11:27 | CASEMGMT ---
MEHDI spoke with Mary Ann from [facility]. SW let her know that patient is not having too many behaviors. SW told her he has been getting agitated, but it is all related to not being able to eat. SW told her about him falling out of bed and having a sitter to make sure this does not happen again. MEHDI told her ST is to see him again and he is going to have another EEG. She asked SW to send her more stuff towards the end of the day today when there are results back. Kirsten LAWS CABLE MAKER
--- NOTE | 2017-12-26 12:00 | ECHOD_ITS ---
Version 2 Reason For Study: Arrhythmia Procedure This was a 2D Doppler, Color Flow transthoracic echocardiogram. The study was technically difficult. Exam performed portable in ICU/CCU. Left Ventricle Normal size and thickness. The estimated ejection fraction is 65 %. Stage 1 diastolic dysfunction. No regional wall motion abnormalities noted. Right Ventricle Normal size and thickness. Normal systolic function. Atria Normal left atrium. Normal right atrium. Normal atrial septum. Mitral Valve The mitral valve is structurally normal. No prolapse or stenosis seen. Trivial mitral valve insufficiency. Tricuspid Valve Normal tricuspid valve. Unable to estimate RV systolic pressure/pulmonary artery pressure due to technically difficult study. Aortic Valve Trisinus/trileaflet aortic valve. Mild diffuse aortic valve thickening. Trivial aortic valve insufficiency. Pulmonic Valve The pulmonic valve is not well visualized. Great Vessels Normal aortic root. Normal arch. Normal inferior vena cava. Inferior vena cava collapse with sniff. Pericardium/Pleural No pericardial effusion. MMode/2D Measurements & Calculations LVIDd: 5.1 cm IVSd: 0.67 cm Ao root diam: 3.0 cm LVIDs: 3.4 cm LVPWd: 0.91 cm LA dimension: 3.0 cm FS: 34.8 % LAV(MOD-sp4): 27.0 ml LA A4 area: 10.7 cm2 RA A4 area: 7.6 cm2 Doppler Measurements & Calculations MV E max ayden: 79.3 cm/sec Lat Peak E' Ayden: 16.0 cm/sec Med Peak E' Ayden: 11.7 cm/sec MV A max ayden: 89.1 cm/sec E/E' lat: 5.0 E/E' med: 6.8 MV E/A: 0.89 Ao V2 max: 147.2 cm/sec LV V1 max: 108.3 cm/sec PA V2 max: 90.5 cm/sec Ao max P.7 mmHg LV V1 max P.7 mmHg Ao V2 mean: 89.3 cm/sec Ao mean P.6 mmHg Ao V2 VTI: 29.4 cm Interpretation Summary The estimated ejection fraction is 65 %. Stage 1 diastolic dysfunction. Unable to estimate RV systolic pressure/pulmonary artery pressure due to technically difficult study. Compared to echo report dated 12/19/2017, no appreciable changes noted. No evidence of aortic root abscess or bacterial vegetations noted. Would consider a transesophageal echocardiogram if clinically indicated. Ordering Physician: Teressa Talbert Performed By: Brionna Bales RDCS, RVT
--- NOTE | 2017-12-26 12:03 | EKG12_ITS ---
Test Reason : ARRHTHYMIA Blood Pressure : / mmHG Vent. Rate : 071 BPM Atrial Rate : 071 BPM P-R Int : 124 ms QRS Dur : 084 ms QT Int : 390 ms P-R-T Axes : 072 055 056 degrees QTc Int : 423 ms Normal sinus rhythm Nonspecific T wave abnormality Abnormal ECG When compared with ECG of 25-DEC-2017 12:49, MANUAL COMPARISON REQUIRED, DATA IS UNCONFIRMED Confirmed by JOSE R MOSQUERA ([id number]), news videotape editor MICHAEL SYLVESTER ([id number]) on 12/29/2017 12:36:13 PM Referred By: ROSEMARIE Confirmed By:JOSE R MOSQUERA
[2017-12-26] MEDS: DOPamine IV 800 MG/250 ML IV.SOLN. IV (12:55)
[2017-12-26] MEDS: 0.9% NaCl Peripheral Flush Adult/Peds IV ×3 (12:59→21:06)
--- NOTE | 2017-12-26 13:21 | CON.PCM_ITS ---
Problem List (1) Bradycardia Status: Acute (2) PEA (Pulseless electrical activity) Status: Acute Reason for Consult Date of Consultation: 12/26/17 Reason for Consultation: Symptomatic sinus bradycardia History of Present Illness: The patient is a 52 year old M with a heavy drug history at both of methamphetamines, heavy alcohol use, THC, as well as cocaine in the past, history of hepatitis A and hepatitis C, who was originally admitted on 12/18/17 for shortness of breath, and bradycardia, developed PEA while undergoing intubation in the emergency room responded to IV epinephrine. Patient has been admitted, and is being evaluated for possible seizures. Fairly the patient has developed episodes of symptomatic sinus bradycardia with sinus pauses up to 14 seconds. During this time his eyes rolled in the back of his head, and he loses consciousness. He denies any chest pain, angina, palpitations. Apparently he was trying to get a hold of his neighbor due to his acute distress after he had taken meth amphetamine at home. Patient received Narcan for resuscitation prior to his arrival. On 12/19/17 he underwent a technically limited echocardiogram which showed intact LV function, no wall motion and normalities, normal pulmonary pressures. His blood cultures have been negative. In addition, his CTA of his chest demonstrated multiple bilateral pulmonary emboli. [] Past Medical History Allergies/Adverse Reactions: Allergies Unable to Assess Allergy (Verified 12/18/17 02:42) Home Medications: Ambulatory Orders Medication Instructions Recorded Amitriptyline HCl 100 mg PO QHS 12/18/17 Bupropion HCl [Wellbutrin Xl] 150 mg PO DAILY 12/18/17 Sertraline HCl [Zoloft] 50 mg PO DAILY 12/18/17 Lives: - - could not be obtained since patient is intubated Smoking Status: Unknown if ever smoked Tobacco Use: - - could not be obtained since patient is intubated Drugs: - - could not be obtained since patient is intubated Review of Systems - Review of Systems General: Denies: Fever, Night Sweats, Fatigue Cardiovascular: Reports: Near Syncope. Denies: Chest Discomfort, Shortness of Breath, Orthopnea, PND, Peripheral Edema, Palpitations, Lightheadedness, Dizziness, Syncope Respiratory: Denies: Cough, Sputum Production, Hemoptysis Gastrointestinal: Denies: Hematemesis, Hematochezia, Melena Genitourinary: Denies: Dysuria, Hematuria Skin: Denies: Rash Subjectve: Patient appears very disheveled, has multiple tattoos, very emaciated and malnourished appearing. Has no teeth. Objective: Vital Signs Temp Pulse Resp BP Pulse Ox 98.0 F 60 16 142/70 H 94 12/26/17 08:30 12/26/17 11:15 12/26/17 08:30 12/26/17 08:30 12/26/17 08:30 Oxygen Flow Rate (L/min) 2 Oxygen Delivery Method Room Air Weight: 134 lb 11.239 oz Body Mass Index (BMI) 21.7 Intake and Output for Last 24 Hours 12/24/17 12/25/17 12/26/17 23:59 23:59 23:59 Intake Total 712 / 712 605 / 605 812 / 812 Output Total 950 / 950 900 / 900 450 / 450 Balance -238 / -238 -295 / -295 362 / 362 General: Awake, Alert, Oriented x 3 HEENT: PERRL, EOMI, Sclera Non Icteric Neck: Supple, Good ROM, No Lymph Node Enlargement Lungs: Clear to auscultation Cardiovascular: Regular Rhythm, Normal S1, Normal S2, No Murmurs, No Rubs, No Gallops Vascular: No Carotid Bruits, Normal Femoral Pulses, Normal Radial Pulses, Normal Dorsalis Pedal Pulse, Normal Posterior Tibial Pulses Abdomen: Bowel Sounds Present, Soft, Non Tender, No HSM, No Organomegaly Extremities: No Cyanosis, No Clubbing, No edema Neurological: No Focal Motor or Sensory Deficit 12/26/17 06:44: Sodium 141, Potassium 3.5, Chloride 110 H, Carbon Dioxide 24.0, Anion Gap 7, BUN 30 H, Creatinine 0.90, Est GFR (MDRD) Af Amer 113, Est GFR ( MDRD) Non-Af 93, BUN/Creatinine Ratio 33.4 H, Glucose 85, Calcium 8.4 L Rhythm: EKG: EKG demonstrates normal sinus rhythm/sinus bradycardia, no acute changes. ECHO: Repeat echo pending. Stress Test: Cardiac Cath: PCI: CT Surgery: Holter monitor: EPS: PPM: CXR: Chest CT Scan: Assessment/Plan 1. Sinus bradycardia: The patient has had multiple episodes of sinus bradycardia some of which are symptomatic with up to 13.8 second pauses. In addition he has a history on admission of sinus bradycardia and pulseless electrical alternations requiring IV epinephrine. Patient was placed on Keppra for possible seizure activity, which may be manifested by his bradycardia. In addition he has multiple small pulmonary emboli which may be a manifestation of possible tricuspid valve endocarditis which are showering emboli into his pulmonary tree. His limited 2D echo with Doppler on 12/19/17 was unremarkable although it is somewhat limited due to his positioning. I recommended the patient be initiated on dopamine 2 mcg/kg to maintain heart rate control, and the undergo a repeat full 2D echo with Doppler to assess his tricuspid valve and more importantly his aortic valve for possible aortic valve abscess. His blood cultures have been negative thus far although he has high risk for possible endocarditis given his poor dentition, and drug use. If his echo is suboptimal, he may require a transesophageal echocardiogram. Would recommend titrating up his dopamine to keep his heart rate greater than 60 or to avoid symptomatic bradycardia. 2. Pulmonary emboli: Patient is currently on subcu Lovenox for his pulmonary emboli. Would recommend holding off on anticoagulation therapy so as to determine whether the patient requires a catheterization. 3. I strongly encouraged the patient discontinue all tobacco products, illicit drug use, and methamphetamines. Patient is voiced understanding and reports that he has quit tobacco. 4. Discussed with Dr. Talbert. Thank you very much for the opportunity to participate in the cardiac care of your patient. Consultation time took place between 12 PM and 12:45 PM. Code Visit Inpatient E&M: 56360 Init Hosp L2
[2017-12-26 13:26] LABS: Magnesium 2.2 mg/dL (1.6-2.6)
--- NOTE | 2017-12-26 13:32 | PCM.PN.HOSP ---
Patient Problems: Active and Suspected Problems PEA (Pulseless electrical activity) (Acute) Acute and chronic respiratory failure with hypoxia (Acute) Bradycardia (Acute) Subjective: Patient was seen and examined. Kept n.p.o., awaiting speech therapy evaluation. Sitter at the bedside. Patient was noted on telemetry to have pauses, the longest being more than 13 seconds. Patient was having an EEG at the time of the longest. He said to have rolled his eyes and ? was having a seizure. Seizure episodes overnight. He denied any chest pain no dizziness or palpitations. He has not received any beta blockers. Last beta-car use was on 12/25/2017 at 4am. Denies any fever or chills. Cast with Dr. Guevara, patient will be transferred to ICU for the dopamine drip. Objective: Physical exam: General: Alert, Oriented x3, Cooperative, No apparent distress HEENT: PERRLA, EOMI, Normocephalic, - - Left frontal and parietal as well as temporal region has wound dressing on and is bleeding in the Oral: Moist Mucosa Neck: Supple Lungs: Clear to auscultation, Normal air movement Cardiovascular: Regular rate, Regular Rhythm, Normal S1, Normal S2, No murmurs Abdomen: Bowel Sounds Present, Soft, Non Tender, Non-Distended, No Hepato-splenomegaly Extremities: No edema Skin: No rashes, No breakdown Musculoskeletal: No Tenderness to Palpation of Joints or Extremities Lymphatic: No Cervical, Supraclavicular, or Inguinal Adenopathy Neurological: Cranial nerves II-XII grossly intact, Neuro grossly intact Psych/Mental Status: Normal Affect, Appropriate Vitals/I&O's: Vital Signs Temp Pulse Resp BP Pulse Ox 98.0 F 56 L 16 142/70 H 94 12/26/17 08:30 12/26/17 12:50 12/26/17 08:30 12/26/17 08:30 12/26/17 08:30 Oxygen Flow Rate (L/min) 2 Oxygen Delivery Method Room Air Weight: 61.1 kg Body Mass Index (BMI) 21.7 Intake and Output for Last 24 Hours 12/24/17 12/25/17 12/26/17 23:59 23:59 23:59 Intake Total 712 / 712 605 / 605 812 / 812 Output Total 950 / 950 900 / 900 450 / 450 Balance -238 / -238 -295 / -295 362 / 362 Microbiology Past 72 Hours 12/24/17 09:50 Sputum, Expectorated/Coughed Gram Stain - Final 12/24/17 09:50 Sputum, Expectorated/Coughed Respiratory Culture - Preliminary Appears to be normal respiratory gem. Further studies to follow. Laboratory Results 12/26/17 06:44: Sodium 141, Potassium 3.5, Chloride 110 H, Carbon Dioxide 24.0, Anion Gap 7, BUN 30 H, Creatinine 0.90, Estim Creat Clear Calc 82.02, Est GFR (MDRD) Af Amer 113, Est GFR (MDRD) Non-Af 93, BUN/Creatinine Ratio 33.4 H, Glucose 85, Calcium 8.4 L 12/26/17 06:44: Magnesium 2.2 Current Medications Acetaminophen (Tylenol) 650 mg RECTAL Q6H PRN PRN PRN Reason: PAIN Acetaminophen (Tylenol) 1,000 mg PO Q8 [facility] Last Admin: 12/26/17 13:21 Dose: Not Given Hydrocodone Bitart/Acetaminophen ([place] 5mg-325mg) 1 tablet PO Q4H PRN PRN PRN Reason: SEVERE PAIN (6-10/10) Last Admin: 12/25/17 04:37 Dose: 1 tablet Albuterol Sulfate (Ventolin Aerosols) 2.5 mg INHALATION Q2H PRN PRN PRN Reason: WHEEZING Last Admin: 12/21/17 05:11 Dose: 2.5 mg Enoxaparin Sodium (Lovenox) 70 mg SC Q12 [facility] Last Admin: 12/26/17 10:51 Dose: 70 mg Haloperidol Lactate (Haldol) 3 mg IV Q4H PRN PRN PRN Reason: AGITATION Last Admin: 12/25/17 14:17 Dose: 3 mg Famotidine 20 mg/ Sodium (Chloride) 10 mls @ 300 mls/hr IV Q12 [facility] Last Admin: 12/26/17 10:48 Dose: 300 mls/hr Levetiracetam (Keppra Iv) 1,000 mg in 100 mls @ 400 mls/hr IV BID [facility] Last Admin: 12/26/17 10:48 Dose: 400 mls/hr Levetiracetam (Keppra Iv) 500 mg in 100 mls @ 400 mls/hr IV BID@1015,2215 [facility] Last Admin: 12/26/17 12:14 Dose: 400 mls/hr Dopamine HCl/Dextrose () 800 mg in 250 mls @ 2.897 mls/hr IV .[id number] GUS PRN Reason: 2.5 MCG/KG/MIN Last Admin: 12/26/17 12:55 Dose: 2.897 mls/hr Methylprednisolone (Solu-Medrol) 40 mg IV Q24 [facility] Last Admin: 12/26/17 10:52 Dose: 40 mg Sodium Chloride () 5 - 30 ml IV UD PRN PRN Reason: SALINE FLUSH Last Admin: 12/26/17 12:59 Dose: 20 ml Medical Necessity - Tobacco Use Smoking Status: Unknown if ever smoked Tobacco Use: - - could not be obtained since patient is intubated Assessment/Plan All Active Problems PEA (Pulseless electrical activity) (Acute) Acute and chronic respiratory failure with hypoxia (Acute) Bradycardia (Acute) 52-year-old male with no known past medical history admitted on 12/18/17 with unresponsiveness. Had PEA with CPR done in ED on admission, intubated in the ED for airway protection. Managed in ICU, extubated 12/22/17. Transferred to PCU. EEG showed epileptiform features. Patient was kept NPO 1. Bradycardia, long pauses noted on telemetry, history of PEA status post CPR on admission, current pauses may be tied in with seizures Plan: transfer to ICU, dopamine drip 2mcg/kg, for HR >60, cardiology following 2. Seizure disorder, on Keppra, last episode of seizure disorder was yesterday in the morning with left upper extremity checking, on increased dose of Keppra 1500 mg twice daily, CT of the brain was negative for intracranial abnormality, EEG this morning, neurology following 3. Acute hypoxic/hypercapneic respiratory failure, resolved. 4. Traumatic injuries to the left frontal and parietal region, status post suturing, status post fall, wound nurse consulted 5. PEA secondary to acute hypoxemia, status post CPR, no arrhythmias seen 6. Acute bilateral PE, on Lovenox SC BID 7. Suspected CAP, negative cultures, off antibiotics per pulmonary. 8. Oropharyngeal dysphagia, functional, likely secondary to presumed MRI findings from presumably hypoxia, speech therapy following. 9. Acute metabolic encephalopathy secondary to diffuse bilateral cortical ischemia, seen on MRI, resolved. 10. ALICE , prerenal, resolved 11. Polysubstance use, amphetamine, methamphetamine, and cannabinoids, nicotine 12. DVT PPx- On therapeutic Lovenox Code Visit Inpatient E&M: 40777 Subs Hosp L3
--- NOTE | 2017-12-26 13:50 | PN_ITS ---
Patient Problems: Active and Suspected Problems PEA (Pulseless electrical activity) (Acute) Acute and chronic respiratory failure with hypoxia (Acute) Bradycardia (Acute) Subjective: Patient was seen and examined. Kept n.p.o., awaiting speech therapy evaluation. Sitter at the bedside. Patient was noted on telemetry to have pauses, the longest being more than 13 seconds. Patient was having an EEG at the time of the longest. He said to have rolled his eyes and ? was having a seizure. Seizure episodes overnight. He denied any chest pain no dizziness or palpitations. He has not received any beta blockers. Last beta-car use was on 12/25/2017 at 4am. Denies any fever or chills. Cast with Dr. Guevara, patient will be transferred to ICU for the dopamine drip. Objective: Physical exam: General: Alert, Oriented x3, Cooperative, No apparent distress HEENT: PERRLA, EOMI, Normocephalic, - - Left frontal and parietal as well as temporal region has wound dressing on and is bleeding in the Oral: Moist Mucosa Neck: Supple Lungs: Clear to auscultation, Normal air movement Cardiovascular: Regular rate, Regular Rhythm, Normal S1, Normal S2, No murmurs Abdomen: Bowel Sounds Present, Soft, Non Tender, Non-Distended, No Hepato- splenomegaly Extremities: No edema Skin: No rashes, No breakdown Musculoskeletal: No Tenderness to Palpation of Joints or Extremities Lymphatic: No Cervical, Supraclavicular, or Inguinal Adenopathy Neurological: Cranial nerves II-XII grossly intact, Neuro grossly intact Psych/Mental Status: Normal Affect, Appropriate Vitals/I&O's: Vital Signs Temp Pulse Resp BP Pulse Ox 98.0 F 56 L 16 142/70 H 94 12/26/17 08:30 12/26/17 12:50 12/26/17 08:30 12/26/17 08:30 12/26/17 08:30 Oxygen Flow Rate (L/min) 2 Oxygen Delivery Method Room Air Weight: 61.1 kg Body Mass Index (BMI) 21.7 Intake and Output for Last 24 Hours 12/24/17 12/25/17 12/26/17 23:59 23:59 23:59 Intake Total 712 / 712 605 / 605 812 / 812 Output Total 950 / 950 900 / 900 450 / 450 Balance -238 / -238 -295 / -295 362 / 362 Microbiology Past 72 Hours 12/24/17 09:50 Sputum, Expectorated/Coughed Gram Stain - Final 12/24/17 09:50 Sputum, Expectorated/Coughed Respiratory Culture - Preliminary Appears to be normal respiratory gem. Further studies to follow. Laboratory Results 12/26/17 06:44: Sodium 141, Potassium 3.5, Chloride 110 H, Carbon Dioxide 24.0, Anion Gap 7, BUN 30 H, Creatinine 0.90, Estim Creat Clear Calc 82.02, Est GFR ( MDRD) Af Amer 113, Est GFR (MDRD) Non-Af 93, BUN/Creatinine Ratio 33.4 H, Glucose 85, Calcium 8.4 L 12/26/17 06:44: Magnesium 2.2 Current Medications Acetaminophen (Tylenol) 650 mg RECTAL Q6H PRN PRN PRN Reason: PAIN Acetaminophen (Tylenol) 1,000 mg PO Q8 [facility] Last Admin: 12/26/17 13:21 Dose: Not Given Hydrocodone Bitart/Acetaminophen ([place] 5mg-325mg) 1 tablet PO Q4H PRN PRN PRN Reason: SEVERE PAIN (6-10/10) Last Admin: 12/25/17 04:37 Dose: 1 tablet Albuterol Sulfate (Ventolin Aerosols) 2.5 mg INHALATION Q2H PRN PRN PRN Reason: WHEEZING Last Admin: 12/21/17 05:11 Dose: 2.5 mg Enoxaparin Sodium (Lovenox) 70 mg SC Q12 [facility] Last Admin: 12/26/17 10:51 Dose: 70 mg Haloperidol Lactate (Haldol) 3 mg IV Q4H PRN PRN PRN Reason: AGITATION Last Admin: 12/25/17 14:17 Dose: 3 mg Famotidine 20 mg/ Sodium (Chloride) 10 mls @ 300 mls/hr IV Q12 [facility] Last Admin: 12/26/17 10:48 Dose: 300 mls/hr Levetiracetam (Keppra Iv) 1,000 mg in 100 mls @ 400 mls/hr IV BID [facility] Last Admin: 12/26/17 10:48 Dose: 400 mls/hr Levetiracetam (Keppra Iv) 500 mg in 100 mls @ 400 mls/hr IV BID@1015,2215 [facility] Last Admin: 12/26/17 12:14 Dose: 400 mls/hr Dopamine HCl/Dextrose () 800 mg in 250 mls @ 2.897 mls/hr IV .[id number] GUS PRN Reason: 2.5 MCG/KG/MIN Last Admin: 12/26/17 12:55 Dose: 2.897 mls/hr Methylprednisolone (Solu-Medrol) 40 mg IV Q24 [facility] Last Admin: 12/26/17 10:52 Dose: 40 mg Sodium Chloride () 5 - 30 ml IV UD PRN PRN Reason: SALINE FLUSH Last Admin: 12/26/17 12:59 Dose: 20 ml Medical Necessity - Tobacco Use Smoking Status: Unknown if ever smoked Tobacco Use: - - could not be obtained since patient is intubated Assessment/Plan All Active Problems PEA (Pulseless electrical activity) (Acute) Acute and chronic respiratory failure with hypoxia (Acute) Bradycardia (Acute) 52-year-old male with no known past medical history admitted on 12/18/17 with unresponsiveness. Had PEA with CPR done in ED on admission, intubated in the ED for airway protection. Managed in ICU, extubated 12/22/17. Transferred to PCU. EEG showed epileptiform features. Patient was kept NPO 1. Bradycardia, long pauses noted on telemetry, history of PEA status post CPR on admission, current pauses may be tied in with seizures Plan: transfer to ICU, dopamine drip 2mcg/kg, for HR >60, cardiology following 2. Seizure disorder, on Keppra, last episode of seizure disorder was yesterday in the morning with left upper extremity checking, on increased dose of Keppra 1500 mg twice daily, CT of the brain was negative for intracranial abnormality, EEG this morning, neurology following 3. Acute hypoxic/hypercapneic respiratory failure, resolved. 4. Traumatic injuries to the left frontal and parietal region, status post suturing, status post fall, wound nurse consulted 5. PEA secondary to acute hypoxemia, status post CPR, no arrhythmias seen 6. Acute bilateral PE, on Lovenox SC BID 7. Suspected CAP, negative cultures, off antibiotics per pulmonary. 8. Oropharyngeal dysphagia, functional, likely secondary to presumed MRI findings from presumably hypoxia, speech therapy following. 9. Acute metabolic encephalopathy secondary to diffuse bilateral cortical ischemia, seen on MRI, resolved. 10. ALICE , prerenal, resolved 11. Polysubstance use, amphetamine, methamphetamine, and cannabinoids, nicotine 12. DVT PPx- On therapeutic Lovenox Code Visit Inpatient E&M: 75394 Subs Hosp L3
[2017-12-26] MEDS: LORazepam 2 MG/ML Syringe IV (19:47)
[2017-12-26] MEDS: 0.9% NaCl IVPB Med Flush (250 mL) 15 ML IV (21:21)
[2017-12-27] VITALS (27 sets, daily range): BP systolic 117–176; BP diastolic 71–103; PULSE 50–83; RESP 16–26; TEMP 36.9–37.4; O2SAT 93–98
[2017-12-27] MEDS: Acetaminophen 500 MG Tablet 1000 MG PO ×3 (05:35→21:16)
[2017-12-27] MEDS: 0.9% NaCl Peripheral Flush Adult/Peds IV (05:35)
[2017-12-27 05:52] LABS: Absolute Lymphocyte Count 2.35 X10^3/ul (0.83-4.51); Absolute Neutrophil Count 8.7 X10^3/uL (2.0-7.7); Eosinophil# 0.19 X10^3/uL; Eosinophils% 1.5 % (0-5); Hematocrit 43.1 % (40-54); Hemoglobin 14.7 g/dl (13.0-16.5); Lymphocyte # 2.35 X10^3/ul (4.0); Lymphocyte % 18.5 % (19-41); Mean Corp Hgb Conc 34.1 g/gl (32-36); Mean Corpuscular Hgb 32.1 pg (27.0-32.0); Mean Corpuscular Volume 94.1 fL (80-94); Mean Platelet Vol. 10.5 fl (6.2-12.0); Monocyte# 1.46 X10^3/uL; Monocyte% 11.5 % (0-10); Neutrophil # 8.72 X10^3/uL (2.7-7.7); Neutrophil % 68.4 % (47-70); Platelet Count 251 K/mm3 (150-450); RBC Distribution Width CV 12.7 % (11.6-14.6); RBC Distribution Width SD 43.8 fl (35.1-43.9); Red Blood Count 4.58 M/mm3 (4.6-6.2); White Blood Count 12.7 K/mm3 (4.4-11.0)
[2017-12-27 06:05] LABS: Anion Gap 9 (5-15); BUN 21 mg/dL (7-18); BUN/Creat Ratio 24.1 RATIO (10-20); Calcium,Total 8.5 mg/dL (8.5-10.1); Chloride 108 mmol/L (98-107); Creatinine, Serum 0.87 mg/dL (0.70-1.30); EST Glomerular Filtration Rate 97 mL/min (>60); Est Glom Filt Rate - Afr Amer 117 mL/min (>60); Estimated Creatinine Clearance 84.02 ml/min; Glucose 124 mg/dL (74-106); Potassium 3.4 mmol/L (3.5-5.1); Sodium Level 143 mmol/L (136-145)
[2017-12-27 06:18] LABS: POSITIVE COUNT NO; POSITIVE DIFFERENTIAL NO; POSITIVE MORPHOLOGY NO
--- NOTE | 2017-12-27 07:07 | PN_ITS ---
Subjective: Patient transferred to the intensive care unit yesterday afternoon following a 13+ second sinus pause. Patient was placed on dopamine therapy and has been doing okay. Patient was noted to have left-sided jerking overnight. Patient was given Ativan with improvement in symptoms. Patient currently has left- sided mobility that the patient believes is unchanged compared to previous. Patient remains on room air and no sinus pauses have been noted overnight. General: Alert, Cooperative, No apparent distress, Confused - Intermittently, - - Interactive. Appears older than stated age. HEENT: PERRLA, EOMI, Normocephalic, - - Significant hematoma surrounding left eye. Oral: Moist Mucosa, No Gingival or Mucosal Lesions/ Ulcerations, - - Fair dentition Neck: Supple, No JVD, No Nodes, Trachea Midline Lungs: No rhonchi, No wheeze, No rales, Diminished, - - Symmetric expansion. No dullness to percussion. Cardiovascular: Regular rate, Regular Rhythm, Normal S1, Normal S2, No murmurs, No rub noted, No Gallop Abdomen: Bowel Sounds Present, Soft, Non Tender, Non-Distended Extremities: No clubbing, No cyanosis, No edema, - - Tobacco stained nails. Skin: Ulcer/ Wound - Grossly unchanged compared to previous Musculoskeletal: No Tenderness to Palpation of Joints or Extremities Lymphatic: No Cervical, Supraclavicular, or Inguinal Adenopathy Neurological: Cranial nerves II-XII grossly intact, - - Slightly decreased strength noted on left side. Psych/Mental Status: Impulsive, Restless Vital Signs Temp Pulse Resp BP Pulse Ox 37.4 C H 74 19 H 145/78 H 94 12/27/17 04:00 12/27/17 06:00 12/27/17 06:00 12/27/17 06:00 12/27/17 06:00 Oxygen Flow Rate (L/min) 2 Oxygen Delivery Method Room Air Weight: 61.2 kg Body Mass Index (BMI) 21.7 Intake and Output for Last 24 Hours 12/25/17 12/26/17 12/27/17 23:59 23:59 23:59 Intake Total 605 / 605 2119.6 / 2119.6 359.4 / 359.4 Output Total 900 / 900 1875 / 1875 100 / 100 Balance -295 / -295 244.6 / 244.6 259.4 / 259.4 Labs (Last 48 Hours) 12/25/17 12/25/17 12/26/17 06:18 10:36 06:44 WBC RBC Hgb Hct MCV MCH MCHC RDW RDW Differential Plt Count MPV Immature Gran % (Auto) Neut % (Auto) Lymph % (Auto) [place] % (Auto) Eos % (Auto) Baso % (Auto) Absolute Neuts (auto) Absolute Lymphs (auto) Total Counted Sodium 144 141 Potassium 3.6 3.5 Chloride 107 110 H Carbon Dioxide 27.0 24.0 Anion Gap 7 BUN 30 H 30 H Creatinine 0.90 0.90 Estim Creat Clear Calc 82.47 82.02 Est GFR (MDRD) Af Amer 113 113 Est GFR (MDRD) Non-Af 94 93 BUN/Creatinine Ratio 33.5 H 33.4 H Glucose 87 85 Calcium 8.4 L 8.4 L Phosphorus 3.7 Magnesium Albumin 2.5 L Levetiracetam Pending 12/26/17 12/27/17 12/27/17 06:44 05:42 05:42 WBC 12.7 H RBC 4.58 L Hgb 14.7 Hct 43.1 MCV 94.1 H MCH 32.1 H MCHC 34.1 RDW 12.7 RDW Differential 43.8 Plt Count 251 MPV 10.5 Immature Gran % (Auto) 0.100 Neut % (Auto) 68.4 Lymph % (Auto) 18.5 L [place] % (Auto) 11.5 H Eos % (Auto) 1.5 Baso % (Auto) 0.0 Absolute Neuts (auto) 8.7 H Absolute Lymphs (auto) 2.35 Total Counted Not Reportable Sodium 143 Potassium 3.4 L Chloride 108 H Carbon Dioxide 26.0 Anion Gap 9 BUN 21 H Creatinine 0.87 Estim Creat Clear Calc 84.02 Est GFR (MDRD) Af Amer 117 Est GFR (MDRD) Non-Af 97 BUN/Creatinine Ratio 24.1 H Glucose 124 H Calcium 8.5 Phosphorus Magnesium 2.2 Albumin Levetiracetam Microbiology 12/24/17 09:50 Sputum, Expectorated/Coughed Gram Stain - Final 12/24/17 09:50 Sputum, Expectorated/Coughed Respiratory Culture - Preliminary Appears to be normal respiratory gem. Further studies to follow. Medical Necessity - Tobacco Use Smoking Status: Unknown if ever smoked Tobacco Use: - - could not be obtained since patient is intubated Assessment/Plan All Active Problems PEA (Pulseless electrical activity) (Acute) Acute and chronic respiratory failure with hypoxia (Acute) Bradycardia (Acute) RECOMMENDATIONS: 1. Potassium supplementation 2. P.o. intake per speech therapy 3. Continue bronchodilators, Discontinue steroids 4. Encourage incentive spirometer and mobilization as tolerated 5. Delirium protocol 6. Consider evaluation for pacemaker placement IMPRESSIONS: 1. Acute combined respiratory failure Patient does have a long history of tobacco dependence. Hospitalization was complicated by PEA cardiac arrest. That being said, patient has had significant improvement in overall condition and tolerating room air. Patient has completed a course of empiric antibiotics. Steroids will be discontinued 2. PEA arrest secondary to hypoxemia Patient does have some delirium at this time. However, patient's oxygenation is doing well. Patient does have some impulsive nature. Speech therapy is currently following for possible aspiration. Patient currently on a modified diet. 3. Encephalopathy/ICU delirium Patient has had diffuse bilateral cortical ischemia on brain MRI. There are also some possible periodic epileptiform discharges on EEG. Patient has been started on Keppra therapy. 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 Patient with rhythmic movements on the left side yesterday. This did respond to Ativan therapy. Neurology is currently following. Patient is on Keppra. Await neurology recommendations. 4. Acute kidney injury RESOLVED> Likely prerenal in etiology in the setting of cardiac arrest. The patient is currently hemodynamically stable without vasopressor support. Supplemental IV fluids were administered, especially in light of contrast administration to obtain CTA chest. At this time, however, the patient's creatinine has returned to baseline. Continue to monitor urine output. No current indication for renal replacement therapy. 5. Possible polysubstance abuse/continuous tobacco dependence/hepatitis a and C Complicates care, management, recovery and prognosis. The patient does have a prior history of heroin abuse, but has been reportedly sober for the last 3 years following his release from incarceration. He is a current daily smoker, however. Nicotine replacement therapy can be offered while the patient is admitted to the hospital. I do anticipate that the patient will required retirement facility at the time of his discharge. Case management/social work to assist with disposition. 6. CODE STATUS DNR CCA without intubation 7. Sinus pauses Patient with a 13 second pause noted yesterday resulting in possible seizure activity. No sinus pauses have been noted after initiation of dopamine therapy, but patient did have possible seizure activity. Defer to cardiology, but patient may need transferred for evaluation of pacemaker placement. This note was generated with [employer] dictation software. It may contain incorrect words, spelling, and punctuation that were not noted in checking the note before signing. Code Visit Inpatient E&M: 31886 Subs Hosp L3
--- NOTE | 2017-12-27 07:26 | NURSING ---
Charting documented by Hilary Cummings RN reviewed and agreed with by this RN
--- NOTE | 2017-12-27 08:26 | CASEMGMT ---
According to [facility] website, the following are in-network tertiary facilities: [facility], [facility], [facility], [facility], [facility], and . [address] CM
[2017-12-27] MEDS: LORazepam 2 MG/ML Syringe 1 MG IV ×3 (08:53→18:17)
--- NOTE | 2017-12-27 09:41 | CASEMGMT ---
Social Work SW attended rounds. Pt voicing concerns regarding his discharge plan. SW met with pt after rounds. Pt expressing desire to transfer the ownership of his trailer to his God children and to go to [facility] assisted living upon d/c. Pt feels he can no longer live alone. SW reexplained to pt that current plan is for pt to be transferred to a tertiary facility. Once pt is ready for d/c from this facility he may likely need SNF stay for rehab which could be followed up by placement at [facility] if appropriate. Pt expressing understanding of this and agreement. Pt verified that his closest family member is his cousin Arturo. SW explained that Arturo felt [facility] would be a good facility for rehab as pt mother is there. Pt stating that he may want to go to [facility] rather than [facility]. SW informed pt that SW could call Arturo and notify him of pt need to discuss his trailer with Arturo as Arturo would be able to assist with this concern. SW also offered to inform Arturo of pt desire to go to [facility] instead of [facility]. Discharge to SNF will be coordinated by tertiary facility. Permission given to contact Arturo. Voicemail left for pt cousin Arturo requesting return call to SW to discuss d/c plan and pt wishes. HANNAH Montes De Oca
--- NOTE | 2017-12-27 10:04 | DCINST_ITS ---
- Discharge Diagnoses Current Active Problems: Current Active and Chronic Problems PEA (Pulseless electrical activity) (Acute) Acute and chronic respiratory failure with hypoxia (Acute) Bradycardia (Acute) Reason(s) for Visit for Discharge Instructions: Unresponsiveness Allergies/Adverse Reactions: Allergies Unable to Assess Allergy (Verified 12/18/17 02:42) Medications to take at Discharge Amitriptyline HCl 100 mg PO QHS 12/18/17 Bupropion HCl [Wellbutrin Xl] 150 mg PO DAILY 12/18/17 Sertraline HCl [Zoloft] 50 mg PO DAILY 12/18/17 Primary Care Physician: Care Physician,No Primary [Primary Care Provider] - Test Results: Test results from this visit will be discussed in further detail at your follow- up appointment, if applicable. Proposed Discharge Date: 12/27/17
--- NOTE | 2017-12-27 10:04 | PCM.PN.HOSP ---
Patient Problems: Active and Suspected Problems PEA (Pulseless electrical activity) (Acute) Acute and chronic respiratory failure with hypoxia (Acute) Bradycardia (Acute) Subjective: Patient was seen and examined. He was transferred to ICU with dopamine drip going at 2.5mcg/kg. no acute events overnight. Had a seizure activity this morning that resolved with Ativan. Telemetry strip recording show patient going into bradycardia but no pauses. Objective: Physical exam: General: Alert, Oriented x3, Cooperative, No apparent distress HEENT: PERRLA, EOMI, Normocephalic, - - Left frontal and parietal as well as temporal region has wound dressing on, swollen, periorbital edema. Oral: Moist Mucosa Neck: Supple Lungs: Clear to auscultation, Normal air movement Cardiovascular: Regular rate, Regular Rhythm, Normal S1, Normal S2, No murmurs Abdomen: Bowel Sounds Present, Soft, Non Tender, Non-Distended, No Hepato-splenomegaly Extremities: No edema Skin: No rashes, No breakdown Musculoskeletal: No Tenderness to Palpation of Joints or Extremities Lymphatic: No Cervical, Supraclavicular, or Inguinal Adenopathy Neurological: Cranial nerves II-XII grossly intact, Neuro grossly intact Psych/Mental Status: Normal Affect, Appropriate Vitals/I&O's: Vital Signs Temp Pulse Resp BP Pulse Ox 99.3 F H 53 L 21 H 176/73 H 95 12/27/17 04:00 12/27/17 07:00 12/27/17 07:00 12/27/17 07:00 12/27/17 07:18 Oxygen Flow Rate (L/min) 2 Oxygen Delivery Method Room Air Weight: 61.2 kg Body Mass Index (BMI) 21.7 Intake and Output for Last 24 Hours 12/25/17 12/26/17 12/27/17 23:59 23:59 23:59 Intake Total 605 / 605 2119.6 / 2119.6 359.4 / 359.4 Output Total 900 / 900 1875 / 1875 100 / 100 Balance -295 / -295 244.6 / 244.6 259.4 / 259.4 Microbiology Past 72 Hours 12/24/17 09:50 Sputum, Expectorated/Coughed Gram Stain - Final 12/24/17 09:50 Sputum, Expectorated/Coughed Respiratory Culture - Final Mixed normal respiratory gem. No Streptococcus pneumoniae, beta-hemolytic Streptococcus or Staphylococcus aureus isolated. Laboratory Results 12/26/17 06:44: Magnesium 2.2 12/27/17 05:42: WBC 12.7 H, RBC 4.58 L, Hgb 14.7, Hct 43.1, MCV 94.1 H, MCH 32.1 H, MCHC 34.1, RDW 12.7, RDW Differential 43.8, Plt Count 251, MPV 10.5, Immature Gran % (Auto) 0.100, Neut % (Auto) 68.4, Lymph % (Auto) 18.5 L, [place] % (Auto) 11.5 H, Eos % (Auto) 1.5, Baso % (Auto) 0.0, Absolute Neuts (auto) 8.7 H, Absolute Lymphs (auto) 2.35, Total Counted Not Reportable 12/27/17 05:42: Sodium 143, Potassium 3.4 L, Chloride 108 H, Carbon Dioxide 26.0, Anion Gap 9, BUN 21 H, Creatinine 0.87, Estim Creat Clear Calc 84.02, Est GFR (MDRD) Af Amer 117, Est GFR (MDRD) Non-Af 97, BUN/Creatinine Ratio 24.1 H, Glucose 124 H, Calcium 8.5 Current Medications Acetaminophen (Tylenol) 1,000 mg PO Q8 GUS Last Admin: 12/27/17 05:35 Dose: 1,000 mg Hydrocodone Bitart/Acetaminophen ([place] 5mg-325mg) 1 tablet PO Q4H PRN PRN PRN Reason: SEVERE PAIN (6-10/10) Last Admin: 12/25/17 04:37 Dose: 1 tablet Albuterol Sulfate (Ventolin Aerosols) 2.5 mg INHALATION Q2H PRN PRN PRN Reason: WHEEZING Last Admin: 12/21/17 05:11 Dose: 2.5 mg Enoxaparin Sodium (Lovenox) 70 mg SC Q12 GUS Last Admin: 12/26/17 21:07 Dose: 70 mg Famotidine (Pepcid) 20 mg PO BID [facility] Haloperidol Lactate (Haldol) 3 mg IV Q4H PRN PRN PRN Reason: AGITATION Last Admin: 12/25/17 14:17 Dose: 3 mg Dopamine HCl/Dextrose () 800 mg in 250 mls @ 2.897 mls/hr IV .[id number] GUS PRN Reason: 2.5 MCG/KG/MIN Last Admin: 12/26/17 12:55 Dose: 2.897 mls/hr Sodium Chloride () 250 mls @ 15 mls/hr IV .[id number] PRN PRN Reason: SALINE FLUSH Last Admin: 12/26/17 21:21 Dose: 15 mls/hr Levetiracetam (Keppra Tablet) 1,500 mg PO BID GUS Potassium Chloride (K-Dur) 20 meq PO BIDCM GUS Stop: 12/27/17 17:01 Last Admin: 12/27/17 08:57 Dose: 20 meq Sodium Chloride () 5 - 30 ml IV UD PRN PRN Reason: SALINE FLUSH Last Admin: 12/27/17 05:35 Dose: 10 ml Medical Necessity - Tobacco Use Smoking Status: Unknown if ever smoked Tobacco Use: - - could not be obtained since patient is intubated Assessment/Plan All Active Problems PEA (Pulseless electrical activity) (Acute) Acute and chronic respiratory failure with hypoxia (Acute) Bradycardia (Acute) 52-year-old male with no known past medical history admitted on 12/18/17 with unresponsiveness. Had PEA with CPR done in ED on admission, intubated in the ED for airway protection. Managed in ICU, extubated 12/22/17. Transferred to PCU. EEG showed epileptiform features. Patient was kept NPO 1. Bradycardia, long pauses noted on telemetry, history of PEA status post CPR on admission, no pauses is seen since in ICU, remains on dopamine drip, Discussed with ward maid and offal icer poultry, will transfer the patient with discharge per facility, accepted by [facility], will await. 2. Seizure disorder, on Keppra, patient has been having frequent episodes of left upper extremity jerking, resolves with multiple doses of Ativan, Keppra increased to 2000 mg po twice daily by neurology. 3. Acute hypoxic/hypercapneic respiratory failure, resolved. 4. Traumatic injuries to the left frontal and parietal region, status post suturing, status post fall in the hospital, wound nurse following. 5. Acute bilateral PE, on Lovenox SC BID 6. Oropharyngeal dysphagia, functional, likely secondary to presumed MRI findings from presumably hypoxia, speech therapy following, on pur?ed, nectar thick diet 7. Acute metabolic encephalopathy secondary to diffuse bilateral cortical ischemia, seen on MRI, resolved. 8. ALICE , prerenal, resolved 9. Polysubstance use:amphetamine, methamphetamine, and cannabinoids, nicotine, advised to quit 10. DVT PPx- On therapeutic Lovenox Code Visit Inpatient E&M: 97558 Subs Hosp L3
--- NOTE | 2017-12-27 10:04 | PCM.DC.SUM ---
Discharge Date and Diagnosis - Problem List Patient Problems: Active and Suspected Problems PEA (Pulseless electrical activity) (Acute) Acute and chronic respiratory failure with hypoxia (Acute) Bradycardia (Acute) Date of Admission: 12/18/17 Date of Discharge: 12/27/17 - Primary Discharge Diagnosis Active and Suspected Problems PEA (Pulseless electrical activity) (Acute) Acute and chronic respiratory failure with hypoxia (Acute) Bradycardia (Acute) Hospital Course and Treatment Imaging Results: Clinical Impression(s) from Imaging Studies Brain CT 12/18/17 01:51 IMPRESSION: Normal unenhanced CT scan of the brain. Chronic sinusitis. Electronically Signed: Bruce Lei MD at 4:26 EDT , Service support , Chest X-Ray 12/18/17 02:25 IMPRESSION: Tubes are in adequate position. Mild interstitial prominence in the upper lung bustos, probably chronic. No demonstrated focal pulmonary infiltrate. Electronically Signed: Bruce Lei MD at 3:39 EDT , Service support , Chest X-Ray 12/19/17 05:55 IMPRESSION: No acute cardiopulmonary disease. Electronically Signed: Alejandro Stanton MD at 6:15 EDT , Service support , Chest CTA 12/19/17 07:16 IMPRESSION: Multiple small bilateral pulmonary emboli. Electronically Signed: Prashant Swanson MD at 9:53 EDT Tel [phone], Service support , KUB X-Ray 12/20/17 16:10 IMPRESSION: 1. No evidence of metallic foreign body. 2. Nonspecific bowel gas pattern. Early obstruction or ileus cannot be ruled out Electronically Signed: Isaac Ashby DO at 16:28 EDT Tel [phone], Service support , Brain CT 12/21/17 06:52 IMPRESSION: Sinus changes as described. No acute intracranial abnormality is seen. Electronically Signed: Prashant Swanson MD at 8:51 EDT Tel [phone], Service support , ADDENDUM: 12/21/17 1555 Brain MRI 12/21/17 13:52 IMPRESSION: Findings which may be consistent with nonspecific diffuse bilateral renal cortical ischemia. Recommend clinical correlation and follow-up N.B. : The above information has been verbally conveyed by Dima Mckeon MD [facility], on 12/21/2017 16:53:33 (ET). Electronically Signed: Dima Mckeon MD at 16:32 EDT , Service support , ADDENDUM: 12/22/[address] 12/25/17 01:31 IMPRESSION: 1. Chronic involutional changes of the brain. 2. No CT evidence of acute intracranial hemorrhage. 3. Left paramedian forehead and frontal scalp contusion and laceration. Electronically Signed: Marianela Lala MD at 3:00 EDT , Service support , Cervical Spine CT 12/25/17 02:37 IMPRESSION: 1. No CT evidence of acute compression or displaced fracture. 2. Multilevel degenerative disc disease, degenerative arthropathy and spondylosis of cervical spine with neural foraminal narrowing, as described. Electronically Signed: Marianela Lala MD at 3:28 EDT , Service support , Brain CT 12/25/17 08:59 IMPRESSION: 1. Chronic involutional changes of the brain. 2. No CT evidence of acute intracranial hemorrhage. 3. Large left paramedian forehead and frontal scalp contusion and laceration. Electronically Signed: Marianela Lala MD at 10:18 EDT , Service support , Consultations 12/25/17 09:54 Consult: Onc/Wound/chip mucker Routine Comment: Reason for Consult:: LACERATIONS TO FOREHEAD Operations: None Procedures: None Summary of Care Provided: 52-year-old male with history of polysubstance use, asthma admitted on 12/18/17 with unresponsiveness. He had PEA with CPR done in ED on admission, intubated in the ED for airway protection. He was managed in initially in ICU, extubated 12/22/17. Pertinent events in the ICU with that he had bilateral PE, started on Lovenox. MRI showed diffuse cortical ischemia from hypoxia. EEG shows abnormal epileptiform changes for which he was started on Keppra. He was transferred to PCU, had oropharyngeal dysphagia for which speech therapy was following. Patient was awaiting insurance precertification for discharge to senior living when he started having seizures. His Keppra was bumped up. Had an episode where he fell out of bed and sustained lacerations of the left temporoparietal region status post suturing. Repeat CT of the brain ?2 have been negative for intracerebral bleed. Patient was noted to have had bradycardia with the longest pulse of 13.8 seconds noted on telemetry was patient was having some seizure. Surgery was consulted and recommended starting patient on dopamine drip at 2.5 MCG per KG. and has since been on dopamine drip prior to discharge to [facility]. Still been having seizures with changes in his Keppra levels. He has had a few episodes of bradycardia. He was transferred out because the physician that would do a pacemaker was unavailable. He has been diagnosed with hepatitis A and C in the hospital. Discharge Diet: Low fat/ Low Cholesterol, 2000 mg Sodium Diet Discharge Activity: Return to Normal Activity Home Medications: Medications to take at Discharge Amitriptyline HCl 100 mg PO QHS 12/18/17 Bupropion HCl [Wellbutrin Xl] 150 mg PO DAILY 12/18/17 Sertraline HCl [Zoloft] 50 mg PO DAILY 12/18/17 Primary Care Physician: Care Physician,No Primary [Primary Care Provider] - Please follow up with your Primary Care Physician in: within 2 weeks of discharge Medical Necessity - Tobacco Use Smoking Status: Unknown if ever smoked Tobacco Use: - - could not be obtained since patient is intubated Meaningful Use Info Meaningful Use Diagnoses (Choose all that apply): None applicable Code Visit Inpatient E&M: 57421 Disch Hosp
[2017-12-27] MEDS: levETIRAcetam 750 MG Tablet 1500 MG PO (10:07)
[2017-12-27] MEDS: Famotidine 20 MG Tablet PO ×2 (10:07→21:18)
[2017-12-27] MEDS: Enoxaparin 80 MG/0.8 ML Syringe 70 MG SC ×2 (10:08→21:15)
[2017-12-27] MEDS: levETIRAcetam 500 MG Tablet PO (10:49)
--- NOTE | 2017-12-27 11:54 | CASEMGMT ---
Social Work Pt to be transferred to [facility]. Mary Ann at [facility] notified. SW met with pt cousin Arturo. Explained that [facility] SW/CM will work with pt for transfer to [facility] upon d/c and that pt is requesting the [address] over [facility]. Arturo expresses understanding. Also discussed with Arturo pt concerns about his trailer and going to [place]. Arturo will address issue with pt. No further SW needs at this time. HANNAH Montes De Oca
--- NOTE | 2017-12-27 12:22 | PCM.PN.CARD ---
Subjectve: Patient had several more episodes of sinus bradycardia yesterday, culminating in a 13.8 second pause requiring IV dopamine at low dose. Since that time he said no more bradycardic episodes but has deteriorated from a clinical position and a neurological position he now has left-sided tics, seizures of his left leg, and evidence of seizures on his EEG from yesterday. Objective: Vital Signs Temp Pulse Resp BP Pulse Ox 98.4 F 63 20 H 145/79 H 97 12/27/17 08:00 12/27/17 11:00 12/27/17 11:00 12/27/17 11:00 12/27/17 11:00 Oxygen Flow Rate (L/min) 2 Oxygen Delivery Method Room Air Weight: 134 lb 14.766 oz Body Mass Index (BMI) 21.7 Intake and Output for Last 24 Hours 12/25/17 12/26/17 12/27/17 23:59 23:59 23:59 Intake Total 605 / 605 2119.6 / 2119.6 359.4 / 359.4 Output Total 900 / 900 1875 / 1875 100 / 100 Balance -295 / -295 244.6 / 244.6 259.4 / 259.4 General: Awake, Alert, Oriented x 3 HEENT: PERRL, EOMI, Sclera Non Icteric Neck: Supple, Good ROM, No Lymph Node Enlargement Lungs: Clear to auscultation Cardiovascular: Regular Rhythm, Normal S1, Normal S2, No Murmurs, No Rubs, No Gallops Vascular: No Carotid Bruits, Normal Femoral Pulses, Normal Radial Pulses, Normal Dorsalis Pedal Pulse, Normal Posterior Tibial Pulses Abdomen: Bowel Sounds Present, Soft, Non Tender, No HSM, No Organomegaly Extremities: No Cyanosis, No Clubbing, No edema Neurological: No Focal Motor or Sensory Deficit 12/26/17 06:44: Magnesium 2.2 12/27/17 05:42: WBC 12.7 H, RBC 4.58 L, Hgb 14.7, Hct 43.1, MCV 94.1 H, MCH 32.1 H, MCHC 34.1, RDW 12.7, RDW Differential 43.8, Plt Count 251, MPV 10.5, Immature Gran % (Auto) 0.100, Neut % (Auto) 68.4, Lymph % (Auto) 18.5 L, [place] % (Auto) 11.5 H, Eos % (Auto) 1.5, Baso % (Auto) 0.0, Absolute Neuts (auto) 8.7 H, Total Counted Not Reportable 12/27/17 05:42: Sodium 143, Potassium 3.4 L, Chloride 108 H, Carbon Dioxide 26.0, Anion Gap 9, BUN 21 H, Creatinine 0.87, Est GFR (MDRD) Af Amer 117, Est GFR (MDRD) Non-Af 97, BUN/Creatinine Ratio 24.1 H, Glucose 124 H, Calcium 8.5 Rhythm: Telemetry showed normal sinus rhythm/sinus bradycardia. No further sinus pauses. EKG: ECHO: Normal LV size and function. Stress Test: Cardiac Cath: PCI: CT Surgery: Holter monitor: EPS: PPM: CXR: Chest CT Scan: Medical Necessity - Tobacco Use Smoking Status: Unknown if ever smoked Tobacco Use: - - could not be obtained since patient is intubated Assessment/Plan 1. Sinus bradycardia: The patient has had multiple episodes of sinus bradycardia some of which are symptomatic with up to 13.8 second pauses. In addition he has a history on admission of sinus bradycardia and pulseless electrical alternations requiring IV epinephrine. Patient was placed on Keppra for possible seizure activity, which may be manifested by his bradycardia. In addition he has multiple small pulmonary emboli which may be a manifestation of possible tricuspid valve endocarditis which are showering emboli into his pulmonary tree. His limited 2D echo with Doppler on 12/19/17 was unremarkable although it is somewhat limited due to his positioning. I recommended the patient be initiated on dopamine 2 mcg/kg to maintain heart rate control and this has prevented additional pauses overnight. Unfortunately our pacemaker physician is on vacation, so he would be unable to obtain a pacemaker during his admission here. His 2D echo with Doppler repeated yesterday demonstrated normal LV function without evidence of vegetations on his tricuspid, aortic or mitral valves. He did not appear to have a aortic abscess by transthoracic echo although he is a poor candidate for transesophageal echo given his recent fall, head trauma, and seizure-like activity. His blood cultures have been negative thus far although he has high risk for possible endocarditis given his poor dentition, and drug use. If his echo is suboptimal, he may require a transesophageal echocardiogram. At this point I would recommend continuing his IV dopamine drip, and transferring him to a tertiary care center for a additional analysis for his seizure activity as well as his bradycardia. He may require a transesophageal echocardiogram to rule out the possibility of endocarditis or bacterial abscess in the aortic valvular space. 2. I strongly encouraged the patient discontinue all tobacco products, illicit drug use, and methamphetamines. Patient is voiced understanding and reports that he has quit tobacco. 4. Discussed with Dr. Talbert as well as Dr. Jackson. Thank you very much for the opportunity to participate in the cardiac care of your patient. Patient is being arranged for transfer to tertiary care center. Code Visit Inpatient E&M: 25987 Subs Hosp L2
--- NOTE | 2017-12-27 12:26 | PN.CARD_ITS ---
Subjectve: Patient had several more episodes of sinus bradycardia yesterday, culminating in a 13.8 second pause requiring IV dopamine at low dose. Since that time he said no more bradycardic episodes but has deteriorated from a clinical position and a neurological position he now has left-sided tics, seizures of his left leg , and evidence of seizures on his EEG from yesterday. Objective: Vital Signs Temp Pulse Resp BP Pulse Ox 98.4 F 63 20 H 145/79 H 97 12/27/17 08:00 12/27/17 11:00 12/27/17 11:00 12/27/17 11:00 12/27/17 11:00 Oxygen Flow Rate (L/min) 2 Oxygen Delivery Method Room Air Weight: 134 lb 14.766 oz Body Mass Index (BMI) 21.7 Intake and Output for Last 24 Hours 12/25/17 12/26/17 12/27/17 23:59 23:59 23:59 Intake Total 605 / 605 2119.6 / 2119.6 359.4 / 359.4 Output Total 900 / 900 1875 / 1875 100 / 100 Balance -295 / -295 244.6 / 244.6 259.4 / 259.4 General: Awake, Alert, Oriented x 3 HEENT: PERRL, EOMI, Sclera Non Icteric Neck: Supple, Good ROM, No Lymph Node Enlargement Lungs: Clear to auscultation Cardiovascular: Regular Rhythm, Normal S1, Normal S2, No Murmurs, No Rubs, No Gallops Vascular: No Carotid Bruits, Normal Femoral Pulses, Normal Radial Pulses, Normal Dorsalis Pedal Pulse, Normal Posterior Tibial Pulses Abdomen: Bowel Sounds Present, Soft, Non Tender, No HSM, No Organomegaly Extremities: No Cyanosis, No Clubbing, No edema Neurological: No Focal Motor or Sensory Deficit 12/26/17 06:44: Magnesium 2.2 12/27/17 05:42: WBC 12.7 H, RBC 4.58 L, Hgb 14.7, Hct 43.1, MCV 94.1 H, MCH 32.1 H, MCHC 34.1, RDW 12.7, RDW Differential 43.8, Plt Count 251, MPV 10.5, Immature Gran % (Auto) 0.100, Neut % (Auto) 68.4, Lymph % (Auto) 18.5 L, [place] % (Auto) 11.5 H, Eos % (Auto) 1.5, Baso % (Auto) 0.0, Absolute Neuts (auto) 8.7 H , Total Counted Not Reportable 12/27/17 05:42: Sodium 143, Potassium 3.4 L, Chloride 108 H, Carbon Dioxide 26.0 , Anion Gap 9, BUN 21 H, Creatinine 0.87, Est GFR (MDRD) Af Amer 117, Est GFR ( MDRD) Non-Af 97, BUN/Creatinine Ratio 24.1 H, Glucose 124 H, Calcium 8.5 Rhythm: Telemetry showed normal sinus rhythm/sinus bradycardia. No further sinus pauses. EKG: ECHO: Normal LV size and function. Stress Test: Cardiac Cath: PCI: CT Surgery: Holter monitor: EPS: PPM: CXR: Chest CT Scan: Medical Necessity - Tobacco Use Smoking Status: Unknown if ever smoked Tobacco Use: - - could not be obtained since patient is intubated Assessment/Plan 1. Sinus bradycardia: The patient has had multiple episodes of sinus bradycardia some of which are symptomatic with up to 13.8 second pauses. In addition he has a history on admission of sinus bradycardia and pulseless electrical alternations requiring IV epinephrine. Patient was placed on Keppra for possible seizure activity, which may be manifested by his bradycardia. In addition he has multiple small pulmonary emboli which may be a manifestation of possible tricuspid valve endocarditis which are showering emboli into his pulmonary tree. His limited 2D echo with Doppler on 12/19/17 was unremarkable although it is somewhat limited due to his positioning. I recommended the patient be initiated on dopamine 2 mcg/kg to maintain heart rate control and this has prevented additional pauses overnight. Unfortunately our pacemaker physician is on vacation, so he would be unable to obtain a pacemaker during his admission here. His 2D echo with Doppler repeated yesterday demonstrated normal LV function without evidence of vegetations on his tricuspid, aortic or mitral valves. He did not appear to have a aortic abscess by transthoracic echo although he is a poor candidate for transesophageal echo given his recent fall, head trauma, and seizure-like activity. His blood cultures have been negative thus far although he has high risk for possible endocarditis given his poor dentition, and drug use. If his echo is suboptimal, he may require a transesophageal echocardiogram. At this point I would recommend continuing his IV dopamine drip, and transferring him to a tertiary care center for a additional analysis for his seizure activity as well as his bradycardia. He may require a transesophageal echocardiogram to rule out the possibility of endocarditis or bacterial abscess in the aortic valvular space. 2. I strongly encouraged the patient discontinue all tobacco products, illicit drug use, and methamphetamines. Patient is voiced understanding and reports that he has quit tobacco. 4. Discussed with Dr. Talbert as well as Dr. Jackson. Thank you very much for the opportunity to participate in the cardiac care of your patient. Patient is being arranged for transfer to tertiary care center. Code Visit Inpatient E&M: 67652 Subs Hosp L2
--- NOTE | 2017-12-27 13:19 | EEG ---
- Electroencephalogram This is an 18 channel electroencephalogram performed on this 52-year-old male with a history of anoxic brain injury and seizures. The patient is currently on Keppra 1500 mg twice daily. Background activity is 6-7 Hz symmetrically in the posterior leads. EKG rhythm strip recording is also performed which is normal sinus rhythm throughout the recording. There are frequent sharp waves with a pseudo-periodicity noted in the right frontal leads. It is noted that this is consistent with left-sided shaking experience intermittently by the patient. The abnormality is localized to the right parietal leads as well. Impression: Abnormal electroencephalogram consistent with right parietal epileptiform changes.
[2017-12-27] MEDS: 0.9% NaCl IVPB Med Flush (250 mL) 15 ML IV (14:53)
[2017-12-27] MEDS: levETIRAcetam 1,000 MG Tablet 2000 MG PO (21:16)
--- NOTE | 2017-12-27 21:51 | NURSING ---
Called CC for status update on bed. The accepting physician in Dr. Prashanth Christianson, [facility] Further attempts to obtain a bed will be made on 12/28/17.
[2017-12-28] VITALS (16 sets, daily range): BP systolic 135–165; BP diastolic 63–94; PULSE 54–86; RESP 16–24; TEMP 36.7–37; O2SAT 94–98
[2017-12-28] MEDS: Haloperidol Lactate 5 MG/ML Vial 3 MG IV (03:26)
[2017-12-28] MEDS: LORazepam 2 MG/ML Syringe 1 MG IV ×2 (04:26)
--- NOTE | 2017-12-28 06:38 | PCM.PN.INT ---
Subjective: Patient with increased agitation overnight. Patient did receive a dose of Haldol and 2 doses of Ativan. Nursing reports improved left sided tremor. Patient has had periods of bradycardia into the 40s despite dopamine consistently at 2.5. Nursing is unable to remember whether this was associated with left-sided tremor. Patient with no complaints this morning. Patient has been accepted at [facility], but does not currently have a bed per telephone conversation this morning. General: - - RASS -2. Vocalizes appropriately once awakened HEENT: PERRLA, EOMI, Normocephalic, - - Hematoma grossly unchanged compared to previous. Oral: Moist Mucosa, No Gingival or Mucosal Lesions/ Ulcerations, - - Fair dentition Neck: Supple, No JVD, No Nodes, Trachea Midline Lungs: No rhonchi, No wheeze, No rales, Diminished, - - Symmetric expansion. No dullness to percussion. Cardiovascular: Regular rate, Regular Rhythm, Normal S1, Normal S2, No murmurs, No rub noted, No Gallop Abdomen: Bowel Sounds Present, Soft, Non Tender, Non-Distended Extremities: No clubbing, No cyanosis, No edema, Capillary Refill Less than 3 Seconds Skin: Ulcer/ Wound - Grossly unchanged compared to previous Musculoskeletal: No Tenderness to Palpation of Joints or Extremities, No Muscle Wasting Lymphatic: No Cervical, Supraclavicular, or Inguinal Adenopathy Neurological: Cranial nerves II-XII grossly intact, Neuro grossly intact, Motor Exam 5/5 strength throughout Psych/Mental Status: Flat Affect, Impulsive Vital Signs Temp Pulse Resp BP Pulse Ox 36.7 C 63 22 H 156/78 H 94 12/28/17 04:00 12/28/17 06:00 12/28/17 06:00 12/28/17 06:00 12/28/17 06:00 Oxygen Flow Rate (L/min) 2 Oxygen Delivery Method Room Air Weight: 62 kg Body Mass Index (BMI) 21.7 Intake and Output for Last 24 Hours 12/26/17 12/27/17 12/28/17 23:59 23:59 23:59 Intake Total 2119.6 / 2119.6 827.4 / 827.4 953.9 / 953.9 Output Total 1875 / 1875 340 / 340 Balance 244.6 / 244.6 487.4 / 487.4 953.9 / 953.9 Labs (Last 48 Hours) 12/26/17 12/26/17 12/27/17 06:44 06:44 05:42 WBC 12.7 H RBC 4.58 L Hgb 14.7 Hct 43.1 MCV 94.1 H MCH 32.1 H MCHC 34.1 RDW 12.7 RDW Differential 43.8 Plt Count 251 MPV 10.5 Immature Gran % (Auto) 0.100 Neut % (Auto) 68.4 Lymph % (Auto) 18.5 L O[place] % (Auto) 11.5 H Eos % (Auto) 1.5 Baso % (Auto) 0.0 Absolute Neuts (auto) 8.7 H Absolute Lymphs (auto) 2.35 Total Counted Not Reportable Sodium 141 Potassium 3.5 Chloride 110 H Carbon Dioxide 24.0 Anion Gap 7 BUN 30 H Creatinine 0.90 Estim Creat Clear Calc 82.02 Est GFR (MDRD) Af Amer 113 Est GFR (MDRD) Non-Af 93 BUN/Creatinine Ratio 33.4 H Glucose 85 Calcium 8.4 L Magnesium 2.2 12/27/17 05:42 WBC RBC Hgb Hct MCV MCH MCHC RDW RDW Differential Plt Count MPV Immature Gran % (Auto) Neut % (Auto) Lymph % (Auto) O[place]e % (Auto) Eos % (Auto) Baso % (Auto) Absolute Neuts (auto) Absolute Lymphs (auto) Total Counted Sodium 143 Potassium 3.4 L Chloride 108 H Carbon Dioxide 26.0 Anion Gap 9 BUN 21 H Creatinine 0.87 Estim Creat Clear Calc 84.02 Est GFR (MDRD) Af Amer 117 Est GFR (MDRD) Non-Af 97 BUN/Creatinine Ratio 24.1 H Glucose 124 H Calcium 8.5 Magnesium Microbiology 12/24/17 09:50 Sputum, Expectorated/Coughed Gram Stain - Final 12/24/17 09:50 Sputum, Expectorated/Coughed Respiratory Culture - Final Mixed normal respiratory gem. No Streptococcus pneumoniae, beta-hemolytic Streptococcus or Staphylococcus aureus isolated. Medical Necessity - Tobacco Use Smoking Status: Unknown if ever smoked Tobacco Use: - - could not be obtained since patient is intubated Assessment/Plan All Active Problems PEA (Pulseless electrical activity) (Acute) Acute and chronic respiratory failure with hypoxia (Acute) Bradycardia (Acute) RECOMMENDATIONS: 1. Potassium supplementation if indicated 2. P.o. intake per speech therapy 3. Continue bronchodilators 4. Encourage incentive spirometer and mobilization as tolerated 5. Delirium protocol 6. Consider evaluation for pacemaker placement IMPRESSIONS: 1. Acute combined respiratory failure Patient does have a long history of tobacco dependence. Hospitalization was complicated by PEA cardiac arrest. That being said, patient has had significant improvement in overall condition and tolerating room air. Patient has completed a course of empiric antibiotics and steroids. 2. PEA arrest secondary to hypoxemia Patient does have some delirium at this time. However, patient's oxygenation is doing well. Patient does have some impulsive nature. Speech therapy is currently following for possible aspiration. Patient currently on a modified, supervised diet. 3. Encephalopathy/ICU delirium Patient has had diffuse bilateral cortical ischemia on brain MRI. There are also right-sided periodic epileptiform discharges on EEG. Patient has been started on Keppra therapy and titrated up to 2 g twice daily. 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 Patient with rhythmic movements on the left side yesterday. This did respond to Ativan therapy. Neurology is currently following. Await neurology recommendations. Unclear if decreased tremor activity secondary to need for Ativan overnight. 4. Acute kidney injury RESOLVED> Likely prerenal in etiology in the setting of cardiac arrest. The patient is currently hemodynamically stable without vasopressor support. Supplemental IV fluids were administered, especially in light of contrast administration to obtain CTA chest. At this time, however, the patient's creatinine has returned to baseline. Continue to monitor urine output. No current indication for renal replacement therapy. Likely recheck labs tomorrow if patient has not been transferred. 5. Possible polysubstance abuse/continuous tobacco dependence/hepatitis a and C Complicates care, management, recovery and prognosis. The patient does have a prior history of heroin abuse, but has been reportedly sober for the last 3 years following his release from incarceration. He is a current daily smoker, however. Nicotine replacement therapy can be offered while the patient is admitted to the hospital. I do anticipate that the patient will required [facility] facility at the time of his discharge. Case management/social work to assist with disposition. 6. CODE STATUS DNR CCA without intubation 7. Sinus pauses Patient with a 13 second pause noted yesterday resulting in possible seizure activity. No sinus pauses have been noted after initiation of dopamine therapy, but patient did have possible seizure activity. Patient is still having bradycardic episodes into the 40s despite dopamine therapy. Defer to cardiology, but patient may need transferred for evaluation of pacemaker placement. This note was generated with [employer] dictation software. It may contain incorrect words, spelling, and punctuation that were not noted in checking the note before signing. Code Visit Inpatient E&M: 47693 Subs Hosp L3
--- NOTE | 2017-12-28 06:47 | NURSING ---
Charting documented by Hilary Cummings RN reviewed and agreed with by this RN
[2017-12-28] MEDS: Enoxaparin 80 MG/0.8 ML Syringe 70 MG SC (10:23)
[2017-12-28] MEDS: levETIRAcetam 1,000 MG Tablet 2000 MG PO (10:23)
[2017-12-28] MEDS: Famotidine 20 MG Tablet PO (10:24)
--- NOTE | 2017-12-28 12:32 | PN.CARD_ITS ---
Subjectve: Patient somnolent this morning, received Haldol and Ativan last evening due to agitation and occasional tremors. He is noncommunicative. Hemo-dynamically stable on 2.5 mcg of dopamine drip. Patient did have some episodes of bradycardia despite dopamine drip possibly related to his seizure activity. Objective: Vital Signs Temp Pulse Resp BP Pulse Ox 98.4 F 61 21 H 136/79 H 96 12/28/17 10:00 12/28/17 11:00 12/28/17 11:00 12/28/17 11:00 12/28/17 11:00 Oxygen Flow Rate (L/min) 2 Oxygen Delivery Method Room Air Weight: 136 lb 10.986 oz Body Mass Index (BMI) 21.7 Intake and Output for Last 24 Hours 12/26/17 12/27/17 12/28/17 23:59 23:59 23:59 Intake Total 2119.6 / 2119.6 827.4 / 827.4 953.9 / 953.9 Output Total 1875 / 1875 340 / 340 Balance 244.6 / 244.6 487.4 / 487.4 953.9 / 953.9 General: Awake, Alert, Oriented x 3 HEENT: PERRL, EOMI, Sclera Non Icteric Neck: Supple, Good ROM, No Lymph Node Enlargement Lungs: Clear to auscultation Cardiovascular: Regular Rhythm, Normal S1, Normal S2, No Murmurs, No Rubs, No Gallops Vascular: No Carotid Bruits, Normal Femoral Pulses, Normal Radial Pulses, Normal Dorsalis Pedal Pulse, Normal Posterior Tibial Pulses Abdomen: Bowel Sounds Present, Soft, Non Tender, No HSM, No Organomegaly Extremities: No Cyanosis, No Clubbing, No edema Neurological: No Focal Motor or Sensory Deficit Rhythm: EKG: ECHO: Stress Test: Cardiac Cath: PCI: CT Surgery: Holter monitor: EPS: PPM: CXR: Chest CT Scan: Medical Necessity - Tobacco Use Smoking Status: Unknown if ever smoked Tobacco Use: - - could not be obtained since patient is intubated Assessment/Plan 1. Sinus bradycardia: The patient has had multiple episodes of sinus bradycardia some of which are symptomatic with up to 13.8 second pauses. In addition he has a history on admission of sinus bradycardia and pulseless electrical alternations requiring IV epinephrine. Patient was placed on Keppra for possible seizure activity, which may be manifested by his bradycardia. Patient has had no further pauses since initiating dopamine therapy. Unfortunately he has required sedation medication and Haldol for agitation. In addition he has multiple small pulmonary emboli which may be a manifestation of possible tricuspid valve endocarditis which are showering emboli into his pulmonary tree. His limited 2D echo with Doppler on 12/19/17 was unremarkable although it is somewhat limited due to his positioning. We saw no evidence of tricuspid or mitral valvular vegetations. I recommended the patient be continued on dopamine 2 mcg/kg to maintain heart rate control until his mental status has normalized. This has prevented additional pauses over the last 48 hours. Unfortunately our pacemaker physician is on vacation, so he would be unable to obtain a pacemaker during his admission here. I would not recommend pacemaker implantation at this time given his clinical status. His 2D echo with Doppler repeated 12/26/17 demonstrated normal LV function without evidence of vegetations on his tricuspid, aortic or mitral valves. He did not appear to have a aortic valvular abscess by transthoracic echo although he is a poor candidate for transesophageal echo given his recent fall, head trauma, and seizure-like activity. His blood cultures have been negative thus far although he has high risk for possible endocarditis given his poor dentition , and drug use. If his echo is suboptimal, he may require a transesophageal echocardiogram. At this point I would recommend continuing his IV dopamine drip, and transferring him to a tertiary care center for a additional analysis for his seizure activity as well as his bradycardia. He may require a transesophageal echocardiogram to rule out the possibility of endocarditis or bacterial abscess in the aortic valvular space. 2. I strongly encouraged the patient discontinue all tobacco products, illicit drug use, and methamphetamines. Patient is voiced understanding and reports that he has quit tobacco. 4. We are awaiting transfer to tertiary care facility. Code Visit Inpatient E&M: 86662 Subs Hosp L2
[2017-12-28 13:10] LABS: KEPPRA (LEVETIRACETAM) 30.2 ug/mL (10.0-40.0)
--- NOTE | 2017-12-28 13:12 | PCM.PN.HOSP ---
Patient Problems: Active and Suspected Problems PEA (Pulseless electrical activity) (Acute) Acute and chronic respiratory failure with hypoxia (Acute) Bradycardia (Acute) Subjective: Patient was seen and examined. Appears sedated. Has had episodes of multiple seizures as well as agitation. He has had episodes of bradycardia to the 40s. Awaiting on a bed for transfer into [facility] transfer line. Called [facility] transfer line, [place] and they accepted the patient. Objective: Physical exam: General: Alert, Oriented x3, Cooperative, No apparent distress HEENT: PERRLA, EOMI, Normocephalic, - - Left frontal and parietal as well as temporal region has wound dressing on, swollen, periorbital edema. Oral: Moist Mucosa Neck: Supple Lungs: Clear to auscultation, Normal air movement Cardiovascular: Regular rate, Regular Rhythm, Normal S1, Normal S2, No murmurs Abdomen: Bowel Sounds Present, Soft, Non Tender, Non-Distended, No Hepato-splenomegaly Extremities: No edema Skin: No rashes, No breakdown Musculoskeletal: No Tenderness to Palpation of Joints or Extremities Lymphatic: No Cervical, Supraclavicular, or Inguinal Adenopathy Neurological: Cranial nerves II-XII grossly intact, Neuro grossly intact Psych/Mental Status: Normal Affect, Appropriate Vitals/I&O's: Vital Signs Temp Pulse Resp BP Pulse Ox 98.4 F 61 21 H 136/79 H 96 12/28/17 10:00 12/28/17 11:00 12/28/17 11:00 12/28/17 11:00 12/28/17 11:00 Oxygen Flow Rate (L/min) 2 Oxygen Delivery Method Room Air Weight: 62 kg Body Mass Index (BMI) 21.7 Intake and Output for Last 24 Hours 12/26/17 12/27/17 12/28/17 23:59 23:59 23:59 Intake Total 2119.6 / 2119.6 827.4 / 827.4 953.9 / 953.9 Output Total 1875 / 1875 340 / 340 Balance 244.6 / 244.6 487.4 / 487.4 953.9 / 953.9 Microbiology Past 72 Hours 12/24/17 09:50 Sputum, Expectorated/Coughed Gram Stain - Final 12/24/17 09:50 Sputum, Expectorated/Coughed Respiratory Culture - Final Mixed normal respiratory gem. No Streptococcus pneumoniae, beta-hemolytic Streptococcus or Staphylococcus aureus isolated. Laboratory Results 12/25/17 10:36: Levetiracetam 30.2 Current Medications Acetaminophen (Tylenol) 1,000 mg PO Q8 [facility] Last Admin: 12/28/17 06:28 Dose: Not Given Hydrocodone Bitart/Acetaminophen ([place]edar 5mg-325mg) 1 tablet PO Q4H PRN PRN PRN Reason: SEVERE PAIN (6-10/10) Last Admin: 12/25/17 04:37 Dose: 1 tablet Albuterol Sulfate (Ventolin Aerosols) 2.5 mg INHALATION Q2H PRN PRN PRN Reason: WHEEZING Last Admin: 12/21/17 05:11 Dose: 2.5 mg Enoxaparin Sodium (Lovenox) 70 mg SC Q12 [facility] Last Admin: 12/28/17 10:23 Dose: 70 mg Famotidine (Pepcid) 20 mg PO BID [facility] Last Admin: 12/28/17 10:24 Dose: 20 mg Haloperidol Lactate (Haldol) 3 mg IV Q4H PRN PRN PRN Reason: AGITATION Last Admin: 12/28/17 03:26 Dose: 3 mg Dopamine HCl/Dextrose () 800 mg in 250 mls @ 2.897 mls/hr IV .[id number] [facility] PRN Reason: 2.5 MCG/KG/MIN Last Admin: 12/26/17 12:55 Dose: 2.897 mls/hr Sodium Chloride () 250 mls @ 15 mls/hr IV .[id number] PRN PRN Reason: SALINE FLUSH Last Admin: 12/27/17 14:53 Dose: 15 mls/hr Levetiracetam (Keppra Tablet) 2,000 mg PO BID [facility] Last Admin: 12/28/17 10:23 Dose: 2,000 mg Lorazepam (Ativan) 1 mg IV Q2H PRN PRN PRN Reason: SEIZURES Last Admin: 12/28/17 04:26 Dose: 1 mg Sodium Chloride () 5 - 30 ml IV UD PRN PRN Reason: SALINE FLUSH Last Admin: 12/27/17 05:35 Dose: 10 ml Medical Necessity - Tobacco Use Smoking Status: Unknown if ever smoked Tobacco Use: - - could not be obtained since patient is intubated Assessment/Plan All Active Problems PEA (Pulseless electrical activity) (Acute) Acute and chronic respiratory failure with hypoxia (Acute) Bradycardia (Acute) 52-year-old male with no known past medical history admitted on 12/18/17 with unresponsiveness. Had PEA with CPR done in ED on admission, intubated in the ED for airway protection. Managed in ICU, extubated 12/22/17. Transferred to PCU. EEG showed epileptiform features. Patient was kept NPO 1. Bradycardia, long pauses noted on telemetry, history of PEA status post CPR on admission, no pauses is seen since in ICU, episodes of bradycardia since being in ICU, remains on dopamine drip, [facility] accepted the patient. 2. Seizure disorder, on Keppra, on Ativan, Keppra 2000 mg po twice daily by neurology. 3. Acute hypoxic/hypercapneic respiratory failure, resolved. 4. Traumatic injuries to the left frontal and parietal region, status post suturing, status post fall in the hospital, wound nurse following. 5. Acute bilateral PE, on Lovenox SC BID 6. Oropharyngeal dysphagia, functional, likely secondary to presumed MRI findings from presumably hypoxia, speech therapy following, on pur?ed, nectar thick diet 7. Acute metabolic encephalopathy secondary to diffuse bilateral cortical ischemia, seen on MRI, resolved. 8. ALICE , prerenal, resolved 9. Polysubstance use:amphetamine, methamphetamine, and cannabinoids, nicotine, advised to quit 10. DVT PPx- On therapeutic Lovenox
--- NOTE | 2017-12-28 13:21 | PN_ITS ---
Patient Problems: Active and Suspected Problems PEA (Pulseless electrical activity) (Acute) Acute and chronic respiratory failure with hypoxia (Acute) Bradycardia (Acute) Subjective: Patient was seen and examined. Appears sedated. Has had episodes of multiple seizures as well as agitation. He has had episodes of bradycardia to the 40s. Awaiting on a bed for transfer into [facility] transfer line. Called [facility] transfer line, [place] and they accepted the patient. Objective: Physical exam: General: Alert, Oriented x3, Cooperative, No apparent distress HEENT: PERRLA, EOMI, Normocephalic, - - Left frontal and parietal as well as temporal region has wound dressing on, swollen, periorbital edema. Oral: Moist Mucosa Neck: Supple Lungs: Clear to auscultation, Normal air movement Cardiovascular: Regular rate, Regular Rhythm, Normal S1, Normal S2, No murmurs Abdomen: Bowel Sounds Present, Soft, Non Tender, Non-Distended, No Hepato- splenomegaly Extremities: No edema Skin: No rashes, No breakdown Musculoskeletal: No Tenderness to Palpation of Joints or Extremities Lymphatic: No Cervical, Supraclavicular, or Inguinal Adenopathy Neurological: Cranial nerves II-XII grossly intact, Neuro grossly intact Psych/Mental Status: Normal Affect, Appropriate Vitals/I&O's: Vital Signs Temp Pulse Resp BP Pulse Ox 98.4 F 61 21 H 136/79 H 96 12/28/17 10:00 12/28/17 11:00 12/28/17 11:00 12/28/17 11:00 12/28/17 11:00 Oxygen Flow Rate (L/min) 2 Oxygen Delivery Method Room Air Weight: 62 kg Body Mass Index (BMI) 21.7 Intake and Output for Last 24 Hours 12/26/17 12/27/17 12/28/17 23:59 23:59 23:59 Intake Total 2119.6 / 2119.6 827.4 / 827.4 953.9 / 953.9 Output Total 1875 / 1875 340 / 340 Balance 244.6 / 244.6 487.4 / 487.4 953.9 / 953.9 Microbiology Past 72 Hours 12/24/17 09:50 Sputum, Expectorated/Coughed Gram Stain - Final 12/24/17 09:50 Sputum, Expectorated/Coughed Respiratory Culture - Final Mixed normal respiratory gem. No Streptococcus pneumoniae, beta-hemolytic Streptococcus or Staphylococcus aureus isolated. Laboratory Results 12/25/17 10:36: Levetiracetam 30.2 Current Medications Acetaminophen (Tylenol) 1,000 mg PO Q8 [facility] Last Admin: 12/28/17 06:28 Dose: Not Given Hydrocodone Bitart/Acetaminophen ([place] 5mg-325mg) 1 tablet PO Q4H PRN PRN PRN Reason: SEVERE PAIN (6-10/10) Last Admin: 12/25/17 04:37 Dose: 1 tablet Albuterol Sulfate (Ventolin Aerosols) 2.5 mg INHALATION Q2H PRN PRN PRN Reason: WHEEZING Last Admin: 12/21/17 05:11 Dose: 2.5 mg Enoxaparin Sodium (Lovenox) 70 mg SC Q12 [facility] Last Admin: 12/28/17 10:23 Dose: 70 mg Famotidine (Pepcid) 20 mg PO BID [facility] Last Admin: 12/28/17 10:24 Dose: 20 mg Haloperidol Lactate (Haldol) 3 mg IV Q4H PRN PRN PRN Reason: AGITATION Last Admin: 12/28/17 03:26 Dose: 3 mg Dopamine HCl/Dextrose () 800 mg in 250 mls @ 2.897 mls/hr IV .[id number] [facility] PRN Reason: 2.5 MCG/KG/MIN Last Admin: 12/26/17 12:55 Dose: 2.897 mls/hr Sodium Chloride () 250 mls @ 15 mls/hr IV .[id number] PRN PRN Reason: SALINE FLUSH Last Admin: 12/27/17 14:53 Dose: 15 mls/hr Levetiracetam (Keppra Tablet) 2,000 mg PO BID [facility] Last Admin: 12/28/17 10:23 Dose: 2,000 mg Lorazepam (Ativan) 1 mg IV Q2H PRN PRN PRN Reason: SEIZURES Last Admin: 12/28/17 04:26 Dose: 1 mg Sodium Chloride () 5 - 30 ml IV UD PRN PRN Reason: SALINE FLUSH Last Admin: 12/27/17 05:35 Dose: 10 ml Medical Necessity - Tobacco Use Smoking Status: Unknown if ever smoked Tobacco Use: - - could not be obtained since patient is intubated Assessment/Plan All Active Problems PEA (Pulseless electrical activity) (Acute) Acute and chronic respiratory failure with hypoxia (Acute) Bradycardia (Acute) 52-year-old male with no known past medical history admitted on 12/18/17 with unresponsiveness. Had PEA with CPR done in ED on admission, intubated in the ED for airway protection. Managed in ICU, extubated 12/22/17. Transferred to PCU. EEG showed epileptiform features. Patient was kept NPO 1. Bradycardia, long pauses noted on telemetry, history of PEA status post CPR on admission, no pauses is seen since in ICU, episodes of bradycardia since being in ICU, remains on dopamine drip, [facility] accepted the patient. 2. Seizure disorder, on Keppra, on Ativan, Keppra 2000 mg po twice daily by neurology. 3. Acute hypoxic/hypercapneic respiratory failure, resolved. 4. Traumatic injuries to the left frontal and parietal region, status post suturing, status post fall in the hospital, wound nurse following. 5. Acute bilateral PE, on Lovenox SC BID 6. Oropharyngeal dysphagia, functional, likely secondary to presumed MRI findings from presumably hypoxia, speech therapy following, on pur?ed, nectar thick diet 7. Acute metabolic encephalopathy secondary to diffuse bilateral cortical ischemia, seen on MRI, resolved. 8. ALICE , prerenal, resolved 9. Polysubstance use:amphetamine, methamphetamine, and cannabinoids, nicotine, advised to quit 10. DVT PPx- On therapeutic Lovenox
--- NOTE | 2017-12-30 07:22 | PCM.DC.SUM ---
Discharge Date and Diagnosis Date of Admission: 12/18/17 Date of Discharge: 12/28/17 - Primary Discharge Diagnosis Bradycardia Seizure disorder Acute hypoxic respiratory failure Traumatic injuries to left frontal and parietal region Acute metabolic encephalopathy ALICE Polysubstance use - Secondary Discharge Diagnosis Asthma Hospital Course and Treatment Imaging Results: Clinical Impression(s) from Imaging Studies Brain CT 12/18/17 01:51 IMPRESSION: Normal unenhanced CT scan of the brain. Chronic sinusitis. Electronically Signed: Bruce Lei MD at 4:26 EDT , Service support , Chest X-Ray 12/18/17 02:25 IMPRESSION: Tubes are in adequate position. Mild interstitial prominence in the upper lung bustos, probably chronic. No demonstrated focal pulmonary infiltrate. Electronically Signed: Bruce Lei MD at 3:39 EDT , Service support , Chest X-Ray 12/19/17 05:55 IMPRESSION: No acute cardiopulmonary disease. Electronically Signed: Alejandro Stanton MD at 6:15 EDT , Service support , Chest CTA 12/19/17 07:16 IMPRESSION: Multiple small bilateral pulmonary emboli. Electronically Signed: Prashant Swanson MD at 9:53 EDT Tel [phone], Service support , KUB X-Ray 12/20/17 16:10 IMPRESSION: 1. No evidence of metallic foreign body. 2. Nonspecific bowel gas pattern. Early obstruction or ileus cannot be ruled out Electronically Signed: Isaac Ashby DO at 16:28 EDT Tel [phone], Service support , Brain CT 12/21/17 06:52 IMPRESSION: Sinus changes as described. No acute intracranial abnormality is seen. Electronically Signed: Prashant Swanson MD at 8:51 EDT Tel [phone], Service support , ADDENDUM: 12/21/17 1555 Brain MRI 12/21/17 13:52 IMPRESSION: Findings which may be consistent with nonspecific diffuse bilateral renal cortical ischemia. Recommend clinical correlation and follow-up N.B. : The above information has been verbally conveyed by Dima Mckeon MD to RN-Jojo Nice, [facility]- In-Patient RN, on 12/21/2017 16:53:33 (ET). Electronically Signed: Dima Mckeon MD at 16:32 EDT , Service support , ADDENDUM: 12/22/[address] 12/25/17 01:31 IMPRESSION: 1. Chronic involutional changes of the brain. 2. No CT evidence of acute intracranial hemorrhage. 3. Left paramedian forehead and frontal scalp contusion and laceration. Electronically Signed: Marianela Lala MD at 3:00 EDT , Service support , Cervical Spine CT 12/25/17 02:37 IMPRESSION: 1. No CT evidence of acute compression or displaced fracture. 2. Multilevel degenerative disc disease, degenerative arthropathy and spondylosis of cervical spine with neural foraminal narrowing, as described. Electronically Signed: Marianela Lala MD at 3:28 EDT , Service support , Brain CT 12/25/17 08:59 IMPRESSION: 1. Chronic involutional changes of the brain. 2. No CT evidence of acute intracranial hemorrhage. 3. Large left paramedian forehead and frontal scalp contusion and laceration. Electronically Signed: Marianela Lala MD at 10:18 EDT , Service support , Consultations 12/25/17 09:54 Consult: Onc/Wound/software support representative Routine Comment: Reason for Consult:: LACERATIONS TO FOREHEAD Operations: None Procedures: Intubation, - - EEG Summary of Care Provided: 52-year-old male with no known past medical history admitted on 12/18/17 with unresponsiveness. According to the history given by the ED, the EMS was called by a neighbor when the patient had come to knock on the door and complained of feeling short of breath. It is reported that he was not breathing for approximately 5 minutes before they were called. They had found him lying on the back patio with a pulse of 20 and respiratory rate of 2. He was started on oxygen and given a breathing treatment and his heart rate improved in the 100s. He still remained unresponsive. Blood pressure on arrival to the ED was 90/74, heart rate is 104, temperature 98.7, he was saturating 91% on bag valve mask. Physical exam was significant for pinpoint pupils, no gag reflex,agonal respirations. He was intubated for airway protection. He went into PEA in the ED and had CPR for about 10 mins with return of spontaneous circulation. He was managed in ICU, intubated for about a week. In the ICU, he was found to have bilateral PE, started on Heparin. His Brain MRI showed diffuse bilateral cortical ischemia. EEG showed epileptiform changes, started on Keppra. He was eventually extubated and transferred to the PCU. Whilst in PCU and waiting to be discharged to a SNF, he fell whilst trying to get out of bed and sustained a left brow/temporal region laceration which had to be sutured. Patient was on Lovenox BID for PE. CT scan of brain x2 was negative for intracerebral bleed. His Keppra was increased. Patient started having left upper extremity jerking, which abates with Ativan. His Keppra was increased further. Neurology was following. On 12/26/17, whilst having an EEG done, patient was noted to have a long pause, about 13.8s on telemetry. He is said to have rolled his eyes but was alert and oriented x 3 soon after. He denied any palpitations, or dizziness. Cardiology was consulted, he was started on dopamine drip, transferred to ICU. His Keppra was increased to 2000mg po bid. Repeat EEG showed right parietal epileptiform changes. He had repeated left arm jerking which resolves with Ativan. No pauses were seen whilst on dopamine but he had intermittent bradycardia. Discharge Diet: Low fat/ Low Cholesterol, 2000 mg Sodium Diet Discharge Activity: Return to Normal Activity Home Medications: Medications to take at Discharge Amitriptyline HCl 100 mg PO QHS 12/18/17 Bupropion HCl [Wellbutrin Xl] 150 mg PO DAILY 12/18/17 Sertraline HCl [Zoloft] 50 mg PO DAILY 12/18/17 Primary Care Physician: Care Physician,No Primary [Primary Care Provider] - Please follow up with your Primary Care Physician in: within 2 weeks of discharge Disposition: Acute care Hospital Minutes spent on discharge:: 55 Patient Condition:: Stable Medical Necessity - Tobacco Use Smoking Status: Unknown if ever smoked Tobacco Use: - - could not be obtained since patient is intubated Meaningful Use Info Meaningful Use Diagnoses (Choose all that apply): None applicable Code Visit Inpatient E&M: 76831 Disch Hosp
--- NOTE | 2018-01-20 19:22 | SUR.OPER ---
Procedure Name: Laceration Repair Indication: Reduce risk of infection Location: Left forehead Pre-Procedure Diagnosis: Laceration Post-Procedure Diagnosis: Repaired Laceration Informed consent was obtained before procedure started. PROCEDURE: There were multiple lacerations to the left forehead. The biggest laceration was 3 cm long and 1 cm deep right above the left eyebrow. Another superficial laceration was in the middle forehead. The laceration above the left eye kept oozing blood and was deemed appropriate for suture given risk of infection and persistent blood lost. The laceration was severe and without suture, he would have bleed throughout the night because he bled through the pressure dressing. An appropriate timeout was taken. The area was prepped and draped in the usual sterile fashion. Local anesthesia was achieved using 5 cc of Lidocaine 1% with epinephrine [id number]. The wound was copiously irrigated. A 3-0 Nylon interrupted sutures were placed. Estimated blood loss was less than 0.5 mL. No dressing was applied to the area to allow for healing and anticipatory guidance, as well as standard post-procedure care, was explained. The patient tolerated the procedure well without complications.
== END 2017-12-28 12:40 | disposition short-term general hospital (02) | DRG 207 ==
LOC: ED 02:06 → ICU 03:11 → PCU 12-23 09:07 → ICU 12-26 12:41
PROVIDERS: Family Medicine; Hospitalist; Internal Medicine Critical Care Medicine; Psychiatry & Neurology Neurology; Admitting Provider Internal Medicine; Emergency Provider Emergency Medicine; Visit Provider Internal Medicine
DX: J96.21 Acute and chronic respiratory failure with hypoxia (principal); G93.41 Metabolic encephalopathy; I46.9 Cardiac arrest, cause unspecified; I26.99 Other pulmonary embolism without acute cor pulmonale; J69.0 Pneumonitis due to inhalation of food and vomit; N17.9 Acute kidney failure, unspecified; E87.2 Acidosis; M62.82 Rhabdomyolysis; J44.1 Chronic obstructive pulmonary disease with (acute) exacerbation; G93.1 Anoxic brain damage, not elsewhere classified; R00.1 Bradycardia, unspecified; G40.909 Epilepsy, unspecified, not intractable, without status epilepticus; F15.10 Other stimulant abuse, uncomplicated; F14.10 Cocaine abuse, uncomplicated; F12.10 Cannabis abuse, uncomplicated; J96.22 Acute and chronic respiratory failure with hypercapnia; F31.9 Bipolar disorder, unspecified; F41.9 Anxiety disorder, unspecified; F17.200 Nicotine dependence, unspecified, uncomplicated; Z66 Do not resuscitate; R13.12 Dysphagia, oropharyngeal phase; S01.81XA Laceration without foreign body of other part of head, initial encounter; W06.XXXA Fall from bed, initial encounter; Y92.230 Patient room in hospital as the place of occurrence of the external cause
CPT/HCPCS: 31500; 31720; 36415; 36600; 51702; 70450; 70551; 71045; 71275; 72125; 74018; 80048; 80053; 80061; 80069; 80177; 80202; 80307; 80320; 81001; 82140; 82550; 82803; 82962; 83605; 83735; 84100; 84443; 84478; 84484; 85025; 85027; 85610; 85730; 86703; 86704; 86705; 86706; 86708; 86709; 86803; 87040; 87070; 87086; 87205; 87340; 87641; 92507; 92526; 92950; 93005; 93306; 94002; 94003; 94640; 94660; 94770; 95819; 97110; 97161; 97165; 97530; 97535; 97802; 97803; 99285; J7030; J7040; J7050; Q9967; A4216; G0480; J3490